=== PATIENT | female | born 1955 | race Caucasian/White ===

== ENCOUNTER → 2018-02-06 16:41 | Outpatient (CLI) | payer OTHER, SELFPAY | PROVIDERS: Family Provider Internal Medicine; PCP Internal Medicine; Referring Provider Nurse Practitioner Women's Health; Visit Provider Nurse Practitioner Women's Health | DX: R30.0 Dysuria (principal) | CPT/HCPCS: 87086; 87088 ==

== ENCOUNTER → 2018-02-14 13:44 | Outpatient (CLI) | payer OTHER, SELFPAY ==
--- NOTE | 2018-02-14 13:46 | US_ITS ---
STUDY: ULTRASOUND TRANSVAGINAL CLINICAL: Female, 62 years old. Pain. TECHNIQUE: Transvaginal COMPARISON: None. FINDINGS: The uterus is anteverted and measures 8.4 x 4.4 x 4.0 cm. No uterine fibroids. Endometrial thickness 2 mm. Endometrium is hyperechoic. Nabothian cyst on the cervix. No IUD Ovaries are not visualized. There is no free fluid in the pelvis. Images of the bladder are unremarkable. US/Pelvic (Non ) IMPRESSION: Ovaries not visualized otherwise no significant abnormalities. Electronically Signed: Kyle Sadler MD at 7:54 EST , Service support ,
--- NOTE | 2018-02-14 13:46 | US_ITS ---
STUDY: ULTRASOUND TRANSVAGINAL CLINICAL: Female, 62 years old. Pain. TECHNIQUE: Transvaginal COMPARISON: None. FINDINGS: The uterus is anteverted and measures 8.4 x 4.4 x 4.0 cm. No uterine fibroids. Endometrial thickness 2 mm. Endometrium is hyperechoic. Nabothian cyst on the cervix. No IUD Ovaries are not visualized. There is no free fluid in the pelvis. Images of the bladder are unremarkable. US/Transvaginal Non- IMPRESSION: Ovaries not visualized otherwise no significant abnormalities. Electronically Signed: Kyle Sadler MD at 7:54 EST , Service support ,
== END ==
PROVIDERS: Family Provider Internal Medicine; PCP Internal Medicine; Referring Provider Nurse Practitioner Women's Health; Visit Provider Nurse Practitioner Women's Health
DX: N81.4 Uterovaginal prolapse, unspecified (principal)
CPT/HCPCS: 76830; 76856

== ENCOUNTER 2019-02-12 13:20 | Emergency (ER) | payer SELFPAY ==
[2019-01-31 11:13] VITALS: BMI 38.7
[2019-02-12 13:20] VITALS: BP 155/98; PULSE 92; RESP 17; TEMP 36.6; O2SAT 98; BMI 40.1
--- NOTE | 2019-02-12 13:57 | CT_ITS ---
STUDY: CT ABDOMEN AND PELVIS WITH CONTRAST REASON FOR EXAM: Female, 63 years old. Right flank pain with radiation. RADIATION DOSAGE (If Supplied By Facility): CTDIvol = ( 15.41 ) mGy, DLP = ( 1205.35 ) mGycm TECHNIQUE: Transaxial images were obtained from the dome of the diaphragm to the symphysis pubis without oral contrast. IV 100mL Isovue-300 100 was administered. Sagittal and coronal images were reconstructed. Individualized dose optimization techniques were used for this CT. COMPARISON: None. FINDINGS: The visualized lung bases are unremarkable. The visualized portions of the heart are within normal limits. Normal liver. The patient is status post cholecystectomy. Normal spleen. Normal pancreas. Normal bilateral adrenal glands. Normal right kidney. Normal left kidney. Normal visualized stomach. Normal small intestine. There are scattered colonic diverticula consistent with diverticulosis. The appendix is visualized and appears normal. There is scattered atherosclerotic calcification of the abdominal aorta, without a demonstrated aneurysm. Normal inferior vena cava. There is borderline retroperitoneal lymphadenopathy with enlarged nodes no greater than 10mm in the short axis diameter. Normal urinary bladder. Evidence of bilateral tubal ligation. Normal abdominal wall. Normal osseous structures. CT/Abdomen/Pelvis W IV Cont ONLY IMPRESSION: No acute abnormality is seen. Electronically Signed: Ede Barragan, at 15:18 EST , Service support ,
[2019-02-12] MEDS: 0.9% Normal Saline 1,000 ML 1000 ML IV (14:11)
[2019-02-12 14:12] LABS: Absolute Lymphocyte Count 1.46 X10^3/uL (0.83-4.51); Absolute Neutrophil Count 4.8 X10^3/uL (2.0-7.7); Basophil# 0.06 X10^3/uL; Basophil% 0.8 % (0-1); Eosinophil# 0.09 X10^3/uL; Eosinophils% 1.3 % (0-5); Hemoglobin 14.6 g/dL (12.0-15.0); Lymphocyte # 1.46 X10^3/ul (4.0); Lymphocyte % 20.5 % (19-41); Mean Corp Hgb Conc 32.4 g/dL (32-36); Mean Corpuscular Hgb 29.1 pg (27.0-32.0); Mean Corpuscular Volume 89.8 fL (81-99); Mean Platelet Vol. 11.2 fl (6.2-12.0); Monocyte# 0.69 X10^3/uL; Monocyte% 9.7 % (0-10); NRBC Flagged by Analyzer 0 % (0-5); Neutrophil % 67.4 % (47-70); Platelet Count 212 K/mm3 (150-450); RBC Distribution Width CV 12.2 % (11.6-14.6); RBC Distribution Width SD 40.2 fl (35.1-43.9); Red Blood Count 5.01 M/mm3 (4.2-5.4); White Blood Count 7.1 K/mm3 (4.4-11.0)
[2019-02-12 14:31] LABS: AST(SGOT) 15 U/L (15-37); Alanine Aminotransfer ALT/SGPT 26 U/L (13-56); Albumin, Serum 4.1 g/dL (3.2-5.0); Alkaline Phosphatase 169 U/L (45-117); Anion Gap 6 (5-15); BUN 12 mg/dL (7-18); BUN/Creat Ratio 14.1 RATIO (10-20); Calcium,Total 9.3 mg/dL (8.5-10.1); Chloride 104 mmol/L (98-107); Creatinine, Serum 0.85 mg/dL (0.55-1.02); EST Glomerular Filtration Rate 72 mL/min (>60); Est Glom Filt Rate - Afr Amer 87 mL/min (>60); Estimated Creatinine Clearance 62.54 ml/min; Globulin 4.1 g/dL (2.2-4.2); Glucose 84 mg/dL (74-106); Lipase 82 U/L (73-393); Potassium 3.5 mmol/L (3.5-5.1); Protein, Total 8.2 g/dL (6.4-8.2); Sodium Level 139 mmol/L (136-145)
[2019-02-12 14:55] LABS: Bacteria 0 SEEN /hpf (None Seen); Mucous, Urine 0 SEEN /hpf (<or=2+); Red Blood Cells-Urine 0 SEEN /hpf (0-5); Squamous Epithelial Cells - UA 0 SEEN /hpf (5-10)
[2019-02-12 15:00] LABS: Color, Urine Yellow (Yellow); Urine Clarity Clear (Clear)
--- NOTE | 2019-02-12 15:04 | ED.VIS.GEN ---
History of Present Illness Chief Complaint: Flank Pain Informant: Patient Onset: Days Context: Gradual Onset Timing: Intermittent Current Severity: Moderate Maximum Severity: Moderate Narrative: The patient presents to the emergency department with right flank pain. She states she has a known lipoma. She actually had it surgically removed. She states she feels like it is returning. Over the past 2 weeks, she is had a lot of pain across her back that radiates into her upper abdomen. She denies any nausea or vomiting. She denies any fevers or chills. Patient states that she did have similar symptoms before. She has no history of kidney stone. She denies any fevers or chills. She is concerned because from family history of pancreatic cancer and states that these were how it presented her family. Prior similar symptoms: No Recent Illness/Hospitalization: No Past Medical History - Allergies and Home Meds Allergies/Adverse Reactions: Allergies acetaminophen [From Darvocet-N 100] Adverse Reaction (Verified 02/12/19 13:23) Nausea amoxicillin [From Augmentin] Adverse Reaction (Verified 02/12/19 13:23) Nausea aspirin [From Percodan] Adverse Reaction (Verified 02/12/19 13:23) Nausea clavulanic acid [From Augmentin] Adverse Reaction (Verified 02/12/19 13:23) Nausea oxycodone [From Percodan] Adverse Reaction (Verified 02/12/19 13:23) Nausea propoxyphene [From Darvocet-N 100] Adverse Reaction (Verified 02/12/19 13:23) Nausea Primary Care Physician: Elver Laws MD [Primary Care Provider] - Prior records reviewed: Yes Surgical History: - Smoking Status: Never smoker Review of Systems ROS: - Lipoma removal General: Denies: Chills, Fever, Sweats Eyes: Denies: Visual changes - bilaterally, Diplopia ENT: Denies: Rhinorrhea, Sore throat Cardiovascular: Denies: Chest pain, Palpitations Respiratory: Denies: Dyspnea, Cough, Dyspnea on exertion Gastrointestinal: Reports: Abdominal pain. Denies: Nausea, Vomiting, Diarrhea, Melena, Hematochezia Genitourinary: Denies: Dysuria, Hematuria, Frequency Musculoskeletal: Reports: Back pain. Denies: Extremity Pain Skin: Denies: Rash, Wounds Neurological: Denies: Headache, Weakness, Numbness Physical Exam Vital Signs/Narrative: Vital Signs Temp Pulse Resp BP Pulse Ox 02/12/19 13:20 97.8 F 92 17 155/98 H 98 Inital Vital Signs reviewed: Yes General: Well nourished, Well developed, No Acute Distress Head: Normocephalic, Atraumatic Eyes: Perrl, EOMI ENT: Moist mucous membranes, No rhinorrhea Neck: Supple, Nontender Cardiovascular: Regular rate, Regular rhythm, No murmurs Respiratory: No distress, CTA bilaterally, Chest nontender Abdomen: Soft, Nontender, Nondistended, Normal bowel sounds Back: Normal Inspection, - - Tenderness and right-sided lipoma. No erythema. No rash. No fluctuance. Extremities: Nontender, No edema Skin: Normal color, No rash Neurological: Alert, Oriented x3, Cranial nerves II-XII grossly intact, Normal Strength, Normal Sensation Psychological: Normal affect, Normal Mood Diagnostic/Tx/Re-eval Clinical Impression(s) from Imaging Studies Abdomen/Pelvis CT 02/12/19 13:57 IMPRESSION: No acute abnormality is seen. Electronically Signed: Ede Barragan, at 15:18 EST , Service support , Abnormal Lab Results 02/12/19 02/12/19 02/12/19 14:05 14:05 14:50 WBC 7.1 RBC 5.01 Hgb 14.6 Hct 45.0 MCV 89.8 MCH 29.1 MCHC 32.4 RDW Std Deviation 40.2 RDW Coeff of Aliza 12.2 Plt Count 212 MPV 11.2 Immature Gran % (Auto) 0.300 Neut % (Auto) 67.4 Lymph % (Auto) 20.5 Mesa % (Auto) 9.7 Eos % (Auto) 1.3 Baso % (Auto) 0.8 Absolute Neuts (auto) 4.8 Absolute Lymphs (auto) 1.46 Nucleated RBC % 0 Sodium 139 Potassium 3.5 Chloride 104 Carbon Dioxide 29.0 Anion Gap 6 BUN 12 Creatinine 0.85 Estim Creat Clear Calc 62.54 Est GFR (MDRD) Af Amer 87 Est GFR (MDRD) Non-Af 72 BUN/Creatinine Ratio 14.1 Glucose 84 Calcium 9.3 Total Bilirubin 0.50 AST 15 ALT 26 Alkaline Phosphatase 169 H Total Protein 8.2 Albumin 4.1 Globulin 4.1 Albumin/Globulin Ratio 1.0 Lipase 82 Urine Color Yellow Urine Clarity Clear Urine pH 7.0 Ur Specific [place] 1.005 Urine Protein NEGATIVE Urine Glucose (UA) Normal Urine Ketones Negative Urine Occult Blood Negative Urine Nitrite NEGATIVE Urine Bilirubin Negative Urine Urobilinogen Normal Ur Leukocyte Esterase NEGATIVE Urine RBC 0 SEEN Urine WBC 0-5 SEEN Ur Squamous Epith Cells 0 SEEN Urine Bacteria 0 SEEN Urine Mucus 0 SEEN - Medical Decision Making The patient presents with right flank pain that radiates around to her upper abdomen. She does have a lipoma that is freely mobile. There was no skin change. Screen labs were obtained and were unremarkable. Urine shows no evidence of infection. CT does not show any acute intra-abdominal abnormality. Her pancreas is normal. On reevaluation, the patient is resting comfortably. My suspicion is more for a muscular process. She does not want analgesics. The patient was reassured. At this point I do feel that she is safe for outpatient therapy. She is comfortable with this plan of care and will be discharged home. Impression 1. Right flank pain ED Disposition - Plan for ED Patient: Instructions: FLANK PAIN, Uncertain Cause Referrals: Elver Laws MD [Primary Care Provider] -
[2019-02-12 15:09] LABS: White Blood Cells 0-5 SEEN /hpf (0-5)
[2019-02-12 15:26] LABS: Glucose, Dipstick Normal (Normal); Ketone-Dipstick Negative (Negative); Specific Gravity, Urine 1.005 (1.002-1.030); Urine Bilirubin Dipstick Negative (Negative)
[2019-02-12 15:27] LABS: Nitrite-Dipstick NEGATIVE (Negative); Protein-Dipstick NEGATIVE (Negative); Urine Urobilinogen Normal (Normal)
[2019-02-12 15:28] LABS: Leukocyte Esterase-Dipstick NEGATIVE /ul (Negative); Occult Blood-Urine Negative /ul (Negative)
[2019-02-12 16:30] VITALS: BP 141/87; PULSE 86; RESP 16; O2SAT 99
== END 2019-02-12 16:31 | disposition home or self-care (01) ==
LOC: ED 13:59
PROVIDERS: Emergency Provider Emergency Medicine; Family Provider Internal Medicine; PCP Internal Medicine
DX: R10.9 Unspecified abdominal pain (principal); Z88.0 Allergy status to penicillin; Z88.5 Allergy status to narcotic agent; Z88.6 Allergy status to analgesic agent
CPT/HCPCS: 74177; 80053; 81001; 83690; 85025; 96360; 99285; J7030; Q9967; A4216

== ENCOUNTER → 2019-08-14 11:17 | Outpatient (CLI) | payer SELFPAY ==
[2019-07-10 10:18] VITALS: BMI 40.1
--- NOTE | 2019-08-14 11:19 | RAD_ITS ---
STUDY: X-RAY - RIGHT HAND REASON FOR EXAM: Female, 63 years old. Painful wrist and into hand since june TECHNIQUE: 3 view(s) of the hand. COMPARISON: None. FINDINGS: Normal radiocarpal articulation. Normal distal radioulnar joint. Normal visualized carpal bones. Normal carpal articulations Normal carpometacarpal articulation of the thumb. Normal second through fifth carpometacarpal joints. Normal metacarpi. Normal metacarpophalangeal joint of the thumb. Normal interphalangeal joint of the thumb. Normal proximal and distal phalanges of the thumb. Normal metacarpophalangeal joints of the second through fifth fingers. Normal proximal and distal interphalangeal joints of the second through fifth fingers. Normal phalanges of the second through fifth fingers. The soft tissue structures are unremarkable. RAD/Hand Min 3 Views IMPRESSION: Normal x-ray examination of the hand. Electronically Signed: Ede Barragan, at 13:52 EDT , Service support ,
[2019-08-14 12:36] LABS: Hemoglobin A1c 6.1 % (4.2-6.3)
[2019-08-14 12:44] LABS: Cholesterol 216 mg/dL (200); High Density Lipoprotein 53 mg/dL; Triglycerides 169 mg/dL; Very Low Density Lipoprotein 34 mg/dL (5-40)
== END ==
PROVIDERS: PCP Internal Medicine; Referring Provider Internal Medicine; Visit Provider Internal Medicine
DX: M65.4 Radial styloid tenosynovitis [de Quervain] (principal); M25.531 Pain in right wrist; I10 Essential (primary) hypertension; R73.03 Prediabetes
CPT/HCPCS: 36415; 73130; 80061; 83036

== ENCOUNTER → 2020-01-09 11:17 | Outpatient (CLI) | payer SELFPAY ==
[2019-12-11 10:55] VITALS: BMI 40.1
[2020-01-09 10:57] VITALS: BMI 40.1
--- NOTE | 2020-01-09 11:21 | BI_ITS ---
MAMMOGRAPHY - BILATERAL SCREENING REASON FOR EXAM: Female, 64 years old. Routine annual screening examination. PERTINENT HISTORY: Non-contributory. TECHNIQUE: Digital bilateral breast giuseppe (3D mammographic acquisition) in the CC and MLO projections. 2-D mediolateral oblique (MLO) and craniocaudad (CC) views of both breasts were obtained. CAD: Full Field Digital Mammography with Computer Added Detection was performed. COMPARISON: Comparison is made with prior study dated 01/04/2017. FINDINGS: Breast Composition: The breasts are almost entirely fatty. There are no dominant masses or suspicious calcifications. Stable small benign appearing bilateral axillary lymph nodes. No other significant abnormalities are identified. There has been no significant change since the prior study. BI/SCREEN MAMM (CAD) W/GIUSEPPE BILAT IMPRESSION: Stable bilateral screening mammogram. Yearly follow-up mammogram recommended. (A) ASSESSMENT CATEGORY: BIRADS Category 2: Benign. A letter regarding these results will be sent to the patient by the facility within 30 days. Approximately 10% of breast cancers are not detected by mammography. A normal mammogram should not delay biopsy of a clinically suspicious abnormality. [id number] Electronically Signed: Ede Barragan, at 12:39 EDT , Service support ,
== END ==
PROVIDERS: PCP Internal Medicine; Referring Provider Nurse Practitioner Women's Health; Visit Provider Nurse Practitioner Women's Health
DX: Z12.31 Encounter for screening mammogram for malignant neoplasm of breast (principal)
CPT/HCPCS: 77063; 77067

== ENCOUNTER → 2020-02-26 17:28 | Outpatient (CLI) | payer MEDICARE, SELFPAY ==
[2020-01-09 10:57] VITALS: BMI 40.1
== END ==
PROVIDERS: PCP Internal Medicine; Referring Provider Internal Medicine; Visit Provider Internal Medicine
DX: Z20.828 Contact with and (suspected) exposure to other viral communicable diseases (principal)
CPT/HCPCS: 87635; C9803; U0003

== ENCOUNTER → 2020-03-14 10:46 | Outpatient (CLI) | payer SELFPAY ==
[2020-03-14 09:51] VITALS: BMI 39.9
--- NOTE | 2020-03-14 11:44 | RAD_ITS ---
STUDY: X-RAY - RIGHT KNEE REASON FOR EXAM: Female, 64 years old. right knee pain, complains of sciatica. TECHNIQUE: 4 view(s) of the knee. COMPARISON: None. FINDINGS: Normal visualized distal femur. Normal visualized proximal tibia and fibula. Normal proximal tibiofibular articulation. Normal medial femorotibial compartment. Normal lateral femorotibial compartment. Normal patellofemoral articulation. The soft tissue structures are unremarkable. RAD/Knee 4 or More Views IMPRESSION: Normal x-ray examination of the knee. Electronically Signed: Augusto Bo MD at 17:12 EST Tel , Service support ,
--- NOTE | 2020-03-14 11:44 | RAD_ITS ---
STUDY: X-RAY - LEFT KNEE REASON FOR EXAM: Female, 64 years old. left knee pain for 3 weeks, complains of sciatica. TECHNIQUE: 4 view(s) of the knee. COMPARISON: None. FINDINGS: Normal visualized distal femur. Normal visualized proximal tibia and fibula. Normal proximal tibiofibular articulation. Normal medial femorotibial compartment. Normal lateral femorotibial compartment. Normal patellofemoral articulation. The soft tissue structures are unremarkable. RAD/Knee 4 or More Views IMPRESSION: Normal x-ray examination of the knee. Electronically Signed: Augusto Bo MD at 17:11 EST Tel , Service support ,
--- NOTE | 2020-03-14 11:50 | RAD_ITS ---
STUDY: X-RAY - LUMBAR SPINE REASON FOR EXAM: Female, 64 years old. lower back pain x 3-4 months. TECHNIQUE: 5 view(s) of the lumbar spine were obtained. COMPARISON: None FINDINGS: Normal lumbar lordosis. There is no substantial scoliosis. There is a normal alignment of the vertebrae. Normal vertebral bodies and endplates. Normal disc space heights. The soft tissue structures are unremarkable. RAD/L/S Spine Min 4 Views IMPRESSION: Normal x-ray examination of the lumbar spine. Electronically Signed: Augusto Bo MD at 17:58 EST Tel , Service support ,
[2020-03-14 13:00] LABS: Absolute Lymphocyte Count 1.26 X10^3/uL (0.83-4.51); Absolute Neutrophil Count 3.5 X10^3/uL (2.0-7.7); Basophil# 0.05 X10^3/uL; Basophil% 0.9 % (0-1); Eosinophil# 0.07 X10^3/uL; Eosinophils% 1.3 % (0-5); Hematocrit 46.3 % (37-47); Hemoglobin 14.7 g/dL (12.0-15.0); Lymphocyte # 1.26 X10^3/ul (4.0); Lymphocyte % 22.9 % (19-41); Mean Corp Hgb Conc 31.7 g/dL (32-36); Mean Corpuscular Hgb 28.9 pg (27.0-32.0); Mean Platelet Vol. 12.2 fl (6.2-12.0); Monocyte# 0.66 X10^3/uL; NRBC Flagged by Analyzer 0 % (0-5); Neutrophil # 3.45 X10^3/uL (2.7-7.7); Neutrophil % 62.5 % (47-70); Platelet Count 217 K/mm3 (150-450); RBC Distribution Width CV 12.4 % (11.6-14.6); RBC Distribution Width SD 41.5 fl (35.1-43.9); Red Blood Count 5.09 M/mm3 (4.2-5.4); White Blood Count 5.5 K/mm3 (4.4-11.0)
[2020-03-14 13:16] LABS: ALB/GLOB Ratio 1.1 RATIO (0.9-2.4); AST(SGOT) 18 U/L (15-37); Alanine Aminotransfer ALT/SGPT 33 U/L (13-56); Alkaline Phosphatase 168 U/L (45-117); Anion Gap 5 (5-15); BUN 20 mg/dL (7-18); BUN/Creat Ratio 21.8 RATIO (10-20); Calcium,Total 9.3 mg/dL (8.5-10.1); Chloride 107 mmol/L (98-107); Creatinine, Serum 0.92 mg/dL (0.55-1.02); EST Glomerular Filtration Rate 66 mL/min (>60); Est Glom Filt Rate - Afr Amer 80 mL/min (>60); Globulin 3.8 g/dL (2.2-4.2); Glucose 101 mg/dL (74-106); Potassium 4.2 mmol/L (3.5-5.1); Protein, Total 7.8 g/dL (6.4-8.2); Sodium Level 140 mmol/L (136-145)
== END ==
LOC: BIMLAB 10:47 → RAD 11:16
PROVIDERS: PCP Internal Medicine; Referring Provider Internal Medicine; Visit Provider Internal Medicine
DX: M25.561 Pain in right knee (principal); M25.562 Pain in left knee; M54.16 Radiculopathy, lumbar region; I10 Essential (primary) hypertension
CPT/HCPCS: 36415; 72110; 73564; 80053; 85025

== ENCOUNTER → 2020-05-20 16:42 | Outpatient (CLI) | payer SELFPAY ==
[2020-04-15 11:12] VITALS: BMI 40.2
--- NOTE | 2020-05-20 16:43 | MRI_ITS ---
STUDY: MRI LEFT KNEE REASON FOR EXAM: Posterior left knee pain for 3.5-4 months. TECHNIQUE: Standardized fat and water weighted pulse sequences were obtained in all 3 orthogonal planes. COMPARISON: Radiographs 03/14/2020. FINDINGS: There is a complex tear of the posterior horn of the medial meniscus (proton-density sagittal images 9-16; T2 coronal images 14, 15). There is mild peripheral subluxation of the medial meniscus. Normal hyaline cartilage of the medial femorotibial compartment. There is slight subchondral bone edema of the medial tibial plateau. Normal medial collateral ligamentous complex (MCL). Normal distal semimembranosus, gracilis and semitendinosus tendons. Normal lateral meniscus. Normal hyaline cartilage of the lateral femorotibial compartment. Normal lateral femoral condyle and tibial plateau. Normal proximal tibiofibular articulation. Normal lateral collateral (fibular) ligament. Normal popliteus tendon. Normal biceps femoris tendon. There is intrasubstance mucoid degeneration of the anterior cruciate ligament (T2 sagittal image 13). Normal posterior cruciate ligament (PCL). Normal congruent patellofemoral articulation. Normal hyaline cartilage of the patellofemoral compartment. Normal medial and lateral patellar retinaculum. Normal visualized quadriceps tendon. Normal patellar tendon. Normal Hoffa''s fat pad. There is a small joint effusion. There is mild edema in the subcutis adipose space. The otherwise visualized osseous structures are unremarkable. MRI/Lower Ext Joint Only (Routine) IMPRESSION: Medial meniscal tear. Small joint effusion. No demonstrated popliteal cyst. Electronically Signed: Nestor Carrera MD at 8:35 EST Tel , Service support ,
== END ==
PROVIDERS: PCP Internal Medicine; Referring Provider Orthopaedic Surgery; Visit Provider Orthopaedic Surgery
DX: M25.562 Pain in left knee (principal); M71.22 Synovial cyst of popliteal space [Baker], left knee; M79.10 Myalgia, unspecified site
CPT/HCPCS: 73721

== ENCOUNTER 2020-06-10 05:37 | Day surgery (SDC) | payer SELFPAY ==
[2020-04-15 11:12] VITALS: BMI 40.2
--- NOTE | 2020-06-09 15:45 | HP.PCM_ITS ---
History and Physical Date of Admission: 06/09/20 Intake Intake Visit Reasons: knee Chief Complaint: left knee Accompanied by: Self Is patient in pain?: Yes Pain scale (1-10): 5 Allergies acetaminophen [From Darvocet-N 100] Adverse Reaction (Verified 05/26/20 10:37) Nausea amoxicillin [From Augmentin] Adverse Reaction (Verified 05/26/20 10:37) Nausea aspirin [From Percodan] Adverse Reaction (Verified 05/26/20 10:37) Nausea clavulanic acid [From Augmentin] Adverse Reaction (Verified 05/26/20 10:37) Nausea oxycodone [From Percodan] Adverse Reaction (Verified 05/26/20 10:37) Nausea propoxyphene [From Darvocet-N 100] Adverse Reaction (Verified 05/26/20 10:37) Nausea Medications calcium carbonat and lactate 200 mg calcium-vitamin D3 250 unit tablet 2 tab PO HS 05/12/17 [History Confirmed 05/26/20] fluticasone furoate 100 mcg-vilanterol 25 mcg/dose inhalation powder 1 inh INHALATION DAILY 90 Days #90 ea 06/20/19 [Rx Confirmed 05/26/20] albuterol sulfate 90 mcg/actuation aerosol inhaler 2 puff INHALATION Q6H PRN #8.5 g 07/09/19 [Rx Confirmed 05/26/20] albuterol sulfate 2.5 mg INHALATION Q6H PRN #90 ml 07/10/19 [Rx Confirmed 05/26/20] estradiol See Rx Instructions VAGINAL .COMPLEX #42.5 g 12/11/19 [Rx Confirmed 05/26/20] triamterene 37.5 mg-hydrochlorothiazide 25 mg tablet 1 tab PO DAILY #90 tab 01/30/20 [Rx Confirmed 05/26/20] clobetasol 0.05 % topical cream 1 applic TOPICAL .COMPLEX PRN g 03/14/20 [History Confirmed 05/26/20] mv-min-vit C-ascorb Sw-Jbg-Mah-herb #124 333 mg-1.7 mg chewable tablet tab PO 03/19/20 [History Confirmed 05/26/20] amlodipine 5 mg tablet 5 mg PO DAILY #90 tab 04/15/20 [Rx Confirmed 05/26/20] meloxicam 15 mg tablet 15 mg PO DAILY 05/14/20 [History Confirmed 05/26/20] [facility] Medical History (Updated 05/26/20 @ 10:53 by Irene Mauro) Chronic knee pain (Chronic) Trigeminal neuralgia (Chronic) Hyperlipemia (Chronic) Borderline hypertension (Chronic) Osteoarthritis (Chronic) Fibromyalgia (Chronic) Asthma (Chronic) Surgical History History of arthroscopy of right knee (Acute) History of cholecystectomy (Acute) History of colonoscopy (Acute) History of tubal ligation (Acute) Family History Mother Cancer, Onset Age: 58 pancreatic Diabetes Father Cancer, Onset Age: 70 pancreatic, passed of it Hypertension Grandfather Heart disease Hypertension Brother Diabetes Hypertension Uncle Colon cancer Social History (Updated 05/26/20 @ 11:[address] Tommy Mendez DO) Smoking Status: Never smoker alcohol intake: never substance use type: does not use caffeine: Yes what type of physical activity do you participate in: walking frequency: 3-4 times per week seatbelt use: always do you feel safe at home: Yes additional social history: [employer]- Retired Patient is retired HPI knee: Details: Parts of this documentation were recorded by a scribe, this documentati on accurately reflects the service provided and the decisions made by me, Dr. Tommy Mendez DO 05/26/20 0749. ROSEANNE JOLLEY is a 64 year old F here today for follow up of MRI. MRI of left knee was done: 05/20/2020. Patient reports the same pain with her left knee. Pain is rated: 5/10 from the pain scale. Patient reports tightness with her hamstrings. Patient states she did not have pain with her left knee until she had PT for her right knee years back. Patient has been taking meloxicam for pain relief. She continues to have mostly posterior lateral pain however she is unsure of the exact location as she does not feel she plays specific enough attention to it although she denies any mechanical symptoms still including any snapping popping or giving way ROS Musc Reports system reviewed and no additional complaints, except as docu, Reports joint pain, Reports stiffness Ortho Exam General General: Yes no acute distress Neurologic: Yes alert Psychologic: Yes reasonable and appropriate Left Knee KNEE: click with medial Aldo Left Knee KNEE: Left Knee Skin/Wound: No ecchymosis, No erythema, No swelling Homans Sign: No Knee ROM: Yes ROM-Extension -20 to 0, Yes ROM-Flexion 0-140 Examination: No med jt line tenderness, No Lat jt line tenderness, No Aldo's Test Stability: NML: Anterior Drawer, NML: Posterior Drawer, NML: Valgus 30, NML: Varus 30 Apprehension with Lateral Translation: No Patella Translation: 1 mild tenderness over lateral gas troch non tender over biceps femoris collaterals normal without pain She does have lower extremity edema bilaterally and stiff this of her gastrocsoleus complex lateral gastrocnemius tenderness Supplemental Info 05/20/2020 MRI Left knee: Complex tear posterior horn medial meniscusSmall joint effusion 03/14/2020 x-ray left knee: mild lateral patellar tracking no acute findings Assessment & Plan Problems 1. Complex tear of medial meniscus of left knee, unspecified whether old or current tear, initial encounter S83.162Q Plan Personally reviewed the patient's medical history, medications, surgeries and recent exams if available. MRI does show a Medial meniscus tear on her left knee. MRI does not show any Guo's cyst or soft tissue tumor We discussed risk benefits and alternatives of surgery as her symptoms are mostly lateral and her meniscus tear is medial the risk of continued pain is a possibility Discussed continued conservative care as an option as well physical therapy and weight loss and continued NSAID use. Patient could begin wearing SWETA Hose/compression stockings for her pitting edema. Explained patient can perform stretches for her Calves to help with her feeling of stiffness. Patient can also work out with a Recumbant bike, leg extension and leg curls. Discussed increased risk of post meniscal tear arthritis Regardless of treatmentPatient is able to take Tylenol, up to 1,000mg four times a day for pain relief. Recovery time is 4-6 weeks or longer, she does have Fibromyalgia. Patient will ambulate with crutches for a few days post-op. Patient would like to proceed with surgery after speaking to her spouse. Plan Detail Follow Up post-op Coding Level of Care Code Off vis,est,level 3 Diagnoses Complex tear of medial meniscus of left knee, unspecified whether old or current tear, initial encounter S83.800C ??Encounter type: initial encounter ??Meniscus of knee: medial ??Meniscus tear of knee type: complex ??Tear current or old: unspecified I have re-examined the patient. There are no clinical changes since date of exam Procedure Criteria Procedure Type: Elective COVID Risk Discussion: The surgeon/proceduralist and patient have discussed in detail the risk of exposure to and/or potential harm posed by the COVID-19 virus with having a surgery/procedure at this time versus the risk of delaying the surgery/procedure. It is not possible to know either the risk of delaying the surgery or procedure or chance of getting an infection with perfect accuracy, but a joint decision was made between the patient and the surgeon/proceduralist to proceed at this time with the scheduled surgery/procedure as indicated on the consent form.
[2020-06-10] VITALS (7 sets, daily range): BP systolic 124–152; BP diastolic 72–89; PULSE 72–96; RESP 16–18; TEMP 36.2–36.7; O2SAT 93–100; BMI 40.7
[2020-06-10] MEDS: Lactated Ringers 1,000 ML 100 ML IV ×2 (06:45→08:32)
[2020-06-10] MEDS: Cefazolin 2 GM in 0.9% Normal Saline 100 ML IV (07:03)
[2020-06-10] MEDS: Bupiv/Epi 0.5% Mpf 30 ML Vial (07:28)
[2020-06-10] MEDS: Epinephrine (1 mg/ml) 1 MG/ML VIAL (07:28)
[2020-06-10] MEDS: MethylPREDNISolone Acetate 40 MG/ML Vial IM (07:48)
[2020-06-10] MEDS: morphine PF (epidural) 5 MG/10 ML Vial (07:48)
[2020-06-10] MEDS: Bupivacaine Mpf 0.5% 30 ML VIAL (07:48)
--- NOTE | 2020-06-10 07:52 | DCINST_ITS ---
Discharge Diet: No Restrictions Weight Bearing Status: Weight bearing as tolerated Call your doctor if you observe: Shortness of breath, Chest pain Additional Instructions: Ice and elevate next 72 hours .keep dressing on clean and dry for 48 hours then may remove begin showering daily but do not submerge in tub or pool. After shower may apply Band-Aids . Encourage knee range of motion weightbearing as tolerated, use crutches until confident in knee then may discontinue. No stren uous activity. When not ambulating keep iced and elevated next 72 hours. Do not mix pain medication with recreational drugs or alcohol only take as prescribed can be addictive and abusive, call with any questions or concerns. Allergies/Adverse Reactions: Allergies amoxicillin [From Augmentin] Adverse Reaction (Verified 05/26/20 10:37) Nausea clavulanic acid [From Augmentin] Adverse Reaction (Verified 05/26/20 10:37) Nausea oxycodone [From Percodan] Adverse Reaction (Verified 05/26/20 10:37) Nausea propoxyphene [From Darvocet-N 100] Adverse Reaction (Verified 05/26/20 10:37) Nausea Medications to take at Discharge calcium carbonat and lactate 200 mg calcium-vitamin D3 250 unit tablet 2 tab PO HS 05/12/17 albuterol sulfate 90 mcg/actuation aerosol inhaler 2 puff INHALATION Q6H PRN #8.5 g 07/09/19 estradiol See Rx Instructions VAGINAL .COMPLEX #42.5 g 12/11/19 mv-min-vit C-ascorb Gy-Gsg-Len-herb #124 333 mg-1.7 mg chewable tablet 1 tab PO DAILY 03/19/20 meloxicam 15 mg tablet 15 mg PO DAILY 05/14/20 triamterene 37.5 mg-hydrochlorothiazide 25 mg tablet 1 tab PO DAILY #90 tab 06/04/20 Amlodipine Besylate [Norvasc] 5 mg PO DINNER 06/10/20 Fluticasone/Vilanterol [Breo Ellipta Inhaler] 1 ea IH DAILY 06/10/20 Hydrocodone Bitart/Apap 5-325 [[place] 5MG-325MG] 1 - 2 tablet PO Q4H PRN PRN 5 Days #30 tablet 06/10/20 Ondansetron HCl [Zofran] 4 mg PO Q6H PRN PRN 5 Days #20 tab 06/10/20 The following prescriptions were given: Hydrocodone Bitart/Apap 5-325 [[place] 5MG-325MG] 1 - 2 tablet PO Q4H PRN PRN 5 Days #30 tablet PRN Reason: Pain Transmission Status: Sent to [facility] Ondansetron HCl [Zofran] 4 mg PO Q6H PRN PRN 5 Days #20 tab PRN Reason: Nausea Transmission Status: Pending to [facility] Primary Care Physician: Elver Laws MD [Primary Care Provider] - Test Results: Test results from this visit will be discussed in further detail at your follow- up appointment, if applicable. Please Follow Up With: Tommy Mendez DO - 2 weeks
[2020-06-10] MEDS: HYDROcodone Bitartrate/Apap 5/325 Tablet PO (09:40)
--- NOTE | 2020-06-10 09:47 | OP.PCM_ITS ---
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 Risk benefits and alternatives of the procedure were reviewed including risk of bleeding infection nerve artery tissue damage need for further surgery continued pain and expected postoperative course. Procedure: The patient was met in the preoperative holding area. The operative extremity was identified by both patient and physician and family and marked. Patient was brought back to the operating room on a wheeled cart and transferred to the operating table in the supine position. Anesthesia was started. A well- padded tourniquet was placed on the operative extremity. A lower extremity leg ferguson was secured to the operative extremity. The contralateral extremity was well-padded and the end of the bed was flexed to 90 degrees. The patient was prepped and draped in the usual sterile fashion. A timeout was called to ensure the proper patient, procedure, and extremity were being contemplated. 0.5% Marcaine with epinephrine was injected into the planned incisional areas under the skin only. An Esmarch was used to exsanguinate the extremity and the tourniquet was inflated. An 11 blade scalpel was used to make a stab incision in the anterior lateral portal. The arthroscope was inserted into the intercondylar notch and inflow and outflow tubes were attached. Arthroscopic visualization began. The medial compartment was entered. An 18-gauge spinal needle was used to establish the placement for anterior medial portal. An 11 blade scalpel was used to make a stab incision. Blunt probe was inserted followed by a meniscal probe. The medial meniscus was found to have complex tearing of the posterior horn and body and with use of arthroscopic biting instruments and a shaver a partial medial meniscectomy was performed there was also loose cartilage fragments of the medial femoral condyle which were debrided with a shaver performing a chondroplasty the ACL was found to be intact. The lateral compartment was entered and it was free of any meniscal or cartilage pathology The arthroscope was switched to the medial portal to complete the procedure. The medial and lateral gutters were inspected and were free of loose bodies. The patellofemoral joint was inspected and had grade 3 cartilage wear of the undersurface of the patella. There was good patellar tracking. The knee was thoroughly irrigated and drained. An intra-articular injection with 5 cc 0.5% Marcaine plain 2.5 mg of morphine and 40 mg of Depo-Medrol was injected intra-articularly. The arthroscope was removed the portals were closed with 3-0 nylon arthroscopic stitches. Followed by Xeroform 4 x 4's ABDs web roll and an Ezequiel wrap. The tourniquet was let down and the drapes were removed. All counts were correct. The patient was brought back to the PACU in stable condition.
== END 2020-06-10 10:38 | disposition home or self-care (01) ==
LOC: SDC 05:38 → AC 05:38
PROVIDERS: PCP Internal Medicine; Referring Provider Orthopaedic Surgery; Visit Provider Orthopaedic Surgery
PROC: (CPT 29870; principal; 2020-06-10 06:55)
DX: S83.232A Complex tear of medial meniscus, current injury, left knee, initial encounter (principal); M22.42 Chondromalacia patellae, left knee; X58.XXXA Exposure to other specified factors, initial encounter; Y93.9 Activity, unspecified; Y92.9 Unspecified place or not applicable; Y99.9 Unspecified external cause status; Z20.822 Contact with and (suspected) exposure to COVID-19; M79.7 Fibromyalgia; R03.0 Elevated blood-pressure reading, without diagnosis of hypertension; J45.909 Unspecified asthma, uncomplicated; Z78.0 Asymptomatic menopausal state; Z79.1 Long term (current) use of non-steroidal anti-inflammatories (NSAID); Z79.899 Other long term (current) drug therapy
CPT/HCPCS: 01400; 29881; 87426; C9803; J7120; J2405

== ENCOUNTER → 2020-07-30 11:10 | Outpatient (CLI) | payer SELFPAY ==
[2020-07-30 10:50] VITALS: BMI 40.4
[2020-07-30 14:34] LABS: Anion Gap 5 (5-15); BUN 19 mg/dL (7-18); BUN/Creat Ratio 20.7 RATIO (10-20); Calcium,Total 9.4 mg/dL (8.5-10.1); Chloride 106 mmol/L (98-107); Creatinine, Serum 0.92 mg/dL (0.55-1.02); EST Glomerular Filtration Rate 66 mL/min (>60); Est Glom Filt Rate - Afr Amer 80 mL/min (>60); Glucose 92 mg/dL (74-106); Potassium 4.1 mmol/L (3.5-5.1); Sodium Level 139 mmol/L (136-145)
== END ==
PROVIDERS: PCP Internal Medicine; Referring Provider Internal Medicine; Visit Provider Internal Medicine
DX: I10 Essential (primary) hypertension (principal)
CPT/HCPCS: 36415; 80048

== ENCOUNTER → 2020-11-12 | Outpatient (CLI) | payer MEDICARE, SELFPAY ==
[2020-11-05 13:05] VITALS: BMI 40.4
[2020-11-12 17:46] LABS: Probe Check PASS
== END | disposition home or self-care (01) ==
LOC: LABSPEC 16:09
PROVIDERS: PCP Internal Medicine; Referring Provider Nurse Practitioner Family; Visit Provider Nurse Practitioner Family
DX: U07.1 COVID-19 (principal)
CPT/HCPCS: 87635; U0005; U0003

== ENCOUNTER → 2020-12-29 16:14 | Outpatient (CLI) | payer SELFPAY ==
[2020-12-29 16:41] LABS: Absolute Lymphocyte Count 1.32 X10^3/uL (0.83-4.51); Absolute Neutrophil Count 4.2 X10^3/uL (2.0-7.7); Basophil# 0.05 X10^3/uL; Basophil% 0.8 % (0-1); Eosinophil# 0.11 X10^3/uL; Eosinophils% 1.7 % (0-5); Hematocrit 44.8 % (37-47); Hemoglobin 14.4 g/dL (12.0-15.0); Lymphocyte # 1.32 X10^3/ul (0.83-4.51); Lymphocyte % 20.1 % (19-41); Mean Corp Hgb Conc 32.1 g/dL (32-36); Mean Corpuscular Volume 90.1 fL (81-99); Mean Platelet Vol. 11.6 fl (6.2-12.0); Monocyte# 0.85 X10^3/uL; Monocyte% 12.9 % (0-10); NRBC Flagged by Analyzer 0 % (0-5); Neutrophil # 4.23 X10^3/uL (2.7-7.7); Neutrophil % 64.2 % (47-70); Platelet Count 237 K/mm3 (150-450); RBC Distribution Width CV 12.8 % (11.6-14.6); Red Blood Count 4.97 M/mm3 (4.2-5.4); White Blood Count 6.6 K/mm3 (4.4-11.0)
[2020-12-29 17:21] LABS: ALB/GLOB Ratio 0.9 RATIO (0.9-2.4); AST(SGOT) 20 U/L (15-37); Alanine Aminotransfer ALT/SGPT 36 U/L (13-56); Albumin, Serum 3.8 g/dL (3.2-5.0); Alkaline Phosphatase 153 U/L (45-117); Anion Gap 7 (5-15); BUN 19 mg/dL (7-18); BUN/Creat Ratio 20.8 RATIO (10-20); Calcium,Total 9.1 mg/dL (8.5-10.1); Chloride 105 mmol/L (98-107); Cholesterol 231 mg/dL (200); Creatinine, Serum 0.92 mg/dL (0.55-1.02); EST Glomerular Filtration Rate 66 mL/min (>60); Est Glom Filt Rate - Afr Amer 80 mL/min (>60); Globulin 4.2 g/dL (2.2-4.2); Glucose 100 mg/dL (74-106); High Density Lipoprotein 62 mg/dL; Potassium 3.6 mmol/L (3.5-5.1); Sodium Level 139 mmol/L (136-145); T4 Free Direct 1.02 ng/dL (0.76-1.46); Thyroid Stim Hormone (TSH) 1.94 uIU/mL (0.358-3.74); Triglycerides 217 mg/dL; Very Low Density Lipoprotein 43 mg/dL (5-40)
== END ==
PROVIDERS: PCP Internal Medicine; Referring Provider Internal Medicine; Visit Provider Internal Medicine
DX: I10 Essential (primary) hypertension (principal); Z13.29 Encounter for screening for other suspected endocrine disorder
CPT/HCPCS: 36415; 80053; 80061; 84439; 84443; 85025

== ENCOUNTER → 2021-01-16 13:54 | Outpatient (CLI) | payer SELFPAY ==
--- NOTE | 2021-01-16 13:55 | VDLE_ITS ---
Reason For Study: Pain RIGHT LEFT GSV is normal. GSV is normal. CFV is compressible, spontaneous, phasic, CFV is compressible, spontaneous, phasic, competent and demonstrates normal competent, and demonstrates normal augmentation. augmentation. FV is compressible, spontaneous, phasic, FV is compressible, spontaneous, phasic, competent and demonstrates normal competent and demonstrates normal augmentation. augmentation. POP V is compressible, spontaneous, phasic, POP V is compressible, spontaneous, phasic, competent and demonstrates normal competent and demonstrates normal augmentation. augmentation. T/P Trunk is compressible. T/P Trunk is compressible. PTV is compressible. PTV is compressible. RT PerV is compressible. LT PerV is compressible. Procedure This is a venous duplex using B-mode, color flow and spectral Doppler. Exam performed in department. A preliminary report was called and/or faxed to [facility]. VL/Venous Duplex US - Carlo Extrem Interpretation Summary No evidence for acute deep venous thrombosis bilateral lower extremities with p atent and compressible bilateral great saphenous veins. Ordering Physician: James Alvarez Referring Physician: Elver Laws Performed By: Soraya Gupta RVT
== END ==
PROVIDERS: PCP Internal Medicine; Referring Provider Nurse Practitioner Family; Visit Provider Nurse Practitioner Family
DX: R60.0 Localized edema (principal)
CPT/HCPCS: 93970

== ENCOUNTER → 2021-04-07 12:47 | Outpatient (CLI) | payer SELFPAY ==
--- NOTE | 2021-04-07 12:51 | RAD_ITS ---
STUDY: X-RAY CHEST REASON FOR EXAM: Female, 65 years old. cough, wheezing TECHNIQUE: PA and lateral views of the chest. COMPARISON: 06/10/1959 FINDINGS: The lungs are clear and expanded. There is no demonstrated pleural abnormality. Normal size heart. Normal mediastinum and dory. Normal visualized pulmonary arteries. Normal visualized aortic arch and descending thoracic aorta. Normal visualized thoracic spine. Normal visualized ribs, clavicles, and shoulders. There is no demonstrated abnormality of the visualized soft tissue structures of the upper abdomen. RAD/Chest PA and Lateral IMPRESSION: Normal x-ray examination of the chest. Electronically Signed: Augusto Bo MD at 14:26 EST Tel , Service support ,
== END ==
PROVIDERS: PCP Internal Medicine; Referring Provider Physician Assistant; Visit Provider Physician Assistant
DX: J45.909 Unspecified asthma, uncomplicated (principal); R05.9 Cough, unspecified
CPT/HCPCS: 71046; 87635; U0005; U0003

== ENCOUNTER 2021-08-24 14:00 | Outpatient (RCR) | payer SELFPAY ==
--- NOTE | 2021-07-31 12:13 | HP.PTEVAL_ITS ---
Patient's Visit Information ROSEANNE JOLLEY is a 65 year old F referred to Physical Therapy by Dr. Tommy Mendez DO with a diagnosis of CERVICAL DDD ,TRAPEZIUS PAIN,CERVICAL SPONDYLOSIS. Date of Evaluation: 07/31/21 Physical Therapist: Shelton oHgan, PT, Cert MDT, OCS - Visit Plan Frequency: 2x /Week Duration: 4 Weeks Plan: PT INTERVETIONS MODALTIES FOR PAIN ,MANUAL THERAPY STM ,CERVICAL ROM,POSTURAL EX'S AND HEP - Subjective This 65 y/o female presents to physical therapy with with cervical pain. Patient has had cervical pain for~ 5 weeks . Patient noticed pain in neck after cleaning and cabinets. Pain located cervical and UT constant pain with ache occasional sharp pain. Seen DR grace x-rays showed DDD cervical. Patient has had injection knee gel injections, Patient also takes pain MEDS 2 x day. Recommended PT. Aggra vating factors moving ,looking down ,lifting anything heavy ,[place] ,sitting, driving. Alleviating pain MES, heat . Patient able to sleep okay at night. Denies paresthesia/tingling. Denies HILL/dizziness/nausea. Patient pain affects QOL and function with ADL'S and housework tasks. SOCIAL: . VOCATION: retired - Pain Bilateral Neck Pain Intensity (Out of 10): 8 Pain Intensity Range: 10 - Objective POSTURE: mild forward posture ,. PALAPTION:UT/levator/paraspinals. NEURO: denies paresthesia/tingling, reflexes C5-6-7 2/3. CERVICAL ROM: flexion min loss, lateral flexion min loss ,rotation min loss, extension min loss ,retraction/protraction min loss. MMT: BUE 4/5 WFL - Special Tests C/S Radiculapathy - Left Upper limb tension test: Negative C/S Radiculapathy - Right Upper limb tension test: Negative C/S Radiculapathy - Left Spurlings: Negative C/S Radiculapathy - Right Spurlings: Negative C/S Radiculapathy - Left Cervical distraction: Negative C/S Radiculapathy - Right Cervical distraction: Negative C/S Radiculapathy - Left Relief test: Negative Sharp George: Negative Vertebral Artery Test: Negative Alar Ligament Test: Negative Cervical Sitting: Protrusion - Mechanical Response: No effect Cervical Sitting: Protrusion - Symptoms During Testing: No effect Cervical Sitting: Protrusion - Symptoms After Testing: No effect Cervical Sitting: Retraction - Mechanical Response: No effect Cervical Sitting: Retraction - Symptoms During Testing: Increases Cervical Sitting: Retraction - Symptoms After Testing: No better Cerv Sitting: Retraction-Extension - Symptoms During Testing: No effect Cerv Sitting: Retraction-Extension - Symptoms After Testing: No worse Cervical Sitting: Sidebend Right - Mechanical Response: No effect Cervical Sitting: Sidebend Right - Symptoms During Testing: Increases Cervical Sitting: Sidebend Right - Symptoms After Testing: No worse Comments:: STRERCHING OPPOSITE Cervical Sitting: Sidebend Left - Mechanical Response: No effect Cervical Sitting: Sidebend Left - Symptoms After Testing: No worse Comments:: STRETCHING OPPOSITE Cervical Sitting: Rotation Right - Mechanical Response: No effect Cervical Sitting: Rotation Right - Symptoms During Testing: No effect Cervical Sitting: Rotation Right - Symptoms After Testing: No effect Cervical Sitting: Rotation Left - Mechanical Response: No effect Cervical Sitting: Rotation Left - Symptoms After Testing: No effect Cervical Sitting: Flexion - Mechanical Response: No effect Cervical Sitting: Flexion - Symptoms During Testing: No effect Cervical Sitting: Flexion - Symptoms After Testing: No effect - Balance/Special Test Scores Oswestry Neck Score: 17 - Goals Goal 1:: I with HEP for cervical Goal Time Frame: 4-6 Weeks Goal 2:: Patient improve posture for ADLS 90% of the time Goal Time Frame: 4-6 Weeks Goal 3:: Patient to demonstrate 50% improvement function with decrease pain Goal Time Frame: 4-6 Weeks Goal 4:: Patient to improve cervical ROM for function of recovery to turn neck Goal Time Frame: 4-6 Weeks Goal 5:: Patient improve neck oswesty score by 5 points to improve function Goal Time Frame: 4-6 Weeks - Rehabilitation Potential Physical Therapy Diagnosis: This patient has cervical pain with pain with positioning, motion testing affects activates activities with UE ,decrease posture thus will benefit from skilled PT Rehabilitation Potential: Good - Anticipated Interventions Patient/Client Instruction: Educate patient on: Condition, Plan of Care For the Purpose of:: To decrease pain, To increase ROM, To improve muscle performance and motor function, To improve ability to perform ADL's, To increase tolerance to activity/condition/position, To improve ability of physical actions for home/community/work/leisure, To improve health of tissue, To decrease soft tissue restriction, To increase flexibility/ROM, To reduce risk of recurrence, To prevent re-injury Therapeutic Exercise to Include: Strength training, Body mechanics, Postural training, Flexibilty training, Active ROM For the Purpose of:: To decrease pain, To increase ROM, To improve muscle performance and motor function, To improve ability to perform ADL's, To increase tolerance to activity/condition/position, To improve ability of physical actions for home/community/work/leisure, To improve health of tissue, To decrease soft tissue restriction, To increase flexibility/ROM, To reduce risk of recurrence, To prevent re-injury Manual Therapy Techniques to Include: Soft tissue mobilization For the Purpose of:: To decrease pain, To decrease swelling/inflammation, To improve nutrient delivery to tissue, To increase oxygenation perfusion, To improve health of tissue, To decrease soft tissue restriction TENS: Yes IF ES: Yes Cryotherapy (ice pack, ice massage): Yes Thermo therapy (hot pack): Yes Ultrasound (thermal/non thermal): Yes For the Purpose of:: To decrease pain, To decrease swelling/inflammation, To improve nutrient delivery to tissue, To increase oxygenation perfusion, To improve health of tissue, To decrease soft tissue restriction Thank you for the opportunity to evaluate your patient. For Medicare and Medicare HMO plans, please review the plan of care and approve it. It will need to be FAXED BACK to us at [phone] for Medicare purposes. For Medicare only, by signing this I certify the plan of care. Please let me know if there are questions or concerns regarding this plan of care. Physician Signature: Date:
--- NOTE | 2022-01-13 09:55 | HP.PTDCSUM ---
It has been my pleasure to treat ROSEANNE JOLLEY referred by Dr. Tommy Mendez DO, with the diagnosis of CERVICAL DDD ,TRAPEZIUS PAIN,CERVICAL SPONDYLOSIS for a total of 5 visit(s). Discharge Date: Please see the following information for a summary of their discharge status. Subjective: Drives from [place] and needs to stop coming as the drive is long. Wants to continue at home w/ex's she was given. Bilateral Neck Pain Intensity (Out of 10): 4 % Improvement: 40 Objective/Function: Pt want to cont via HEP as the drive for her is too long at this time. 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 CONTACTED [facility] PHONE AND ASKE PATIENT WAS DOING SAID SHE WAS FINE NO PROBLEM AND STATED THANKS IN CHECKING ON HER Goal 1:: I with HEP for cervical Goal 2:: Patient improve posture for ADLS 90% of the time Goal 3:: Patient to demonstrate 50% improvement function with decrease pain Goal 4:: Patient to improve cervical ROM for function of recovery to turn neck Goal 5:: Patient improve neck oswesty score by 5 points to improve function Plan: Pt to be D/C'd per pt request at this time. PT INTERVETIONS MODALTIES FOR PAIN ,MANUAL THERAPY STM ,CERVICAL ROM,POSTURAL EX'S AND HEP If there are questions or concerns regarding this patient's physical therapy, please feel free to call me at [phone]. Thank you for the referral of this patient. Sincerely, Shelton Hogan, PT, Cert MDT, OCS Balance/Gait/Functional tests - Balance/Special Test Scores Oswestry Neck Score: 11
== END 2021-08-24 19:00 | disposition home or self-care (01) ==
LOC: PT 14:00
PROVIDERS: PCP Internal Medicine; Referring Provider Orthopaedic Surgery; Visit Provider Orthopaedic Surgery
DX: M50.30 Other cervical disc degeneration, unspecified cervical region (principal); M47.812 Spondylosis without myelopathy or radiculopathy, cervical region
CPT/HCPCS: 97110; 97162

== ENCOUNTER → 2021-08-31 | Outpatient (CLI) | payer SELFPAY | END | disposition home or self-care (01) | PROVIDERS: PCP Internal Medicine; Visit Provider Nurse Practitioner Women's Health | DX: R30.0 Dysuria (principal) | CPT/HCPCS: 87086 ==

== ENCOUNTER → 2021-12-29 | Outpatient (CLI) | payer SELFPAY ==
--- NOTE | 2021-12-29 10:47 | BI_ITS ---
MAMMOGRAPHY - BILATERAL SCREENING 3-D TOMOSYNTHESIS REASON FOR EXAM: Female, 66 years old. screening mammogram PERTINENT HISTORY: No significant family history. TECHNIQUE: 2-D mammograms and 3-D Tomosynthesis of the breast (s) were performed. CAD was performed. COMPARISON: 01/09/2020 FINDINGS: The breast composition is composed of scattered fibroglandular density. Scattered benign calcifications are seen. No dense spiculated masses or suspicious microcalcifications are identified. No architectural distortion is identified. There is no skin thickening or retraction. There has been no significant change since the prior study. BI/SCRN MAMM (CAD)W/GIUSEPPE BILAT IMPRESSION: No mammographic signs of malignancy. Routine yearly mammograms recommended. ASSESSMENT CATEGORY: BIRADS Category 1: Negative. A letter regarding these results will be sent to the patient by the facility within 30 days. FOLLOW UP RECOMMENDATION: Yearly follow up mammogram recommended. (A) Approximately 10% of breast cancers are not detected by mammography. A normal mammogram should not delay biopsy of a clinically suspicious abnormality. Electronically Signed: Augusto Bo MD at 11:31 EDT ,
[2021-12-29 12:55] LABS: T4 Free Direct 1.02 ng/dL (0.76-1.46); Thyroid Stim Hormone (TSH) 1.82 uIU/mL (0.358-3.74)
[2021-12-30 08:16] LABS: Thyroid Peroxidase AB 9 IU/mL (0-34)
[2022-01-05 10:38] LABS: HPV APTIMA, High Risk Negative (Negative)
== END | disposition home or self-care (01) ==
PROVIDERS: PCP Internal Medicine; Visit Provider Nurse Practitioner Women's Health
DX: Z12.31 Encounter for screening mammogram for malignant neoplasm of breast (principal); Z12.4 Encounter for screening for malignant neoplasm of cervix; R53.83 Other fatigue
CPT/HCPCS: 36415; 77063; 77067; 84439; 84443; 86376; 87624; 88175; G0145

== ENCOUNTER → 2022-02-15 | Outpatient (CLI) | payer SELFPAY ==
--- NOTE | 2022-02-15 12:50 | VDLE_ITS ---
Reason For Study: LEG SWELLING RIGHT LEFT CFV is compressible, spontaneous, phasic, GSV is normal. competent and demonstrates normal CFV is compressible, spontaneous, phasic, augmentation. competent, and demonstrates normal Procedure augmentation. This is a venous duplex using B-mode, color FV is compressible, spontaneous, phasic, flow and spectral Doppler. competent and demonstrates normal Exam performed in department. augmentation. The exam was diagnostic. POP V is compressible, spontaneous, phasic, competent and demonstrates normal augmentation. T/P Trunk is compressible. PTV is compressible. LT PerV is compressible. VL/Venous Duplex US, Unilateral Interpretation Summary There is no evidence of left lower extremity deep vein thrombosis. Left great s aphenous vein appears patent and compressible segmentally. Normal flow patterns right common femoral vein Ordering Physician: Tommy Mendez Referring Physician: Elver Laws Performed By: Jeancarlos Bailey RVT
== END | disposition home or self-care (01) ==
LOC: CVS 12:41
PROVIDERS: PCP Internal Medicine; Referring Provider Orthopaedic Surgery; Visit Provider Orthopaedic Surgery
DX: M79.89 Other specified soft tissue disorders (principal)
CPT/HCPCS: 93971

== ENCOUNTER → 2022-03-01 | Outpatient (CLI) | payer SELFPAY ==
[2022-03-01 12:21] LABS: Hematocrit 44.7 % (37-47); Hemoglobin 14.2 g/dL (12.0-15.0); Mean Corp Hgb Conc 31.8 g/dL (32-36); Mean Corpuscular Hgb 28.9 pg (27.0-32.0); Mean Corpuscular Volume 90.9 fL (81-99); Mean Platelet Vol. 11.6 fl (6.2-12.0); Platelet Count 276 K/mm3 (150-450); RBC Distribution Width CV 12.5 % (11.6-14.6); RBC Distribution Width SD 41.7 fl (35.1-43.9); Red Blood Count 4.92 M/mm3 (4.2-5.4); White Blood Count 6.1 K/mm3 (4.4-11.0)
[2022-03-01 13:20] LABS: ALB/GLOB Ratio 0.9 RATIO (0.9-2.4); AST(SGOT) 20 U/L (15-37); Alanine Aminotransfer ALT/SGPT 27 U/L (13-56); Albumin, Serum 3.6 g/dL (3.2-5.0); Alkaline Phosphatase 154 U/L (45-117); Anion Gap 6 (5-15); BUN 16 mg/dL (7-18); BUN/Creat Ratio 18.6 RATIO (10-20); Calcium,Total 9.2 mg/dL (8.5-10.1); Chloride 106 mmol/L (98-107); Cholesterol 222 mg/dL (200); Creatinine, Serum 0.86 mg/dL (0.55-1.02); EST Glomerular Filtration Rate 70 mL/min (>60); Est Glom Filt Rate - Afr Amer 85 mL/min (>60); Globulin 3.9 g/dL (2.2-4.2); Glucose 93 mg/dL (74-106); High Density Lipoprotein 56 mg/dL; Potassium 3.8 mmol/L (3.5-5.1); Protein, Total 7.5 g/dL (6.4-8.2); Sodium Level 139 mmol/L (136-145); Thyroid Stim Hormone (TSH) 2.11 uIU/mL (0.358-3.74); Triglycerides 152 mg/dL; Very Low Density Lipoprotein 30 mg/dL (5-40)
== END | disposition home or self-care (01) ==
LOC: BIMLAB 10:36
PROVIDERS: PCP Internal Medicine; Visit Provider Nurse Practitioner Family
DX: I10 Essential (primary) hypertension (principal); R60.0 Localized edema
CPT/HCPCS: 36415; 80053; 80061; 84443; 85027

== ENCOUNTER → 2022-03-12 | Outpatient (CLI) | payer SELFPAY ==
--- NOTE | 2022-03-12 17:20 | MRI_ITS ---
EXAM: MR LEFT LOWER EXTREMITY WITHOUT AND WITH INTRAVENOUS CONTRAST, KNEE CLINICAL INDICATION: pain TECHNIQUE: Multiplanar and multisequence MR images of the left knee without and with intravenous contrast. This report was created using [employer] report Artaic technology. CONTRAST: IV 22mL CLARISCAN COMPARISON: 05/20/20 MRI FINDINGS: BONES/JOINTS: Abnormal signal involving the anterior cruciate ligament raising concern for either moderate partial thickness tear versus ligamentous degeneration. Area of bone marrow edema involving the lateral tibial plateau extending towards the outer spine. No fracture identified. No synovial hypertrophy. No intra-articular body. EXTENSOR MECHANISM: Unremarkable. MEDIAL MENISCUS: Redemonstration of longitudinal horizontal oblique tear of the posterior horn of medial meniscus. LATERAL MENISCUS: Unremarkable. MEDIAL CAPSULE/SUPPORTING STRUCTURES: Unremarkable. Intact. LATERAL CAPSULE/SUPPORTING STRUCTURES: Unremarkable. Lateral collateral ligamentous complex, inclusive of the popliteal tendon, are intact. ANTERIOR CRUCIATE LIGAMENT: Unremarkable. Intact. POSTERIOR CRUCIATE LIGAMENT: Unremarkable. Intact. MUSCLES: Unremarkable. CARTILAGE: Unremarkable. Intact. FLUID: Moderate to large joint effusion with mild synovitis. No intra-articular ossific bodies. No Guo''s cyst. OTHER SOFT TISSUES: Diffuse subcutaneous edema. MRI/Lower Ext Joint Only W/WO Cont IMPRESSION: 1. Redemonstration of longitudinal horizontal oblique tear of the posterior horn of medial meniscus. 2. Abnormal signal involving the anterior cruciate ligament raising concern for either moderate partial thickness tear versus ligamentous degeneration. 3. Moderate to large joint effusion with mild synovitis. No intra-articular ossific bodies. No Guo''s cyst. Electronically Signed: Trey De La Rosa MD at 1:38 EST ,
== END | disposition home or self-care (01) ==
LOC: MRI 16:56
PROVIDERS: PCP Internal Medicine; Visit Provider Orthopaedic Surgery
DX: M17.12 Unilateral primary osteoarthritis, left knee (principal); M71.20 Synovial cyst of popliteal space [Baker], unspecified knee; R22.42 Localized swelling, mass and lump, left lower limb
CPT/HCPCS: 73723; A9575

== ENCOUNTER 2022-11-17 15:33 | Outpatient (CLI) | payer MEDICARE, OTHER, SELFPAY ==
[2022-11-17 18:04] LABS: Absolute Lymphocyte Count 1.37 X10^3/uL (0.83-4.51); Absolute Neutrophil Count 4.6 X10^3/uL (2.0-7.7); Basophil# 0.05 X10^3/uL; Basophil% 0.7 % (0-1); Eosinophil# 0.09 X10^3/uL; Eosinophils% 1.3 % (0-5); Hematocrit 44.5 % (37-47); Hemoglobin 14.2 g/dL (12.0-15.0); Lymphocyte # 1.37 X10^3/ul (0.83-4.51); Lymphocyte % 20.3 % (19-41); Mean Corp Hgb Conc 31.9 g/dL (32-36); Mean Corpuscular Hgb 28.7 pg (27.0-32.0); Mean Corpuscular Volume 90.1 fL (81-99); Mean Platelet Vol. 11.8 fl (6.2-12.0); Monocyte# 0.68 X10^3/uL; Monocyte% 10.1 % (0-10); NRBC Flagged by Analyzer 0 % (0-5); Neutrophil # 4.55 X10^3/uL (2.7-7.7); Neutrophil % 67.3 % (47-70); Platelet Count 273 K/mm3 (150-450); RBC Distribution Width CV 12.8 % (11.6-14.6); RBC Distribution Width SD 42.1 fl (35.1-43.9); Red Blood Count 4.94 M/mm3 (4.2-5.4); White Blood Count 6.8 K/mm3 (4.4-11.0)
[2022-11-17 18:19] LABS: ALB/GLOB Ratio 0.9 RATIO (0.9-2.4); AST(SGOT) 16 U/L (15-37); Alanine Aminotransfer ALT/SGPT 22 U/L (13-56); Albumin, Serum 3.7 g/dL (3.2-5.0); Alkaline Phosphatase 147 U/L (45-117); Anion Gap 6 (5-15); BUN 22 mg/dL (7-18); Calcium,Total 9.3 mg/dL (8.5-10.1); Chloride 104 mmol/L (98-107); Creatinine, Serum 1.05 mg/dL (0.55-1.02); EST Glomerular Filtration Rate 56 mL/min (>60); Est Glom Filt Rate - Afr Amer 68 mL/min (>60); Globulin 3.9 g/dL (2.2-4.2); Glucose 83 mg/dL (74-106); Potassium 3.7 mmol/L (3.5-5.1); Protein, Total 7.6 g/dL (6.4-8.2); Rheumatoid Factor < 10.0 IU/mL (<15); Sodium Level 139 mmol/L (136-145)
[2022-11-17 18:24] LABS: Hemoglobin A1c 5.9 % (3.8-5.6)
[2022-11-17 18:37] LABS: Erythrocyte Sedimentation Rate 22 mm/hr (0-30)
[2022-11-19 15:08] LABS: PROEL- A/G Ratio 1.3 (0.7-1.7); PROEL- Albumin 3.8 g/dL (2.9-4.4); PROEL- Alpha-1 Globulin 0.2 g/dL (0.0-0.4); PROEL- Alpha-2 Globulin 0.7 g/dL (0.4-1.0); PROEL- Beta Globulin 0.9 g/dL (0.7-1.3); PROEL- Gamma Globulin 1.1 g/dL (0.4-1.8); PROEL- TOTAL PROTEIN 6.8 g/dL (6.0-8.5)
[2022-11-22 10:08] LABS: Anti-Nuclear Antibody Test Negative (.)
== END 2022-11-17 23:59 | disposition home or self-care (01) ==
PROVIDERS: PCP Internal Medicine; Referring Provider Dermatology; Visit Provider Dermatology
DX: L30.9 Dermatitis, unspecified (principal)
CPT/HCPCS: 36415; 80053; 83036; 84165; 85025; 85652; 86038; 86431

== ENCOUNTER → 2023-03-07 | Outpatient (CLI) | payer MEDICARE, OTHER, SELFPAY ==
[2023-03-07 15:30] LABS: ALB/GLOB Ratio 0.9 RATIO (0.9-2.4); AST(SGOT) 15 U/L (15-37); Alanine Aminotransfer ALT/SGPT 24 U/L (13-56); Albumin, Serum 3.6 g/dL (3.2-5.0); Alkaline Phosphatase 154 U/L (45-117); Anion Gap 7 (5-15); BUN 20 mg/dL (7-18); BUN/Creat Ratio 20.9 RATIO (10-20); Chloride 105 mmol/L (98-107); Cholesterol 218 mg/dL (200); Creatinine, Serum 0.96 mg/dL (0.55-1.02); EST Glomerular Filtration Rate 62 mL/min (>60); Est Glom Filt Rate - Afr Amer 75 mL/min (>60); Globulin 3.8 g/dL (2.2-4.2); Glucose 93 mg/dL (74-106); High Density Lipoprotein 67 mg/dL; Potassium 3.8 mmol/L (3.5-5.1); Protein, Total 7.4 g/dL (6.4-8.2); Sodium Level 139 mmol/L (136-145); Triglycerides 91 mg/dL; Very Low Density Lipoprotein 18 mg/dL (5-40)
[2023-03-07 15:34] LABS: Hemoglobin A1c 5.7 % (3.8-5.6)
== END | disposition home or self-care (01) ==
LOC: BIMLAB 11:41
PROVIDERS: PCP Internal Medicine; Referring Provider Internal Medicine; Visit Provider Internal Medicine
DX: I10 Essential (primary) hypertension (principal); R73.03 Prediabetes; E78.5 Hyperlipidemia, unspecified
CPT/HCPCS: 36415; 80053; 80061; 83036

== ENCOUNTER → 2023-04-20 | Outpatient (CLI) | payer MEDICARE, OTHER, SELFPAY ==
--- NOTE | 2023-04-20 09:33 | BD_ITS ---
STUDY: DUAL ENERGY X-RAY ABSORPTIOMETRY / DXA REASON FOR EXAM: Female, 67 years old. Post menopausal TECHNIQUE: Bone Mineral Density (BMD) measurements of lumbar spine and bilateral hips were obtained. COMPARISON: None. FINDINGS: Lumbar Spine (L1-L4): g/cm2 (0.889) / T-score (-1.4) / Z-score (0.4) Findings are suggestive of osteopenia with a low fracture risk. Left Femur Total: g/cm2 (1.049) / T-score (0.9) / Z-score (2.1) Left Femoral Neck: g/cm2 (0.703) / T-score (-1.3) / Z-score (0.2) Right Femur Total: g/cm2 (1.087) / T-score (1.2) / Z-score (2.4) Right Femoral Neck: g/cm2 (0.797) / T-score (-0.5) / Z-score (1.1) BD/Dexa Bone Density Study IMPRESSION: The patient is considered osteopenic as outlined below according to World Cristian Organization (WHO) criteria with a low fracture risk. Reference Information: The T-score is the number of standard deviations above or below the standard which is normal for young adults at their peak bone mineral density. The World Health Organization (WHO) interprets the T-scores as follows: Above -1 Normal bone density Between -1 and -2.5 Osteopenia Equal to / or below -2.5 Osteoporosis As a practical clinical guideline, osteopenia may be graded as follows: Mild -1 through -1.5 Moderate -1.6 through -2.0 Severe -2.1 through -2.4 The Z-score is the number of standard deviations above or below age-matched controls. A Z-score of less than -1.5 would be considered abnormal. References: 1. NIH Osteoporosis and Related Bone Diseases www osteo.org 2. International Society for Clinical Densitometry www iscd.org 3. National Osteoporosis Foundation www nof.org Electronically Signed: Ede Barragan MD at 14:01 EST ,
--- NOTE | 2023-04-20 09:49 | BI_ITS ---
MAMMOGRAPHY - BILATERAL SCREENING REASON FOR EXAM: Female, 67 years old. Routine annual screening examination. PERTINENT HISTORY: Non-contributory. TECHNIQUE: Digital bilateral breast giuseppe (3D mammographic acquisition) in the CC and MLO projections. 2-D mediolateral oblique (MLO) and craniocaudad (CC) views of both breasts were obtained. CAD: Full Field Digital Mammography with Computer Added Detection was performed. COMPARISON: Comparison is made with prior study of December 29, 2021 and January 09, 2020. FINDINGS: Breast Composition: There are scattered areas of fibroglandular density. There are no dominant masses or suspicious calcifications. Stable 9.7 mm fat-containing lymph node in the upper lateral aspect of the right breast. No other significant abnormalities are identified. There has been no significant change since the prior study. BI/SCRN MAMM (CAD)W/GIUSEPPE BILAT IMPRESSION: Stable bilateral screening mammogram. Yearly follow-up mammogram recommended. (A) ASSESSMENT CATEGORY: BIRADS Category 2: Benign. A letter regarding these results will be sent to the patient by the facility within 30 days. Approximately 10% of breast cancers are not detected by mammography. A normal mammogram should not delay biopsy of a clinically suspicious abnormality. [id number] Electronically Signed: Ede Barragan MD at 10:56 EST ,
== END | disposition home or self-care (01) ==
LOC: OPBD 09:49
PROVIDERS: PCP Internal Medicine; Referring Provider Internal Medicine; Visit Provider Internal Medicine
DX: Z12.31 Encounter for screening mammogram for malignant neoplasm of breast (principal); Z78.0 Asymptomatic menopausal state
CPT/HCPCS: 77063; 77067; 77080

== ENCOUNTER → 2023-05-11 | Outpatient (CLI) | payer MEDICARE, OTHER, SELFPAY ==
--- NOTE | 2023-05-11 08:37 | US_ITS ---
STUDY: SUPERFICIAL ULTRASOUND - LEFT CERVICAL REGION. REASON FOR EXAM: Female, 67 years old. Left neck lymphadenopathy/ swelling -- please obtain left periauricular and supraclavicular TECHNIQUE: A superficial ultrasound was performed with real-time and static rivera-scale imaging. COMPARISON: None. FINDINGS: The left cervical region was examined with ultrasound. Incidental note is made of a 9 mm x 9 mm x 4 mm benign appearing lymph node. US/Head/Neck Soft Tissue IMPRESSION: 9 mm x 9 mm x 4 mm benign-appearing lymph node is seen in the left side of the neck. Electronically Signed: Ede Barragan MD at 11:24 EST ,
== END | disposition home or self-care (01) ==
LOC: US 08:29
PROVIDERS: PCP Internal Medicine; Referring Provider Nurse Practitioner; Visit Provider Nurse Practitioner
DX: R22.1 Localized swelling, mass and lump, neck (principal)
CPT/HCPCS: 76536

== ENCOUNTER → 2023-05-26 | Outpatient (CLI) | payer MEDICARE, OTHER, SELFPAY | END | disposition home or self-care (01) | LOC: LABSPEC 16:20 | PROVIDERS: PCP Internal Medicine; Referring Provider Nurse Practitioner; Visit Provider Nurse Practitioner | DX: R06.02 Shortness of breath (principal) | CPT/HCPCS: 87631 ==

== ENCOUNTER → 2023-06-17 | Outpatient (CLI) | payer MEDICARE, OTHER, SELFPAY ==
--- OUTSIDE RECORDS SUMMARY | 2023-06-17 12:25 | XMS RPT_ITS | CCD ---
Author Name Unknown Address [address] [place] [address] Organization [facility] Care Team Providers Care Mechatronics Engineer Name Role Phone MAKSIM OTTO Unavailable Unavailable MAKSIM OTTO Unavailable Unavailable MAKSIM OTTO Unavailable Unavailable HENRY YAN Unavailable Unavailable CARLTON RAMSEY Unavailable Unavailable Allergies Allergy Classification Reported Allergen(s) Allergy Type Date of Onset Reaction(s) Facility (1 source) acetaminophen / HYDROcodone; Translations: [HYDROCODONE-ACET AMINOPHEN] Drug Allergy 6 [facility] Repository (1 source) Dust; Translations: [DUST] Propensity to adverse reactions (disorder) 6 [facility] Repository (1 source) AMOXICILLIN-POT CLAVULANATE; Translations: [AMOXICILLIN-POT CLAVULANATE] Propensity to adverse reactions to drug (disorder) 5 [facility] Repository (1 source) PROPOXYPHENE N-ACETAMINOPHEN; Translations: [PROPOXYPHENE N-ACETAMINOPHEN] Propensity to adverse reactions to drug (disorder) 6 [facility] Repository (1 source) OXYCODONE-ASPIRIN ; Translations: [OXYCODONE-ASPIRI N] Propensity to adverse reactions to drug (disorder) 6 [facility] Repository (1 source) RAGWEED; Translations: [RAGWEED] Propensity to adverse reactions (disorder) 6 [facility] Repository Problems Problem Classification Problem Date Documented Date Episodic/Chronic Osteoarthritis (3 sources) Bilateral primary osteoarthritis of knee; Translations: [Bilateral primary osteoarthritis of knee] Onset: 02-17-2017 Chronic Encounters Encounter Date Encounter Type Care Provider Facility Start: 02-17-2017 End: 03-08-2017 Ambulatory MAKSIM [facility] Start: 10-04-2016 End: 10-05-2016 Ambulatory HENRY YAN [facility] Payers Date Payer Category Payer Policy ID Unknown [id number] Summary Purpose Family History No Family History Records FoundNo Family History Records Found Advance Directives No Advanced Directives Records FoundNo Advanced Directives Records Found Additional Source Comments INFORMATION SOURCE (unrecogn ized section and content) DATE CREATED AUTHOR AUTHOR'S CARLEY DANIELS 10/05/2017 [facility] FOR RECORDS PERTAINING TO PATIENTS WHO ARE OR HAVE BEEN ENROLLED IN A CHEMICAL DEPENDENCY/SUBSTANCEABUSE PROGRAM, SOME INFORMATION MAY BE OMITTED. This clinical summary was aggregated from multiple sources. Caution should be exercised in using it in the provision of clinical care. This summary normalizes information from multiple sources, and as a consequence, information in this document may materially change the coding, format and clinical context of patient data. In addition, data may be omitted in some cases. CLINICAL DECISIONS SHOULD BE BASED ON THE PRIMARY CLINICAL RECORDS. [facility]. provides no warranty or guarantee of the accuracy or completeness of information in this document.
--- NOTE | 2023-06-17 12:47 | RAD_ITS ---
HISTORY: Bilateral Hip Pain. TECHNIQUE: XR Hips Bilateral with Pelvis when performed; 2 Views. COMPARISON: CT 02/12/2019. FINDINGS: OSSEOUS STRUCTURES: No acute displaced fracture identified. Note that overlapping bowel shadows may obscure osseous detail. Mineralization unremarkable. JOINT SPACES: No dislocation. Mild degenerative changes of the hips. SOFT TISSUES: Tubal ligation clips again noted. RAD/Hips B/L min 2 views w/ Pelvis IMPRESSION: No acute displaced fracture or dislocation identified. Electronically Signed: Leticia Bourne MD at 11:54 EST ,
[2023-06-17 15:49] LABS: Anion Gap 6 (5-15); BUN 19 mg/dL (7-18); BUN/Creat Ratio 18.3 RATIO (10-20); Calcium,Total 9.8 mg/dL (8.5-10.1); Chloride 106 mmol/L (98-107); Creatinine, Serum 1.04 mg/dL (0.55-1.02); EST Glomerular Filtration Rate 56 mL/min (>60); Est Glom Filt Rate - Afr Amer 68 mL/min (>60); Glucose 97 mg/dL (74-106); Potassium 4.3 mmol/L (3.5-5.1); Sodium Level 141 mmol/L (136-145)
[2023-06-23 18:08] LABS: ALDOSTERONE/RENIN RATIO 4.4 (0.0-30.0); Aldosterone, Serum 4.2 ng/dL (0.0-30.0); Renin, Plasma 0.962 ng/mL/hr (0.167-5.380)
== END | disposition home or self-care (01) ==
PROVIDERS: PCP Internal Medicine; Referring Provider Internal Medicine; Visit Provider Internal Medicine
DX: I10 Essential (primary) hypertension (principal); M25.551 Pain in right hip; M25.552 Pain in left hip
CPT/HCPCS: 36415; 73521; 80048; 82088; 84244

== ENCOUNTER → 2023-07-01 | Outpatient (CLI) | payer MEDICARE, OTHER, SELFPAY ==
--- NOTE | 2023-07-01 11:29 | US_ITS ---
STUDY: SUPERFICIAL ULTRASOUND - SOFT TISSUE BACK REASON FOR EXAM: Female, 67 years old. Localized back swelling TECHNIQUE: A superficial ultrasound was performed with real-time and static rivera-scale imaging. COMPARISON: None. FINDINGS: Multiple longitudinal and transverse ultrasound images of the soft tissues of the back confirm a 5.2 cm oval isoechoic mass in the subcutaneous fat and a 2.7 cm oval isoechoic mass in the subcutaneous fat which may represent lipomas. Another 4.5 cm isoechoic mass is seen to the left of the midline as well as another 3.8 cm mass. US/Ext Non Vasc Limited/Soft Tiss IMPRESSION: Ultrasound confirms multiple suspected lipomas of the subcutaneous fat of the back on both sides of the midline. Electronically Signed: Augusto Bo MD at 19:44 EDT ,
== END | disposition home or self-care (01) ==
LOC: US 11:28
PROVIDERS: PCP Internal Medicine; Referring Provider Internal Medicine; Visit Provider Internal Medicine
DX: R22.2 Localized swelling, mass and lump, trunk (principal)
CPT/HCPCS: 76882

== ENCOUNTER 2023-07-12 10:30 | Outpatient (RCR) | payer MEDICARE, OTHER, SELFPAY ==
--- NOTE | 2023-05-18 10:30 | HP.PTEVAL_ITS ---
Patient's Visit Information Visit Information Visit Information: ROSEANNE JOLLEY is a 67 year old F referred to Physical Therapy by ALENA Davis with a diagnosis of L TMJ and cervicalgia. Date of Evaluation: 05/18/23 Physical Therapist: Shawn Galan, DPT, OCS, CSCS Visit Plan Frequency: 2-3x /Week Duration: 4-6 Weeks Plan: 2-3x/week for 4 weeks for 1. US L masseter and STM to same, US to L scalenes UT and STM to same. Relaxation to masseter, TENS if helpfu although she has this at home so education on this is hebert. jaw opening ex and neck ROM/manual prom extension and stretching L pericervical MM Eventual strength to neck and jaw siometircally Subjective Subjective: Dr. Rivero office sent over for L joint locking. Previously did not last long but this time has been a few weeks or so. Doctor sent to dentist and had 3 laser treatments which did not helo. Ordered mouthgaurd but does not have it yet. has some neck pain. Can open mouth enought to talk and eat but not all the way. pain is constant in L TMJ and up to 7/10. TENS was bought but it did not help jaw. Mar 25 she fell and L UT area has hurt since. Fell because stepped onto broken stool. Sleeping is uncomfortable in neck> TMJ. Clenches at night at times. Dentist thinks this is a muscular issue. Has been doing self massage and warm compress, does not help. Staying away from hard food. \ No arm symptoms but has FM Pain L TMJ: Pain Intensity (Out of 10): 1 Pain Intensity Range: 7 Comment: neck to 6/10 Objective Objective: Posture: FW head and elevated protracted scapula. Full AROM UE shoulder elbow and wrist without pain. Cervical aROM rotation L 42 and R 55, pain L. SB full but painful to R on L, extension 55 with deviation R. Pain at end range. TMJ: r dev 7 mm, L 14 mm, open 30 mm reflexes jaw, bi and tri 2/3. Sensation WNL to gross light touch UE. Strength UE 4-/5 without myotomal problems. Tender over L scalenes and into UT and lev scap max. Tender masseter L mod, pterygoids not overly tender either side. no popping or clicking in jaw with opening or closing. Goals Goal 1:: 40 mm jaw opening, symmetrical jaw deviation and neck symmetry in motion without pain Goal Time Frame: 2-4 Weeks Goal 2:: Pain in jaw feel 75% better 1/10 at worst Goal Time Frame: 4-6 Weeks Goal 3:: I appropriate HEP to limit future problems Goal Time Frame: 4-6 Weeks Rehabilitation Potential Physical Therapy Diagnosis: limited ROM and inflammation limiting comfortable function. Rehabilitation Potential: Good Anticipated Interventions Patient/Client Instruction: Educate patient on: Condition and Plan of Care For the Purpose of:: To decrease pain, To increase ROM, To improve nutrient delivery to tissue, To increase oxygenation perfusion, To increase tolerance to activity/condition/position and To improve ability of physical actions for home/community/work/leisure Therapeutic Exercise to Include: Strength training, Flexibilty training, Passive ROM and Active ROM For the Purpose of:: To decrease pain, To decrease swelling/inflammation, To increase ROM, To improve nutrient delivery to tissue, To improve muscle performance and motor function, To increase tolerance to activity/condition/position and To improve ability of physical actions for home/community/work/leisure Manual Therapy Techniques to Include: Mobilization, Passive ROM and Soft tissue mobilization For the Purpose of:: To decrease pain, To decrease swelling/inflammation, To increase ROM, To improve nutrient delivery to tissue and To improve muscle performance and motor function Thermo therapy (hot pack): Yes Ultrasound (thermal/non thermal): Yes (nonthermal) For the Purpose of:: To decrease pain, To decrease swelling/inflammation, To increase ROM and To improve nutrient delivery to tissue Text: Thank you for the opportunity to evaluate your patient. For Medicare and Medicare HMO plans, please review the plan of care and approve it. It will need to be FAXED BACK to us at [phone] for Medicare purposes. For Medicare only, by signing this I certify the plan of care. Please let me know if there are questions or concerns regarding this plan of care. Physician Signature: Date:
--- NOTE | 2023-06-15 13:51 | HP.PTREVAL ---
Re-Evaluation Intro: Melisa Farmer, BUILDINGS AND GROUNDS SUPERINTENDENT-C, It has been my pleasure to treat ROSEANNE JOLLEY over the last 8 visits for cervicalgia. Please see the progress note below for an update on the physical therapy plan of care! Subjective Subjective: Overall jaw is much better. Still has a little tenderness but ROM much better. Has mouthguard for at night. L shoulder is better movement but still sore and painful at times. 0-1 at rest and gets pulling with movements especially L rotation. Sleeping at night has to be careful with pillow. 80% better jaw and neck is 65%. Dentist got her mouthguard. Objective Objective/Function: 44 mm jaw opening, just tight. \ 50 L rotation c/s and 62 R rotation, some L pain. Extension 60, flexion tight on L Improving motion but still painful in neck. happy with jaw but wants more improvement in the neck. New goals for neck set and fair prognosis Plan Plan Plan: 2x/week fro 3-4 weeks for neck treatment of... 1. MH and STM to neck L side. 2. PROM and rotation mobs, lower cervical extension mobs to neck 3. Pulling postural strength to HEP PT will continue jaw ex at home and neck isometrics and stretches via HEP Goals Goals Goal 1:: 40 mm jaw opening, symmetrical jaw deviation and neck symmetry in motion without pain Goal Time Frame: 2-4 Weeks Goal Progress: Goal Met jaw, not neck. Goal 2:: Pain in jaw feel 75% better 1/10 at worst Goal Time Frame: 4-6 Weeks Goal Progress: Goal Met Goal 3:: I appropriate HEP to limit future problems Goal Time Frame: 4-6 Weeks Goal Progress: Goal Met Goal 4:: Neck AROM L rotation 60+ and 1/10 pain Goal Time Frame: 2-4 Weeks Goal Progress: NEW GOAL Goal 5:: Neck pain 1/10 at worst and manageable at 90% better overall Goal Time Frame: 2-4 WeeksNEW GOAL Goal 6:: Turn head in car without pain Goal Time Frame: 2-4 Weeks Goal Progress: NEW GOAL Anticipated Interventions Anticipated Interventions Patient/Client Instruction: Educate patient on: Condition and Plan of Care For the Purpose of:: To decrease pain, To increase ROM, To improve nutrient delivery to tissue, To increase oxygenation perfusion, To increase tolerance to activity/condition/position and To improve ability of physical actions for home/community/work/leisure Therapeutic Exercise to Include: Strength training, Flexibilty training, Passive ROM and Active ROM For the Purpose of:: To decrease pain, To decrease swelling/inflammation, To increase ROM, To improve nutrient delivery to tissue, To improve muscle performance and motor function, To increase tolerance to activity/condition/position and To improve ability of physical actions for home/community/work/leisure Manual Therapy Techniques to Include: Mobilization, Passive ROM and Soft tissue mobilization For the Purpose of:: To decrease pain, To decrease swelling/inflammation, To increase ROM, To improve nutrient delivery to tissue and To improve muscle performance and motor function Thermo therapy (hot pack): Yes Ultrasound (thermal/non thermal): Yes (nonthermal) For the Purpose of:: To decrease pain, To decrease swelling/inflammation, To increase ROM and To improve nutrient delivery to tissue Re-Evaluation Ending Re-evaluation ending: Please do not hesitate to contact me at [phone] by phone or if you have questions or concerns regarding this new plan of care! Sincerely, Shawn Galan, DPT, OCS, CSCS
--- NOTE | 2023-07-12 11:21 | HP.PTDCSUM ---
Discharge Summary D/C summary: It has been my pleasure to treat ROSEANNE JOLLEY referred by Melisa Farmer NP-C, with the diagnosis of cervicalgia for a total of 14 visit(s). Discharge Date: 07/12/23 Please see the following information for a summary of their discharge status. Subjective Subjective: TMJ is real good. No pain and no limitations. Does watch what she eats. Neck continues to be painful turning to left. Mobility is better but still hurts to turn. Activities with neck are just careful. Pain in L neck in the last week is with movement up to sharp pain and transient, mostly L rotation Jaw is 100% better, neck is improved and mobile but still painful Pain L TMJ: Pain Intensity (Out of 10): 0 L UT: Pain Intensity (Out of 10): 4 Overall Improvement % Improvement: 85 Objective Objective/Function: 44 mm opening, 15 L deviationa nd 14 R deviation 65 R rotation and 56 L rotation, some discomfort L UT with L rotation, 75 extension Goals Goal 1:: 40 mm jaw opening, symmetrical jaw deviation and neck symmetry in motion without pain Goal Progress: Goal Met jaw, not neck. Goal 2:: Pain in jaw feel 75% better 1/10 at worst Goal Progress: Goal Met Goal 3:: I appropriate HEP to limit future problems Goal Progress: Goal Met Goal 4:: Neck AROM L rotation 60+ and 1/10 pain Goal Progress: Progressing Goal 5:: Neck pain 1/10 at worst and manageable at 90% better overall Goal Progress: Progressing Goal 6:: Turn head in car without pain Goal Progress: Progressing Plan Plan: d/c to HEP, Pt wishes to try at home with exercises and will let doctor know if improvement does not continue. D/C Information Discharge Comments: Will continue via HEP and contact doctor if not improving, Overall jaw is near 100% better and neck 70% improved. still pain with L rotation and mild limitations. d/c sentence: If there are questions or concerns regarding this patient's physical therapy, please feel free to call me at [phone]. Thank you for the referral of this patient. Sincerely, Shawn Galan, DPT, OCS, CSCS Balance/Gait/Functional tests Improvement % Improvement: 85
== END 2023-07-12 12:26 | disposition home or self-care (01) ==
LOC: PT 10:30
PROVIDERS: PCP Internal Medicine; Referring Provider Nurse Practitioner; Visit Provider Nurse Practitioner
DX: M26.609 Unspecified temporomandibular joint disorder, unspecified side (principal); M54.2 Cervicalgia
CPT/HCPCS: 97035; 97110; 97140; 97161; 97530

== ENCOUNTER 2023-12-14 14:26 | Emergency (ER) | payer MEDICARE, OTHER, SELFPAY ==
[2023-12-14] VITALS (7 sets, daily range): BP systolic 124–155; BP diastolic 79–96; PULSE 73–100; RESP 15–20; TEMP 36.2–36.6; O2SAT 93–99; BMI 38.9
--- NOTE | 2023-12-14 14:46 | EKG12_ITS ---
Test Reason : Blood Pressure : / mmHG Vent. Rate : 095 BPM Atrial Rate : 095 BPM P-R Int : 146 ms QRS Dur : 082 ms QT Int : 358 ms P-R-T Axes : 057 002 017 degrees QTc Int : 449 ms Normal sinus rhythm with sinus arrhythmia Nonspecific ST and T wave abnormality Abnormal ECG Confirmed by BIPIN GARRETT, PAT ([id number]), pictures editor ALEN REYNA ([id number]) on 12/15/2023 1:50:13 PM Referred By: Confirmed By:PAT VOSS MD
--- NOTE | 2023-12-14 14:47 | ED.VIS.CHEST ---
HPI History of Present Illness Chief Complaint: Chest Pain Informant: patient Onset/Context/Timing Onset: Today Activity at onset: sudden and sleep Timing: Continuous Quality: Positive for Dull Location: Left Chest Worsened By: Nothing Relieved By: Nothing Associated Symptoms: Negative for Nausea, Vomiting, Diaphoresis, Dyspnea, Cough, Fever, Lightheadedness, Acid Reflux or Palpitations Narrative Narrative: Patient presents with chest pain that began earlier this morning. Patient states it woke her up out of her sleep. Patient states it is over the left upper chest. Patient describes it as dull. Patient states nothing makes it better and nothing makes it worse. Patient denies any nausea or vomiting. Patient denies any diaphoresis. Patient denies any shortness of breath or cough. Patient denies any palpitations. Patient does have a history of hypertension but denies any other cardiac or PE risk factors. CVD Risk Factors: Positive for Hypertension; Negative for Diabetes, Hypercholesterolemia, Family History 1' </=55 or Smoking PE Risk Factors: Negative for Recent Travel/Surgery, Recent Immobilization, Prior DVT or PE or Cancer [facility] Medical History Cellulitis of forehead Insect bite Abrasion, right lesser toe(s), initial encounter Abrasion, right great toe, initial encounter Laceration of right knee Localized swelling of back Bilateral hip pain Health care maintenance Colon cancer screening Knee pain Chest pain Fatigue SOB (shortness of breath) Arthritis Lower extremity edema Hx of colonic polyp Dermatitis Bilateral lower extremity edema Trigeminal neuralgia Hyperlipemia Borderline hypertension Osteoarthritis Fibromyalgia Asthma Home Medications ?Medication ?Instructions ?Recorded ?Last Taken ?Type cetirizine 10 mg tablet (Zyrtec) 10 mg PO DAILY PRN 03/07/23 Unknown History clobetasol 0.05 % topical cream topical 03/07/23 Unknown History triamterene 37.5 1 tab PO DAILY #90 tabs 03/07/23 Unknown Rx mg-hydrochlorothiazide 25 mg tablet vitamin B complex (B 1 tab PO DAILY 03/07/23 Unknown History Complex-Vitamin B12 tablet) albuterol sulfate 2.5 mg/3 mL 2.5 mg (3 mL) inhalation Q4H PRN 05/27/23 Unknown Rx (0.083 %) solution for nebulization shortness of breath or wheezing #90 mL fluticasone furoate 50 inhalation DAILY 08/08/23 Unknown History mcg-vilanterol 25 mcg/dose inhalation powder (Breo Ellipta) nystatin 100,000 unit/gram topical 1 applic topical BID #45 ea 08/08/23 Unknown Rx powder (Nystop) ospemifene 60 mg tablet (Osphena) 60 mg PO QDAY #30 tabs 08/08/23 Unknown Rx turmeric root extract 500 mg 750 mg PO DAILY 08/08/23 Unknown History capsule losartan 25 mg tablet 25 mg PO DAILY #90 tabs 08/09/23 Unknown Rx nortriptyline 10 mg capsule 10 mg PO QHS #30 caps 08/30/23 Unknown Rx doxycycline monohydrate 100 mg 100 mg PO BID #20 caps 10/11/23 Unknown Rx capsule Allergy/AdvReac Type Severity Reaction Status Date / Time acetaminophen (From [place]) AdvReac Mild Nausea Verified 12/14/23 14:29 hydrocodone (From [place]) AdvReac Mild Nausea Verified 12/14/23 14:29 amoxicillin (From Augmentin) AdvReac Nausea Verified 12/14/23 14:29 clavulanic acid (From AdvReac Nausea Verified 12/14/23 14:29 Augmentin) oxycodone (From Percodan) AdvReac Nausea Verified 12/14/23 14:29 propoxyphene (From AdvReac Nausea Verified 12/14/23 14:29 Darvocet-N 100) Family History Mother Cancer, Onset Age: 58 pancreatic Diabetes Father Cancer, Onset Age: 70 pancreatic, passed of it Hypertension Grandfather Heart disease Hypertension Brother Diabetes Hypertension Uncle Colon cancer Surgical History History of arthroscopy of right knee History of tubal ligation History of cholecystectomy History of colonoscopy Social History Smoking Status: Never smoker alcohol intake: never substance use type: does not use caffeine: Yes what type of physical activity do you participate in: walking frequency: 3-4 times per week seatbelt use: always do you feel safe at home: Yes additional social history: [employer]- Retired Patient is retired ROS ROS ED Constitutional Constitutional ED: Denies chills or fever(s) Eyes Eyes: Denies blurry vision or change in vision ENT ENT ED: Denies rhinorrhea or sore throat Cardiovascular Cardiovascular: Reports chest pain; Denies palpitations Respiratory/Chest Respiratory/Chest: Denies cough or dyspnea Gastrointestinal Gastrointestinal: Denies nausea or vomiting Genitourinary Genitourinary ED: Denies dysuria or hematuria Musculoskeletal Musculoskeletal: Reports neck pain; Denies back pain Integumentary Denies abscess or rash Neurologic Neurologic: Denies headache(s) or weakness Allergic/Immunologic Allergic/Immunologic ED: Denies mouth swelling or urticaria EXAM Physical Exam Const Vital Signs: 12/14/23 14:27 12/14/23 14:46 12/14/23 14:47 Temperature 97.2 F L Temperature Source Temporal Pulse Rate 100 Respiratory Rate 16 Respiratory Effort Normal Blood Pressure 155/96 H Blood Pressure Mean 115 Pulse Ox 97 99 Oxygen Delivery Method Room Air Room Air 12/14/23 15:13 12/14/23 15:15 12/14/23 15:30 Temperature Temperature Source Pulse Rate 84 80 73 Respiratory Rate 18 20 H 15 Respiratory Effort Blood Pressure 137/92 H 124/84 H Blood Pressure Mean 106 98 Pulse Ox 93 96 96 Oxygen Delivery Method Room Air Room Air 12/14/23 15:45 Temperature Temperature Source Pulse Rate 79 Respiratory Rate 18 Respiratory Effort Blood Pressure Blood Pressure Mean Pulse Ox 95 Oxygen Delivery Method Positive well nourished and well developed General Appearance ED: well developed and NAD HEENT Reports moist mucous membranes Neck supple and no JVD Chest Wall Chest Narrative: There is mild tenderness over the left upper chest. There is no edema or ecchymosis. There is no bony crepitus or step-off noted. Resp normal respiratory effort and clear to auscultation bilaterally Cardio regular rate and regular rhythm GI soft to palpation, non-tender and non-distended Extremity normal to inspection General Extremety ED: Negative for edema General Extremity: Negative for edema Neuro oriented x3, CN's II-XII intact bilaterally and no sensory deficits noted Sensorium / Orientation: awake and alert Psych mental status grossly normal Heart Score History: Slightly/Non-Suspicious ECG: Nonspecific Repolarization Age: >/= 65 years Risk Factors: 1 or 2 Risk Factors Score: 4 MDM MDM MDM Narrative Medical decision making narrative: Differential diagnosis includes cardiac dysrhythmia, cardiac ischemia, pneumonia, pneumothorax, electrolyte abnormality, musculoskeletal pain, and anxiety. EKG will be obtained to assess for cardiac dysrhythmia and cardiac ischemia. Chest x-ray will be obtained to assess for pneumonia and pneumothorax. CBC will be obtained to assess for leukocytosis and anemia. Basic metabolic profile will be obtained to assess for electrolyte abnormality and renal function. High-sensitivity troponin will be obtained to assess for cardiac ischemia. Lab Data Attestation: I reviewed the patient's lab results. Lab results narrative: CBC was reviewed and was within normal limits. Basic metabolic profile was reviewed and was essentially within normal limits. High-sensitivity troponin was reviewed and was normal at 5. Labs: Laboratory Results - last 24 hr 12/14/23 15:04 WBC 6.0 RBC 4.87 Hgb 14.9 Hct 44.5 MCV 91.4 MCH 30.6 MCHC 33.5 RDW Std Deviation 47.7 H RDW Coeff of Aliza 14.2 Plt Count 229 MPV 11.5 Immature Gran % (Auto) 0.200 Neut % (Auto) 62.4 Lymph % (Auto) 22.7 [place] % (Auto) 12.6 H Eos % (Auto) 1.3 Baso % (Auto) 0.8 Absolute Neuts (auto) 3.7 Absolute Lymphs (auto) 1.35 Nucleated RBC % 0 Sodium 139 Potassium 4.2 Chloride 106 Carbon Dioxide 28.0 Anion Gap 5 BUN 14 Creatinine 1.03 H Estim Creat Clear Calc 65.02 Est GFR (MDRD) Af Amer 69 Est GFR (MDRD) Non-Af 57 L BUN/Creatinine Ratio 13.6 Glucose 93 Calcium 9.7 Troponin I High Sens 5 Radiography Chest X-Ray - ED: 1 View, Read by ED Physician, Read by Radiologist and No Acute Disease Diagnostic Testing: Clinical Impression(s) from Imaging Studies Chest X-Ray 12/14/23 14:49 IMPRESSION: No acute abnormality is seen. Electronically Signed: Ede Barragan MD at 15:13 EDT , Portable 1 view chest x-ray was obtained. On my independent interpretation, lung barboza are clear. There is normal cardiac silhouette. Bony thorax is normal. There is no acute process noted. Radiologist also interpreted the x-ray and agrees. EKG Initial EKG: Attestation: I personally reviewed and interpreted this EKG as follows: Interpretation: Sinus Rhythm (95) and Non-Specific ST Changes Comments: EKG was obtained. On my independent interpretation, it showed a normal sinus rhythm with a rate of 95. HI interval, QRS interval, and QTc intervals were all normal. Hernandez was normal. There are nonspecific ST-T wave changes. Prior EKG tracings: not available for review Prior: Unchanged (EKG report from 08/18/[address]-T wave changes as well. The EKG itself was unable to be reviewed.) Treatment and Re-Evaluation :: Patient was given aspirin here. Patient was feeling better on reevaluation. Patient was advised of her findings. Patient does have a HEART score of 4. Patient was instructed to follow-up with her primary care physician in 5 to 7 days for further evaluation. Patient understood and was agreeable with the plan. All questions were answered. Discharge Plan Triage Chief Complaint: Chest Pain ED Provider: Shawn Bennett Dx/Rx/DC Orders Clinical Impression: Chest pain, Hypertension Instructions: ED Chest Pain, Uncertain Cause Prescriptions: No Action clobetasol 0.05 % cream topical Patient Comments: A THREE TIMES A DAY TO AFFECTED AREAS ON ARMS FOR 2 WEEKS. HOLD FOR 1 WEEK BEFORE RESUMING FOR FLARES. cetirizine [Zyrtec] 10 mg tablet 10 mg PO DAILY PRN vitamin B complex [B Complex-Vitamin B12] Tablet 1 tab PO DAILY Breo Ellipta 50-25 mcg/dose blister with device inhalation DAILY turmeric root extract 500 mg capsule 750 mg PO DAILY Osphena 60 mg tablet 60 mg PO QDAY Qty: 30 12RF Rx Instructions: give with food (meal/snack) nystatin [Nystop] 100,000 unit/gram powder 1 applic topical BID Qty: 45 7RF doxycycline monohydrate 100 mg capsule 100 mg PO BID Qty: 20 0RF triamterene-hydrochlorothiazid 37.5-25 mg tablet 1 tab PO DAILY Qty: 90 3RF albuterol sulfate 2.5 mg /3 mL (0.083 %) solution for nebulization 2.5 mg inhalation Q4H PRN (Reason: shortness of breath or wheezing) Qty: 90 0RF losartan 25 mg tablet 25 mg PO DAILY Qty: 90 1RF nortriptyline 10 mg capsule 10 mg PO QHS Qty: 30 2RF Primary Care Provider: Elver Laws Referrals: Elver Laws MD [Primary Care Provider] - 5-7 Days Print Language: Singaporean Disposition Disposition: Home, Self Care
--- NOTE | 2023-12-14 14:49 | RAD_ITS ---
STUDY: X-RAY CHEST REASON FOR EXAM: Female, 68 years old. Chest pain TECHNIQUE: Single AP portable view of the chest. COMPARISON: Comparison is made with prior study March 30, 2021. FINDINGS: EKG electrodes are seen. The lungs are clear and expanded. There is no demonstrated pleural abnormality. Normal size heart. Normal mediastinum and dory. Normal visualized pulmonary arteries. There is atherosclerotic calcification of the aortic arch with tortuosity. There are diffuse degenerative changes of the visualized thoracic spine. Normal visualized ribs, clavicles, and shoulders. There is no demonstrated abnormality of the visualized soft tissue structures of the upper abdomen. RAD/Chest 1 View (Portable) IMPRESSION: No acute abnormality is seen. Electronically Signed: Ede Barragan MD at 15:13 EDT ,
[2023-12-14] MEDS: Aspirin 81 MG TAB.CHEW 324 MG PO (15:13)
[2023-12-14 15:18] LABS: Absolute Lymphocyte Count 1.35 X10^3/uL (0.83-4.51); Absolute Neutrophil Count 3.7 X10^3/uL (2.0-7.7); Basophil# 0.05 X10^3/uL; Basophil% 0.8 % (0-1); Eosinophil# 0.08 X10^3/uL; Eosinophils% 1.3 % (0-5); Hematocrit 44.5 % (37-47); Hemoglobin 14.9 g/dL (12.0-15.0); Lymphocyte # 1.35 X10^3/ul (0.83-4.51); Lymphocyte % 22.7 % (19-41); Mean Corp Hgb Conc 33.5 g/dL (32-36); Mean Corpuscular Hgb 30.6 pg (27.0-32.0); Mean Corpuscular Volume 91.4 fL (81-99); Mean Platelet Vol. 11.5 fl (6.2-12.0); Monocyte# 0.75 X10^3/uL; Monocyte% 12.6 % (0-10); NRBC Flagged by Analyzer 0 % (0-5); Neutrophil # 3.71 X10^3/uL (2.7-7.7); Neutrophil % 62.4 % (47-70); Platelet Count 229 K/mm3 (150-450); RBC Distribution Width CV 14.2 % (11.6-14.6); RBC Distribution Width SD 47.7 fl (35.1-43.9); Red Blood Count 4.87 M/mm3 (4.2-5.4)
[2023-12-14 15:42] LABS: Anion Gap 5 (5-15); BUN 14 mg/dL (7-18); BUN/Creat Ratio 13.6 RATIO (10-20); Calcium,Total 9.7 mg/dL (8.5-10.1); Chloride 106 mmol/L (98-107); Creatinine, Serum 1.03 mg/dL (0.55-1.02); EST Glomerular Filtration Rate 57 mL/min (>60); Est Glom Filt Rate - Afr Amer 69 mL/min (>60); Estimated Creatinine Clearance 65.02 ml/min; Glucose 93 mg/dL (74-106); Potassium 4.2 mmol/L (3.5-5.1); Sodium Level 139 mmol/L (136-145); Troponin-I HS 5 pg/mL (3.0-54.0)
== END 2023-12-14 16:05 | disposition home or self-care (01) ==
PROVIDERS: Emergency Provider Emergency Medicine; PCP Internal Medicine; Visit Provider Emergency Medicine
DX: R07.9 Chest pain, unspecified (principal); I10 Essential (primary) hypertension; E78.5 Hyperlipidemia, unspecified; M54.2 Cervicalgia
CPT/HCPCS: 71045; 80048; 84484; 85025; 93005; 99284; A4216

== ENCOUNTER → 2024-01-02 | Outpatient (CLI) | payer MEDICARE, OTHER, SELFPAY ==
--- NOTE | 2024-01-02 15:36 | RAD_ITS ---
STUDY: X-RAY - CERVICAL SPINE REASON FOR EXAM: Female, 68 years old. Pain, decreased range of motion TECHNIQUE: 6 view(s) of the cervical spine were obtained. COMPARISON: None FINDINGS: Normal anterior atlantoaxial articulation. Normal odontoid process. There is straightening of the normal cervical lordosis, likely positional or due to pain. Normal vertebral bodies and endplates. The disc spaces are preserved from C2-3 to C4-5. There is intervertebral disc space narrowing from C4-5 through C7-T1. There is multi-level osseous foraminal stenosis. The soft tissue structures are unremarkable. RAD/Cerv Spine 4 or 5 Views IMPRESSION: Multilevel degenerative changes, no demonstrated fracture or suspicious osseous lesion. Electronically Signed: Stef Miller MD at 8:56 EDT ,
== END | disposition home or self-care (01) ==
PROVIDERS: PCP Internal Medicine; Referring Provider Physician Assistant; Visit Provider Physician Assistant
DX: M54.2 Cervicalgia (principal)
CPT/HCPCS: 72050

== ENCOUNTER → 2024-01-09 | Outpatient (CLI) | payer MEDICARE, OTHER, SELFPAY ==
--- NOTE | 2024-01-09 12:59 | MRI_ITS ---
STUDY: MRI CERVICAL SPINE WITHOUT CONTRAST REASON FOR EXAM: Female, 68 years old. Neck pain and left shoulder pain x2 years. TECHNIQUE: Standardized fat and water weighted pulse sequences were obtained in the sagittal and axial planes. COMPARISON: Cervical spine radiographs 07/22/2021. FINDINGS: Normal foramen magnum and brainstem-cervical cord junction. Normal craniovertebral junction. Normal anterior atlantoaxial articulation. Normal odontoid process. Mild straightening of the C-spine curvature. C4 benign vertebral body hemangioma. No focal signal abnormalities of the osseous elements of the cervical spine. No recent or remote fractures of the cervical spine.. C2-3: Normal endplates. Normal disc height, signal and morphology. Normal central canal and intervertebral neural foramina. C3-4: Normal endplates. Normal disc height, signal and morphology. Normal central canal and intervertebral neural foramina. C4-5: Normal endplates. Normal disc height, signal and morphology. Normal central canal and intervertebral neural foramina. C5-6: Normal endplates. Moderate disc space height narrowing. Mild ventral extradural defect due to posterior bulging annulus. Normal central canal. No obvious significant stenosis of the intervertebral neuroforamina. C6-7: [Normal endplates. Mild disc space height narrowing. Mild ventral extradural defect due to small posterior bulging annulus. Normal central canal and intervertebral neuroforamina. C7-T1: Normal endplates. Normal disc height, signal and morphology. Normal central canal and intervertebral neural foramina. T1-T2: (Sagittal only). Normal endplates. Normal disc height and morphology. Normal central canal and intervertebral neuroforamina. T2-T3: (Sagittal only). Normal endplates. Normal disc height, signal and morphology. Minimal degenerative anterolisthesis of T2 on T3. Normal central canal and intervertebral neuroforamina. T3-T4: (Sagittal only). Normal endplates. Normal disc height, signal and morphology. Normal central canal and intervertebral neuroforamina. Normal cervical cord. Normal visualized soft tissue structures. MRI/Spine Cervical (Routine) IMPRESSION: 1. No MRI evidence of any suspicious cervical extruded disc fragment, cervical disc protrusion or any obvious cervical nerve root displacement. 2. Mild posterior bulging annulus at C5-C6 and C6-C7 disc space levels. 3. Normal cervical spinal cord. Electronically Signed: Gerry Colorado MD at 15:04 EDT ,
== END | disposition home or self-care (01) ==
LOC: MRI 12:40
PROVIDERS: PCP Internal Medicine; Referring Provider Physician Assistant; Visit Provider Physician Assistant
DX: M50.30 Other cervical disc degeneration, unspecified cervical region (principal)
CPT/HCPCS: 72141

== ENCOUNTER 2024-03-01 11:00 | Outpatient (RCR) | payer MEDICARE, OTHER, SELFPAY ==
--- NOTE | 2024-01-30 16:45 | HP.PTEVAL_ITS ---
Patient's Visit Information Visit Information Visit Information: ROSEANNE JOLLEY is a 68 year old F referred to Physical Therapy by DIMAS Sorenson with a diagnosis of NECK PAIN AND DDD. Date of Evaluation: 01/30/24 Physical Therapist: Tasha Henderson, PT, Cert MDT Visit Plan Frequency: 2x /Week Duration: 4-6 Weeks Plan: Scapular Strengthening and B Pec/UT/Levator/Scalene Stretching to help reduce stress on Cervical Spine with Daily Activities. US at 1.3 W/CM2 100% to R Neck Musculature in Sitting. STM and Moist Heat to Neck as needed. Instruction in Proper Posture Control, Ergonomics with ADL's and Appropriate Activity Modifications. Postural Strengthening. HEP Instructions. Subjective Subjective: Work/Leisure: RETIRED Present symptoms: L NECK PAIN. INTERMITTENT SHA HAND NUMBNESS AND TINGLING. L UE NUMBNESS AND TINGLING. Present since: 2021 Pain Scale: Worst - 9/10 Least - 1/10 Currently: 3/10 Commenced as a result of: ARTHRITS Symptoms at onset: NECK PAIN Worse: DRIVING, TURNING HEAD L>R, SLEEPING ON STOMACH AND HAND UP UNDER PILLOW, JUST MVMT Better: NOTHING Disturbed sleep: YES Previous history/Previous treatment: PT 2021 OR 2022 - HELPED - ESPECIALLY THE HEAT AND MASSAGE. NO NECK INJECTIONS OR SX. NO CHIROPRACTIC. This episode: CONSULT PENDING WITH DR. NÚÑEZ PENDING FEB 10 2024. Dizziness: NO Tinnitus: NO Nausea: NO Shortness of Breath: NO BUT DOES HAVE ASTHMA Difficulty Swollowing: NO Gait: NORMAL. DID HAVE A FALL BUT WAS HAVING NECK PAIN PRIOR TO THE FALL. SAT ON A STOOL AND IT BROKE OCTOBER 06 2022 Accidents: NO Unexplained weight loss: NO Imagin01/09/24 CERVICAL MRI [facility]: IMPRESSION: 1. No MRI evidence of any suspicious cervical extruded disc fragment, cervical disc protrusion or any obvious cervical nerve root displacement. 2. Mild posterior bulging annulus at C5-C6 and C6-C7 disc space levels. 3. Normal cervical spinal cord. Electronically Signed: Gerry Colorado MD at 15:04 EDT PMH/Recent major surgery: PATIENT REQUESTING WE REFER TO CURRENT [facility] PMH ON CHART. Objective Objective: Sitting Posture/Standing Posture: FORWARD HEAD AND ROUNDED SHOULDERS. NO TORTICOLLIS Active Correction of posture: WORSE - PROVOKES PULLING L NECK. Other Observations: INDEP GAIT AND TRANSFERS. 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 Reflexes: UNABLE TO ELICIT SHA UE DTR'S. Cervical Mvmt Loss: Flex: NIL Pro: NIL Ext: MOD Ret: MOD RSB: MIN LSB: MIN R Rot: MIN L Rot: MOD PATIENT C/O INCREASED SHA NECK PAIN L > R WITH CERVICAL ROM TESTING ALL PLANES BUT ESPECIALLY WITH L ROT AND L SB TESTING. PATIENT TENDS TO MOVE IMPULSIVELY AND WAS TESTING AND RE-TESTING MVMTS TO THE POINT OF A LOT OF INCREASED SORENESS UNTIL THIS PT WAS ABLE TO STOP HER. Postural strength: POOR. Balance/Special Test Scores Oswestry Neck Score: 17 Goals Goal 1:: DECREASE C/O NECK AND LUE PAIN BY AT LEAST 50% TO EASE ADL'S Goal Time Frame: 4-6 Weeks Goal 2:: IMPROVE PAINFREE NECK ROM TO EASE ADL'S. Goal Time Frame: 4-6 Weeks Goal 3:: PATIENT WILL BE ABLE TO MAINTAIN PROPER POSTURE CONTROL THROUGH OUT THERAPY SESSION WITHOUT CUEING TO DEMONSTRATE IMPROVED POSTURE AWARENESS STRENGTH AND FLEXIBILITY. Goal Time Frame: 4-6 Weeks Goal 4:: PATIENT WILL HAVE IMPROVED NECK OSWESTRY SCORE OF AT LEAST 5 POINTS. Goal Time Frame: 4-6 Weeks Goal 5:: INDEP HEP Rehabilitation Potential Physical Therapy Diagnosis: NECK STIFFNESS AND WEAKNESS. POSTURAL STIFFNESS AND WEAKNESS. L UE WEAKNESS. Rehabilitation Potential: Good Anticipated Interventions Patient/Client Instruction: Educate patient on: Condition, Plan of Care and Risk Factors For the Purpose of:: To improve self management Therapeutic Exercise to Include: Strength training, Postural training, Flexibilty training, Neuromotor development and Scapular Strength/Stabilization For the Purpose of:: To decrease pain, To increase ROM, To improve muscle performance and motor function, To increase tolerance to activity/condition/position, To improve ability of physical actions for silvia e/community/work/leisure, To decrease soft tissue restriction, To increase flexibility/ROM and To improve self management Manual Therapy Techniques to Include: Trigger point massage and Soft tissue mobilization For the Purpose of:: To decrease pain and To improve nutrient delivery to tissue Thermo therapy (hot pack): Yes Ultrasound (thermal/non thermal): Yes For the Purpose of:: To decrease pain and To improve nutrient delivery to tissue Text: Thank you for the opportunity to evaluate your patient. For Medicare and Medicare HMO plans, please review the plan of care and approve it. It will need to be FAXED BACK to us at [phone] for Medicare purposes. For Medicare only, by signing this I certify the plan of care. Please let me know if there are questions or concerns regarding this plan of care. Physician Signature: Date:
--- NOTE | 2024-03-01 11:32 | HP.PTDCSUM ---
Discharge Summary D/C summary: It has been my pleasure to treat ROSEANNE JOLLEY referred by DIMAS Sorenson, with the diagnosis of NECK PAIN AND DDD for a total of 9 visit(s). Discharge Date: 03/01/24 Please see the following information for a summary of their discharge status. Subjective Subjective: PATIENT REPORTS SHE STILL GETS PAIN TURNING TO THE LEFT. STATES THERAPY FEELS GOOD WHILE SHE IS HAVING TREATMENT BUT THE PAIN COMES BACK. PATIENT REPORTS DR. NÚÑEZ RECOMMENDED PAIN MGMT. SHE STATES SHE TOLD HIM SHE WANTED HIM TO FINISH PT FIRST AND SHE STATES SHE IS TO CONTACT HIM WHEN SHE FINISHES PT AND SHE IS READY TO DO THAT AT THIS POINT. Pain Left neck/shoulder: Pain Intensity (Out of 10): 7 Overall Improvement % Improvement: 15 Objective Objective/Function: PATIENT WAS SEEN TODAY FOR RE-ASSESSMENT OF PROGRESS TOWARD THE SET PT GOALS AND THE NEED FOR FURTHER PHYSICAL THERAPY VS READINESS FOR DISCHARGE. THERE ARE NO SIGNIFICANT CHANGES OVER ALL WITH EXAM TODAY AND THEREFORE PATIENT IS APPROPRIATE FOR AND AGREEABLE TO DISCHARGE. UPON EXAM TODAY: Cervical Mvmt Loss: Flex: NIL Pro: NIL Ext: MOD Ret: MOD RSB: MIN LSB: MIN R Rot: MIN L Rot: MOD PATIENT C/O INCREASED SHA NECK PAIN L > R WITH CERVICAL ROM TESTING ALL PLANES BUT ESPECIALLY WITH L ROT AND L SB TESTING. Goals Goal 1:: DECREASE C/O NECK AND LUE PAIN BY AT LEAST 50% TO EASE ADL'S Goal Progress: Not Met Goal 2:: IMPROVE PAINFREE NECK ROM TO EASE ADL'S. Goal Progress: Not Met Goal 3:: PATIENT WILL BE ABLE TO MAINTAIN PROPER POSTURE CONTROL THROUGH OUT THERAPY SESSION WITHOUT CUEING TO DEMONSTRATE IMPROVED POSTURE AWARENESS STRENGTH AND FLEXIBILITY. Goal Progress: Not Met Goal 4:: PATIENT WILL HAVE IMPROVED NECK OSWESTRY SCORE OF AT LEAST 5 POINTS. Goal Progress: Not Met Goal 5:: INDEP HEP Goal Progress: Not Met Plan Plan: D/C DUE TO LACK OF PROGRESS. PATIENT IS AGREEABLE AND PLANS TO PURSUE PAIN MGMT RECOMMENDED BY DR. NÚÑEZ. D/C Information d/c sentence: If there are questions or concerns regarding this patient's physical therapy, please feel free to call me at [phone]. Thank you for the referral of this patient. Sincerely, Tasha Hendesron, PT, Cert MDT Balance/Gait/Functional tests Balance/Special Test Scores Oswestry Neck Score: 16 Improvement % Improvement: 15
== END 2024-03-01 19:00 | disposition home or self-care (01) ==
LOC: PT 11:00
PROVIDERS: PCP Internal Medicine; Referring Provider Physician Assistant; Visit Provider Physician Assistant
DX: M54.30 Sciatica, unspecified side (principal); M54.2 Cervicalgia
CPT/HCPCS: 97035; 97110; 97140; 97162; 97530

== ENCOUNTER → 2024-03-16 | Outpatient (CLI) | payer MEDICARE, OTHER, SELFPAY ==
--- NOTE | 2024-03-16 14:13 | RAD_ITS ---
STUDY: X-RAY CHEST REASON FOR EXAM: Female, 68 years old. Persistent cough TECHNIQUE: PA and lateral views of the chest. COMPARISON: Comparison is made with prior study dated December 14, 2023. FINDINGS: The lungs are clear and expanded. There is no demonstrated pleural abnormality. There is mild cardiac enlargement. Normal mediastinum and dory. Normal visualized pulmonary arteries. There is atherosclerotic calcification of the aortic arch with tortuosity. There are diffuse degenerative changes of the visualized thoracic spine. Normal visualized ribs, clavicles, and shoulders. There is no demonstrated abnormality of the visualized soft tissue structures of the upper abdomen. RAD/Chest PA and Lateral IMPRESSION: No acute abnormality is seen. Electronically Signed: Ede Barragan MD at 14:36 EST ,
== END | disposition home or self-care (01) ==
LOC: MTRAD 14:11
PROVIDERS: PCP Internal Medicine; Referring Provider Physician Assistant Surgical; Visit Provider Physician Assistant Surgical
DX: J45.901 Unspecified asthma with (acute) exacerbation (principal)
CPT/HCPCS: 71046

== ENCOUNTER → 2024-04-24 | Outpatient (CLI) | payer MEDICARE, OTHER, SELFPAY ==
--- NOTE | 2024-04-24 13:47 | BI_ITS ---
MAMMOGRAPHY - BILATERAL SCREENING REASON FOR EXAM: Female, 68 years old. Routine annual screening examination. PERTINENT HISTORY: Non-contributory. TECHNIQUE: Digital bilateral breast giuseppe (3D mammographic acquisition) in the CC and MLO projections. 2-D mediolateral oblique (MLO) and craniocaudad (CC) views of both breasts were obtained. CAD: Full Field Digital Mammography with Computer Added Detection was performed. COMPARISON: Comparison is made with prior study dated April 20, 2023 and December 29, 2021. FINDINGS: Breast Composition: The breasts are almost entirely fatty. There are no dominant masses or suspicious calcifications. Stable 9.7 mm fat-containing lymph node in the upper lateral aspect of the right breast. Stable bilateral fat-containing axillary lymph nodes. No other significant abnormalities are identified. There has been no significant change since the prior study. BI/SCRN MAMM (CAD)W/GIUSEPPE BILAT IMPRESSION: Stable bilateral screening mammogram. Yearly follow-up mammogram recommended. (A) ASSESSMENT CATEGORY: BIRADS Category 2: Benign. A letter regarding these results will be sent to the patient by the facility within 30 days. Approximately 10% of breast cancers are not detected by mammography. A normal mammogram should not delay biopsy of a clinically suspicious abnormality. [id number] Electronically Signed: Ede Barragan MD at 14:28 EST ,
== END | disposition home or self-care (01) ==
LOC: OPBI 13:46
PROVIDERS: PCP Internal Medicine; Referring Provider Internal Medicine; Visit Provider Internal Medicine
DX: Z12.31 Encounter for screening mammogram for malignant neoplasm of breast (principal)
CPT/HCPCS: 77063; 77067

== ENCOUNTER → 2024-06-22 | Outpatient (CLI) | payer MEDICARE, OTHER, SELFPAY ==
[2024-06-22 15:02] LABS: Absolute Lymphocyte Count 0.91 X10^3/uL (0.83-4.51); Absolute Neutrophil Count 3.5 X10^3/uL (2.0-7.7); Basophil# 0.04 X10^3/uL; Basophil% 0.8 % (0-1); Eosinophil# 0.11 X10^3/uL; Eosinophils% 2.1 % (0-5); Hematocrit 43.4 % (37-47); Hemoglobin 14.2 g/dL (12.0-15.0); Lymphocyte # 0.91 X10^3/ul (0.83-4.51); Lymphocyte % 17.7 % (19-41); Mean Corp Hgb Conc 32.7 g/dL (32-36); Mean Corpuscular Hgb 29.3 pg (27.0-32.0); Mean Corpuscular Volume 89.5 fL (81-99); Mean Platelet Vol. 11.9 fl (6.2-12.0); Monocyte# 0.61 X10^3/uL; Monocyte% 11.9 % (0-10); NRBC Flagged by Analyzer 0 % (0-5); Neutrophil # 3.45 X10^3/uL (2.7-7.7); Neutrophil % 67.1 % (47-70); Platelet Count 226 K/mm3 (150-450); RBC Distribution Width CV 12.3 % (11.6-14.6); RBC Distribution Width SD 40.2 fl (35.1-43.9); Red Blood Count 4.85 M/mm3 (4.2-5.4); White Blood Count 5.1 K/mm3 (4.4-11.0)
[2024-06-22 16:13] LABS: ALB/GLOB Ratio 1.3 RATIO (0.9-2.4); AST(SGOT) 20 U/L (<=31); Alanine Aminotransfer ALT/SGPT 22 U/L (<=34); Albumin, Serum 4.1 g/dL (3.4-4.8); Alkaline Phosphatase 161 U/L (35-104); Anion Gap 11 (5-15); BUN 15 mg/dL (4-19); BUN/Creat Ratio 15.9 RATIO (10-20); Calcium,Total 9.8 mg/dL (7.6-11.0); Carbon Dioxide 26.2 mmol/L (21.0-32.0); Chloride 102 mmol/L (98-108); Creatinine, Serum 0.96 mg/dL (0.70-1.20); EST Glomerular Filtration Rate 66 (>60); Globulin 3.1 g/dL (2.2-4.2); Glucose 99 mg/dL (70-99); Magnesium 2.2 mg/dL (1.5-2.2); Protein, Total 7.2 g/dL (5.9-8.4); Sodium Level 139 mmol/L (133-145); Total Bilirubin 0.46 mg/dL (0.00-1.30)
== END | disposition home or self-care (01) ==
LOC: BIMLAB 11:40
PROVIDERS: PCP Internal Medicine; Referring Provider Internal Medicine; Visit Provider Internal Medicine
DX: I10 Essential (primary) hypertension (principal)
CPT/HCPCS: 36415; 80053; 83735; 84439; 84443; 85025

== ENCOUNTER → 2024-12-24 | Outpatient (CLI) | payer MEDICARE, OTHER, SELFPAY | END | disposition home or self-care (01) | LOC: BIMLAB 13:02 | PROVIDERS: PCP Internal Medicine; Referring Provider Internal Medicine; Visit Provider Internal Medicine | DX: R06.02 Shortness of breath (principal) | CPT/HCPCS: 87631 ==

== ENCOUNTER → 2025-01-04 | Outpatient (CLI) | payer MEDICARE, OTHER, SELFPAY ==
--- NOTE | 2025-01-04 14:10 | RAD_ITS ---
PROCEDURE: CHEST PA AND LATERAL 01/04/2025 REASON FOR EXAM: SHORTNESS OF BREATH TECHNIQUE: Procedure Code: RADCXR Modality: DX Procedure: CHEST PA AND LATERAL COMPARISON: Chest x-ray dated 03/16/2024 FINDINGS: Hardware: None Heart: Heart size is mildly enlarged. Mediastinum: There are atherosclerotic calcifications of the thoracic aorta. Mediastinal contours within normal limits. Pulmonary vasculature is unremarkable. Lungs: The lungs are clear. Bones: Degenerative changes of the thoracic spine are noted. There are no displaced fractures. The remaining visualized bony thorax appears unremarkable. RAD/Chest PA and Lateral IMPRESSION: No acute cardiopulmonary process is identified radiographically. Reading Location: [id number]
--- OUTSIDE RECORDS SUMMARY | 2025-01-04 14:33 | XMS RPT_ITS | CCD ---
Author Organization [facility] Care Team Providers Care Water Pollution Specialist Name Role Phone MAKSIM OTTO PAC Unavailable Unavailable MAKSIM OTTO PAC Unavailable Unavailable MAKSIM OTTO PAC Unavailable Unavailable HENRY YAN P Unavailable Unavailable BRAULIO CARLTON PEGGY Unavailable Unavailable Dr. Elver Laws Primary Care Provider [phone]) Dr. Elver Laws Referring Provider [phone] Dr. Tommy Mendez Attending Provider 1(330) Dr. Erik Sanford Attending Provider [phone] Edwina BUSINESS SPECIALIST, BUSINESS SPECIALIST-C Jimena Attending Provider [phone] ) Dr. Elver Laws Primary Care Provider 1(33 0) Dr. Elver Lwas Referring Provider [phone] Edwina BUSINESS SPECIALIST, BUSINESS SPECIALIST-C Jimena Attending Provider [phone] ) Dr. Elver Laws Primary Care Provider [phone] 0) Dr. Elver Laws Referring Provider [phone])2 [place]wina BUSINESS SPECIALIST, BUSINESS SPECIALIST-C Jimena Attending Provider 1(330 ) Dr. Tommy Mendez Attending Provider 1(330) Dr. Shadi Whipple Attending Provider Antonio BUSINESS SPECIALIST, BUSINESS SPECIALIST-C James Attending Provider 1(330) Dr. Tommy Mendez Referring Provider 1(330) Dr. Elver Laws Attending Provider [phone])2 Dr. Elver Laws Primary Care Provider 1(33 0) Dr. Elver Laws Referring Provider [phone])2 Dr. Tommy Mendez Attending Provider [phone] Dr. Erik Sanford Attending Provider Dr. Elver Laws Attending Provider [phone])2 Veto, Dr. Raya Primary Care Provider 1(33 0) Veto, Dr. Raya Referring Provider [phone])2 Dr. Tommy Mendez Attending Provider 1(330) Veto, Dr. Raya Primary Care Provider 1(33 0) Veto, Dr. Raya Referring Provider [phone])2 Dr. Tommy Mendez Attending Provider 1(330) ALENA Farmer Attending Provider 1(330) Veto, Dr. Raya Primary Care Provider 1(33 0) Veto, Dr. Raya Referring Provider [phone])2 Veto, Dr. Raya Primary Care Provider 1(33 0) Veto, Dr. Raya Attending Provider [phone])2 Dr. Elver Laws Referring Provider [phone])2 ALENA Farmer Attending Provider 1(330) Dr. Elver Laws Primary Care Provider 1(33 0) Dr. Elver Laws Referring Provider [phone])2 Dr. Elver Laws Attending Provider [phone])2 Dr. Sergey Castorena Attending Provider Veto GARRETT, Dr. Raya Primary Care Provider Veto GARRETT, Dr. Raya Referring Provider 1(33 0) Enrrique Evans Attending Provider Enrrique Evans Referring Provider Veto GARRETT, Dr. Raya Attending Provider 1(33 0) Mauro Nielsen Attending Provider Veto GARRETT, Dr. Raya Primary Care Provider Veto GARRETT, Dr. Raya Referring Provider [phone] Veto GARRETT, Dr. Raya Attending Provider [phone] Juvenal GARRETT, Dr. Valencia Attending Provider [phone] Dr. Tommy Mendez DO Attending Provider Veto GARRETT, Dr. Raya Primary Care Provider Veto GARRETT, Dr. Raya Referring Provider 1(33 0) Kell GARRETT, Dr. Rincon Attending Provider Veto GARRETT, Dr. Raya Attending Provider [phone] 0) Oleghe, Efewongbe Referring Unavailable Sergey Castorena Attending Unavailable Oleghe, Efewongbe Primary Care Unavailable Oleghe, Efewongbe Attending Unavailable Oleghe, Efewongbe Primary Care Unavailable Oleghe, Efewongbe Referring Unavailable Oleghe, Efewongbe Primary Care Unavailable Oleghe, Efewongbe Referring Unavailable Oleghe, Efewongbe Attending Unavailable Oleghe, Efewongbe Primary Care Unavailable Ryan Flores Referring Unavailable Ryan Flores Attending Unavailable Oleghe, Efewongbe Attending Unavailable Oleghe, Efewongbe Primary Care Unavailable Oleghe, Efewongbe Referring Unavailable Oleghe, Efewongbe Referring Unavailable Oleghe, Efewongbe Primary Care Unavailable Oleghe, Efewongbe Attending Unavailable Sergey Castorena Attending Unavailable Oleghe, Efewongbe Primary Care Unavailable Oleghe, Efewongbe Primary Care Unavailable Oleghe, Efewongbe Referring Unavailable Oleghe, Efewongbe Attending Unavailable Oleghe, Efewongbe Primary Care Unavailable Ryan Flores Attending Unavailable Ryan Flores Referring Unavailable Erik Sanford Attending Unavailable Oleghe, Efewongbe Primary Care Unavailable Oleghe, Efewongbe Referring Unavailable Oleghe, Efewongbe Primary Care Unavailable Tommy Mendez Attending Unavailable Oleghe, Efewongbe Primary Care Unavailable Oleghe, Efewongbe Referring Unavailable Tommy Mendez Attending Unavailable Oleghe, Efewongbe Attending Unavailable Oleghe, Efewongbe Primary Care Unavailable Oleghe, Efewongbe Referring Unavailable Oleghe, Efewongbe Primary Care Unavailable Oleghe, Efewongbe Referring Unavailable Mauro Burden Attending Unavailable Oleghe, Efewongbe Referring Unavailable Enrrique Evans Attending Unavailable Oleghe, Efewongbe Primary Care Unavailable Oleghe, Efewongbe Primary Care Unavailable Oleghe, Efewongbe Referring Unavailable Erik Sanford Attending Unavailable Oleghe, Efewongbe Referring Unavailable Contreras Garcia Attending Unavailable Oleghe, Efewongbe Primary Care Unavailable Oleghe, Efewongbe Primary Care Unavailable Oleghe, Efewongbe Referring Unavailable Tommy Mendez Attending Unavailable Oleghe, Efewongbe Primary Care Unavailable Oleghe, Efewongbe Referring Unavailable Mauro Burden Attending Unavailable Oleghe, Efewongbe Referring Unavailable Oleghe, Efewongbe Primary Care Unavailable Ryan Flores Attending Unavailable Oleghe, Efewongbe Primary Care Unavailable Enrrique Evans Referring Unavailable Enrrique Evans Attending Unavailable Oleghe, Efewongbe Primary Care Unavailable Ryan Flores Referring Unavailable Ryan Flores Attending Unavailable Oleghe, Efewongbe Referring Unavailable Oleghe, Efewongbe Primary Care Unavailable Oleghe, Efewongbe Attending Unavailable Allergies Allergy Classification Reported Allergen(s) Allergy Type Date of Onset Reaction(s) Facility (1 source) acetaminophen / HYDROcodone; Translations: [HYDROCODONE-ACET AMINOPHEN] Drug Allergy 6 [facility] (1 source) Dust; Translations: [DUST] Propensity to adverse reactions (disorder) 6 [facility] (1 source) AMOXICILLIN-POT CLAVULANATE; Translations: [AMOXICILLIN-POT CLAVULANATE] Propensity to adverse reactions to drug (disorder) 5 [facility] (1 source) PROPOXYPHENE N-ACETAMINOPHEN; Translations: [PROPOXYPHENE N-ACETAMINOPHEN] Propensity to adverse reactions to drug (disorder) 6 [facility] (1 source) OXYCODONE-ASPIRIN ; Translations: [OXYCODONE-ASPIRI N] Propensity to adverse reactions to drug (disorder) 6 [facility] (1 source) RAGWEED; Translations: [RAGWEED] Propensity to adverse reactions (disorder) 6 [facility] (20 sources) Acetaminophen Drug Allergy 2 Nausea [facility] (20 sources) Amoxicillin Drug Allergy 2 Nausea [facility] (20 sources) Clavulanate Drug Allergy 2 Nausea [facility] (20 sources) HYDROcodone Drug Allergy 2 Nausea [facility] (20 sources) oxyCODONE Drug Allergy 2 Nausea [facility] (20 sources) Propoxyphene Drug Allergy 2 [facility] (1 source) Acetaminophen Drug Allergy 5 [facility] (1 source) Amoxicillin Drug Allergy 5 [facility] (1 source) Clavulanate Drug Allergy 5 [facility] (1 source) HYDROcodone Drug Allergy 5 [facility] (1 source) oxyCODONE Drug Allergy 5 [facility] (1 source) Propoxyphene Drug Allergy 5 [facility] Repository Medications Current Medications Medication Drug Class(es) Dates Sig (Normalized) Sig (Original) [id number] 200 actuat albuterol 0.09 mg/actuat metered dose inhaler (20 sources) beta2-Adrenergic Agonist Start: 12-12-2024 Albuterol Sulfate (Ventolin Hfa) 90 mcg/actuation HFA aerosol inhaler Active 2 NMA INHALATION Q4H as needed for shortness of breath or wheezing 8.5 0 December 12, 2024 12:00am Start: 05-26-2023 End: 05-27-2023 take 2.5 mg by inhalation every four hours as needed for wheezing Albuterol Sulfate 2.5 mg /3 mL (0.083 %) solution for nebulization Active 2.5 mg INHALATION Q4H as needed for shortness of breath or wheezing 90 0 May 27, 2023 10:27am Start: 06-04-2022 End: 05-26-2023 take 2.5 mg by inhalation every four hours Albuterol Sulfate Discontinued 2.5 MG INHALATION Q4H 90 June 04, 2022 1:00am May 26, 2023 4:26pm Start: 06-04-2022 End: 05-26-2023 take 2.5 mg by inhalation every four hours Albuterol Sulfate Discontinued 2.5 MG INHALATION Q4H June 04, 2022 12:00am May 26, 2023 3:26pm Start: 06-04-2022 take 2.5 mg by inhal ation every four hours Albuterol Sulfate Active 2.5 MG INHALATION Q4H June 04, 2022 12:00am Start: 06-04-2022 take 2.5 mg by inhal ation every four hours Albuterol Sulfate Active 2.5 MG INHALATION Q4H June 04, 2022 1:00am Start: 04-07-2021 take 1 puff(s) by in halation every six hours Albuterol Sulfate Active 2 PUFF INHALATION EVERY 6 HOURS 8.5 April 07, 2021 9:42am Start: 07-09-2019 End: 06-04-2022 Albuterol Sulfate 90 mcg/act uation HFA aerosol inhaler Discontinued 2 NMA INHALATION EVERY 6 HOURS as needed for shortness of breath or wheezing 8.5 2 April 07, 2021 9:42am June 04, 2022 1:40pm Start: 07-09-2019 End: 06-04-2022 take 1 puff(s) by inhalation every six hours Albuterol Sulfate Discontinued 2 PUFF INHALATION EVERY 6 HOURS 8.5 April 07, 2021 9:42am June 04, 2022 1:40pm Start: 01-31-2019 End: 06-20-2019 Albuterol Sulfate 90 mcg/act uation HFA aerosol inhaler Discontinued 1 - 2 NMA INHALATION EVERY 6 HOURS NEEDED as needed for Asthma 8.5 0 January 31, 2019 2:06pm June 20, 2019 1:10pm Start: 01-31-2019 End: 06-20-2019 take 1 puff(s) by inhalation every six hours as needed Albuterol Sulfate Discontinued 1 - 2 PUFF INHALATION EVERY 6 HOURS NEEDED 8.5 January 31, 2019 2:06pm June 20, 2019 1:10pm Start: 10-20-2016 End: 01-31-2019 Albuterol Sulfate 1 INHALER inhaler Discontinued 1 - 2 NMA INHALATION EVERY 6 HOURS NEEDED as needed for Asthma October 20, 2016 12:00am January 31, 2019 2:07pm Start: 10-20-2016 End: 01-31-2019 take 1 puff(s) by inhalation every six hours as needed Albuterol Sulfate Discontinued 1 - 2 PUFF INHALATION EVERY 6 HOURS NEEDED October 20, 2016 12:00am January 31, 2019 2:07pm azithromycin 250 mg oral tablet (20 sources) Macrolide Antimicrobial Start: 06-04-2024 End: 12-24-2024 Azithromycin 250 mg tablet Active 0 PO .COMPLEX 6 0 December 24, 2024 12:00am For 250 mg dose pack: take 500 mg today (day 1), then 250 mg for 4 days (days 2-5) PO Start: 03-16-2024 End: 04-12-2024 take 2-5 tablets by mouth once daily Azithromycin 250 mg tablet Discontinued 0 PO .COMPLEX 6 0 March 16, 2024 1:00am April 12, 2024 6:17pm take 500 mg today (day 1), then 250 mg for 4 days (days 2-5) PO Start: 07-19-2023 End: 08-08-2023 Azithromycin 250 mg tablet Discontinued 0 PO .COMPLEX 6 0 July 19, 2023 12:00am August 08, 2023 11:00am For 250 mg dose pack: take 500 mg today (day 1), then 250 mg for 4 days (days 2-5) PO Start: 05-26-2023 End: 06-17-2023 Azithromycin 250 mg tablet Discontinued 0 PO .COMPLEX 6 0 May 26, 2023 1:00am June 17, 2023 12:22pm Acute upper respiratory infection Acute upper respiratory infection, unspecified For 250 mg dose pack: take 500 mg today (day 1), then 250 mg for 4 days (days 2-5) PO Start: 05-26-2023 End: 06-17-2023 Azithromycin Discontinued 0 PO .COMPLEX 6 May 26, 2023 1:00am June 17, 2023 12:22pm For 250 mg dose pack: take 500 mg today (day 1), then 250 mg for 4 days (days 2-5) PO Start: 06-04-2022 End: 12-20-2022 take 2-5 tablets by mouth once daily Azithromycin 250 mg tablet Discontinued 0 PO .COMPLEX 6 0 June 04, 2022 1:00am December 20, 2022 11:03am take 500 mg today (day 1), then 250 mg for 4 days (days 2-5) PO Start: 04-07-2021 End: 06-24-2021 take 2-5 tablets by mouth once daily Azithromycin (Zithromax Z-Parminder) 250 mg tablet Discontinued 0 PO .COMPLEX 6 0 April 07, 2021 1:00am June 24, 2021 3:18pm take 500 mg today (day 1), then 250 mg for 4 days (days 2-5) PO Start: 11-12-2020 End: 12-29-2020 Azithromycin 250 mg tablet Discontinued 0 PO .COMPLEX 6 0 November 12, 2020 12:00am December 29, 2020 3:36pm Take two tablets by mouth on day one then one tablet by mouth on days 2-5 Start: 11-12-2020 End: 12-29-2020 Azithromycin Discontinued 0 PO .COMPLEX 6 November 12, 2020 12:00am December 29, 2020 3:36pm Take two tablets by mouth on day one then one tablet by mouth on days 2-5 Start: 02-26-2020 End: 03-14-2020 take 2-5 tablets by mouth once daily Azithromycin 250 mg tablet Discontinued 0 PO .COMPLEX 6 0 February 26, 2020 1:00am March 14, 2020 10:59am take 500 mg today (day 1), then 250 mg for 4 days (days 2-5) PO Start: 07-10-2019 End: 11-13-2019 take 2-5 tablets by mouth once daily Azithromycin 250 mg tablet Discontinued 0 PO .COMPLEX 6 0 July 10, 2019 12:00am November 13, 2019 10:53am take 500 mg today (day 1), then 250 mg for 4 days (days 2-5) PO Biotin (6 sources) Start: 04-12-2024 Biotin (Hair, Skin And Nails (Biotin)) 10,000 mcg tablet,chewable Active ug PO April 12, 2024 1:00am calcium carbonat and lactate 200 mg calcium-vitamin D3 250 unit tablet (14 sources) Start: 05-12-2017 take 2 tablets by mouth at bedtime calcium carbonat and lactate 200 mg calcium-vitamin D3 250 unit tablet Active 2 TABLET PO BEDTIME May 12, 2017 11:55am Start: 05-12-2017 End: 06-04-2022 take 2 tablets by mouth at bedtime calcium carbonat and lactate 200 mg calcium-vitamin D3 250 unit tablet Discontinued 2 TABLET PO BEDTIME May 12, 2017 12:00am June 04, 2022 12:40pm Start: 05-12-2017 End: 06-04-2022 take 2 tablets by mouth at bedtime calcium carbonat and lactate 200 mg calcium-vitamin D3 250 unit tablet Discontinued 2 TABLET PO BEDTIME May 12, 2017 1:00am June 04, 2022 1:40pm Start: 05-12-2017 take 2 tablets by mo ut at bedtime calcium carbonat and lactate 200 mg calcium-vitamin D3 250 unit tablet Active 2 TABLET PO BEDTIME May 12, 2017 12:00am Start: 05-12-2017 take 2 tablets by mo uth at bedtime calcium carbonat and lactate 200 mg calcium-vitamin D3 250 unit tablet Active 2 TABLET PO BEDTIME May 12, 2017 1:00am calcium carbonate 1250 mg / cholecalciferol 200 unt oral tablet (6 sources) Vitamin D Start: 04-12-2024 Calcium Carbonate-Vitamin D3 500 mg-5 mcg (200 unit) tablet Active 1 {tbl} PO daily April 12, 2024 1:00am cetirizine hydrochloride 10 mg oral tablet (13 sources) Histamine-1 Receptor Antagonist Start: 03-07-2023 take 1 tablet by mouth once daily as needed Cetirizine (Zyrtec) 10 mg tablet Active 10 mg PO DAILY as needed March 07, 2023 1:00am clobetasol propionate 0.5 mg/ml topical cream (20 sources) Corticosteroid Start: 04-12-2024 Clobetasol 0.05 % cream Active TOPICAL as needed April 12, 2024 6:18pm Start: 03-07-2023 End: 04-12-2024 Clobetasol 0.05 % cream Disc ontinued TOPICAL March 07, 2023 1:00am April 12, 2024 6:19pm Start: 03-07-2023 Clobetasol Act quang TOPICAL March 07, 2023 1:00am Start: 12-29-2021 End: 06-04-2022 Clobetasol 0.05 % ointment D iscontinued 1 NMA TOPICAL .COMPLEX 15 2 December 29, 2021 12:00am June 04, 2022 1:40pm 1 applic topical apply bid X 2 weeks, daily X 2 weeks then prn. Small amount and massge in; Start: 11-13-2019 End: 03-14-2020 Clobetasol 0.05 % cream Disc ontinued 1 NMA TOPICAL .COMPLEX 15 November 13, 2019 12:00am March 14, 2020 11:01am 1 applic TOPICAL apply thin layer as directed bid X 2 weeks then daily X 2 weeks; apply thin layer; massage in to cover area ELDERBERRY FRUIT (7 sources) Start: 12-24-2024 take 1 mg by mouth once daily Elderberry Fruit 350 mg capsule Active mg PO daily December 24, 2024 11:51am Start: 04-12-2024 End: 12-24-2024 Elderberry Fruit 350 mg caps ule Discontinued mg PO April 12, 2024 1:00am December 24, 2024 11:52am Start: 04-12-2024 Elderberry Fru it 350 mg capsule Active mg PO April 12, 2024 1:00am 30 actuat fluticasone furoate 0.1 mg/actuat / vilanterol 0.025 mg/actuat dry powder inhaler (20 sources) Corticosteroid, beta2-Adrenergic Agonist Start: 04-24-2024 End: 11-29-2024 Fluticasone Furoate-Vilanterol (Breo Ellipta) 100-25 mcg/dose blister with device Active 1 NMA INHALATION Q24H 60 90 3 November 29, 2024 4:14pm Start: 02-17-2022 End: 08-08-2023 Fluticasone Furoate-Vilanter ol 100-25 mcg/dose blister with device Discontinued 1 NMA INHALATION DAILY 90 90 3 April 06, 2023 2:35pm August 08, 2023 11:02am Start: 06-10-2020 End: 04-06-2023 take 1 dose by inhalation once daily Fluticasone Furoate-Vilanterol 1 EACH blister with device Discontinued 1 NMA IH DAILY June 10, 2020 1:00am February 17, 2022 11:50am Start: 01-02-2019 End: 06-20-2019 Fluticasone Furoate-Vilanter ol (Breo Ellipta) 100-25 mcg/dose blister with device Discontinued 1 NMA INHALATION DAILY 90 90 January 02, 2019 12:00am June 20, 2019 1:42pm Start: 01-02-2019 End: 06-20-2019 Fluticasone Furoate-Vilanter ol (Breo Ellipta) 100-25 mcg/dose blister with device Discontinued 1 INH INHALATION DAILY 90 January 02, 2019 12:00am June 20, 2019 1:42pm Start: 12-27-2018 End: 01-31-2019 Fluticasone Furoate-Vilanter ol (Breo Ellipta) 200-25 mcg/dose blister with device Discontinued 1 INH INHALATION DAILY 90 December 27, 2018 3:58pm January 31, 2019 11:10am Start: 12-27-2018 End: 01-31-2019 Fluticasone Furoate-Vilanter ol (Breo Ellipta) 200-25 mcg/dose blister with device Discontinued 1 NMA INHALATION DAILY 90 90 2 December 27, 2018 12:00am January 31, 2019 11:10am Start: 12-27-2018 End: 01-31-2019 Fluticasone Furoate-Vilanter ol (Breo Ellipta) 200-25 mcg/dose blister with device Discontinued 1 NMA INHALATION DAILY 90 December 27, 2018 12:00am January 31, 2019 11:10am Start: 12-27-2018 End: 01-31-2019 Fluticasone Furoate-Vilanter ol (Breo Ellipta) 200-25 mcg/dose blister with device Discontinued 1 INH INHALATION DAILY 90 90 December 26, 2018 11:00pm January 31, 2019 10:10am Start: 12-27-2018 End: 01-31-2019 Fluticasone Furoate-Vilanter ol (Breo Ellipta) 200-25 mcg/dose blister with device Discontinued 1 INH INHALATION DAILY 90 90 December 27, 2018 12:00am January 31, 2019 11:10am Start: 11-22-2017 End: 10-20-2018 Fluticasone Furoate-Vilanter ol (Breo Ellipta) 100-25 mcg/dose blister with device Discontinued 1 NMA INHALATION DAILY 60 5 May 05, 2018 2:20pm October 20, 2018 10:47am Start: 10-20-2016 End: 10-20-2018 take 1 dose by inhalation once daily Fluticasone Furoate-Vilanterol 1 EACH blister with device Discontinued 1 NMA IH DAILY October 20, 2016 12:00am November 22, 2017 8:42am hydroCHLOROthiazide 25 mg / triamterene 37.5 mg oral tablet (20 sources) Potassium-sparing Diuretic, Thiazide Diuretic Start: 07-16-2019 End: 12-24-2024 Triamterene-Hydrochlorothiaz id 37.5-25 mg tablet Active 1 {tbl} PO DAILY 90 December 24, 2024 12:46pm Start: 07-16-2019 End: 03-07-2023 take 1 tablet by mouth once daily Triamterene-Hydrochlorothiazid Discontin ued 1 TABLET PO DAILY 90 January 14, 2022 9:44am March 07, 2023 5:57pm Start: 06-20-2019 End: 07-16-2019 Triamterene-Hydrochlorothiaz id 37.5-25 mg tablet Discontinued {tbl} PO June 20, 2019 12:00am July 16, 2019 1:23pm Start: 06-20-2019 End: 07-16-2019 Triamterene-Hydrochlorothiaz id Discontinued TABLET PO June 20, 2019 12:00am July 16, 2019 1:23pm Start: 05-12-2017 End: 09-07-2018 Triamterene-Hydrochlorothiaz id (Maxzide-25mg) 37.5-25 mg tablet Discontinued 1 {tbl} PO EVERY MORNING as needed May 12, 2017 1:00am September 07, 2018 11:18am Start: 10-20-2016 End: 07-26-2017 Triamterene-Hydrochlorothiaz id 1 CAP capsule Discontinued 1 NMA PO DAILY October 20, 2016 12:00am July 26, 2017 11:14am Start: 10-20-2016 End: 07-26-2017 take 1 capsule by mouth once daily Triamterene-Hydrochlorothiazid Discontin ued 1 CAP PO DAILY October 20, 2016 12:00am July 26, 2017 11:14am Multivitamin tablet (6 sources) Start: 04-12-2024 Multivitamin t ablet Active 1 {tbl} PO EVERY MORNING April 12, 2024 1:00am Multivitamin With Minerals (Hair,Skin And Nails) tablet (20 sources) Start: 07-08-2021 take 1 tablet by mouth once daily Multivitamin With Minerals (Hair,Skin And Nails) tablet Active 1 TABLET PO DAILY July 08, 2021 9:13am Start: 07-08-2021 End: 06-04-2022 Multivitamin With Minerals (Hair,Skin And Nails) tablet Discontinued 1 {tbl} PO DAILY July 08, 2021 12:00am June 04, 2022 1:41pm Start: 07-08-2021 End: 06-04-2022 take 1 tablet by mouth once daily Multivitamin With Minerals (Hair,Skin And Nails) tablet Discontinued 1 TABLET PO DAILY July 07, 2021 11:00pm June 04, 2022 12:41pm Start: 07-08-2021 End: 06-04-2022 take 1 tablet by mouth once daily Multivitamin With Minerals (Hair,Skin And Nails) tablet Discontinued 1 TABLET PO DAILY July 08, 2021 12:00am June 04, 2022 1:41pm Start: 07-08-2021 take 1 tablet by destin th once daily Multivitamin With Minerals (Hair,Skin And Nails) tablet Active 1 TABLET PO DAILY July 07, 2021 11:00pm Start: 07-08-2021 take 1 tablet by destin th once daily Multivitamin With Minerals (Hair,Skin And Nails) tablet Active 1 TABLET PO DAILY July 08, 2021 12:00am Gm-Yd-Nzvo-Lglnp-Oar-Ibh-Hc1 24 (Airborne (Ascorbate Sodium)) 333-1.7 mg tablet,chewable (20 sources) Start: 03-19-2020 take 1 tablet by mouth once daily Ir-Sl-Lpwt-Xhebj-Ovq-Pfr-Hc124 (Airborne (Ascorbate Sodium)) 333-1.7 mg tablet,chewable Active 1 TABLET PO DAILY March 19, 2020 12:02pm Start: 03-19-2020 End: 06-04-2022 Lx-Lv-Xydu-Djinn-Fki-Mha-Hc1 24 (Airborne (Ascorbate Sodium)) 333-1.7 mg tablet,chewable Discontinued 1 {tbl} PO DAILY March 19, 2020 1:00am June 04, 2022 1:41pm Start: 03-19-2020 End: 06-04-2022 take 1 tablet by mouth once daily Fk-Cs-Wyqr-Kpgns-Vcy-Vsw-Hc124 (Airborne (Ascorbate Sodium)) 333-1.7 mg tablet,chewable Discontinued 1 TABLET PO DAILY March 19, 2020 12:00am June 04, 2022 12:41pm Start: 03-19-2020 End: 06-04-2022 take 1 tablet by mouth once daily Al-Ve-Wtdj-Pfefp-Kgr-Nmi-Hc124 (Airborne (Ascorbate Sodium)) 333-1.7 mg tablet,chewable Discontinued 1 TABLET PO DAILY March 19, 2020 1:00am June 04, 2022 1:41pm Start: 03-19-2020 take 1 tablet by destin th once daily Em-Wh-Wlci-Jwcvh-Zgk-Tei-Hc124 (Airborne (Ascorbate Sodium)) 333-1.7 mg tablet,chewable Active 1 TABLET PO DAILY March 19, 2020 12:00am Start: 03-19-2020 take 1 tablet by destin th once daily Ba-He-Xzxd-Xmako-Edn-Ygh-Hc124 (Airborne (Ascorbate Sodium)) 333-1.7 mg tablet,chewable Active 1 TABLET PO DAILY March 19, 2020 1:00am Nirmatrelvir-Ritonavir (Paxlovid) 150-100 mg tablets,dose pack (1 source) Start: 06-06-2024 Nirmatrelvir-Ritonavir (Paxlovid) 150-100 mg tablets,dose pack Active 0 PO per package directions June 06, 2024 1:00am PO PER PKG DIR omeprazole 40 mg delayed release oral capsule (20 sources) Proton Pump Inhibitor Start: 04-12-2024 take 1 capsule by mouth once daily 30 minutes before breakfast Omeprazole 40 mg capsule,delayed release(DR/EC) Active 40 mg PO daily April 12, 2024 1:00am Take 30 minutes before breakfast Start: 10-20-2016 End: 01-31-2019 take 1 capsule by mouth once daily Omeprazole 40 MG capsule Discontinued 40 mg PO DAILY October 20, 2016 12:00am January 31, 2019 11:11am predniSONE 20 mg oral tablet (20 sources) Start: 12-24-2024 take 2 tablets by mouth once daily Prednisone 20 mg tablet Active 40 mg PO daily 10 December 24, 2024 12:00am Start: 03-16-2024 End: 03-20-2024 take 2 tablets by mouth once daily Prednisone 10 mg tablet Discontinued 20 mg PO daily 8 4 March 16, 2024 1:00am March 19, 2024 1:00am March 20, 2024 1:09am Unspecified contact dermatitis, unspecified cause Start: 05-03-2023 End: 06-17-2023 Prednisone 10 mg tablets,dos e pack Discontinued 0 PO per package directions May 03, 2023 1:00am June 17, 2023 12:22pm PO PER PKG DIR Start: 05-03-2023 End: 06-17-2023 Prednisone Discontinued 0 PO per package directions May 03, 2023 1:00am June 17, 2023 12:22pm PO PER PKG DIR Start: 05-03-2023 Prednisone Act quang 0 PO per package directions May 03, 2023 12:00am PO PER PKG DIR Start: 11-12-2020 End: 12-29-2020 Prednisone 10 mg tablet Disc ontinued 0 PO daily November 12, 2020 12:00am December 29, 2020 3:36pm 4 tabs for 3 days, then 3 tabs for 3 days, then 2 tabs for 3 days, then 1 tab for 3 days PO QDAY; administer with food or milk Start: 11-12-2020 End: 12-29-2020 Prednisone Discontinued 0 PO daily November 12, 2020 12:00am December 29, 2020 3:36pm 4 tabs for 3 days, then 3 tabs for 3 days, then 2 tabs for 3 days, then 1 tab for 3 days PO QDAY; administer with food or milk Start: 06-20-2019 End: 11-13-2019 take 2 tablets by mouth once daily Prednisone 20 mg tablet Discontinued 40 mg PO DAILY 10 June 20, 2019 12:00am November 13, 2019 10:53am Start: 06-20-2019 End: 11-13-2019 take 40 mg by mouth once daily Prednisone Discontinued 40 MG PO DAILY June 20, 2019 12:00am November 13, 2019 10:53am topiramate 25 mg oral tablet (1 source) Start: 12-24-2024 Topiramate 25 mg tablet Active 25 mg PO TWICE A DAY 60 December 24, 2024 12:00am Take 25 mg nightly x 2 weeks then increase to twice daily. Vitamin B Complex (14 sources) Start: 07-22-2021 take 1 capsule by mouth once daily Vitamin B Complex Active 1 CAP PO DAILY July 22, 2021 10:55am Start: 07-22-2021 End: 12-29-2021 take 1 capsule by mouth once daily Vitamin B Complex Discontinued 1 CAP PO DAILY July 21, 2021 11:00pm December 29, 2021 10:16am Start: 07-22-2021 End: 12-29-2021 take 1 capsule by mouth once daily Vitamin B Complex Discontinued 1 CAP PO DAILY July 22, 2021 12:00am December 29, 2021 11:16am Completed/Discontinued Medications Medication Drug Class(es) Dates Sig (Normalized) Sig (Original) acetaminophen 325 mg oral tablet (20 sources) Start: 06-25-2020 End: 06-04-2022 take 1 tablet by mouth once as needed Acetaminophen (Tylenol) 325 mg tablet Discontinued 325 mg PO ONCE as needed June 25, 2020 12:00am June 04, 2022 1:40pm acetaminophen 325 mg / HYDROcodone bitartrate 5 mg oral tablet (20 sources) Opioid Agonist Start: 06-10-2020 End: 06-15-2020 Hydrocodone-Acetamin ophen 1 TABLET tablet Discontinued 1 - 2 {tbl} PO EVERY 4 HOURS NEEDED as needed for Pain 30 5 June 10, 2020 June 14, 2020 1:00am June 15, 2020 1:03am Other acute postprocedural pain Start: 06-10-2020 End: 06-15-2020 take 1 tablet by mouth every four hours as needed Hydrocodone-Acetaminophen Discontinued 1 - 2 TABLET PO EVERY 4 HOURS NEEDED 30 5 June 10, 2020 June 15, 2020 1:03am Albuterol Sulfate 2.5 mg /3 mL (0.083 %) solution for nebulization (6 sources) Start: 06-04-2022 End: 05-26-2023 take 2.5 mg by inhalation every four hours as needed for wheezing Albuterol Sulfate 2.5 mg /3 mL (0.083 %) solution for nebulization Discontinued 2.5 mg INHALATION Q4H as needed for shortness of breath or wheezing 90 0 June 04, 2022 1:00am May 26, 2023 4:26pm Start: 06-04-2022 End: 05-26-2023 take 2.5 mg by inhalation every four hours as needed for wheezing Albuterol Sulfate 2.5 mg /3 mL (0.083 %) solution for nebulization Discontinued 2.5 mg INHALATION Q4H as needed for shortness of breath or wheezing 90 June 04, 2022 1:00am May 26, 2023 4:26pm amLODIPine 5 mg oral tablet (20 sources) Dihydropyridine Calcium Channel Ebony Start: 03-16-2020 End: 01-16-2021 take 1 tablet by mouth at dinner Amlodipine 5 mg tablet Discontinued 5 mg PO WITH DINNER 90 3 January 13, 2021 10:29am January 16, 2021 10:58am baclofen 10 mg oral tablet (20 sources) gamma-Aminobutyric Acid-ergic Agonist Start: 07-13-2023 End: 08-08-2023 take 1 tablet by mouth twice daily as needed for muscle spasms Baclofen 10 mg tablet Discontinued 10 mg PO TWICE A DAY as needed for muscle spasm 60 1 July 13, 2023 12:00am August 08, 2023 11:00am Start: 03-18-2020 End: 03-19-2020 take 1 tablet by mouth twice daily as needed for muscle spasms Baclofen 10 mg tablet Discontinued 10 mg PO TWICE A DAY as needed for muscle spasm 60 2 March 18, 2020 1:00am March 19, 2020 12:00pm 12 hr buPROPion hydrochloride 90 mg / naltrexone hydrochloride 8 mg extended release oral tablet (6 sources) Opioid Antagonist, Aminoketone Start: 04-12-2024 End: 12-24-2024 Naltrexone-Bupropion (Contrave) 8-90 mg tablet extended release Discontinued 2 {tbl} PO TWICE A DAY 360 90 1 April 12, 2024 1:00am December 24, 2024 11:52am Calcium Carb,Lactat-Vitami n D3 200 mg calcium -250 unit tablet (6 sources) Start: 05-12-2017 End: 06-04-2022 Calcium Carb,Lactat-Vitamin D3 200 mg calcium -250 unit tablet Discontinued 2 {tbl} PO BEDTIME May 12, 2017 1:00am June 04, 2022 1:40pm cephalexin 500 mg oral capsule (20 sources) Cephalosporin Antibacterial Start: 08-29-2021 End: 09-05-2021 take 1 capsule by mouth every twelve hours Cephalexin 500 mg capsule Discontinued 500 mg PO Q12H 14 7 0 August 29, 2021 12:00am September 04, 2021 12:00am September 05, 2021 12:05am codeine phosphate 2 mg/ml / guaiFENesin 20 mg/ml oral solution (20 sources) Opioid Agonist Start: 05-27-2023 End: 06-03-2023 take 1 mL by mouth every four to six hours as needed for cough Codeine-Guaifenesin 10-100 mg/5 mL liquid Discontinued 5 mL PO EVERY 4-6 HOURS as needed for cough 118 7 0 May 27, 2023 1:00am June 02, 2023 1:00am June 03, 2023 1:05am Acute upper respiratory infection Acute upper respiratory infection, unspecified may cause drowsiness Start: 05-27-2023 End: 06-03-2023 take 1 mL by mouth every four to six hours Codeine-Guaifenesin Discontinued 5 ML PO EVERY 4-6 HOURS 118 7 May 27, 2023 1:00am June 03, 2023 1:05am may cause drowsiness Start: 05-26-2023 End: 05-27-2023 take 1 mL by mouth every four to six hours as needed for cough Codeine-Guaifenesin 8-200 mg/5 mL liquid Discontinued 10 mL PO EVERY 4-6 HOURS as needed for cough 473 10 0 May 26, 2023 1:00am June 04, 2023 1:00am May 27, 2023 10:30am Acute upper respiratory infection Acute upper respiratory infection, unspecified Start: 05-26-2023 End: 05-27-2023 take 1 mL by mouth every four to six hours Codeine-Guaifenesin Discontinued 10 ML PO EVERY 4-6 HOURS 473 10 May 26, 2023 1:00am May 27, 2023 10:30am Start: 04-07-2021 End: 06-24-2021 take 1 mL by mouth every six hours as needed for cough Codeine-Guaifenesin 10-100 mg/5 mL liquid Discontinued 5 mL PO EVERY 6 HOURS as needed for cough 120 0 April 07, 2021 9:47am June 24, 2021 3:18pm Start: 04-07-2021 End: 06-24-2021 take 1 mL by mouth every six hours Codeine-Guaifenesin Discontinued 5 ML PO EVERY 6 HOURS 120 April 07, 2021 9:47am June 24, 2021 3:18pm Start: 11-12-2020 End: 02-10-2021 take 1 mL by mouth every six hours as needed for cough Codeine-Guaifenesin 10-100 mg/5 mL liquid Discontinued 5 mL PO EVERY 6 HOURS as needed for cough 120 0 November 12, 2020 4:10pm February 10, 2021 10:05am Start: 11-12-2020 End: 02-10-2021 take 1 mL by mouth every six hours Codeine-Guaifenesin Discontinued 5 ML PO EVERY 6 HOURS 120 November 12, 2020 4:10pm February 10, 2021 10:05am Compress.Stocking,Knee,Reg,L rg (20 sources) Start: 01-01-2021 End: 12-29-2021 Compress.Stocking,Knee,Reg,L rg Discontinued 0 .MEDSUPPLY 2 January 01, 2021 3:01pm December 29, 2021 10:14am wear daily for venous insufficiency 20-30 mmHg Start: 01-01-2021 End: 12-29-2021 Compress.Stocking,Knee,Reg,L rg Discontinued 0 .MEDSUPPLY 2 January 01, 2021 4:01pm December 29, 2021 11:14am wear daily for venous insufficiency 20-30 mmHg Start: 01-01-2021 Compress.Stock ing,Knee,Reg,Lrg Active 0 .MEDSUPPLY 2 January 01, 2021 4:01pm wear daily for venous insufficiency 20-30 mmHg Start: 12-30-2020 End: 01-01-2021 Compress.Stocking,Knee,Reg,L rg Discontinued 0 .MEDSUPPLY 2 December 30, 2020 8:49am January 01, 2021 4:02pm wear daily for venous insufficiency 20-30 mmHg Start: 12-30-2020 End: 01-01-2021 Compress.Stocking,Knee,Reg,L rg Discontinued 0 .MEDSUPPLY 2 December 29, 2020 11:00pm January 01, 2021 3:02pm wear daily for venous insufficiency 20-30 mmHg Start: 12-30-2020 End: 01-01-2021 Compress.Stocking,Knee,Reg,L rg Discontinued 0 .MEDSUPPLY 2 December 30, 2020 12:00am January 01, 2021 4:02pm wear daily for venous insufficiency 20-30 mmHg Compress.Stocking,Knee,Reg,L rg misc (12 sources) Start: 01-01-2021 End: 12-29-2021 Compress.Stocking,Knee,Reg,L rg misc Discontinued 0 .MEDSUPPLY 2 1 January 01, 2021 4:01pm December 29, 2021 11:14am Venous insufficiency (chronic) (peripheral) wear daily for venous insufficiency 20-30 mmHg Start: 01-01-2021 End: 12-29-2021 Compress.Stocking,Knee,Reg,L rg misc Discontinued 0 .MEDSUPPLY 2 January 01, 2021 4:01pm December 29, 2021 11:14am wear daily for venous insufficiency 20-30 mmHg Start: 12-30-2020 End: 01-01-2021 Compress.Stocking,Knee,Reg,L rg misc Discontinued 0 .MEDSUPPLY 2 1 December 30, 2020 12:00am January 01, 2021 4:02pm Venous insufficiency (chronic) (peripheral) wear daily for venous insufficiency 20-30 mmHg Start: 12-30-2020 End: 01-01-2021 Compress.Stocking,Knee,Reg,L rg misc Discontinued 0 .MEDSUPPLY 2 December 30, 2020 12:00am January 01, 2021 4:02pm wear daily for venous insufficiency 20-30 mmHg Cream Base No.175 (Bulk) (Versatile Rich) cream (13 sources) Start: 01-03-2023 End: 08-08-2023 Cream Base No.175 (Bulk) (Versatile Rich) cream Discontinued NMA TOPICAL January 03, 2023 12:00am August 08, 2023 11:01am Start: 01-03-2023 Cream Base No. 175 (Bulk) (Versatile Rich) cream Active APPLIC TOPICAL January 03, 2023 12:00am Start: 01-03-2023 Cream Base No. 175 (Bulk) (Versatile Rich) cream Active APPLIC TOPICAL January 02, 2023 11:00pm cyclobenzaprine hydrochloride 10 mg oral tablet (10 sources) Muscle Relaxant Start: 05-16-2023 End: 06-17-2023 take 1 tablet by mouth at bedtime as needed for muscle spasms Cyclobenzaprine 10 mg tablet Discontinued 10 mg PO BEDTIME as needed for muscle spasm 20 May 16, 2023 1:00am June 17, 2023 12:23pm Temporomandibular joint disorder Unspecified temporomandibular joint disorder, unspecified side dextromethorphan hydrobromide 2 mg/ml / guaiFENesin 20 mg/ml oral solution (14 sources) Uncompetitive Y-mqmhnn-[place] te Receptor Antagonist, Sigma-1 Agonist Start: 06-04-2022 End: 12-20-2022 take 1 mL by mouth every four hours as needed for cough Dextromethorphan-Guai fenesin 10-100 mg/5 mL liquid Discontinued 5 mL PO Q4H as needed for cough 118 0 June 04, 2022 1:00am December 20, 2022 11:03am Start: 06-04-2022 End: 12-20-2022 take 1 mL by mouth every four hours Dextromethorphan-Guaifenesin Discontinue d 5 ML PO Q4H 118 June 04, 2022 1:00am December 20, 2022 11:03am doxycycline monohydrate 100 mg oral capsule (6 sources) Tetracycline-class Drug Start: 10-11-2023 End: 12-30-2023 take 1 capsule by mouth twice daily Doxycycline Monohydrate 100 mg capsule Discontinued 100 mg PO TWICE A DAY 20 October 11, 2023 12:00am December 30, 2023 11:25am estradiol 0.1 mg/ml vaginal cream (20 sources) Estrogen Start: 12-11-2019 End: 06-04-2022 Estradiol (Estrace) 0.01 % (0.1 mg/gram) cream Discontinued 0 VAGINAL .COMPLEX 42.5 2 December 11, 2019 12:00am June 04, 2022 1:41pm pea sized amount VAGINAL every other day X 4 weeks then twice a week; Start: 12-11-2019 End: 06-04-2022 Estradiol (Estrace) 0.01 % ( 0.1 mg/gram) cream Discontinued 0 VAGINAL .COMPLEX 42.5 December 11, 2019 12:00am June 04, 2022 1:41pm pea sized amount VAGINAL every other day X 4 weeks then twice a week; etodolac 500 mg oral tablet (20 sources) Nonsteroidal Anti-inflammatory Drug Start: 02-15-2022 End: 07-13-2023 take 1 tablet by mouth twice daily as needed for pain Etodolac 500 mg tablet Discontinued 500 mg PO TWICE A DAY as needed for pain 60 0 August 04, 2022 12:00am January 03, 2023 11:40am Further prescriptions refills to be managed by PCP. Start: 06-24-2021 End: 12-29-2021 take 1 tablet by mouth twice daily Etodolac 500 mg tablet Discontinued 500 mg PO TWICE A DAY 60 0 June 24, 2021 12:00am December 29, 2021 11:15am Take in conjunction with other NSAIDs including Mobic. May take with Tylenol. fluconazole 150 mg oral tablet (19 sources) Azole Antifungal Start: 12-29-2021 End: 02-17-2022 Fluconazole 150 mg tablet Discontinued 150 mg PO .COMPLEX 2 0 December 29, 2021 12:00am February 17, 2022 11:38am 150 mg PO take one po now and repeat in 3 days Fluticasone Propion-Salmeterol (20 sources) Corticosteroid, beta2-Adrenergic Agonist Start: 10-20-2018 End: 12-27-2018 Fluticasone Propion-Salmeterol Discontinued 1 INH INHALATION Q12H 60 October 20, 2018 11:55am December 27, 2018 4:01pm Start: 10-20-2018 End: 10-20-2018 take 1 puff(s) by inhalation every twelve hours Fluticasone Propion-Salmeterol Discontinued 1 PUFF INHALATION Q12H 60 October 20, 2018 11:47am October 20, 2018 11:55am Start: 10-20-2018 End: 10-20-2018 Fluticasone Propion-Salmeter ol 230-21 mcg/actuation HFA aerosol inhaler Discontinued 2 NMA INHALATION Q12H 12 3 October 20, 2018 10:50am October 20, 2018 11:47am Start: 10-20-2018 End: 10-20-2018 Fluticasone Propion-Salmeter ol 230-21 mcg/actuation HFA aerosol inhaler Discontinued 2 NMA INHALATION Q12H 12 October 20, 2018 10:50am October 20, 2018 11:47am Start: 10-20-2018 End: 10-20-2018 take 1 puff(s) by inhalation every twelve hours Fluticasone Propion-Salmeterol Discontinued 2 PUFF INHALATION Q12H 12 October 20, 2018 9:50am October 20, 2018 10:47am Start: 10-20-2018 End: 10-20-2018 take 1 puff(s) by inhalation every twelve hours Fluticasone Propion-Salmeterol Discontinued 2 PUFF INHALATION Q12H 12 October 20, 2018 10:50am October 20, 2018 11:47am Start: 10-20-2018 End: 10-20-2018 take 1 puff(s) by inhalation every twelve hours Fluticasone Propion-Salmeterol Discontinued 2 PUFF INHALATION Q12H 12 October 20, 2018 10:47am October 20, 2018 10:50am Start: 10-20-2018 End: 10-20-2018 Fluticasone Propion-Salmeter ol 230-21 mcg/actuation HFA aerosol inhaler Discontinued 2 NMA INHALATION Q12H 12 3 October 20, 2018 12:00am October 20, 2018 10:50am Start: 10-20-2018 End: 10-20-2018 Fluticasone Propion-Salmeter ol 100-50 mcg/dose blister with device Discontinued 1 NMA INHALATION Q12H 60 October 20, 2018 12:00am October 20, 2018 11:55am Start: 10-20-2018 End: 12-27-2018 Fluticasone Propion-Salmeter ol 250-50 mcg/dose blister with device Discontinued 1 NMA INHALATION Q12H 60 3 October 20, 2018 12:00am December 27, 2018 4:01pm Start: 10-20-2018 End: 10-20-2018 Fluticasone Propion-Salmeter ol 230-21 mcg/actuation HFA aerosol inhaler Discontinued 2 NMA INHALATION Q12H 12 October 20, 2018 12:00am October 20, 2018 10:50am Start: 10-20-2018 End: 10-20-2018 Fluticasone Propion-Salmeter ol 100-50 mcg/dose blister with device Discontinued 1 NMA INHALATION Q12H 60 October 20, 2018 12:00am October 20, 2018 11:55am Start: 10-20-2018 End: 12-27-2018 Fluticasone Propion-Salmeter ol 250-50 mcg/dose blister with device Discontinued 1 NMA INHALATION Q12H 60 October 20, 2018 12:00am December 27, 2018 4:01pm Start: 10-20-2018 End: 10-20-2018 take 1 puff(s) by inhalation every twelve hours Fluticasone Propion-Salmeterol Discontinued 2 PUFF INHALATION Q12H 12 October 19, 2018 11:00pm October 20, 2018 9:50am Start: 10-20-2018 End: 10-20-2018 take 1 puff(s) by inhalation every twelve hours Fluticasone Propion-Salmeterol Discontinued 1 PUFF INHALATION Q12H 60 October 19, 2018 11:00pm October 20, 2018 10:55am Start: 10-20-2018 End: 12-27-2018 Fluticasone Propion-Salmeter ol Discontinued 1 INH INHALATION Q12H 60 October 19, 2018 11:00pm December 27, 2018 3:01pm Start: 10-20-2018 End: 10-20-2018 take 1 puff(s) by inhalation every twelve hours Fluticasone Propion-Salmeterol Discontinued 2 PUFF INHALATION Q12H 12 October 20, 2018 12:00am October 20, 2018 10:50am Start: 10-20-2018 End: 10-20-2018 take 1 puff(s) by inhalation every twelve hours Fluticasone Propion-Salmeterol Discontinued 1 PUFF INHALATION Q12H 60 October 20, 2018 12:00am October 20, 2018 11:55am Start: 10-20-2018 End: 12-27-2018 Fluticasone Propion-Salmeter ol Discontinued 1 INH INHALATION Q12H 60 October 20, 2018 12:00am December 27, 2018 4:01pm Fluticasone Furoate-Vilanter ol (12 sources) Start: 04-23-2024 End: 04-24-2024 Fluticasone Furoate-Vilanter ol (Breo Ellipta) 50-25 mcg/dose blister with device Discontinued 1 NMA INHALATION DAILY 60 90 3 April 23, 2024 3:17pm April 24, 2024 3:22pm Start: 04-23-2024 End: 04-24-2024 Fluticasone Furoate-Vilanter ol (Breo Ellipta) 50-25 mcg/dose blister with device Discontinued 1 NMA INHALATION DAILY 60 90 April 23, 2024 3:17pm April 24, 2024 3:22pm Start: 08-08-2023 End: 04-23-2024 Fluticasone Furoate-Vilanter ol (Breo Ellipta) 50-25 mcg/dose blister with device Discontinued INHALATION DAILY August 08, 2023 12:00am April 23, 2024 3:17pm 2 ml sodium hyaluronate 10 mg/ml prefilled syringe (7 sources) Start: 07-08-2021 End: 07-08-2021 Euflexxa (sodium hyaluronate (viscosup)) Discontinued 10 MG INTRAARTIC ONCE July 08, 2021 8:53am July 08, 2021 9:13am Start: 07-01-2021 End: 07-01-2021 Euflexxa (sodium hyaluronate (viscosup)) Discontinued 20 MG INTRAARTIC ONCE 2 July 01, 2021 10:56am July 01, 2021 11:07am Start: 06-24-2021 End: 06-24-2021 Euflexxa (sodium hyaluronate (viscosup)) Discontinued 40 MG INTRAARTIC ONCE June 24, 2021 2:59pm June 24, 2021 4:16pm Start: 08-22-2020 End: 08-22-2020 Euflexxa (sodium hyaluronate (viscosup)) Discontinued 10 MG INTRAARTIC ONCE August 22, 2020 11:02am August 22, 2020 11:26am Start: 08-13-2020 End: 08-13-2020 Euflexxa (sodium hyaluronate (viscosup)) Discontinued 10 MG INTRAARTIC ONCE August 13, 2020 12:58pm August 13, 2020 1:17pm Start: 08-06-2020 End: 08-06-2020 Euflexxa (sodium hyaluronate (viscosup)) Discontinued 20 MG INTRAARTIC ONCE August 06, 2020 1:13pm August 06, 2020 2:17pm hydrocortisone 25 mg/ml topical cream (20 sources) Corticosteroid Start: 12-29-2020 End: 12-29-2021 Hydrocortisone 2.5 % cream Discontinued 1 NMA TOPICAL TWICE A DAY as needed for rash 30 December 29, 2020 12:00am December 29, 2021 11:50am lisinopril 10 mg oral tablet (20 sources) Angiotensin Converting Enzyme Inhibitor Start: 01-16-2021 End: 02-10-2021 take 1 tablet by mouth once daily Lisinopril 10 mg tablet Discontinued 10 mg PO DAILY 90 January 16, 2021 12:00am February 10, 2021 10:36am LORazepam 1 mg oral tablet (6 sources) Benzodiazepine Start: 01-06-2024 End: 02-10-2024 Lorazepam 1 mg tablet Discontinued 1 mg PO daily as needed for claustrophobia 2 January 06, 2024 12:00am February 10, 2024 10:04am Patient can take one tablet 1-2 hours prior to MRI. bring the second tab to MRI and if still having anxiety immediately prior can take the 2nd table losartan potassium 25 mg oral tablet (20 sources) Angiotensin 2 Receptor Ebony Start: 02-17-2022 End: 11-05-2024 take 1 tablet by mouth once daily Losartan 25 mg tablet Discontinued 25 mg PO DAILY 90 May 23, 2024 1:55pm November 05, 2024 9:15am meloxicam 15 mg oral tablet (20 sources) Nonsteroidal Anti-inflammatory Drug Start: 07-13-2023 End: 08-08-2023 take 1 tablet by mouth once daily as needed for pain Meloxicam 15 mg tablet Discontinued 15 mg PO DAILY as needed for pain 30 July 13, 2023 12:00am August 08, 2023 11:02am Start: 01-14-2022 End: 06-04-2022 take 1 tablet by mouth once daily as needed for pain Meloxicam 15 mg tablet Discontinued 15 mg PO DAILY as needed for pain 30 0 January 14, 2022 9:45am June 04, 2022 1:41pm Start: 08-11-2020 End: 07-22-2021 take 1 tablet by mouth once daily as needed for pain Meloxicam 15 mg tablet Discontinued 15 mg PO DAILY as needed for pain 90 0 January 01, 2021 3:36pm July 22, 2021 10:54am Start: 05-14-2020 End: 06-25-2020 take 1 tablet by mouth once daily Meloxicam 15 mg tablet Discontinued 15 mg PO DAILY May 14, 2020 1:00am June 25, 2020 11:25am Start: 01-09-2020 End: 03-19-2020 take 1 tablet by mouth once daily Meloxicam 15 mg tablet Discontinued 15 mg PO DAILY January 09, 2020 12:00am March 19, 2020 12:01pm Start: 06-20-2019 End: 11-13-2019 take 1 tablet by mouth once daily Meloxicam 15 mg tablet Discontinued 15 mg PO DAILY 90 3 June 20, 2019 12:00am November 13, 2019 10:54am methylPREDNISolone 4 mg oral tablet (20 sources) Corticosteroid Start: 06-04-2024 End: 08-29-2024 take 1 tablet by mouth once Methylprednisolone (Medrol (Parminder)) 4 mg tablets,dose pack Discontinued 0 PO per package directions June 04, 2024 1:00am August 29, 2024 10:08am PO PER PKG DIR Start: 10-13-2023 End: 10-19-2023 take 1 tablet by mouth once Methylprednisolone (Medrol (Parminder)) 4 mg tablets,dose pack Discontinued 4 mg PO per package directions 6 October 13, 2023 12:00am October 18, 2023 12:00am October 19, 2023 12:05am Start: 04-07-2021 End: 06-24-2021 take 1 tablet by mouth once Methylprednisolone (Medrol (Parminder)) 4 mg tablets,dose pack Discontinued 0 PO per package directions April 07, 2021 1:00am June 24, 2021 3:19pm PO PER PKG DIR Start: 08-22-2020 End: 08-22-2020 Depo-Medrol (methylprednisol one acetate) 40 mg/mL suspension for injection Discontinued 40 MG INTRAARTIC ONCE August 22, 2020 11:02am August 22, 2020 11:26am Start: 03-19-2020 End: 03-19-2020 Depo-Medrol (methylprednisol one acetate) 40 mg/mL suspension for injection Discontinued 40 MG INTRAARTIC ONCE March 19, 2020 11:45am March 19, 2020 12:16pm Start: 08-20-2019 End: 08-20-2019 Depo-Medrol (methylprednisol one acetate) 40 mg/mL suspension for injection Discontinued 10 MG INTRAARTIC ONCE 0.25 August 20, 2019 10:58am August 20, 2019 11:39am montelukast 10 mg oral tablet (20 sources) Leukotriene Receptor Antagonist Start: 02-17-2022 End: 12-20-2022 take 1 tablet by mouth at bedtime Montelukast 10 mg tablet Discontinued 10 mg PO AT BEDTIME 90 August 11, 2022 2:54pm December 20, 2022 11:04am multivitamin capsule (14 sources) Start: 05-12-2017 End: 03-19-2020 take 1 capsule by mouth once daily in the morning multivitamin capsule Discontinued 1 CAP PO EVERY MORNING May 12, 2017 11:56am March 19, 2020 12:02pm Start: 05-12-2017 End: 03-19-2020 take 1 capsule by mouth once daily in the morning multivitamin capsule Discontinued 1 CAP PO EVERY MORNING May 12, 2017 12:00am March 19, 2020 11:02am Start: 05-12-2017 End: 03-19-2020 take 1 capsule by mouth once daily in the morning multivitamin capsule Discontinued 1 CAP PO EVERY MORNING May 12, 2017 1:00am March 19, 2020 12:02pm Multivitamin capsule (6 sources) Start: 05-12-2017 End: 03-19-2020 Multivitamin capsule Discont inued 1 NMA PO EVERY MORNING May 12, 2017 1:00am March 19, 2020 12:02pm Nirmatrelvir-Ritonavir (5 sources) Start: 06-06-2024 End: 12-24-2024 Nirmatrelvir-Ritonavir (Paxl ovid) 150-100 mg tablets,dose pack Discontinued 0 PO per package directions June 06, 2024 1:00am December 24, 2024 10:05am PO PER PKG DIR Start: 06-06-2024 Nirmatrelvir-R itonavir (Paxlovid) 150-100 mg tablets,dose pack Active 0 PO per package directions June 06, 2024 1:00am PO PER PKG DIR nortriptyline 10 mg oral capsule (15 sources) Tricyclic Antidepressant Start: 08-30-2023 End: 12-30-2023 take 1 capsule by mouth at bedtime Nortriptyline 10 mg capsule Discontinued 10 mg PO AT BEDTIME 30 August 30, 2023 2:37pm December 30, 2023 11:31am Start: 06-19-2023 End: 08-30-2023 take 1 capsule by mouth at bedtime Nortriptyline 25 mg capsule Discontinued 25 mg PO AT BEDTIME 30 2 June 19, 2023 1:00am August 30, 2023 2:37pm nystatin 100 unt/mg topical powder (20 sources) Polyene Antifungal Start: 08-08-2023 End: 02-10-2024 Nystatin (Nystop) 100,000 unit/gram powder Discontinued 1 NMA TOPICAL TWICE A DAY 45 August 08, 2023 12:00am February 10, 2024 10:05am Start: 01-31-2019 End: 02-11-2019 take 1 mL by mouth every six hours Nystatin 100,000 unit/mL suspension Discontinued 5 mL PO EVERY 6 HOURS 200 10 0 January 31, 2019 12:00am February 09, 2019 12:00am February 11, 2019 12:10am swish and swallow Start: 01-31-2019 End: 02-11-2019 take 1 mL by mouth every six hours Nystatin Discontinued 5 ML PO EVERY 6 HOURS 200 10 January 31, 2019 12:00am February 11, 2019 12:10am swish and swallow ondansetron 4 mg oral tablet (20 sources) Serotonin-3 Receptor Antagonist Start: 06-10-2020 End: 06-15-2020 take 1 tablet by mouth every six hours as needed for nausea Ondansetron Hcl 4 MG tablet Discontinued 4 mg PO EVERY 6 HOURS NEEDED as needed for Nausea 20 5 0 June 10, 2020 1:00am June 14, 2020 1:00am June 15, 2020 1:03am oseltamivir 75 mg oral capsule (10 sources) Neuraminidase Inhibitor Start: 05-27-2023 End: 06-01-2023 take 1 capsule by mouth every twelve hours Oseltamivir 75 mg capsule Discontinued 75 mg PO Q12H 10 5 0 May 27, 2023 1:00am May 31, 2023 1:00am June 01, 2023 1:04am ospemifene 60 mg oral tablet (6 sources) Start: 08-08-2023 End: 12-30-2023 take 1 tablet by mouth once daily at mealtime Ospemifene (Osphena) 60 mg tablet Discontinued 60 mg PO daily 30 August 08, 2023 12:00am December 30, 2023 11:32am give with food (meal/snack) tiZANidine 4 mg oral tablet (20 sources) Central alpha-2 Adrenergic Agonist Start: 03-14-2020 End: 03-18-2020 take 1 tablet by mouth twice daily as needed Tizanidine 4 mg tablet Discontinued 4 mg PO TWICE A DAY as needed for muscle spasticity 60 1 March 14, 2020 1:00am March 18, 2020 1:18pm triamcinolone acetonide 40 mg/ml injectable suspension (1 source) Corticosteroid Start: 06-24-2021 End: 06-24-2021 Kenalog (triamcinolone acetonide) 40 mg/mL suspension for injection Discontinued 80 MG INTRAARTIC ONCE 2 June 24, 2021 2:59pm June 24, 2021 4:17pm Turmeric extract (6 sources) Start: 08-03-2023 End: 08-08-2023 Turmeric 400 mg capsule Discontinued mg PO August 03, 2023 12:00am August 08, 2023 11:03am Turmeric Root Extract 500 mg capsule (6 sources) Start: 08-08-2023 End: 12-30-2023 take 1 capsule by mouth once daily Turmeric Root Extract 500 mg capsule Discontinued 750 mg PO DAILY August 08, 2023 12:00am December 30, 2023 11:31am valACYclovir 1000 mg oral tablet (6 sources) Herpesvirus Nucleoside Analog DNA Polymerase Inhibitor, Herpes Simplex Virus Nucleoside Analog DNA Polymerase Inhibitor, Herpes Zoster Virus Nucleoside Analog DNA Polymerase Inhibitor Start: 10-13-2023 End: 10-23-2023 Valacyclovir 1 gram tablet Discontinued 1000 mg PO Q8H 30 10 0 October 13, 2023 12:00am October 22, 2023 12:00am October 23, 2023 12:05am Vitamin B Complex (B Complex-Vitamin B12) tablet (13 sources) Start: 03-07-2023 End: 12-30-2023 Vitamin B Complex (B Complex-Vitamin B12) tablet Discontinued 1 {tbl} PO DAILY March 07, 2023 1:00am December 30, 2023 11:31am Start: 03-07-2023 take 1 tablet by destin th once daily Vitamin B Complex (B Complex-Vitamin B12) tablet Active 1 TABLET PO DAILY March 07, 2023 1:00am Start: 03-07-2023 take 1 tablet by destin th once daily Vitamin B Complex (B Complex-Vitamin B12) tablet Active 1 TABLET PO DAILY March 07, 2023 12:00am Vitamin B Complex capsule (6 sources) Start: 07-22-2021 End: 12-29-2021 Vitamin B Complex capsule Discontinued 1 NMA PO DAILY July 22, 2021 12:00am December 29, 2021 11:16am Problems Active Problems Problem Classification Problem Date Documented Date Episodic/Chronic Abdominal pain (1 source) Right upper quadrant pain; Translations: [Right upper quadrant pain] Episodic Allergic reactions (20 sources) Inflammatory dermatosis; Translations: [Dermatitis, unspecified] 12-30-2020 Episodic Asthma (20 sources) Asthma; Translations: [Unspecified asthma, uncomplicated] Onset: 06-04-2024 Chronic Cardiac dysrhythmias (12 sources) Cardiac arrhythmia; Translations: [Cardiac arrhythmia, unspecified] Onset: 12-25-2024 06-22-2024 Chronic Diabetes mellitus without complication (20 sources) Prediabetes; Translations: [Prediabetes] Onset: 12-25-2024 07-26-2017 Episodic Disorders of lipid metabolism (20 sources) Hyperlipidemia; Translations: [Hyperlipidemia, unspecified] 05-12-2017 Chronic Disorders of teeth and jaw (16 sources) Temporomandibular joint disorder; Translations: [Unspecified temporomandibular joint disorder, unspecified side] 05-03-2023 Episodic E Codes: Natural/environment (6 sources) Bitten or stung by nonvenomous insect and other nonvenomous arthropods, initial encounter; Translations: [Insect bite] 10-11-2023 Episodic Esophageal disorders (7 sources) Gastroesophageal reflux disease; Translations: [Gastro-esophageal reflux disease without esophagitis] 04-12-2024 Chronic Essential hypertension (20 sources) Hypertensive disorder; Translations: [Essential (primary) hypertension] Onset: 12-25-2024 Chronic Joint disorders and dislocations; trauma-related (20 sources) Tear of meniscus of knee; Translations: [Unspecified tear of unspecified meniscus, current injury, left knee, initial encounter] 05-26-2020 Episodic Malaise and fatigue (19 sources) Other fatigue; Translations: [Other malaise and fatigue] Episodic Menopausal disorders (20 sources) Atrophic vaginitis; Translations: [Postmenopausal atrophic vaginitis] Chronic Comment on above: estradiol cream Mycoses (11 sources) Candidiasis of vulva and vagina; Translations: [Candidiasis of vulva and vagina] Episodic Comment on above: nystop ordered Nonspecific chest pain (14 sources) Chest pain; Translations: [Chest pain, unspecified] 06-04-2022 Episodic Open wounds of extremities (6 sources) Laceration of right knee; Translations: [Laceration without foreign body, right knee, initial encounter] 07-19-2023 Episodic Osteoarthritis (20 sources) Bilateral primary osteoarthritis of knee; Translations: [Osteoarthritis of left knee joint] Onset: 02-17-2017 Chronic Other acquired deformities (6 sources) Spondylolisthesis; Translations: [Spondylolisthesis, cervical region] 02-10-2024 Episodic Other and unspecified benign neoplasm (19 sources) History of polyp of colon; Translations: [Personal history of colonic polyps] 12-29-2021 Episodic Comment on above: 2017. Ref gen surg Other and unspecified benign neoplasm (5 sources) Personal history of colonic polyps; Translations: [Personal history of colonic polyps] Episodic Other and unspecified benign neoplasm (3 sources) Lipoma (clinical); Translations: [Benign lipomatous neoplasm, unspecified] 07-07-2023 Episodic Comment on above: Patient is 67-year-o ld female with numerous lipomas particularly of her back including 1 that appears recurrent after excision over a decade ago. These lesions have both grown in size and began to cause her discomfort. Thus, she is interested in having them removed. A ultrasound was performed of these lesions and confirms their likely identity as lipomas. In my independent review of this imaging it does not appear that these lipomas extend down to the muscular fascia, but given their number and size I do believe patient would benefit from excision under sedation by anesthesia. Upon hearing this recommendation, Mrs. Weinberg agrees. I have gone on to further describe the risk for postoperative seroma particularly in her largest lipoma and shared that we would simply have to manage this expectantly. I also recommended planning for limited activity for the first couple weeks after surgery to try to account for postoperative discomfort as well as minimize her risk for seroma development.Update 11/03/2023: Patient is now 68 and reports ongoing discomfort as well as possible growth from her multiple back lipomas. She is scheduled originally for surgery on 11/23/2023, however, I have cautioned her against proceeding with this date given and ongoing treatment for left periorbital shingles. It is my concern that surgery may be deleterious to her recovery and these are certainly chronic/nonemergent lesions. She readily agrees with this assessment and we will plan to delay her surgery another 2 weeks. Other and unspecified benign neoplasm (2 sources) Benign lipomatous neoplasm, unspecified; Translations: [Lipoma, unspecified site] 07-07-2023 Episodic Other and unspecified benign neoplasm (6 sources) Multiple lipomata; Translations: [Benign lipomatous neoplasm, unspecified] 11-03-2023 Episodic Comment on above: Patient is 67-year-o ld female with numerous lipomas particularly of her back including 1 that appears recurrent after excision over a decade ago. These lesions have both grown in size and began to cause her discomfort. Thus, she is interested in having them removed. A ultrasound was performed of these lesions and confirms their likely identity as lipomas. In my independent review of this imaging it does not appear that these lipomas extend down to the muscular fascia, but given their number and size I do believe patient would benefit from excision under sedation by anesthesia. Upon hearing this recommendation, Mrs. Weinberg agrees. I have gone on to further describe the risk for postoperative seroma particularly in her largest lipoma and shared that we would simply have to manage this expectantly. I also recommended planning for limited activity for the first couple weeks after surgery to try to account for postoperative discomfort as well as minimize her risk for seroma development.Update 11/03/2023: Patient is now 68 and reports ongoing discomfort as well as possible growth from her multiple back lipomas. She is scheduled originally for surgery on 11/23/2023, however, I have cautioned her against proceeding with this date given and ongoing treatment for left periorbital shingles. It is my concern that surgery may be deleterious to her recovery and these are certainly chronic/nonemergent lesions. She readily agrees with this assessment and we will plan to delay her surgery another 2 weeks. Patient is 67-year-o ld female with numerous lipomas particularly of her back including 1 that appears recurrent after excision over a decade ago. These lesions have both grown in size and began to cause her discomfort. Thus, she is interested in having them removed. A ultrasound was performed of these lesions and confirms their likely identity as lipomas. In my independent review of this imaging it does not appear that these lipomas extend down to the muscular fascia, but given their number and size I do believe patient would benefit from excision under sedation by anesthesia. Upon hearing this recommendation, Mrs. Weinberg agrees. I have gone on to further describe the risk for postoperative seroma particularly in her largest lipoma and shared that we would simply have to manage this expectantly. I also recommended planning for limited activity for the first couple weeks after surgery to try to account for postoperative discomfort as well as minimize her risk for seroma development.Update 11/03/2023: Patient is now 68 and reports ongoing discomfort as well as possible growth from her multiple back lipomas. She is scheduled originally for surgery on 11/23/2023, however, I have cautioned her against proceeding with this date given and ongoing treatment for left periorbital shingles. It is my concern that surgery may be deleterious to her recovery and these are certainly chronic/nonemergent lesions. She readily agrees with this assessment and we will plan to delay her surgery another 2 weeks.Update 12/24/2024: Patient is now a 69-year-old female who presents for possible excision of multiple back lipomas. As described under HPI extenuating circumstances kept her from undergoing excision last year. She appears to be at a better place both with her own health as well as that of her and is ready to schedule. Through careful exam today I did identify several areas that were previously undescribed whether these represent truly new areas or simply were detected previously. Either way, patient has approximately 15 lipomas across her back. I informed her that I could plan for excision of 11 areas as these would all be accessible from the same left lateral decubitus position. (A picture was taken at today's visit to document her location and provide a guide for the day of surgery). Patient is grateful for this consideration. We will plan to delay surgery until after she returns from her vacation so she can give appropriate priority to healing. Other circulatory disease (20 sources) Prehypertension; Translations: [Elevated blood-pressure reading, without diagnosis of hypertension] 05-12-2017 Episodic Other connective tissue disease (14 sources) Synovial cyst of left popliteal space; Translations: [Synovial cyst of popliteal space [Guo], left knee] 05-14-2020 Episodic Other connective tissue disease (20 sources) Fibromyalgia; Translations: [Fibromyalgia] 05-12-2017 Episodic Other connective tissue disease (3 sources) Other specified soft tissue disorders; Translations: [Swelling of limb] Episodic Other connective tissue disease (3 sources) Synovial cyst of popliteal space [Guo], unspecified knee; Translations: [Synovial cyst of popliteal space] Episodic Other connective tissue disease (12 sources) Fibromyalgia; Translations: [Myalgia and myositis, unspecified] 03-07-2023 Episodic Other connective tissue disease (6 sources) Synovial cyst of popliteal space [Guo], left knee; Translations: [Synovial cyst of left popliteal space] 05-14-2020 Episodic Other female genital disorders (6 sources) Dyspareunia; Translations: [Dyspareunia] 08-08-2023 Chronic Comment on above: failed vaginal estro gen recommend osphena. Other infections; including parasitic (10 sources) Personal history of other infectious and parasitic diseases; Translations: [History of COVID-19] 06-22-2024 Episodic Other lower respiratory disease (14 sources) Dyspnea; Translations: [Shortness of breath] 06-04-2022 Episodic Other lower respiratory disease (2 sources) Shortness of breath; Translations: [Shortness of breath] Onset: 12-24-2024 Episodic Other nervous system disorders (20 sources) Trigeminal neuralgia; Translations: [Trigeminal neuralgia] 05-12-2017 Episodic Other non-traumatic joint disorders (16 sources) Pain in unspecified knee; Translations: [Chronic knee pain] 06-04-2022 Episodic Other non-traumatic joint disorders (20 sources) Shoulder pain; Translations: [Pain in right shoulder] 07-22-2021 Episodic Other non-traumatic joint disorders (1 source) Pain in right shoulder; Translations: [Pain in joint, shoulder region] Episodic Other non-traumatic joint disorders (9 sources) Hip pain; Translations: [Pain in right hip] 06-17-2023 Episodic Other non-traumatic joint disorders (3 sources) Pain in right hip; Translations: [Pain in joint, pelvic region and thigh] 06-17-2023 Episodic Other nutritional; endocrine; and metabolic disorders (20 sources) Body mass index 30+ - obesity; Translations: [Obesity, unspecified] 07-26-2017 Chronic Other nutritional; endocrine; and metabolic disorders (8 sources) Obesity; Translations: [Obesity, unspecified] 04-12-2024 Chronic Other nutritional; endocrine; and metabolic disorders (1 source) Obesity, unspecified; Translations: [Obesity, unspecified] Onset: 12-25-2024 Chronic Other skin disorders (20 sources) Lichen sclerosus et atrophicus; Translations: [Lichen sclerosus et atrophicus] Chronic Comment on above: clobetesol Other skin disorders (17 sources) Mass of knee; Translations: [Localized swelling, mass and lump, left lower limb] 02-15-2022 Episodic Other skin disorders (3 sources) Localized swelling, mass and lump, left lower limb; Translations: [Other symptoms referable to joint, lower leg] Episodic Other skin disorders (11 sources) Neck swelling; Translations: [Localized swelling, mass and lump, neck] 05-03-2023 Episodic Other skin disorders (5 sources) Localized swelling, mass and lump, neck; Translations: [Swelling, mass, or lump in head and neck] 05-03-2023 Episodic Other skin disorders (9 sources) Localized swelling of back; Translations: [Localized swelling, mass and lump, trunk] 06-17-2023 Episodic Other skin disorders (3 sources) Localized swelling, mass and lump, trunk; Translations: [Localized superficial swelling, mass, or lump] 06-17-2023 Episodic Other upper respiratory disease (10 sources) Pain in throat; Translations: [Pain in throat] 05-26-2023 Episodic Other upper respiratory infections (17 sources) Acute upper respiratory infection; Translations: [Acute upper respiratory infection, unspecified] Onset: 12-25-2024 05-26-2023 Episodic Residual codes; unclassified (20 sources) Bilateral lower limb edema; Translations: [Localized edema] 02-10-2021 Episodic Residual codes; unclassified (19 sources) Flushing; Translations: [Flushing] 12-29-2021 Episodic Comment on above: thyroid labs Residual codes; unclassified (5 sources) Flushing; Translations: [Flushing] Episodic Residual codes; unclassified (17 sources) Edema of lower extremity; Translations: [Localized edema] 02-17-2022 Episodic Residual codes; unclassified (3 sources) Localized edema; Translations: [Edema] Episodic Skin and subcutaneous tissue infections (6 sources) Cellulitis of forehead; Translations: [Cellulitis of face] 10-11-2023 Episodic Spondylosis; intervertebral disc disorders; other back problems (20 sources) Degeneration of cervical intervertebral disc; Translations: [Other cervical disc degeneration, unspecified cervical region] Onset: 03-02-2024 Chronic Superficial injury; contusion (6 sources) Abrasion, right lesser toe(s), initial encounter; Translations: [Abrasion of lesser toe of right foot, initial encounter] 07-19-2023 Episodic Unclassified (6 sources) Abrasion, right great toe, initial encounter 07-19-2023 Unclassified (6 sources) Abrasion, right knee, initial encounter 07-27-2023 Unclassified (1 source) Personal history of COVID-19; Translations: [Personal history of COVID-19] Onset: 08-13-2024 Unclassified (1 source) Cough, unspecified; Translations: [Cough, unspecified] Onset: 06-06-2024 Viral infection (6 sources) Herpes zoster; Translations: [Zoster without complications] 10-13-2023 Episodic Past or Other Problems Problem Classification Problem Date Documented Da te Episodic/Chronic Other screening for suspected conditions (not mental disorders or infectious disease) (15 sources) Patient encounter status; Translations: [Encounter for screening for other suspected endocrine disorder] Onset: 05-15-2024 03-07-2023 Episodic Spondylosis; intervertebral disc disorders; other back problems (20 sources) Lumbar radiculopathy; Translations: [Radiculopathy, lumbar region] Onset: 03-02-2024 Episodic Results Test Name Value Interpretation Reference Range Facility Influenza virus A and B and SARS-CoV-2 (COVID-19) and Respiratory syncytial virus RNAOrdered By: Elver Laws on 12-24-2024 SARS-CoV-2 (COVID-19) RNA FRANCOIS+probe Ql (Unsp spec) [facility] Internal Medicine Office Vis iton 12-24-2024 Internal Medicine Office Visit [facility] [address] [place] [address] [place] [address] OFFICE VISIT Date of Service: 12/24/24 MR#: [id number] Acct: [id number] Name: ROSEANNE WEINBERG Rep #: [id number] : 1955 Provider: Dr. Elver encinas MD Age/Sex: 69/F Location: [facility] [place] [facility] [place] Status: Signed Intake Vital Signs 09/12/24 10:47 12/24/24 10:03 12/24/24 11:53 Height 5 ft 5 in 5 ft 5 in 5 ft 5 in Weight: 240 lb BMI 39.9 BP 118/78 Blood Pressure Location Lt brachial Position Sitting Respiration 20 H Pulse 88 Pulse Source Monitor Temp 97.1 F L Temp Source Temporal Pulse Oximetry (%) 96 Oxygen Delivery Method room air Intake Visit Reasons: 6 M FU Chief Complaint: Follow-up chronic conditions. Nasal and chest congestion Title Examiner Required: No Is patient in pain?: No Allergies acetaminophen (From Westhoff) Adverse Reaction (Mild, Verified 12/24/24 11:38) Nausea hydrocodone (From Westhoff) Adverse Reaction (Mild, Verified 12/24/24 11:38) Nausea amoxicillin (From Augmentin) Adverse Reaction (Verified 12/24/24 11:38) Nausea clavulanic acid (From Augmentin) Adverse Reaction (Verified 12/24/24 11:38) Nausea oxycodone (From Percodan) Adverse Reaction (Verified 12/24/24 11:38) Nausea propoxyphene (From Darvocet-N 100) Adverse Reaction (Verified 12/24/24 11:38) Nausea Medications ???Medication ???Instructions ???Recorded ???Confirmed ???Type cetirizine 10 mg tablet (Zyrtec) 10 mg PO DAILY PRN 03/07/23 History albuterol sulfate 2.5 mg/3 mL 2.5 mg (3 mL) inhalation Q4H PRN 0 05/27/23 12/24/24 Rx (0.083 %) solution for nebulization shortness of breath or wheezing #90 mL biotin 10,000 mcg chewable tablet mcg PO 04/12/24 12/24/24 History (Hair, Skin and Nails (biotin)) calcium 500 mg (as 1 tab PO QDAY 04/12/24 12/24/24 Hi story carbonate)-vitamin D3 5 mcg (200 unit) tablet clobetasol 0.05 % topical cream topical PRN 04/12/24 12/24/24 Hist ory multivitamin 1 tab PO QAM 04/12/24 12/24/24 His tory omeprazole 40 mg capsule,delayed 40 mg PO QDAY #90 caps 04/12/24 Rx release losartan 25 mg tablet 25 mg PO DAILY #90 tabs 11/05/24 0 12/24/24 Rx fluticasone furoate 100 1 inh inhalation Q24H 3 months #60 11/29/24 12/24/24 Rx mcg-vilanterol 25 mcg/dose ea inhalation powder (Breo Ellipta) albuterol sulfate 90 mcg/actuation 2 puff inhalation Q4H PRN 12/24/24 Rx aerosol inhaler (Ventolin HFA) shortness of breath or wheezing #8.5 grams azithromycin 250 mg tablet See Rx Instructions PO .COMPLEX #6 12/24/24 12/24/24 Rx tabs elderberry fruit 350 mg capsule mg PO QDAY 12/24/24 12/24/24 Histo ry prednisone 20 mg tablet 40 mg (2 x 20 mg) PO QDAY #10 tabs 12/24/24 12/24/24 Rx topiramate 25 mg tablet 25 mg PO BID #60 tabs 12/24/24 Rx triamterene 37.5 1 tab PO DAILY #90 tabs 12/24/24 0 12/24/24 Rx mg-hydrochlorothiaz martin 25 mg tablet Have you fallen in the past year?: No PFSH Medical History (Updated 12/24/24 @ 12:[address] Elver Laws MD) URI (upper respiratory infection) Abnormal heart rhythm History of COVID-19 GERD (gastroesophageal reflux disease) Cellulitis of forehead Insect bite Abrasion, right lesser toe(s), initial encounter Abrasion, right great toe, initial encounter Laceration of right knee Localized swelling of back Bilateral hip pain Health care maintenance Colon cancer screening Knee pain Chest pain Fatigue SOB (shortness of breath) Arthritis Lower extremity edema Hx of colonic polyp Dermatitis Bilateral lower extremity edema Trigeminal neuralgia Hyperlipemia Borderline hypertension Osteoarthritis Fibromyalgia Asthma Surgical History History of arthroscopy of right knee History of tubal ligation History of cholecystectomy History of colonoscopy Family History Mother Cancer, Onset Age: 58 pancreatic Diabetes Father Cancer, Onset Age: 70 pancreatic, passed of it Hypertension Grandfather Heart disease Hypertension Brother Diabetes Hypertension Uncle Colon cancer Social History Smoking Status: Never smoker alcohol intake: never substance use type: does not use caffeine: Yes what type of physical activity do you participate in: walking frequency: 3-4 times per week seatbelt use: always do you feel safe at home: Yes additional social history: [employer]- Retired Patient is retired HPI HPI Chief Complaint: Follow-up chronic conditions. Nasal and chest congestion Details: ROSEANNE WEINBERG, is a 69-year-old female presenting for follow-up of her chronic conditions. Also has (more content not included)... Normal [facility] M100.678on 12-24-2024 M100.678 Pending SARS-CoV-2 (COVID 19) Negative INFLUENZA A Negative INFLUENZA B Negative RSV PCR Negative Normal [facility] Comment on above: Performed By: #### M 100.005 ####[facility] [id number] [place], [address] Surgery Visit Reporton 12-24 Surgery Visit Report [facility] [address] [place] [address] OFFICE VISIT Date of Service: 12/24/24 MR#: [id number] Acct: [id number] Name: ROSEANNE WEINBERG Rep #: [id number] : 1955 Provider: Dr. Sergey blanchard MD Age/Sex: 69/F Location: [facility] Status: Signed Intake Vital Signs 09/12/24 10:47 12/24/24 10:03 Height 5 ft 5 in 5 ft 5 in Weight: 230 lb 240 lb BMI 38.2 39.9 BP 120/82 H Blood Pressure Location Rt brachial Position Sitting Respiration 18 Pulse 63 Pulse Source Monitor Temp 97.4 F L Temp Source Temporal Pulse Oximetry (%) 99 Oxygen Delivery Method room air Intake Visit Reasons: DISCUSS LIPOMA REMOVAL Chief Complaint: discuss lipoma revomal Is patient in pain?: No Allergies acetaminophen (From Westhoff) Adverse Reaction (Mild, Verified 12/24/24 11:38) Nausea hydrocodone (From Westhoff) Adverse Reaction (Mild, Verified 12/24/24 11:38) Nausea amoxicillin (From Augmentin) Adverse Reaction (Verified 12/24/24 11:38) Nausea clavulanic acid (From Augmentin) Adverse Reaction (Verified 12/24/24 11:38) Nausea oxycodone (From Percodan) Adverse Reaction (Verified 12/24/24 11:38) Nausea propoxyphene (From Darvocet-N 100) Adverse Reaction (Verified 12/24/24 11:38) Nausea Medications ???Medication ???Instructions ???Recorded ???Confirmed ???Type cetirizine 10 mg tablet (Zyrtec) 10 mg PO DAILY PRN 03/07/23 History albuterol sulfate 2.5 mg/3 mL 2.5 mg (3 mL) inhalation Q4H PRN 0 05/27/23 12/24/24 Rx (0.083 %) solution for nebulization shortness of breath or wheezing #90 mL biotin 10,000 mcg chewable tablet mcg PO 04/12/24 12/24/24 History (Hair, Skin and Nails (biotin)) calcium 500 mg (as 1 tab PO QDAY 04/12/24 12/24/24 Hi story carbonate)-vitamin D3 5 mcg (200 unit) tablet clobetasol 0.05 % topical cream topical PRN 04/12/24 12/24/24 Hist ory multivitamin 1 tab PO QAM 04/12/24 12/24/24 His tory omeprazole 40 mg capsule,delayed 40 mg PO QDAY #90 caps 04/12/24 Rx release losartan 25 mg tablet 25 mg PO DAILY #90 tabs 11/05/24 0 12/24/24 Rx fluticasone furoate 100 1 inh inhalation Q24H 3 months #60 11/29/24 12/24/24 Rx mcg-vilanterol 25 mcg/dose ea inhalation powder (Breo Ellipta) albuterol sulfate 90 mcg/actuation 2 puff inhalation Q4H PRN 12/24/24 Rx aerosol inhaler (Ventolin HFA) shortness of breath or wheezing #8.5 grams azithromycin 250 mg tablet See Rx Instructions PO .COMPLEX #6 12/24/24 12/24/24 Rx tabs elderberry fruit 350 mg capsule mg PO QDAY 12/24/24 12/24/24 Histo ry prednisone 20 mg tablet 40 mg (2 x 20 mg) PO QDAY #10 tabs 12/24/24 12/24/24 Rx topiramate 25 mg tablet 25 mg PO BID #60 tabs 12/24/24 Rx triamterene 37.5 1 tab PO DAILY #90 tabs 12/24/24 0 12/24/24 Rx mg-hydrochlorothiaz martin 25 mg tablet Have you fallen in the past year?: No PFSH Medical History (Updated 12/24/24 @ 12:[address] Sergey Castorena MD) URI (upper respiratory infection) Abnormal heart rhythm History of COVID-19 GERD (gastroesophageal reflux disease) Cellulitis of forehead Insect bite Abrasion, right lesser toe(s), initial encounter Abrasion, right great toe, initial encounter Laceration of right knee Localized swelling of back Bilateral hip pain Health care maintenance Colon cancer screening Knee pain Chest pain Fatigue SOB (shortness of breath) Arthritis Lower extremity edema Hx of colonic polyp Dermatitis Bilateral lower extremity edema Trigeminal neuralgia Hyperlipemia Borderline hypertension Osteoarthritis Fibromyalgia Asthma Surgical History History of arthroscopy of right knee History of tubal ligation History of cholecystectomy History of colonoscopy Family History Mother Cancer, Onset Age: 58 pancreatic Diabetes Father Cancer, Onset Age: 70 pancreatic, passed of it Hypertension Grandfather Heart disease Hypertension Brother Diabetes Hypertension Uncle Colon cancer Social History Smoking Status: Never smoker alcohol intake: never substance use type: does not use caffeine: Yes what type of physical activity do you participate in: walking frequency: 3-4 times per week seatbelt use: always do you feel safe at home: Yes additional social history: Santos- Retired Patient is retired HPI HPI HPI: Patient has is now a 69-year-old female who initially establish consultation with me related to a request for removal of a number of subcutaneous lipomas. Initial surgery delayed on account of oleg rodriguez (more content not included)... Normal [facility] Orthopedic Visit Reporton Orthopedic Visit Report [facility] [address] [place] [address] OFFICE VISIT Date of Service: 09/12/24 MR#: [id number] Acct: [id number] Name: ROSEANNE WEINBERG Rep #: [id number] : 1955 Provider: Dr. Tommy mayberry DO Age/Sex: 68/F Location: [facility] [place] [facility] [place] Status: Signed Intake Vital Signs 06/22/24 10:56 09/05/24 10:57 09/12/24 10:47 Height 5 ft 5 in 5 ft 5 in 5 ft 5 in Weight: 230 lb 230 lb BMI 38.2 38.2 Intake Visit Reasons: BL KNEES Chief Complaint: 3rd Euflexxa Bilateral knee Accompanied by: Self Is patient in pain?: Yes Pain scale (1-10): 2 Allergies acetaminophen (From Westhoff) Adverse Reaction (Mild, Verified 09/12/24 10:52) Nausea hydrocodone (From Westhoff) Adverse Reaction (Mild, Verified 09/12/24 10:52) Nausea amoxicillin (From Augmentin) Adverse Reaction (Verified 09/12/24 10:52) Nausea clavulanic acid (From Augmentin) Adverse Reaction (Verified 09/12/24 10:52) Nausea oxycodone (From Percodan) Adverse Reaction (Verified 09/12/24 10:52) Nausea propoxyphene (From Darvocet-N 100) Adverse Reaction (Verified 09/12/24 10:52) Nausea Medications ???Medication ???Instructions ???Recorded ???Confirmed ???Type cetirizine 10 mg tablet (Zyrtec) 10 mg PO DAILY PRN 03/07/23 History albuterol sulfate 2.5 mg/3 mL 2.5 mg (3 mL) inhalation Q4H PRN 0 05/27/23 09/12/24 Rx (0.083 %) solution for nebulization shortness of breath or wheezing #90 mL biotin 10,000 mcg chewable tablet mcg PO 04/12/24 09/12/24 History (Hair, Skin and Nails (biotin)) calcium 500 mg (as 1 tab PO QDAY 04/12/24 09/12/24 Hi story carbonate)-vitamin D3 5 mcg (200 unit) tablet clobetasol 0.05 % topical cream topical PRN 04/12/24 09/12/24 Hist ory elderberry fruit 350 mg capsule mg PO 04/12/24 09/12/24 History multivitamin 1 tab PO QAM 04/12/24 09/12/24 His tory naltrexone 8 mg-bupropion 90 mg 2 tab PO BID 3 months #360 tabs 09/12/24 Rx tablet,extended release (Contrave) omeprazole 40 mg capsule,delayed 40 mg PO QDAY #90 caps 04/12/24 Rx release fluticasone furoate 100 1 inh inhalation Q24H 3 months #60 04/24/24 09/12/24 Rx mcg-vilanterol 25 mcg/dose ea inhalation powder (Breo Ellipta) losartan 25 mg tablet 25 mg PO DAILY #90 tabs 05/23/24 0 09/12/24 Rx azithromycin 250 mg tablet See Rx Instructions PO .COMPLEX #6 02/24/25 06/04/25 Rx tabs nirmatrelvir 150 mg (10)-ritonavir See Rx Instructions PO PER PKG D IR 06/06/24 09/12/24 Rx 100 mg (10) tablets in a dose pack #20 tabs (Paxlovid) triamterene 37.5 1 tab PO DAILY #90 tabs 07/24/24 0 09/12/24 Rx mg-hydrochlorothiaz martin 25 mg tablet Have you fallen in the past year?: No PFSH Medical History Abnormal heart rhythm History of COVID-19 GERD (gastroesophageal reflux disease) Cellulitis of forehead Insect bite Abrasion, right lesser toe(s), initial encounter Abrasion, right great toe, initial encounter Laceration of right knee Localized swelling of back Bilateral hip pain Health care maintenance Colon cancer screening Knee pain Chest pain Fatigue SOB (shortness of breath) Arthritis Lower extremity edema Hx of colonic polyp Dermatitis Bilateral lower extremity edema Trigeminal neuralgia Hyperlipemia Borderline hypertension Osteoarthritis Fibromyalgia Asthma Surgical History History of arthroscopy of right knee History of tubal ligation History of cholecystectomy History of colonoscopy Family History Mother Cancer, Onset Age: 58 pancreatic Diabetes Father Cancer, Onset Age: 70 pancreatic, passed of it Hypertension Grandfather Heart disease Hypertension Brother Diabetes Hypertension Uncle Colon cancer Social History Smoking Status: Never smoker alcohol intake: never substance use type: does not use caffeine: Yes what type of physical activity do you participate in: walking frequency: 3-4 times per week seatbelt use: always do you feel safe at home: Yes additional social history: Santos- Retired Patient is retired HPI BL KNEES Details: This documentation accurately reflects the service provided and the decisions made by me, Dr. Tommy Mendez, DO 09/12/24 0755. Part of today???s visit was documented by Yoko Cook MA, acting as scribe. ROSEANNE WEINBERG is a 68 year old F here today for 3rd Euflexxa injection bilateral knee. Ortho Exam General General: Yes no acute distress Neurologic: Yes alert and Yes oriented x3 Psychologic: Yes reasonable and appropr (more content not included)... Normal [facility] Orthopedic Visit Reporton Orthopedic Visit Report [facility] [address] [address] OFFICE VISIT Date of Service: 09/05/24 MR#: [id number] Acct: [id number] Name: ROSEANNE WEINBERG Rep #: [id number] : 1955 Provider: Dr. Tommy mayberry, DO Age/Sex: 68/F Location: [facility] [place] [facility] [place] Status: Signed Intake Vital Signs 06/22/24 10:56 09/05/24 10:57 Height 5 ft 5 in 5 ft 5 in Weight: 230 lb BMI 38.2 Intake Visit Reasons: BL KNEES Chief Complaint: 2nd Euflexxa Bilateral knee Accompanied by: Self Is patient in pain?: Yes Pain scale (1-10): 2 Allergies acetaminophen (From Westhoff) Adverse Reaction (Mild, Verified 09/05/24 11:02) Nausea hydrocodone (From Westhoff) Adverse Reaction (Mild, Verified 09/05/24 11:02) Nausea amoxicillin (From Augmentin) Adverse Reaction (Verified 09/05/24 11:02) Nausea clavulanic acid (From Augmentin) Adverse Reaction (Verified 09/05/24 11:02) Nausea oxycodone (From Percodan) Adverse Reaction (Verified 09/05/24 11:02) Nausea propoxyphene (From Darvocet-N 100) Adverse Reaction (Verified 09/05/24 11:02) Nausea Medications ???Medication ???Instructions ???Recorded ???Confirmed ???Type cetirizine 10 mg tablet (Zyrtec) 10 mg PO DAILY PRN 03/07/23 History albuterol sulfate 2.5 mg/3 mL 2.5 mg (3 mL) inhalation Q4H PRN 0 05/27/23 09/05/24 Rx (0.083 %) solution for nebulization shortness of breath or wheezing #90 mL biotin 10,000 mcg chewable tablet mcg PO 04/12/24 09/05/24 History (Hair, Skin and Nails (biotin)) calcium 500 mg (as 1 tab PO QDAY 04/12/24 09/05/24 Hi story carbonate)-vitamin D3 5 mcg (200 unit) tablet clobetasol 0.05 % topical cream topical PRN 04/12/24 09/05/24 Hist ory elderberry fruit 350 mg capsule mg PO 04/12/24 09/05/24 History multivitamin 1 tab PO QAM 04/12/24 09/05/24 His tory naltrexone 8 mg-bupropion 90 mg 2 tab PO BID 3 months #360 tabs 09/05/24 Rx tablet,extended release (Contrave) omeprazole 40 mg capsule,delayed 40 mg PO QDAY #90 caps 04/12/24 Rx release fluticasone furoate 100 1 inh inhalation Q24H 3 months #60 04/24/24 09/05/24 Rx mcg-vilanterol 25 mcg/dose ea inhalation powder (Breo Ellipta) losartan 25 mg tablet 25 mg PO DAILY #90 tabs 05/23/24 0 09/05/24 Rx azithromycin 250 mg tablet See Rx Instructions PO .COMPLEX #6 06/04/24 09/05/24 Rx tabs nirmatrelvir 150 mg (10)-ritonavir See Rx Instructions PO PER PKG D IR 06/06/24 09/05/24 Rx 100 mg (10) tablets in a dose pack #20 tabs (Paxlovid) triamterene 37.5 1 tab PO DAILY #90 tabs 07/24/24 0 09/05/24 Rx mg-hydrochlorothiaz martin 25 mg tablet Have you fallen in the past year?: No PFSH Medical History Abnormal heart rhythm History of COVID-19 GERD (gastroesophageal reflux disease) Cellulitis of forehead Insect bite Abrasion, right lesser toe(s), initial encounter Abrasion, right great toe, initial encounter Laceration of right knee Localized swelling of back Bilateral hip pain Health care maintenance Colon cancer screening Knee pain Chest pain Fatigue SOB (shortness of breath) Arthritis Lower extremity edema Hx of colonic polyp Dermatitis Bilateral lower extremity edema Trigeminal neuralgia Hyperlipemia Borderline hypertension Osteoarthritis Fibromyalgia Asthma Surgical History History of arthroscopy of right knee History of tubal ligation History of cholecystectomy History of colonoscopy Family History Mother Cancer, Onset Age: 58 pancreatic Diabetes Father Cancer, Onset Age: 70 pancreatic, passed of it Hypertension Grandfather Heart disease Hypertension Brother Diabetes Hypertension Uncle Colon cancer Social History Smoking Status: Never smoker alcohol intake: never substance use type: does not use caffeine: Yes what type of physical activity do you participate in: walking frequency: 3-4 times per week seatbelt use: always do you feel safe at home: Yes additional social history: Santos- Retired Patient is retired HPI BL KNEES Details: This documentation accurately reflects the service provided and the decisions made by me, Dr. Tommy Mendez DO 09/05/24 0752. Part of today???s visit was documented by Yoko Cook MA, acting as scribe. ROSEANNE WEINBERG is a 68 year old F here today for 2nd bilateral Euflexxa injections. Ortho Exam General General: Yes no acute distress Neurologic: Yes alert and Yes oriented x3 Psychologic: Yes reasonable and appropriate Right Knee Skin/Wound: No erythema (more content not included)... Normal [facility] Orthopedic Visit Reporton Orthopedic Visit Report [facility] [address] [place] [address] OFFICE VISIT Date of Service: 08/29/24 MR#: [id number] Acct: [id number] Name: ROSEANNE WEINBERG Rep #: [id number] : 1955 Provider: Dr. Tommy mayberry DO Age/Sex: 68/F Location: [facility] [place] [facility] [place] Status: Signed Intake Vital Signs 06/22/24 10:56 Height 5 ft 5 in Weight: 237 lb 6 oz BMI 39.4 BP 118/64 Blood Pressure Location Rt brachial Position Sitting Respiration 16 Pulse 95 Pulse Source Monitor Temp 96.7 F L Temp Source Temporal Pulse Oximetry (%) 97 Oxygen Delivery Method room air Intake Visit Reasons: BL KNEES Allergies acetaminophen (From Westhoff) Adverse Reaction (Mild, Verified 08/29/24 09:59) Nausea hydrocodone (From Westhoff) Adverse Reaction (Mild, Verified 08/29/24 09:59) Nausea amoxicillin (From Augmentin) Adverse Reaction (Verified 08/29/24 09:59) Nausea clavulanic acid (From Augmentin) Adverse Reaction (Verified 08/29/24 09:59) Nausea oxycodone (From Percodan) Adverse Reaction (Verified 08/29/24 09:59) Nausea propoxyphene (From Darvocet-N 100) Adverse Reaction (Verified 08/29/24 09:59) Nausea Medications ???Medication ???Instructions ???Recorded ???Confirmed ???Type cetirizine 10 mg tablet (Zyrtec) 10 mg PO DAILY PRN 03/07/23 History albuterol sulfate 2.5 mg/3 mL 2.5 mg (3 mL) inhalation Q4H PRN 0 05/27/23 08/29/24 Rx (0.083 %) solution for nebulization shortness of breath or wheezing #90 mL biotin 10,000 mcg chewable tablet mcg PO 04/12/24 08/29/24 History (Hair, Skin and Nails (biotin)) calcium 500 mg (as 1 tab PO QDAY 04/12/24 08/29/24 Hi story carbonate)-vitamin D3 5 mcg (200 unit) tablet clobetasol 0.05 % topical cream topical PRN 04/12/24 08/29/24 Hist ory elderberry fruit 350 mg capsule mg PO 04/12/24 08/29/24 History multivitamin 1 tab PO QAM 04/12/24 08/29/24 His tory naltrexone 8 mg-bupropion 90 mg 2 tab PO BID 3 months #360 tabs 08/29/24 Rx tablet,extended release (Contrave) omeprazole 40 mg capsule,delayed 40 mg PO QDAY #90 caps 04/12/24 Rx release fluticasone furoate 100 1 inh inhalation Q24H 3 months #60 04/24/24 08/29/24 Rx mcg-vilanterol 25 mcg/dose ea inhalation powder (Breo Ellipta) losartan 25 mg tablet 25 mg PO DAILY #90 tabs 05/23/24 0 08/29/24 Rx azithromycin 250 mg tablet See Rx Instructions PO .COMPLEX #6 06/04/24 08/29/24 Rx tabs nirmatrelvir 150 mg (10)-ritonavir See Rx Instructions PO PER PKG D IR 06/06/24 08/29/24 Rx 100 mg (10) tablets in a dose pack #20 tabs (Paxlovid) triamterene 37.5 1 tab PO DAILY #90 tabs 07/24/24 0 08/29/24 Rx mg-hydrochlorothiaz martin 25 mg tablet Have you fallen in the past year?: No PFSH Medical History Abnormal heart rhythm History of COVID-19 GERD (gastroesophageal reflux disease) Cellulitis of forehead Insect bite Abrasion, right lesser toe(s), initial encounter Abrasion, right great toe, initial encounter Laceration of right knee Localized swelling of back Bilateral hip pain Health care maintenance Colon cancer screening Knee pain Chest pain Fatigue SOB (shortness of breath) Arthritis Lower extremity edema Hx of colonic polyp Dermatitis Bilateral lower extremity edema Trigeminal neuralgia Hyperlipemia Borderline hypertension Osteoarthritis Fibromyalgia Asthma Surgical History History of arthroscopy of right knee History of tubal ligation History of cholecystectomy History of colonoscopy Family History Mother Cancer, Onset Age: 58 pancreatic Diabetes Father Cancer, Onset Age: 70 pancreatic, passed of it Hypertension Grandfather Heart disease Hypertension Brother Diabetes Hypertension Uncle Colon cancer Social History Smoking Status: Never smoker alcohol intake: never substance use type: does not use caffeine: Yes what type of physical activity do you participate in: walking frequency: 3-4 times per week seatbelt use: always do you feel safe at home: Yes additional social history: Santos- Retired Patient is retired HPI BL KNEES Details: This documentation accurately reflects the service provided and the decisions made by me, Dr. Tommy Mendez, DO 05/21/25 0745. Part of today???s visit was documented by Mallika CALLOWAY, acting as scribe. ROSEANNE WEINBERG is a 68 year old F here today for bilateral knee Euflexxa injections. Ortho Exam General General: Yes no acute distress Neurologic: Yes alert and Yes oriented x3 Psychologic: Yes reasonable and appropri (more content not included)... Normal [facility] Absolute lymphocyte countOrd ered By: Elver Laws on 06-22-2024 Lymphocytes Auto (Unsp spec) [#/Vol] 0.91 10*3/uL 0.83-4.51 [facility] Absolute neutrophil countOrd ered By: alessandrochicagochelsea Laws on 06-22-2024 Neutrophils (Bld) [#/Vol] 3.5 10*3/uL 2.0-7.7 [facility] Anion gap in Serum or Plasma Ordered By: alessandrochicagochelsea Laws on 06-22-2024 Anion gap [Moles/Vol] 11 mmol/L 5-15 [facility] Automated lymphocyte count a s percentage of total leukocytesOrdered By: Elver Laws on 06-22-2024 Lymphocytes/100 WBC Auto (Unsp spec) 17.7 % Low 19-41 [facility] BUN/creatinine ratioOrdered By: Elver Laws on 06-22-2024 Urea nitrogen/Creatinine [Mass ratio] 15.9 mg/mg 10-20 [facility] Basophil percentageOrdered B y: Elver Laws on 06-22-2024 Basophils/100 WBC (Bld) 0.8 % 0-[address] [facility] Bilirubin, totalOrdered By: Elver Laws on 06-22-2024 Bilirubin [Mass/Vol] 0.46 mg/dL 0.00-1.30 [facility] CBC W/Diff, Automatedon 06-09 Absolute Lymph 0.91 X10 3/uL Normal 0.83-4.51 [facility] Comment on above: Performed By: #### L 501.5200, L100.0100, L501.9520, L500.4050, L506.0400 ####[facility] [address] [place], [address] Absolute Neut 3.5 X10 3/uL Normal 2.0-7.7 [facility] Comment on above: Performed By: #### L 501.5200, L100.0100, L501.9520, L500.4050, L506.0400 ####[facility] [address] [place], [address] Basophils/100 WBC (Bld) 0.8 % Normal 0-[address] [facility] Comment on above: Performed By: #### L 501.5200, L100.0100, L501.9520, L500.4050, L506.0400 ####[facility] [address] [place], [address] Eosinophils/100 WBC (Bld) 2.1 % Normal 0-5 [facility] Comment on above: Performed By: #### L 501.5200, L100.0100, L501.9520, L500.4050, L506.0400 ####[facility] [address] [place], [address] Erythrocyte distribution width (RBC) [Ratio] 12.3 % Normal 11.6-14.6 [facility] Comment on above: Performed By: #### L 501.5200, L100.0100, L501.9520, L500.4050, L506.0400 ####[facility] [address] [place], [address] Hematocrit (Bld) [Volume fraction] 43.4 % Normal 37-47 [facility] Comment on above: Performed By: #### L 501.5200, L100.0100, L501.9520, L500.4050, L506.0400 ####[facility] [address] [place], [address] Hemoglobin (Bld) [Mass/Vol] 14.2 g/dL Normal 12.0-15. 0 [facility] Comment on above: Performed By: #### L 501.5200, L100.0100, L501.9520, L500.4050, L506.0400 ####[facility] [address] [place], [address] IG% 0.400 Normal 0.0-0.9 [facility] Comment on above: Result Comment: IG% - Immature Granulocytes (promyelocytes, myelocytes and metamyelocytes) > 1% indicates that a LEFT SHIFT is Present. Performed By: #### L 501.5200, L100.0100, L501.9520, L500.4050, L506.0400 ####[facility] [address] [place], [address] Lymphocytes/100 WBC (Bld) 17.7 % Low 19-41 [facility] Comment on above: Performed By: #### L 501.5200, L100.0100, L501.9520, L500.4050, L506.0400 ####[facility] [address] [place], [address] MCH (RBC) [Entitic mass] 29.3 pg Normal 27.0-32.0 [facility] Comment on above: Performed By: #### L 501.5200, L100.0100, L501.9520, L500.4050, L506.0400 ####[facility] [address] [place], [address] MCHC (RBC) [Mass/Vol] 32.7 g/dL Normal 32-36 [facility] Comment on above: Performed By: #### L 501.5200, L100.0100, L501.9520, L500.4050, L506.0400 ####[facility] [address] [place], [address] MCV (RBC) [Entitic vol] 89.5 fL Normal 81-[address] [facility] Comment on above: Performed By: #### L 501.5200, L100.0100, L501.9520, L500.4050, L506.0400 ####[facility] [address] [place], [address] Monocytes/100 WBC (Bld) 11.9 % High 0-10 [facility] Comment on above: Performed By: #### L 501.5200, L100.0100, L501.9520, L500.4050, L506.0400 ####[facility] [address] [place], [address] Neutrophils/100 WBC (Bld) 67.1 % Normal 47-70 [facility] Comment on above: Performed By: #### L 501.5200, L100.0100, L501.9520, L500.4050, L506.0400 ####[facility] [address] [place], [address] Nucleated RBC (Bld) [#/Vol] 0 10*3/uL Normal 0-5 [facility] Comment on above: Performed By: #### L 501.5200, L100.0100, L501.9520, L500.4050, L506.0400 ####[facility] [address] [place], [address] Platelet mean volume (Bld) [Entitic vol] 11.9 fL Normal 6.2-12.0 [facility] Comment on above: Performed By: #### L 501.5200, L100.0100, L501.9520, L500.4050, L506.0400 ####[facility] [address] [place], [address] Platelets (Bld) [#/Vol] 226 10*3/uL Normal 150-450 [facility] Comment on above: Performed By: #### L 501.5200, L100.0100, L501.9520, L500.4050, L506.0400 ####[facility] [address] [place], [address] RBC (Bld) [#/Vol] 4.85 10*6/uL Normal 4.2-5.4 [facility] Comment on above: Performed By: #### L 501.5200, L100.0100, L501.9520, L500.4050, L506.0400 ####[facility] [address] [place], [address] RDW SD 40.2 fl Normal 35.1-43.9 [facility] Comment on above: Performed By: #### L 501.5200, L100.0100, L501.9520, L500.4050, L506.0400 ####[facility] [address] [place], [address] WBC (Bld) [#/Vol] 5.1 10*3/uL Normal 4.4-11.0 [facility] Comment on above: Performed By: #### L 501.5200, L100.0100, L501.9520, L500.4050, L506.0400 ####[facility] [address] [place], [address] Carbon dioxide, total [Moles /volume] in Central venous bloodOrdered By: Elver Laws on 06-22-2024 CO2 [Moles/Vol] 26.2 mmol/L 21.0-32.0 [facility] Chloride assayOrdered By: Walter Laws on 06-22-2024 Chloride [Moles/Vol] 102 mmol/L 98-108 [facility] Comprehensive Metabolic Prof ilon 06-22-2024 Albumin [Mass/Vol] 4.1 g/dL Normal 3.4-4.8 [facility] Comment on above: Performed By: #### L 501.5200, L100.0100, L501.9520, L500.4050, L506.0400 ####[facility] [address] [place], [address] Albumin/Globulin [Mass ratio] 1.3 {ratio} Normal 0.9-2.4 [facility] Comment on above: Performed By: #### L 501.5200, L100.0100, L501.9520, L500.4050, L506.0400 ####[facility] [address] [place], [address] ALK PHOS 161 U/L High 35-104 [facility] Comment on above: Performed By: #### L 501.5200, L100.0100, L501.9520, L500.4050, L506.0400 ####[facility] [address] [place], [address] ALT [Catalytic activity/Vol] 22 U/L Normal <=34 [facility] Comment on above: Performed By: #### L 501.5200, L100.0100, L501.9520, L500.4050, L506.0400 ####[facility] [address] [place], [address] AST [Catalytic activity/Vol] 20 U/L Normal <=31 [facility] Comment on above: Performed By: #### L 501.5200, L100.0100, L501.9520, L500.4050, L506.0400 ####[facility] [address] [place], [address] Bilirubin [Mass/Vol] 0.46 mg/dL Normal 0.00-1.30 [facility] Comment on above: Performed By: #### L 501.5200, L100.0100, L501.9520, L500.4050, L506.0400 ####[facility] [address] [place], [address] BUN/CRE 15.9 RATIO Normal 10-20 [facility] Comment on above: Performed By: #### L 501.5200, L100.0100, L501.9520, L500.4050, L506.0400 ####[facility] [address] [place], [address] Calcium [Mass/Vol] 9.8 mg/dL Normal 7.6-11.0 [facility] Comment on above: Performed By: #### L 501.5200, L100.0100, L501.9520, L500.4050, L506.0400 ####[facility] [address] [place], [address] Chloride [Moles/Vol] 102 mmol/L Normal 98-108 [facility] Comment on above: Performed By: #### L 501.5200, L100.0100, L501.9520, L500.4050, L506.0400 ####[facility] [address] [place], [address] CO2 [Moles/Vol] 26.2 mmol/L Normal 21.0-32.0 [facility] Comment on above: Performed By: #### L 501.5200, L100.0100, L501.9520, L500.4050, L506.0400 ####[facility] [address] [place], [address] Creatinine [Mass/Vol] 0.96 mg/dL Normal 0.70-1.20 [facility] Comment on above: Performed By: #### L 501.5200, L100.0100, L501.9520, L500.4050, L506.0400 ####[facility] [address] [place], [address] GAP 11 Normal 5-15 [facility] Comment on above: Performed By: #### L 501.5200, L100.0100, L501.9520, L500.4050, L506.0400 ####[facility] [address] [place], [address] GFR/1.73 sq M.predicted among non-blacks MDRD (S/P/Bld) [Vol rate/Area] 66 mL/min/{1.73_m2} Normal >60 [facility] Comment on above: Result Comment: mL/m in/1.73m2 CKD-EPI Creatinine Equation (2020) Performed By: #### L 501.5200, L100.0100, L501.9520, L500.4050, L506.0400 ####[facility] [address] [place], [address] Globulin (S) [Mass/Vol] 3.1 g/dL Normal 2.2-4.2 [facility] Comment on above: Performed By: #### L 501.5200, L100.0100, L501.9520, L500.4050, L506.0400 ####[facility] [address] [place], [address] Glucose [Mass/Vol] 99 mg/dL Normal 70-99 [facility] Comment on above: Performed By: #### L 501.5200, L100.0100, L501.9520, L500.4050, L506.0400 ####[facility] [address] [place], [address] Potassium [Moles/Vol] 4.0 mmol/L Normal 3.3-5.1 [facility] Comment on above: Performed By: #### L 501.5200, L100.0100, L501.9520, L500.4050, L506.0400 ####[facility] [address] [place], [address] Sodium [Moles/Vol] 139 mmol/L Normal 133-145 [facility] Comment on above: Performed By: #### L 501.5200, L100.0100, L501.9520, L500.4050, L506.0400 ####[facility] [address] [place], [address] T PROT 7.2 g/dL Normal 5.9-8.4 [facility] Comment on above: Performed By: #### L 501.5200, L100.0100, L501.9520, L500.4050, L506.0400 ####[facility] [address] [place], [address] Urea nitrogen [Mass/Vol] 15 mg/dL Normal 4-19 [facility] Comment on above: Performed By: #### L 501.5200, L100.0100, L501.9520, L500.4050, L506.0400 ####[facility] [address] [place], [address] Eosinophil percentageOrdered By: Nguyễnchicagochelsea Laws on 06-22-2024 Eosinophils/100 WBC (Bld) 2.1 % 0-5 [facility] Erythrocyte distribution wid th ratioOrdered By: Nguyễnchicagochelsea Laws on 06-22-2024 Erythrocyte distribution width (RBC) [Ratio] 12.3 % 11.6-14.6 [facility] Erythrocyte distribution wid th standard deviationOrdered By: Elver Laws on 06-22-2024 Erythrocyte distribution width (RBC) [Entitic vol] 40.2 fL 35.1-43.9 [facility] Erythrocyte distribution width (RBC) [Ratio] 40.2 fl 35.1-43.9 [facility] GFR/1.73 sq M.predicted goyo g non-blacks MDRD (S/P/Bld) [Vol rate/Area]Ordered By: Elver Laws on 06-22-2024 Estimated GFR (MDRD) Non-Af Amer 66 >60 [facility] Comment on above: mL/min/1.73m2 CKD-EP I Creatinine Equation (2020) Glomerular filtration rate ( GFR) estimation/1.73 sq m using serum, plasma, or whole bOrdered By: Elver Laws on 06-22-2024 GFR/1.73 sq M.predicted among non-blacks MDRD (S/P/Bld) [Vol rate/Area] 66 mL/min/{1.73_m2} >60 [facility] Comment on above: mL/min/1.73m2 CKD-EP I Creatinine Equation (2020) Hematocrit Auto (Bld) [Volum e fraction]Ordered By: Elver Laws on 06-22-2024 Hematocrit (Bld) [Volume fraction] 43.4 % 37-47 [facility] Hemoglobin measurementOrdere d By: Elver Laws on 06-22-2024 Hemoglobin (Bld) [Mass/Vol] 14.2 g/dL 12.0-15. 0 [facility] Immature granulocytes/100 WB C Auto (Bld)Ordered By: Elver Laws on 06-22-2024 Immature granulocytes/100 WBC (Bld) 0.400 % 0.0-0.9 [facility] Comment on above: IG% - Immature Granu locytes (promyelocytes, myelocytes and metamyelocytes) > 1% indicates that a LEFT SHIFT is Present. Internal Medicine Office Vis jose 06-22-2024 Internal Medicine Office Visit [facility] [address] [place] [address] [place] [address] OFFICE VISIT Date of Service: 06/22/24 MR#: [id number] Acct: [id number] Name: ROSEANNE WEINBERG Rep #: [id number] : 1955 Provider: Dr. Elver encinas MD Age/Sex: 68/F Location: [facility] [place] [facility] [place] Status: Signed Intake Vital Signs 04/12/24 17:19 06/22/24 10:56 Height 5 ft 5 in 5 ft 5 in Weight: 237 lb 6 oz BMI 39.4 BP 118/64 Blood Pressure Location Rt brachial Position Sitting Respiration 16 Pulse 95 Pulse Source Monitor Temp 96.7 F L Temp Source Temporal Pulse Oximetry (%) 97 Oxygen Delivery Method room air Intake Visit Reasons: higher heart rate after covid Chief Complaint: high heart rate Title Examiner Required: No Accompanied by: Self Is patient in pain?: No Allergies acetaminophen (From Westhoff) Adverse Reaction (Mild, Verified 06/22/24 10:51) Nausea hydrocodone (From Westhoff) Adverse Reaction (Mild, Verified 06/22/24 10:51) Nausea amoxicillin (From Augmentin) Adverse Reaction (Verified 06/22/24 10:51) Nausea clavulanic acid (From Augmentin) Adverse Reaction (Verified 06/22/24 10:51) Nausea oxycodone (From Percodan) Adverse Reaction (Verified 06/22/24 10:51) Nausea propoxyphene (From Darvocet-N 100) Adverse Reaction (Verified 06/22/24 10:51) Nausea Have you fallen in the past year?: No Nurse's Note: IRREGULAR HEART RATE/BEAT SINCE COVID IS WORSE EXERTION [facility] Medical History (Updated 06/22/24 @ 13:[address] Elver Laws MD) Abnormal heart rhythm History of COVID-19 GERD (gastroesophageal reflux disease) Cellulitis of forehead Insect bite Abrasion, right lesser toe(s), initial encounter Abrasion, right great toe, initial encounter Laceration of right knee Localized swelling of back Bilateral hip pain Health care maintenance Colon cancer screening Knee pain Chest pain Fatigue SOB (shortness of breath) Arthritis Lower extremity edema Hx of colonic polyp Dermatitis Bilateral lower extremity edema Trigeminal neuralgia Hyperlipemia Borderline hypertension Osteoarthritis Fibromyalgia Asthma Surgical History History of arthroscopy of right knee History of tubal ligation History of cholecystectomy History of colonoscopy Family History Mother Cancer, Onset Age: 58 pancreatic Diabetes Father Cancer, Onset Age: 70 pancreatic, passed of it Hypertension Grandfather Heart disease Hypertension Brother Diabetes Hypertension Uncle Colon cancer Social History Smoking Status: Never smoker alcohol intake: never substance use type: does not use caffeine: Yes what type of physical activity do you participate in: walking frequency: 3-4 times per week seatbelt use: always do you feel safe at home: Yes additional social history: Santos- Retired Patient is retired HPI HPI Chief Complaint: high heart rate Details: ROSEANNE WEINBERG, is a 68 F who presents to the office today for an acute visit. Status post COVID a few weeks ago. She states that she has had a sensation of irregularity in her heart rhythm. Does not necessarily beat hard or fast just feels uncomfortable and irregular. Has tried to monitor her rhythm at home. No syncopal or near syncopal events. No lightheadedness, chest pain or shortness of breath. Tries to stay well-hydrated. Limits her caffeinated drinks but still takes green tea ROS Const Constitutional: No body ache, excessive sweating, fatigue, fever(s), frequent falls, headache(s), snoring, weakness, weight change, sleep problems or change in appetite Eyes Eyes: No blurry vision, change in vision, floaters, visual disturbances, eye pain or Light sensitivity ENT ENT: No abnormal hearing, ear or mastoid pain, tinnitus, balance problems, nosebleed/epistaxis , nasal congestion, headache(s), neck pain or sore throat Resp Respiratory: No cough, excessive phlegm production, pain on inspiration, shortness of breath, snoring or wheezing Cardio Cardiology: No chest pain at rest, chest pain with exertion, excessive sweating, shortness of breath, dyspnea on exertion, lightheadedness, orthopnea or palpitations Gastro GI: No abdominal pain, change in bowel habits, constipation, cramping, diarrhea, nausea/dyspepsia or vomiting Genitourinary-Femal e: No burning urination, painful urination, urinary incontinence, urinary frequency, blood in urine, suprapubic fullness, side pain, abnormal periods or pelvic pain Musc Musculoskeletal: No abnormal gait, joint pain, back pain, limited range of motion, muscle cramps, neck pain, numbness, stiffness, tingling or Arthritis Skin Skin: No dry skin, redness, excessive hair growth, yel (more content not included)... Normal [facility] Laboratory - Chemistry and C hemistry - challengeOrdered By: Elver Laws on 06-22-2024 AST [Catalytic activity/Vol] 20 U/L <32 [facility] Lymphocytes Auto (Unsp spec) [#/Vol]Ordered By: Elver Laws on 06-22-2024 Lymphocytes (Bld) [#/Vol] 0.91 10*3/uL 0.83-4.5 1 [facility] Lymphocytes/100 WBC Auto (Un sp spec)Ordered By: Elver Laws on 06-22-2024 Lymphocytes/100 WBC (Bld) 17.7 % Low 19-41 [facility] MCV (mean corpuscular volume ) determinationOrdered By: Elver Lewisghe on 06-22-2024 MCV (RBC) [Entitic vol] 89.5 fL 81-[address] [facility] Magnesiumon 06-22-2024 Magnesium [Mass/Vol] 2.2 mg/dL Normal 1.5-2.2 [facility] Comment on above: Performed By: #### L 501.5200, L100.0100, L501.9520, L500.4050, L506.0400 ####[facility] [address] [place], [address] Magnesium (Unsp spec) [Mass/ Vol]Ordered By: Elver Laws on 06-22-2024 Magnesium [Mass/Vol] 2.2 mg/dL 1.5-2.2 [facility] Magnesium measurement (mass/ volume)Ordered By: Elver Laws on 06-22-2024 Magnesium (Unsp spec) [Mass/Vol] 2.2 mg/dL 1.5-2.2 [facility] Mean corpuscular hemoglobin (MCH) determinationOrdered By: Elver Laws on 06-22-2024 MCH (RBC) [Entitic mass] 29.3 pg 27.0-32.0 [facility] Mean corpuscular hemoglobin concentration (MCHC) determinationOrdered By: watson Higginbothame on 06-22-2024 MCHC (RBC) [Mass/Vol] 32.7 g/dL 32-36 [facility] Mean platelet volume determi nationOrdered By: Elver Lewisghe on 06-22-2024 Platelet mean volume (Bld) [Entitic vol] 11.9 fL 6.2-12.0 [facility] Monocyte percentageOrdered B y: Elver Higginbothame on 06-22-2024 Monocytes/100 WBC (Bld) 11.9 % High 0-[address] [facility] Neutrophil percentageOrdered By: Elver Laws on 06-22-2024 Neutrophils/100 WBC (Bld) 67.1 % 47-70 [facility] Nucleated red blood cell per centageOrdered By: Elver Laws on 06-22-2024 Nucleated RBC/100 WBC (Bld) [Ratio] 0 % 0-5 [facility] Platelet countOrdered By: Walter Laws on 06-22-2024 Platelets (Bld) [#/Vol] 226 10*3/uL 150-450 [facility] Potassium (Unsp spec) [Mass/ Vol]Ordered By: Elver Laws on 06-22-2024 Potassium [Moles/Vol] 4.0 mmol/L 3.3-5.1 [facility] Potassium measurement (mass/ volume)Ordered By: Elver Laws on 06-22-2024 Potassium (Unsp spec) [Mass/Vol] 4.0 mmol/L 3.3-5.1 [facility] RBC Auto (Bld) [#/Vol]Ordere d By: Elver Laws on 06-22-2024 RBC (Bld) [#/Vol] 4.85 10*6/uL 4.2-5.4 [facility] Serum creatinine measurement (mass/volume)Ordered By: Elver Laws on 06-22-2024 Creatinine [Mass/Vol] 0.96 mg/dL 0.70-1.20 [facility] Serum globulin measurementOr dered By: Elver Laws on 06-22-2024 Globulin (S) [Mass/Vol] 3.1 g/dL 2.2-4.[address] [facility] Serum glucose measurement (m ass/volume)Ordered By: Elver Laws on 06-22-2024 Glucose [Mass/Vol] 99 mg/dL 70-99 [facility] Serum or plasma alanine lamar otransferase (ALT) measurementOrdered By: Elver Laws on 06-22-2024 ALT [Catalytic activity/Vol] 22 U/L <35 [facility] Serum or plasma albumin christiano urement (mass/volume)Ordered By: Elver Laws on 06-22-2024 Albumin [Mass/Vol] 4.1 g/dL 3.4-4.8 [facility] Serum or plasma albumin/glob ulin mass ratioOrdered By: Elver Lewisysbaelpeter on 06-22-2024 Albumin/Globulin [Mass ratio] 1.3 {ratio} 0.9-2.4 [facility] Serum or plasma alkaline smita sphatase measurementOrdered By: Elver Laws on 06-22-2024 ALP [Catalytic activity/Vol] 161 U/L High 35-104 [facility] Serum or plasma calcium christiano urement (mass/volume)Ordered By: Elver Laws on 06-22-2024 Calcium [Mass/Vol] 9.8 mg/dL 7.6-11.0 [facility] Serum or plasma urea nitroge n measurement (mass/volume)Ordered By: Elver Laws on 06-22-2024 Urea nitrogen [Mass/Vol] 15 mg/dL 4-19 [facility] Sodium levelOrdered By: Nguyễn stokesabdoulaye Veto on 06-22-2024 Sodium [Moles/Vol] 139 mmol/L 133-145 [facility] T4 Free Directon 06-22-2024 T4 FREE DIRECT 1.10 ng/dL Normal 0.76-1.46 [facility] Comment on above: Performed By: #### L 501.5200, L100.0100, L501.9520, L500.4050, L506.0400 ####[facility] [address] [place], [address] T4 freeOrdered By: Elver Laws on 06-22-2024 Free T4 [Mass/Vol] 1.10 ng/dL 0.76-1.46 [facility] TSH DL <= 0.005 mIU/L QnOrde red By: Elver Laws on 06-22-2024 Thyroid Stimulating Hormone (TSH) 1.730 uIU/mL 0.300-4.200 [facility] TSH Qn 1.730 uIU/mL 0.300-4.200 [facility] Thyroid Stim Hormone (TSH)on 06-22-2024 TSH 1.730 uIU/mL Normal 0.300-4.200 [facility] Comment on above: Performed By: #### L 501.5200, L100.0100, L501.9520, L500.4050, L506.0400 ####[facility] [address] [place], [place], [address] Total proteinOrdered By: Guillermo Laws on 06-22-2024 Protein [Mass/Vol] 7.2 g/dL 5.9-8.4 [facility] White blood cell (WBC) count Ordered By: Elver Laws on 06-22-2024 WBC (Bld) [#/Vol] 5.1 10*3/uL 4.4-11.0 [facility] No Panel InformationOrdered By: Mauro Burden on 06-06-2024 Influenza Types A,B Rapid (Clinic) Negative [facility] POC SARS CoV-2 Antigen Positive [facility] Urgent Care Visit Reporton 0 06-06-2024 Urgent Care Visit Report [facility] [address], [address] [place], [place] [address] OFFICE VISIT Date of Service: 06/06/24 MR#: [id number] Acct: [id number] Name: ROSEANNE WEINBERG Rep #: [id number] : 1955 Provider: DIMAS Araya Age/Sex: 68/F Location: [facility] [place] [facility] [place] Status: Signed Intake Vital Signs 04/12/24 17:19 06/06/24 15:31 Height 5 ft 5 in Weight: 244 lb BMI 40.6 BP 122/82 H 138/78 H Blood Pressure Location Lt brachial Lt brachial Position Sitting Sitting Respiration 18 17 Pulse 103 H 79 Pulse Source Monitor NIBP Temp 97.2 F L 98.1 F Temp Source Temporal Oral Pulse Oximetry (%) 95 96 Oxygen Delivery Method room air room air Intake Visit Reasons: COVID EXPOSURE/WANTS TEST Chief Complaint: congestion, SOB, cough Title Examiner Required: No Is patient in pain?: No Allergies acetaminophen (From Westhoff) Adverse Reaction (Mild, Verified 06/06/24 15:32) Nausea hydrocodone (From Westhoff) Adverse Reaction (Mild, Verified 06/06/24 15:32) Nausea amoxicillin (From Augmentin) Adverse Reaction (Verified 06/06/24 15:32) Nausea clavulanic acid (From Augmentin) Adverse Reaction (Verified 06/06/24 15:32) Nausea oxycodone (From Percodan) Adverse Reaction (Verified 06/06/24 15:32) Nausea propoxyphene (From Darvocet-N 100) Adverse Reaction (Verified 06/06/24 15:32) Nausea Is last menstrual period known: No Post menopausal: Yes Patient : No Have you fallen in the past year?: No Nurse's Note: congestion, cough, SOB x 4-5 days. hx asthma. dxd with covid, PCP concern for same. pt seen here Tuesday for same, notes indicate pt declined viral testing at that time. given Zpak and Prednisone. PCP would like pt to be tested, pt agreeable [facility] Medical History (Updated 04/12/24 @ 18:[address] Elver Laws MD) GERD (gastroesophageal reflux disease) Cellulitis of forehead Insect bite Abrasion, right lesser toe(s), initial encounter Abrasion, right great toe, initial encounter Laceration of right knee Localized swelling of back Bilateral hip pain Health care maintenance Colon cancer screening Knee pain Chest pain Fatigue SOB (shortness of breath) Arthritis Lower extremity edema Hx of colonic polyp Dermatitis Bilateral lower extremity edema Trigeminal neuralgia Hyperlipemia Borderline hypertension Osteoarthritis Fibromyalgia Asthma Surgical History History of arthroscopy of right knee History of tubal ligation History of cholecystectomy History of colonoscopy Family History Mother Cancer, Onset Age: 58 pancreatic Diabetes Father Cancer, Onset Age: 70 pancreatic, passed of it Hypertension Grandfather Heart disease Hypertension Brother Diabetes Hypertension Uncle Colon cancer Social History Smoking Status: Never smoker alcohol intake: never substance use type: does not use caffeine: Yes what type of physical activity do you participate in: walking frequency: 3-4 times per week seatbelt use: always do you feel safe at home: Yes additional social history: Santos- Retired Patient is retired HPI HPI Chief Complaint: congestion, SOB, cough Details: ROSEANNE WEINBERG, is a 68 F who presents to the office today for 4-5 day history of persistent congestion, cough, SOB - stating she discussed her symptoms with his PCP and now is agreeable today to be screened for COVID-19 and influenza. No complaints of fever, chills, sweats, lightheadedness/diz ziness, nausea/vomiting, or chest pressure w/ dyspnea on exertion. No lwkb-dce-nldxfvc products taken to assist. Nonsmoker. Several close contacts with similar URI complaints, including who was recently diagnosed with COVID-19. No other associated symptoms and no alleviating/aggrava ting factors. ROS Const Constitutional: No other (as above) Exam Const General: cooperative, healthy appearing and no acute distress Nutritional Appearance: average body habitus Orientation: alert, awake and oriented x3 HENMT Head: normal to inspection Ears: hearing grossly normal bilaterally, external ears normal, TM's normal bilaterally and EAC's normal Nose: external nose normal, nares normal, septum normal and nasal discharge clear Face and sinus: normal facial exam, sinuses nontender and face symmetric Mouth: oral mucosae normal, lip normal, tongue normal and oropharynx normal Throat: posterior oropharynx normal, tonsils normal, uvula midline and no postnasal drainage Eyes General: appearance normal, both eyes and all related structures Neck Neck: normal visual inspection, full ROM, no lymphadenopathy, no meningeal signs a (more content not included)... Normal [facility] Urgent Care Visit Reporton 0 06-04-2024 Urgent Care Visit Report [facility] [address], [address] [place] [address] OFFICE VISIT Date of Service: 06/04/24 MR#: [id number] Acct: [id number] Name: ROSEANNE WEINBERG Rep #: [id number] : 1955 Provider: DIMAS Araya Age/Sex: 68/F Location: [facility] [place] [facility] [place] Status: Signed Intake Vital Signs 04/12/24 17:19 06/04/24 13:11 Height 5 ft 5 in Weight: 244 lb BMI 40.6 BP 122/82 H 118/72 Blood Pressure Location Lt brachial Lt brachial Position Sitting Sitting Respiration 18 12 Pulse 103 H 83 Pulse Source Monitor NIBP Temp 97.2 F L 98.3 F Temp Source Temporal Oral Pulse Oximetry (%) 95 98 Oxygen Delivery Method room air room air Intake Visit Reasons: CONCERN FOR Upper respiratory infection Allergies acetaminophen (From Westhoff) Adverse Reaction (Mild, Verified 06/04/24 13:12) Nausea hydrocodone (From Westhoff) Adverse Reaction (Mild, Verified 06/04/24 13:12) Nausea amoxicillin (From Augmentin) Adverse Reaction (Verified 06/04/24 13:12) Nausea clavulanic acid (From Augmentin) Adverse Reaction (Verified 06/04/24 13:12) Nausea oxycodone (From Percodan) Adverse Reaction (Verified 06/04/24 13:12) Nausea propoxyphene (From Darvocet-N 100) Adverse Reaction (Verified 06/04/24 13:12) Nausea Medications ???Medication ???Instructions ???Recorded ???Confirmed ???Type cetirizine 10 mg tablet (Zyrtec) 10 mg PO DAILY PRN 03/07/23 History albuterol sulfate 2.5 mg/3 mL 2.5 mg (3 mL) inhalation Q4H PRN 0 05/27/23 06/04/24 Rx (0.083 %) solution for nebulization shortness of breath or wheezing #90 mL triamterene 37.5 1 tab PO DAILY #90 tabs 03/28/24 0 06/04/24 Rx mg-hydrochlorothiaz martin 25 mg tablet biotin 10,000 mcg chewable tablet mcg PO 04/12/24 06/04/24 History (Hair, Skin and Nails (biotin)) calcium 500 mg (as 1 tab PO QDAY 04/12/24 06/04/24 Hi story carbonate)-vitamin D3 5 mcg (200 unit) tablet clobetasol 0.05 % topical cream topical PRN 04/12/24 06/04/24 Hist ory elderberry fruit 350 mg capsule mg PO 04/12/24 06/04/24 History multivitamin 1 tab PO QAM 04/12/24 06/04/24 His tory naltrexone 8 mg-bupropion 90 mg 2 tab PO BID 3 months #360 tabs 06/04/24 Rx tablet,extended release (Contrave) omeprazole 40 mg capsule,delayed 40 mg PO QDAY #90 caps 04/12/24 Rx release fluticasone furoate 100 1 inh inhalation Q24H 3 months #60 04/24/24 06/04/24 Rx mcg-vilanterol 25 mcg/dose ea inhalation powder (Breo Ellipta) losartan 25 mg tablet 25 mg PO DAILY #90 tabs 05/23/24 0 06/04/24 Rx azithromycin 250 mg tablet See Rx Instructions PO .COMPLEX #6 06/04/24 06/04/24 Rx tabs methylprednisolone 4 mg tablets in See Rx Instructions PO PER PKG D IR 06/04/24 06/04/24 Rx a dose pack (Medrol (Parminder)) #21 tabs Have you fallen in the past year?: No Nurse's Note: Patient here for cough, congestion x3 days. [facility] Medical History (Updated 04/12/24 @ 18:[address] Elver Laws MD) GERD (gastroesophageal reflux disease) Cellulitis of forehead Insect bite Abrasion, right lesser toe(s), initial encounter Abrasion, right great toe, initial encounter Laceration of right knee Localized swelling of back Bilateral hip pain Health care maintenance Colon cancer screening Knee pain Chest pain Fatigue SOB (shortness of breath) Arthritis Lower extremity edema Hx of colonic polyp Dermatitis Bilateral lower extremity edema Trigeminal neuralgia Hyperlipemia Borderline hypertension Osteoarthritis Fibromyalgia Asthma Surgical History History of arthroscopy of right knee History of tubal ligation History of cholecystectomy History of colonoscopy Family History Mother Cancer, Onset Age: 58 pancreatic Diabetes Father Cancer, Onset Age: 70 pancreatic, passed of it Hypertension Grandfather Heart disease Hypertension Brother Diabetes Hypertension Uncle Colon cancer Social History Smoking Status: Never smoker alcohol intake: never substance use type: does not use caffeine: Yes what type of physical activity do you participate in: walking frequency: 3-4 times per week seatbelt use: always do you feel safe at home: Yes additional social history: Santos- Retired Patient is retired HPI HPI Details: ROSEANNE WEINBERG, is a 68 F who presents to the office today for initial evaluation at the [facility] for approximately 3-day history of persistent moist nonproductive cough with chest congestion and occasional wheezing. Patient notes due to her longstanding history of asthmatic bronchitis, she went to be sanya (more content not included)... Normal [facility] SCRN MAMM (CAD)W/GIUSEPPE BILATo n 04-24-2024 SCRN MAMM (CAD)W/GIUSEPPE BILAT [facility] Imaging Services [address] [place], [place] [id number] SCRN MAMM (CAD)W/GIUSEPPE BILAT MR#: [id number] Acct: [id number] Name: ROSEANNE WEINBERG Rep #: [id number] : 1955 F 68 From: Ede solis MD PCP: Dr. Elver Laws MD Status: [facility] Study: SCRN MAMM (CAD)W/GIUSEPPE BILAT Date of Exam: 04/11 08/03 Exam# [id number] Ordering Dr: Elver Laws MD -[id number] MAMMOGRAPHY - BILATERAL SCREENING REASON FOR EXAM: Female, 68 years old. Routine annual screening examination. PERTINENT HISTORY: Non-contributory. TECHNIQUE: Digital bilateral breast giuseppe (3D mammographic acquisition) in the CC and MLO projections. 2-D mediolateral oblique (MLO) and craniocaudad (CC) views of both breasts were obtained. CAD: Full Field Digital Mammography with Computer Added Detection was performed. COMPARISON: Comparison is made with prior study dated April 20, 2023 and December 29, 2021. FINDINGS: Breast Composition: The breasts are almost entirely fatty. There are no dominant masses or suspicious calcifications. Stable 9.7 mm fat-containing lymph node in the upper lateral aspect of the right breast. Stable bilateral fat-containing axillary lymph nodes. No other significant abnormalities are identified. There has been no significant change since the prior study. BI/SCRN MAMM (CAD)W/GIUSEPPE BILAT IMPRESSION: Stable bilateral screening mammogram. Yearly follow-up mammogram recommended. (A) ASSESSMENT CATEGORY: BIRADS Category 2: Benign. A letter regarding these results will be sent to the patient by the facility within 30 days. Approximately 10% of breast cancers are not detected by mammography. A normal mammogram should not delay biopsy of a clinically suspicious abnormality. [id number] Electronically Signed: Ede Barragan MD at 14:28 EST Reading Location ID and State: [facility] / [place] , Service support , CC: Dr. 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 Elver encinas MD Age/Sex: 68/F Location: [facility] [place] Status: Signed Intake Vital Signs 12/30/23 11:30 03/16/24 14:04 04/12/24 17:19 Height 5 ft 5 in 5 ft 5 in 5 ft 5 in Weight: 244 lb BMI 40.6 BP 122/82 H Blood Pressure Location Lt brachial Position Sitting Respiration 18 Pulse 103 H Pulse Source Monitor Temp 97.2 F L Temp Source Temporal Pulse Oximetry (%) 95 Oxygen Delivery Method room air Intake Visit Reasons: 3 M FU Chief Complaint: Follow-up chronic conditions. Weight. Title Examiner Required: No Is patient in pain?: No Allergies acetaminophen (From Westhoff) Adverse Reaction (Mild, Verified 04/12/24 17:12) Nausea hydrocodone (From Westhoff) Adverse Reaction (Mild, Verified 04/12/24 17:12) Nausea amoxicillin (From Augmentin) Adverse Reaction (Verified 04/12/24 17:12) Nausea clavulanic acid (From Augmentin) Adverse Reaction (Verified 04/12/24 17:12) Nausea oxycodone (From Percodan) Adverse Reaction (Verified 04/12/24 17:12) Nausea propoxyphene (From Darvocet-N 100) Adverse Reaction (Verified 04/12/24 17:12) Nausea Medications ???Medication ???Instructions ???Recorded ???Confirmed ???Type cetirizine 10 mg tablet (Zyrtec) 10 mg PO DAILY PRN 03/07/23 04/12/24 History albuterol sulfate 2.5 mg/3 mL 2.5 mg (3 mL) inhalation Q4H PRN 05/27/23 04/12/24 Rx (0.083 %) solution for nebulization shortness of breath or wheezing #90 mL fluticasone furoate 50 inhalation DAILY 08/08/23 04/12/24 History mcg-vilanterol 25 mcg/dose inhalation powder (Breo Ellipta) losartan 25 mg tablet 25 mg PO DAILY #90 tabs 02/16/24 04/12/24 Rx triamterene 37.5 1 tab PO DAILY #90 tabs 03/28/24 04/12/24 Rx mg-hydrochlorothiaz martin 25 mg tablet biotin 10,000 mcg chewable tablet mcg PO 04/12/24 04/12/24 History (Hair, Skin and Nails (biotin)) calcium 500 mg (as 1 tab PO QDAY 04/12/24 04/12/24 History carbonate)-vitamin D3 5 mcg (200 unit) tablet clobetasol 0.05 % topical cream topical PRN 04/12/24 04/12/24 History elderberry fruit 350 mg capsule mg PO 04/12/24 04/12/24 History multivitamin 1 tab PO QAM 04/12/24 04/12/24 History naltrexone 8 mg-bupropion 90 mg 2 tab PO BID 3 months #360 tabs 04/12/24 04/12/24 Rx tablet,extended release (Contrave) omeprazole 40 mg capsule,delayed 40 mg PO QDAY #90 caps 04/12/24 04/12/24 Rx release Have you fallen in the past year?: No PFSH Medical History (Updated 04/12/24 @ 18:[address] Elver Laws MD) GERD (gastroesophageal reflux disease) Cellulitis of forehead Insect bite Abrasion, right lesser toe(s), initial encounter Abrasion, right great toe, initial encounter Laceration of right knee Localized swelling of back Bilateral hip pain Health care maintenance Colon cancer screening Knee pain Chest pain Fatigue SOB (shortness of breath) Arthritis Lower extremity edema Hx of colonic polyp Dermatitis Bilateral lower extremity edema Trigeminal neuralgia Hyperlipemia Borderline hypertension Osteoarthritis Fibromyalgia Asthma Surgical History History of arthroscopy of right knee History of tubal ligation History of cholecystectomy History of colonoscopy Family History Mother Cancer, Onset Age: 58 pancreatic Diabetes Father Cancer, Onset Age: 70 pancreatic, passed of it Hypertension Grandfather Heart disease Hypertension Brother Diabetes Hypertension Uncle Colon cancer Social History Smoking Status: Never smoker alcohol intake: never substance use type: does not use caffeine: Yes what type of physical activity do you participate in: walking frequency: 3-4 times per week seatbelt use: always do you feel safe at home: Yes additional social history: Santos- Retired Patient is retired HPI HPI Chief Complaint: Follow-up chronic conditions. Weight. Details: ROSEANNE WEINBERG, is a 68 F who presents to the office today for follow-up of her chronic conditions. Also has some concerns. Chronic history of hoarseness and cough. Had been on a PPI, initially was taking just 20 mg but was advised to increase to 40. Did this for some weeks and then discontinued due to concern for side effect. She believes that it helped somewhat. Currently at BMI 40.6. She would like something to help for weight loss. Has been exercising at [employer]. Also tries to pay close attention to her diet but admits that she needs help w (more content not included)... Normal [facility] Chest PA and Lateralon 03-16 Chest PA and Lateral [facility] Imaging Services [address] [place] [address] Chest PA and Lateral MR#: [id number] Acct: [id number] Name: ROSEANNE WEINBERG Rep #: [id number] : 1955 F 68 From: Ede solis MD PCP: Dr. Elver Laws MD Status: [facility] Study: Chest PA and Lateral Date of Exam: 03/16/24 Exam# [id number] Ordering Dr: Enrrique Suarez PA PA [id number] STUDY: X-RAY CHEST REASON FOR EXAM: Female, 68 years old. Persistent cough TECHNIQUE: PA and lateral views of the chest. COMPARISON: Comparison is made with prior study dated December 14, 2023. FINDINGS: The lungs are clear and expanded. There is no demonstrated pleural abnormality. There is mild cardiac enlargement. Normal mediastinum and dory. Normal visualized pulmonary arteries. There is atherosclerotic calcification of the aortic arch with tortuosity. There are diffuse degenerative changes of the visualized thoracic spine. Normal visualized ribs, clavicles, and shoulders. There is no demonstrated abnormality of the visualized soft tissue structures of the upper abdomen. RAD/Chest PA and Lateral IMPRESSION: No acute abnormality is seen. Electronically Signed: Ede Barragan MD at 14:36 EST , CC: DIMAS Copeland; Dr. Elver Laws MD Deck And Hull Assembler: Signed Normal [facility] Urgent Care Visit Reporton 1 05-17-2023 Urgent Care Visit Report [facility] [address], [address] [place] [id number] OFFICE VISIT Date of Service: 03/16/24 MR#: [id number] Acct: [id number] Name: ROSEANNE WEINBERG Rep #: [id number] : 1955 Provider: DIMAS Copeland Age/Sex: 68/F Location: [facility] [place] Status: Signed Intake Vital Signs 12/30/23 11:30 03/16/24 14:04 Height 5 ft 5 in 5 ft 5 in Weight: 240 lb BMI 39.9 BP 122/62 H Pulse 102 H Temp 97.8 F Temp Source Oral Pulse Oximetry (%) 96 Oxygen Delivery Method room air Intake Visit Reasons: FATIGUE, COUGH Allergies acetaminophen (From Westhoff) Adverse Reaction (Mild, Verified 03/16/24 14:10) Nausea hydrocodone (From Westhoff) Adverse Reaction (Mild, Verified 03/16/24 14:10) Nausea amoxicillin (From Augmentin) Adverse Reaction (Verified 03/16/24 14:10) Nausea clavulanic acid (From Augmentin) Adverse Reaction (Verified 03/16/24 14:10) Nausea oxycodone (From Percodan) Adverse Reaction (Verified 03/16/24 14:10) Nausea propoxyphene (From Darvocet-N 100) Adverse Reaction (Verified 03/16/24 14:10) Nausea Medications ???Medication ???Instructions ???Recorded ???Confirmed ???Type cetirizine 10 mg tablet (Zyrtec) 10 mg PO DAILY PRN 03/07/23 03/16/24 History clobetasol 0.05 % topical cream topical 03/07/23 03/16/24 History triamterene 37.5 1 tab PO DAILY #90 tabs 03/07/23 03/16/24 Rx mg-hydrochlorothiaz martin 25 mg tablet albuterol sulfate 2.5 mg/3 mL 2.5 mg (3 mL) inhalation Q4H PRN 05/27/23 03/16/24 Rx (0.083 %) solution for nebulization shortness of breath or wheezing #90 mL fluticasone furoate 50 inhalation DAILY 08/08/23 03/16/24 History mcg-vilanterol 25 mcg/dose inhalation powder (Breo Ellipta) losartan 25 mg tablet 25 mg PO DAILY #90 tabs 02/16/24 03/16/24 Rx azithromycin 250 mg tablet See Rx Instructions PO .COMPLEX #6 03/16/24 03/16/24 Rx tabs prednisone 10 mg tablet 20 mg (2 x 10 mg) PO QDAY 4 days 03/16/24 03/16/24 Rx #8 tabs Have you fallen in the past year?: No Nurse's Note: patient has a cough that has been going on for about 2 weeks. patient is very tired. and her voice is hoarse and she has some SOB. [facility] Medical History Cellulitis of forehead Insect bite Abrasion, right lesser toe(s), initial encounter Abrasion, right great toe, initial encounter Laceration of right knee Localized swelling of back Bilateral hip pain Health care maintenance Colon cancer screening Knee pain Chest pain Fatigue SOB (shortness of breath) Arthritis Lower extremity edema Hx of colonic polyp Dermatitis Bilateral lower extremity edema Trigeminal neuralgia Hyperlipemia Borderline hypertension Osteoarthritis Fibromyalgia Asthma Surgical History History of arthroscopy of right knee History of tubal ligation History of cholecystectomy History of colonoscopy Family History Mother Cancer, Onset Age: 58 pancreatic Diabetes Father Cancer, Onset Age: 70 pancreatic, passed of it Hypertension Grandfather Heart disease Hypertension Brother Diabetes Hypertension Uncle Colon cancer Social History Smoking Status: Never smoker alcohol intake: never substance use type: does not use caffeine: Yes what type of physical activity do you participate in: walking frequency: 3-4 times per week seatbelt use: always do you feel safe at home: Yes additional social history: Santos- Retired Patient is retired HPI HPI Details: ROSEANNE WEINBERG, is a 68 F who presents to the office today for complaint of cough and congestion for the past 2 weeks. Patient states she has had increased fatigue as well. She denies hemoptysis or difficulty breathing however has had some tightness that typically goes along with something like this with her asthma. She denies fever, chills, sweats. No nausea, vomiting or diarrhea. No loss of taste or smell. No other associated symptoms or alleviating/aggrava ting factors. ROS Const Constitutional: No other (As above) Exam Const General: cooperative and well developed HENMT Head: normal to inspection and atraumatic Ears: hearing grossly normal bilaterally Nose: nasal discharge clear Face and sinus: normal facial exam Mouth: oral mucosae normal Throat: abnormal tonsil bilaterally hypertrophy 1+ Resp Effort Inspection: normal respiratory effort and no audible wheezes Auscultation: Bilateral: Clear to Auscultation Cardio Rate: regular rate Rhythm: regular rhythm Neuro General: patient alert Psych Appearance: grossly normal Mental Status: mental status grossly normal Coding Level of Care Code Off vi (more content not included)... Normal [facility] PT D/C Summary (1)on 024 PT D/C Summary (1) [facility] Physical Therapy [facility] [address] [place] [address] [address] [place] [address] / REHABILITATION SERVICES DISCHARGE SUMMARY MR#: [id number] Acct: [id number] Name: ROSEANNE WEINBERG Rep #: [id number] : 1955 68 From: Tasha Henderson PT, Cert. MDT Referring DrVicky: DIMAS Sorenson Status: REG RCR Insurance: MEDICARE PART A B [facility] Discharge Summary D/C summary: It has been my pleasure to treat ROSEANNE WEINBERG referred by DIMAS Sorenson, with the diagnosis of NECK PAIN AND DDD for a total of 9 visit(s). Discharge Date: 03/01/24 Please see the following information for a summary of their discharge status. Subjective Subjective: PATIENT REPORTS SHE STILL GETS PAIN TURNING TO THE LEFT. STATES THERAPY FEELS GOOD WHILE SHE IS HAVING TREATMENT BUT THE PAIN COMES BACK. PATIENT REPORTS DR. GARCIA RECOMMENDED PAIN MGMT. SHE STATES SHE TOLD HIM SHE WANTED HIM TO FINISH PT FIRST AND SHE STATES SHE IS TO CONTACT HIM WHEN SHE FINISHES PT AND SHE IS READY TO DO THAT AT THIS POINT. Pain Left neck/shoulder: Pain Intensity (Out of 10): 7 Overall Improvement % Improvement: 15 Objective Objective/Function: PATIENT WAS SEEN TODAY FOR RE-ASSESSMENT OF PROGRESS TOWARD THE SET PT GOALS AND THE NEED FOR FURTHER PHYSICAL THERAPY VS READINESS FOR DISCHARGE. THERE ARE NO SIGNIFICANT CHANGES OVER ALL WITH EXAM TODAY AND THEREFORE PATIENT IS APPROPRIATE FOR AND AGREEABLE TO DISCHARGE. UPON EXAM TODAY: Cervical Mvmt Loss: Flex: NIL Pro: NIL Ext: MOD Ret: MOD RSB: MIN LSB: MIN R Rot: MIN L Rot: MOD PATIENT C/O INCREASED SHA NECK PAIN L > R WITH CERVICAL ROM TESTING ALL PLANES BUT ESPECIALLY WITH L ROT AND L SB TESTING. Goals Goal 1:: DECREASE C/O NECK AND LUE PAIN BY AT LEAST 50% TO EASE ADL'S Goal Progress: Not Met Goal 2:: IMPROVE PAINFREE NECK ROM TO EASE ADL'S. Goal Progress: Not Met Goal 3:: PATIENT WILL BE ABLE TO MAINTAIN PROPER POSTURE CONTROL THROUGH OUT THERAPY SESSION WITHOUT CUEING TO DEMONSTRATE IMPROVED POSTURE AWARENESS STRENGTH AND FLEXIBILITY. Goal Progress: Not Met Goal 4:: PATIENT WILL HAVE IMPROVED NECK OSWESTRY SCORE OF AT LEAST 5 POINTS. Goal Progress: Not Met Goal 5:: INDEP HEP Goal Progress: Not Met Plan Plan: D/C DUE TO LACK OF PROGRESS. PATIENT IS AGREEABLE AND PLANS TO PURSUE PAIN MGMT RECOMMENDED BY DR. GARCIA. D/C Information d/c sentence: If there are questions or concerns regarding this patient's physical therapy, please feel free to call me at [phone]. Thank you for the referral of this patient. Sincerely, Tasha Henderson, PT, Cert MDT Balance/Gait/Functi onal tests Balance/Special Test Scores Oswestry Neck Score: 16 Improvement % Improvement: 15 03/01/24 1132 CC: Dr. Elver Laws MD; DIMAS Sorenson ANSON Signed Normal [facility] Cerv Spine 2 or 3 Viewson Cerv Spine 2 or 3 Views [facility] Radiology [address] [place] [address] Cerv Spine 2 or 3 Views MR#: [id number] Acct: [id number] Name: ROSEANNE WEINBERG Rep #: [id number] : 1955 F 68 From: Judy Hernandez PCP: Dr. Elver Laws MD Status: DEP AMB Study: Cerv Spine 2 or 3 Views Date of Exam: 02/10/24 Exam# [id number] Ordering Dr: Chandni Summers -[id number] INDICATION: neck pain -- flex/ext EXAMINATION/TECHNIQ UE: X-RAY - XR Spine Cervical 4 or 5 Views COMPARISON: Prior study dated: 01/02/2024 FINDINGS: Flexion and extension views only. No significant subluxation with either flexion or extension. Prevertebral soft tissues appear unremarkable. RAD/Cerv Spine 2 or 3 Views IMPRESSION: No significant subluxation with flexion or extension. Electronically Signed: Judy Collazo MD at 1:08 EDT Reading Location ID and State: [facility] / [place] Tel , Service support , CC: DIMAS Parker; Dr. Elver Laws MD Deck And Hull Assembler: Signed Normal [facility] Orthopedic Visit Reporton Orthopedic Visit Report [facility] [facility] [address] [place] [address] OFFICE VISIT Date of Service: 02/10/24 MR#: [id number] Acct: [id number] Name: ROSEANNE WEINBERG Rep #: [id number] : 1955 Provider: Dr. Contreras Garcia MD Age/Sex: 68/F Location: [facility] [place] Status: Signed Intake Vital Signs 12/30/23 11:30 Height 5 ft 5 in Intake Visit Reasons: CERVICAL SPINE Allergies acetaminophen (From Westhoff) Adverse Reaction (Mild, Verified 02/10/24 10:04) Nausea hydrocodone (From Westhoff) Adverse Reaction (Mild, Verified 02/10/24 10:04) Nausea amoxicillin (From Augmentin) Adverse Reaction (Verified 02/10/24 10:04) Nausea clavulanic acid (From Augmentin) Adverse Reaction (Verified 02/10/24 10:04) Nausea oxycodone (From Percodan) Adverse Reaction (Verified 02/10/24 10:04) Nausea propoxyphene (From Darvocet-N 100) Adverse Reaction (Verified 02/10/24 10:04) Nausea Medications ???Medication ???Instructions ???Recorded ???Confirmed ???Type cetirizine 10 mg tablet (Zyrtec) 10 mg PO DAILY PRN 03/07/23 02/10/24 History clobetasol 0.05 % topical cream topical 03/07/23 02/10/24 History triamterene 37.5 1 tab PO DAILY #90 tabs 03/07/23 02/10/24 Rx mg-hydrochlorothiaz martin 25 mg tablet albuterol sulfate 2.5 mg/3 mL 2.5 mg (3 mL) inhalation Q4H PRN 05/27/23 02/10/24 Rx (0.083 %) solution for nebulization shortness of breath or wheezing #90 mL fluticasone furoate 50 inhalation DAILY 08/08/23 02/10/24 History mcg-vilanterol 25 mcg/dose inhalation powder (Breo Ellipta) losartan 25 mg tablet 25 mg PO DAILY #90 tabs 08/09/23 02/10/24 Rx Have you fallen in the past year?: No PFSH Medical History Cellulitis of forehead Insect bite Abrasion, right lesser toe(s), initial encounter Abrasion, right great toe, initial encounter Laceration of right knee Localized swelling of back Bilateral hip pain Health care maintenance Colon cancer screening Knee pain Chest pain Fatigue SOB (shortness of breath) Arthritis Lower extremity edema Hx of colonic polyp Dermatitis Bilateral lower extremity edema Trigeminal neuralgia Hyperlipemia Borderline hypertension Osteoarthritis Fibromyalgia Asthma Surgical History History of arthroscopy of right knee History of tubal ligation History of cholecystectomy History of colonoscopy Family History Mother Cancer, Onset Age: 58 pancreatic Diabetes Father Cancer, Onset Age: 70 pancreatic, passed of it Hypertension Grandfather Heart disease Hypertension Brother Diabetes Hypertension Uncle Colon cancer Social History Smoking Status: Never smoker alcohol intake: never substance use type: does not use caffeine: Yes what type of physical activity do you participate in: walking frequency: 3-4 times per week seatbelt use: always do you feel safe at home: Yes additional social history: Santos- Retired Patient is retired HPI CERVICAL SPINE Details: This documentation accurately reflects the service provided and the decisions made by me, Dr. Contreras Garcia MD 02/10/24 1002. Part of today???s visit was documented by Mallika CALLOWAY, acting as scribe. ROSEANNE WEINBERG is a 68 year old F here today for neck and left shoulder pain. She did recently have an MRI of her neck on 01/09/24. She has been having the pain for a little over a year now. She states that lat year on her birthday she sat on a wooden stool that she didn't realize was broken and fell which increased her pain. Her pain is on the left side of her neck and radiates into her left shoulder. She did do PT last year after the fall which did help and she has recently started doing PT again. She denies headaches. She does have a lot of posterior shoulder pain over the shoulder blade. She denies numbness and tingling. She denies injection for the neck. She denies taking anything for the pain. Ortho Exam General General: Yes no acute distress Neurologic: Yes alert and Yes oriented x3 Spine SPINE TESTING CERVICAL THORACIC LUMBAR Musculoskeletal Strength 0=absent - 5=normal Details: Neurological exam of the upper extremities shows 5x5 power. Normal sensations across all dermatomes. No hyperreflexia. No midline or paraspinal tenderness. Coding Level of Care Code Off vis,est,level 4 Diagnoses Cervical radiculopathy M54.12 Spondylolisthesis, cervical region M43.12 Time Spent (min) 35 Assessment and Plan Assessment and Plan (1) Cervical radiculopathy: Status: Acute (2) Spondylolisthesis, cervical region: Status: Acute Orders: Orders Cerv Spine 2 or 3 Vi (more content not included)... Normal [facility] Inital Evaluation (1) - PTon 01-30-2024 Inital Evaluation (1) - PT [facility] Physical Therapy [facility] [address] [place] [address] / REHABILITATION SERVICES INITIAL EVALUATION MR#: [id number] Acct: [id number] Name: ROSEANNE WEINBERG Rep #: [id number] : 1955 68 From: Tasha Henderson PT, Cert. MDT Referring Dr.: DIMAS Sorenson Status: REG RCR Insurance: MEDICARE PART A B [facility] Patient's Visit Information Visit Information Visit Information: ROSEANNE WEINBERG is a 68 year old F referred to Physical Therapy by DIMAS Sorenson with a diagnosis of NECK PAIN AND DDD. Date of Evaluation: 01/30/24 Physical Therapist: Tasha Henderson PT, Cert MDT Visit Plan Frequency: 2x /Week Duration: 4-6 Weeks Plan: Scapular Strengthening and B Pec/UT/Levator/Scal destiney Stretching to help reduce stress on Cervical Spine with Daily Activities. US at 1.3 W/CM2 100% to R Neck Musculature in Sitting. STM and Moist Heat to Neck as needed. Instruction in Proper Posture Control, Ergonomics with ADL's and Appropriate Activity Modifications. Postural Strengthening. HEP Instructions. Subjective Subjective: Work/Leisure: RETIRED Present symptoms: L NECK PAIN. INTERMITTENT SHA HAND NUMBNESS AND TINGLING. L UE NUMBNESS AND TINGLING. Present since: 2021 Pain Scale: Worst - 9/10 Least - 1/10 Currently: 3/10 Commenced as a result of: ARTHRITS Symptoms at onset: NECK PAIN Worse: DRIVING, TURNING HEAD L>R, SLEEPING ON STOMACH AND HAND UP UNDER PILLOW, JUST MVMT Better: NOTHING Disturbed sleep: YES Previous history/Previous treatment: PT 2021 OR 2022 - HELPED - ESPECIALLY THE HEAT AND MASSAGE. NO NECK INJECTIONS OR SX. NO CHIROPRACTIC. This episode: CONSULT PENDING WITH DR. GARCIA PENDING FEB 10 2024. Dizziness: NO Tinnitus: NO Nausea: NO Shortness of Breath: NO BUT DOES HAVE ASTHMA Difficulty Swollowing: NO Gait: NORMAL. DID HAVE A FALL BUT WAS HAVING NECK PAIN PRIOR TO THE FALL. SAT ON A STOOL AND IT BROKE 2022 Accidents: NO Unexplained weight loss: NO Imagin01/09/24 CERVICAL MRI [facility]: IMPRESSION: 1. No MRI evidence of any suspicious cervical extruded disc fragment, cervical disc protrusion or any obvious cervical nerve root displacement. 2. Mild posterior bulging annulus at C5-C6 and C6-C7 disc space levels. 3. Normal cervical spinal cord. Electronically Signed: Gerry Colorado MD at 15:04 EDT PMH/Recent major surgery: PATIENT REQUESTING WE REFER TO CURRENT [facility] PMH ON CHART. Objective Objective: Sitting Posture/Standing Posture: FORWARD HEAD AND ROUNDED SHOULDERS. NO TORTICOLLIS Active Correction of posture: WORSE - PROVOKES PULLING L NECK. Other Observations: INDEP GAIT AND TRANSFERS. Sensory deficit: SHA UE LIGHT TOUCH SENSATION GROSSLY INTACT AND SYMMETRICAL ROM deficit: SHA UE ROM WFL'S Motor deficit: R SHLD 5/5, ELBOW 5/5, TECHNICAL OPERATIONS VICE PRESIDENT 68 LBS, L SHLD 4-/5, ELBOW 5/5, TECHNICAL OPERATIONS VICE PRESIDENT 62 LBS. Reflexes: UNABLE TO ELICIT SHA UE DTR'S. Cervical Mvmt Loss: Flex: NIL Pro: NIL Ext: MOD Ret: MOD RSB: MIN LSB: MIN R Rot: MIN L Rot: MOD PATIENT C/O INCREASED SHA NECK PAIN L > R WITH CERVICAL ROM TESTING ALL PLANES BUT ESPECIALLY WITH L ROT AND L SB TESTING. PATIENT TENDS TO MOVE IMPULSIVELY AND WAS TESTING AND RE-TESTING MVMTS TO THE POINT OF A LOT OF INCREASED SORENESS UNTIL THIS PT WAS ABLE TO STOP HER. Postural strength: POOR. Balance/Special Test Scores Oswestry Neck Score: 17 Goals Goal 1:: DECREASE C/O NECK AND LUE PAIN BY AT LEAST 50% TO EASE ADL'S Goal Time Frame: 4-6 Weeks Goal 2:: IMPROVE PAINFREE NECK ROM TO EASE ADL'S. Goal Time Frame: 4-6 Weeks Goal 3:: PATIENT WILL BE ABLE TO MAINTAIN PROPER POSTURE CONTROL THROUGH OUT THERAPY SESSION WITHOUT CUEING TO DEMONSTRATE IMPROVED POSTURE AWARENESS STRENGTH AND FLEXIBILITY. Goal Time Frame: 4-6 Weeks Goal 4:: PATIENT WILL HAVE IMPROVED NECK OSWESTRY SCORE OF AT LEAST 5 POINTS. Goal Time Frame: 4-6 Weeks Goal 5:: INDEP HEP Rehabilitation Potential Physical Therapy Diagnosis: NECK STIFFNESS AND WEAKNESS. POSTURAL STIFFNESS AND WEAKNESS. L UE WEAKNESS. Rehabilitation Potential: Good Anticipated Interventions Patient/Client Instruction: Educate patient on: Condition, Plan of Care and Risk Factors For the Purpose of:: To improve self management Therapeutic Exercise to Include: Strength training, Postural training, Flexibilty training, Neuromotor development and Scapular Strength/Stabilizat ion For the Purpose of:: To decrease pain, To increase ROM, To improve muscle performance and motor function, To increase tolerance to activity/condition/ position, To improve ability of physical actions for home/community/work /leisure, To decrease soft tissue restriction, To increase flexibility/ROM and To improve self management Manual Therapy Techniques to Include: Trigger point massage and Soft tissue mobilization For the Purpose of:: (more content not included)... Normal [facility] Spine Cervical (Routine)on 0 01-09-2024 Spine Cervical (Routine) [facility] Imaging Services [address] [place], [place] [address] Spine Cervical (Routine) MR#: [id number] Acct: [id number] Name: ROSEANNE WEINBERG Rep #: [id number] : 1955 F 68 From: Gerry Colorado MD PCP: Dr. Elver Laws MD Status: REG CLI Study: Spine Cervical (Routine) Date of Exam: Exam# [id number] Ordering Dr: Ryan Almeida -[id number] STUDY: MRI CERVICAL SPINE WITHOUT CONTRAST REASON FOR EXAM: Female, 68 years old. Neck pain and left shoulder pain x2 years. TECHNIQUE: Standardized fat and water weighted pulse sequences were obtained in the sagittal and axial planes. COMPARISON: Cervical spine radiographs 07/22/2021. FINDINGS: Normal foramen magnum and brainstem-cervical cord junction. Normal craniovertebral junction. Normal anterior atlantoaxial articulation. Normal odontoid process. Mild straightening of the C-spine curvature. C4 benign vertebral body hemangioma. No focal signal abnormalities of the osseous elements of the cervical spine. No recent or remote fractures of the cervical spine.. C2-3: Normal endplates. Normal disc height, signal and morphology. Normal central canal and intervertebral neural foramina. C3-4: Normal endplates. Normal disc height, signal and morphology. Normal central canal and intervertebral neural foramina. C4-5: Normal endplates. Normal disc height, signal and morphology. Normal central canal and intervertebral neural foramina. C5-6: Normal endplates. Moderate disc space height narrowing. Mild ventral extradural defect due to posterior bulging annulus. Normal central canal. No obvious significant stenosis of the intervertebral neuroforamina. C6-7: [Normal endplates. Mild disc space height narrowing. Mild ventral extradural defect due to small posterior bulging annulus. Normal central canal and intervertebral neuroforamina. C7-T1: Normal endplates. Normal disc height, signal and morphology. Normal central canal and intervertebral neural foramina. T1-T2: (Sagittal only). Normal endplates. Normal disc height and morphology. Normal central canal and intervertebral neuroforamina. T2-T3: (Sagittal only). Normal endplates. Normal disc height, signal and morphology. Minimal degenerative anterolisthesis of T2 on T3. Normal central canal and intervertebral neuroforamina. T3-T4: (Sagittal only). Normal endplates. Normal disc height, signal and morphology. Normal central canal and intervertebral neuroforamina. Normal cervical cord. Normal visualized soft tissue structures. MRI/Spine Cervical (Routine) IMPRESSION: 1. No MRI evidence of any suspicious cervical extruded disc fragment, cervical disc protrusion or any obvious cervical nerve root displacement. 2. Mild posterior bulging annulus at C5-C6 and C6-C7 disc space levels. 3. Normal cervical spinal cord. Electronically Signed: Gerry Colorado MD at 15:04 EDT , CC: Dr. 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 Normal [facility] Cerv Spine 4 or 5 Viewson Cerv Spine 4 or 5 Views [facility] Imaging Services [address] [place], [place] [id number] Cerv Spine 4 or 5 Views MR#: [id number] Acct: [id number] Name: ROSEANNE WEINBERG Rep #: [id number] : 1955 F 68 From: Vik Miller MD PCP: Dr. Elver Laws MD Status: REG CLI Study: Cerv Spine 4 or 5 Views Date of Exam: 01/02/24 Exam# [id number] Ordering Dr: Ryan Almeida -[id number] STUDY: X-RAY - CERVICAL SPINE REASON FOR EXAM: Female, 68 years old. Pain, decreased range of motion TECHNIQUE: 6 view(s) of the cervical spine were obtained. COMPARISON: None FINDINGS: Normal anterior atlantoaxial articulation. Normal odontoid process. There is straightening of the normal cervical lordosis, likely positional or due to pain. Normal vertebral bodies and endplates. The disc spaces are preserved from C2-3 to C4-5. There is intervertebral disc space narrowing from C4-5 through C7-T1. There is multi-level osseous foraminal stenosis. The soft tissue structures are unremarkable. RAD/Cerv Spine 4 or 5 Views IMPRESSION: Multilevel degenerative changes, no demonstrated fracture or suspicious osseous lesion. Electronically Signed: Stef Miller MD at 8:56 EDT , CC: Dr. 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 Normal [facility] Internal Medicine Office Vis iton 12-30-2023 Internal Medicine Office Visit [facility] [address] [place] [address] [place] [address] OFFICE VISIT Date of Service: 12/30/23 MR#: [id number] Acct: [id number] Name: ROSEANNE WEINBERG Rep #: [id number] : 1955 Provider: DIMAS Sorenson Age/Sex: 68/F Location: [facility] [place] [facility] [place] Status: Signed Intake Vital Signs 12/14/23 14:27 12/30/23 11:30 Height 5 ft 5 in 5 ft 5 in Weight: 237 lb 8 oz BMI 39.5 BP 128/82 H Blood Pressure Location Lt brachial Position Sitting Respiration 16 Pulse 101 H Pulse Source Monitor Temp 97.4 F L Temp Source Temporal Pulse Oximetry (%) 97 Oxygen Delivery Method room air Intake Visit Reasons: ACUTE NOW CLINIC FU Title Examiner Required: No Accompanied by: Self Is patient in pain?: No Allergies acetaminophen (From [place]) Adverse Reaction (Mild, Verified 12/30/23 11:25) Nausea hydrocodone (From [place]) Adverse Reaction (Mild, Verified 12/30/23 11:25) Nausea amoxicillin (From Augmentin) Adverse Reaction (Verified 12/30/23 11:25) Nausea clavulanic acid (From Augmentin) Adverse Reaction (Verified 12/30/23 11:25) Nausea oxycodone (From Percodan) Adverse Reaction (Verified 12/30/23 11:25) Nausea propoxyphene (From Darvocet-N 100) Adverse Reaction (Verified 12/30/23 11:25) Nausea Medications ???Medication ???Instructions ???Recorded ???Confirmed ???Type cetirizine 10 mg tablet (Zyrtec) 10 mg PO DAILY PRN 03/07/23 12/30/23 History clobetasol 0.05 % topical cream topical 03/07/23 12/30/23 History triamterene 37.5 1 tab PO DAILY #90 tabs 03/07/23 12/30/23 Rx mg-hydrochlorothiaz martin 25 mg tablet albuterol sulfate 2.5 mg/3 mL 2.5 mg (3 mL) inhalation Q4H PRN 05/27/23 12/30/23 Rx (0.083 %) solution for nebulization shortness of breath or wheezing #90 mL fluticasone furoate 50 inhalation DAILY 08/08/23 12/30/23 History mcg-vilanterol 25 mcg/dose inhalation powder (Breo Ellipta) nystatin 100,000 unit/gram topical 1 applic topical BID #45 ea 08/08/23 12/30/23 Rx powder (Nystop) losartan 25 mg tablet 25 mg PO DAILY #90 tabs 08/09/23 12/30/23 Rx Have you fallen in the past year?: No PFSH Medical History Cellulitis of forehead Insect bite Abrasion, right lesser toe(s), initial encounter Abrasion, right great toe, initial encounter Laceration of right knee Localized swelling of back Bilateral hip pain Health care maintenance Colon cancer screening Knee pain Chest pain Fatigue SOB (shortness of breath) Arthritis Lower extremity edema Hx of colonic polyp Dermatitis Bilateral lower extremity edema Trigeminal neuralgia Hyperlipemia Borderline hypertension Osteoarthritis Fibromyalgia Asthma Surgical History History of arthroscopy of right knee History of tubal ligation History of cholecystectomy History of colonoscopy Family History Mother Cancer, Onset Age: 58 pancreatic Diabetes Father Cancer, Onset Age: 70 pancreatic, passed of it Hypertension Grandfather Heart disease Hypertension Brother Diabetes Hypertension Uncle Colon cancer Social History Smoking Status: Never smoker alcohol intake: never substance use type: does not use caffeine: Yes what type of physical activity do you participate in: walking frequency: 3-4 times per week seatbelt use: always do you feel safe at home: Yes additional social history: [employer]- Retired Patient is retired HPI HPI Details: ROSEANNE WEINBERG, is a 68 F who presents to the office today for chronic neck and shoulder pains which have been occurring for over a year now. She states that she injured this last September when she fell after a stool broke and she landed on the ground. She states that at that time she did go to physical therapy which did help the pains (didn't resolve them). She states that the pains never resolved but were manageable at the same time the pains come and go. Pains occur more on the left side of the neck with some minor radiation into the shoulder and upper arm. Pains are worse the certain movements. She states that she does have some numbness and tingling in the left hand / arm at night only on occasion. She states that she is not currently taking any medication for this. Patient was previously on meloxicam which was stopped due to what she says is because she was also started on the losartan Patient also does have a history of a lot of stress / anxiety. She states that she has a lot of family issues that are causing stress. ROS Const Constitutional: No body ache, chills, excessive sweating, fatigue, fever(s), frequent falls, headache(s), snoring, weakness or change in appetite (more content not included)... Normal [facility] Aldosterone/renin activity r atioOrdered By: Elver Laws on 06-17-2023 Aldosterone/Renin (P) [Ratio] 4.4 0.0-30.0 [facility] Comment on above: Units: ng/dL per ng/ mL/hrPerformed at: [facility] - [facility] [address] [id number] Director: Juan Antonio Bowie MD, Phone: [phone] Basophil percentageOrdered B y: Elver Laws on 06-17-2023 Chloride [Moles/Vol] 106 mmol/L 98-107 [facility] Glucose [Mass/Vol] 97 mg/dL 74-106 [facility] Potassium [Moles/Vol] 4.3 mmol/L 3.5-5.1 [facility] Sodium [Moles/Vol] 141 mmol/L 136-145 [facility] Laboratory - Chemistry and C hemistry - challengeOrdered By: Elver Laws on 06-17-2023 CO2 [Moles/Vol] 29.0 mmol/L 21.0-32.0 [facility] Urea nitrogen/Creatinine [Mass ratio] 18.3 mg/mg 10-20 [facility] No Panel InformationOrdered By: Elver Laws on 06-17-2023 Estimated GFR (MDRD) Amer 68 mL/min >60 [facility] Comment on above: GFR Calc Estimated GFR (MDRD) Non-Af Amer 56 mL/min >60 [facility] Comment on above: Non- GFR Calc Plasma renin measurement (en zymatic activity/volume)Ordered By: Elver Laws on 06-17-2023 Renin (P) [Catalytic activity/Vol] 0.962 ng/mL/hr 0.167-5.380 [facility] Serum or plasma calcium christiano urement (mass/volume)Ordered By: Elver Laws on 06-17-2023 Calcium [Mass/Vol] 9.8 mg/dL 8.5-10.1 [facility] Serum or plasma creatinine m easurement (mass/volume)Ordered By: Elver Laws on 06-17-2023 Creatinine [Mass/Vol] 1.04 mg/dL 0.55-1.02 [facility] Comment on above: The validity of the calculated GFR & GFRAA in patients over 70 years has not been determined. Clinical correlation is essential. Serum or plasma urea nitroge n measurement (mass/volume)Ordered By: Elver Laws on 06-17-2023 Urea nitrogen [Mass/Vol] 19 mg/dL 7-18 [facility] Thin prep Papanicolaou smear with manual screeningOrdered By: Elver Laws on 06-17-2023 Thin prep Papanicolaou smear with manual screening 6 5-15 [facility] Thin prep Papanicolaou smear with manual screening 4.2 ng/dL 0.0-30.0 [facility] Laboratory - Microbiology an d Antimicrobial susceptibilityOrdered By: Melisa Farmer on 05-26-2023 SARS-CoV-2 (COVID-19) RNA FRANCOIS+probe Ql (Unsp spec) Influenzae A [facility] Laboratory - Microbiology an d Antimicrobial susceptibilityon 05-26-2023 S. pyogenes Ag IA Ql (Unsp spec) Negative [facility] No Panel Informationon 05-26 Influenza Types A,B Rapid (Clinic) Negative [facility] Basophil percentageOrdered B y: Elver Laws on 03-07-2023 Bilirubin [Mass/Vol] 0.40 mg/dL 0.20-1.00 [facility] Comment on above: For patients on eltr ombopag therapy, use of Dimension [place] TBIL is not recommended. Chloride [Moles/Vol] 105 mmol/L 98-107 [facility] Cholesterol [Mass/Vol] 218 mg/dL <200 [facility] Comment on above: <200 mg/dL Desirable 200-240 mg/dL Borderline >240 mg/dL High Risk Glucose [Mass/Vol] 93 mg/dL 74-106 [facility] Potassium [Moles/Vol] 3.8 mmol/L 3.5-5.1 [facility] Protein [Mass/Vol] 7.4 g/dL 6.4-8.2 [facility] Sodium [Moles/Vol] 139 mmol/L 136-145 [facility] Triglyceride [Mass/Vol] 91 mg/dL <[address] [facility] Comment on above: The drugs N-Acetylcy steine and Metamizole may falsely depress this assay.Serum Triglycerides Reference Interval Normal <150 mg/dL Borderline high 150 - 199 mg/dL High 200 - 499 mg/dL Very High > or = 500 mg/dL Laboratory - Chemistry and C hemistry - challengeOrdered By: Elver Laws on 03-07-2023 ALP [Catalytic activity/Vol] 154 U/L 45-117 [facility] ALT [Catalytic activity/Vol] 24 U/L 13-56 [facility] CO2 [Moles/Vol] 27.0 mmol/L 21.0-32.0 [facility] Globulin (S) [Mass/Vol] 3.8 g/dL 2.2-4.[address] [facility] Urea nitrogen/Creatinine [Mass ratio] 20.9 mg/mg 10-20 [facility] No Panel InformationOrdered By: Elver Laws on 03-07-2023 Estimated GFR (MDRD) Amer 75 mL/min >60 [facility] Comment on above: GFR Calc Estimated GFR (MDRD) Non-Af Amer 62 mL/min >60 [facility] Comment on above: Non- GFR Calc Serum or plasma albumin christiano urement (mass/volume)Ordered By: Elver Laws on 03-07-2023 Albumin [Mass/Vol] 3.6 g/dL 3.2-5.0 [facility] Serum or plasma albumin/glob ulin mass ratioOrdered By: Elver Laws on 03-07-2023 Albumin/Globulin [Mass ratio] 0.9 {ratio} 0.9-2.4 [facility] Serum or plasma calcium christiano urement (mass/volume)Ordered By: Elver Laws on 03-07-2023 Calcium [Mass/Vol] 9.0 mg/dL 8.5-10.1 [facility] Serum or plasma cholesterol in HDL measurement (mass/volume)Ordered By: Elver Laws on 03-07-2023 Cholesterol in HDL [Mass/Vol] 67 mg/dL >40 [facility] Comment on above: The drugs N-Acetylcy steine and Metamizole may falsely depress this assay. Reference Range HDL <40 mg/dL Low HDL Cholesterol HDL >or= 60 mg/dL High HDL Cholesterol Serum or plasma cholesterol in VLDL measurement (mass/volume)Ordered By: Elver Laws on 03-07-2023 Cholesterol in VLDL [Mass/Vol] 18 mg/dL 5-40 [facility] Serum or plasma creatinine m easurement (mass/volume)Ordered By: Elver Laws on 03-07-2023 Creatinine [Mass/Vol] 0.96 mg/dL 0.55-1.02 [facility] Comment on above: The validity of the calculated GFR & GFRAA in patients over 70 years has not been determined. Clinical correlation is essential. Serum or plasma low density lipoprotein (LDL) cholesterol measurement (mass/volume)Ordered By: Elver Laws on 03-07-2023 Cholesterol in LDL [Mass/Vol] 133 mg/dL 0-130 [facility] Serum or plasma urea nitroge n measurement (mass/volume)Ordered By: Elver Laws on 03-07-2023 Urea nitrogen [Mass/Vol] 20 mg/dL 7-18 [facility] Thin prep Papanicolaou smear with manual screeningOrdered By: Elver Laws on 03-07-2023 Thin prep Papanicolaou smear with manual screening 15 U/L 15-37 [facility] Thin prep Papanicolaou smear with manual screening 7 5-15 [facility] Whole blood hemoglobin A1c/t otal hemoglobin ratio (mass fraction)Ordered By: Elver Laws on 03-07-2023 HbA1c (Bld) [Mass fraction] 5.7 % 3.8-5.6 [facility] Comment on above: Normal < 5.7 % Predi abetic 5.7 - 6.4 % Diabetic >or= 6.5 % Please note range changes. Absolute lymphocyte countOrd ered By: Ryan Sheth on 11-17-2022 Lymphocytes Auto (Unsp spec) [#/Vol] 1.37 10*3/uL 0.83-4.51 [facility] Basophil percentageOrdered B y: Ryna Sheth on 11-17-2022 Basophils/100 WBC (Bld) 0.7 % 0-[address] [facility] Bilirubin [Mass/Vol] 0.30 mg/dL 0.20-1.00 [facility] Comment on above: For patients on eltr ombopag therapy, use of Dimension [place] TBIL is not recommended. Chloride [Moles/Vol] 104 mmol/L 98-107 [facility] Eosinophils/100 WBC (Bld) 1.3 % 0-5 [facility] Glucose [Mass/Vol] 83 mg/dL 74-106 [facility] Neutrophils (Bld) [#/Vol] 4.6 10*3/uL 2.0-7.7 [facility] Neutrophils/100 WBC (Bld) 67.3 % 47-70 [facility] Potassium [Moles/Vol] 3.7 mmol/L 3.5-5.1 [facility] Protein [Mass/Vol] 7.6 g/dL 6.4-8.2 [facility] Sodium [Moles/Vol] 139 mmol/L 136-145 [facility] WBC (Bld) [#/Vol] 6.8 10*3/uL 4.4-11.0 [facility] Blood erythrocytes count (nu mber/volume)Ordered By: Ryan Sheth on 11-17-2022 RBC (Bld) [#/Vol] 4.94 10*6/uL 4.2-5.4 [facility] Blood hemoglobin measurement (mass/volume)Ordered By: Ryan Sheth on 11-17-2022 Hemoglobin (Bld) [Mass/Vol] 14.2 g/dL 12.0-15. 0 [facility] Blood lymphocytes/100 leukoc ytesOrdered By: Ryan Sheth on 11-17-2022 Lymphocytes/100 WBC (Bld) 20.3 % 19-41 [facility] Blood monocytes/100 leukocyt esOrdered By: Ryan Sheth on 11-17-2022 Monocytes/100 WBC (Bld) 10.1 % 0-[address] [facility] Blood platelet mean volumeOr dered By: Ryan Sheth on 11-17-2022 Platelet mean volume (Bld) [Entitic vol] 11.8 fL 6.2-12.0 [facility] Determination of erythrocyte mean corpuscular volume (MCV)Ordered By: Ryan Sheth on 11-17-2022 MCV (RBC) [Entitic vol] 90.1 fL 81-[address] [facility] Erythrocyte sedimentation ra teOrdered By: Ryan Sheth on 11-17-2022 ESR (Bld) [Velocity] 22 mm/h 0-30 [facility] Hematocrit Auto (Bld) [Volum e fraction]Ordered By: Ryan Sheth on 11-17-2022 Hematocrit (Bld) [Volume fraction] 44.5 % 37-47 [facility] Laboratory - Chemistry and C hemistry - challengeOrdered By: Ryan Sheth on 11-17-2022 Albumin [Mass/Vol] 3.8 g/dL 2.9-4.4 [facility] ALP [Catalytic activity/Vol] 147 U/L 45-117 [facility] ALT [Catalytic activity/Vol] 22 U/L 13-56 [facility] CO2 [Moles/Vol] 29.0 mmol/L 21.0-32.0 [facility] Globulin (S) [Mass/Vol] 3.9 g/dL 2.2-4.[address] [facility] Urea nitrogen/Creatinine [Mass ratio] 21.0 mg/mg 10-20 [facility] Laboratory - Hematology and Cell countsOrdered By: Ryan Sheth on 11-17-2022 Erythrocyte distribution width (RBC) [Entitic vol] 42.1 fL 35.1-43.9 [facility] Erythrocyte distribution width (RBC) [Ratio] 12.8 % 11.6-14.6 [facility] Immature granulocytes/100 WBC (Bld) 0.300 % 0.0-0.9 [facility] Comment on above: IG% - Immature Granu locytes (promyelocytes, myelocytes and metamyelocytes) > 1% indicates that a LEFT SHIFT is Present. MCH (RBC) [Entitic mass] 28.7 pg 27.0-32.0 [facility] Nucleated RBC/100 WBC (Bld) [Ratio] 0 % 0-5 [facility] MCHC Auto (RBC) [Mass/Vol]Or dered By: Ryan Sheth on 11-17-2022 MCHC (RBC) [Mass/Vol] 31.9 g/dL 32-36 [facility] No Panel InformationOrdered By: Ryan Sheth on 11-17-2022 Addendum Document Comment . [facility] Comment on above: The SPE pattern appe ars unremarkable. Evidence ofmonoclonal protein is not apparent.Performed at: [employer] [id number] Director: Kofi Vincent PhD, Phone: [phone] Lrbms-8-Exlhnuesc 0.2 g/dL 0.0-0.4 [facility] Hiosl-7-Wiwdvzpja 0.7 g/dL 0.4-1.0 [facility] Estimated GFR (MDRD) Amer 68 mL/min >60 [facility] Comment on above: GFR Calc Estimated GFR (MDRD) Non-Af Amer 56 mL/min >60 [facility] Comment on above: Non- GFR Calc Gamma Globulins 1.1 g/dL 0.4-1.8 [facility] Platelets bldOrdered By: Ulices Sheth on 11-17-2022 Platelets (Bld) [#/Vol] 273 10*3/uL 150-450 [facility] Protein Fractions Elph [Inte rp]Ordered By: Ryan Sheth on 11-17-2022 Protein Fractions [Interp] Comment . [facility] Comment on above: Protein electrophore sis scan will follow via computer,mail, or manufacturing tech delivery. Serum albumin to globulin ra deysi by protein electrophoresisOrdered By: Ryan Sheth on 11-17-2022 Albumin/Globulin Elph [Mass ratio] 1.3 0.7-1.7 [facility] Serum globulin measurement ( mass/volume)Ordered By: Ryan Sheth on 11-17-2022 Globulin (S) [Mass/Vol] 3.0 g/dL 2.2-3.[address] [facility] Serum nuclear antibody titer by immunofluorescenceOrdered By: Ryan Sheth on 11-17-2022 Nuclear Ab IF (S) [Titer] Negative . [facility] Comment on above: Negative <1:80 Borde rline 1:80 Positive >1:80ICAP nomenclature: [id number] more information about Hep-2 cell patterns useANApatterns.org, the official website for theInternational Consensus on Antinuclear Antibody (JENNIFER)Patterns (ICAP).Performed at: [place] [id number] Director: Kofi Vincent PhD, Phone: [phone] Serum or plasma albumin christiano urement (mass/volume)Ordered By: Ryan Sheth on 11-17-2022 Albumin [Mass/Vol] 3.7 g/dL 3.2-5.0 [facility] Serum or plasma albumin/glob ulin mass ratioOrdered By: Ryan Sheth on 11-17-2022 Albumin/Globulin [Mass ratio] 0.9 {ratio} 0.9-2.4 [facility] Serum or plasma beta globuli n measurement by electrophoresis (mass/volume)Ordered By: Ryan Sheth on 11-17-2022 Beta globulin Elph [Mass/Vol] 0.9 g/dL 0.7-1.3 [facility] Serum or plasma calcium christiano urement (mass/volume)Ordered By: Ryan Sheth on 11-17-2022 Calcium [Mass/Vol] 9.3 mg/dL 8.5-10.1 [facility] Serum or plasma creatinine m easurement (mass/volume)Ordered By: Ryan Sheth on 11-17-2022 Creatinine [Mass/Vol] 1.05 mg/dL 0.55-1.02 [facility] Comment on above: The validity of the calculated GFR & GFRAA in patients over 70 years has not been determined. Clinical correlation is essential. Serum or plasma urea nitroge n measurement (mass/volume)Ordered By: Ryan Sheth on 11-17-2022 Urea nitrogen [Mass/Vol] 22 mg/dL 7-18 [facility] Serum rheumatoid factor dete ctionOrdered By: Ryan Sheth on 11-17-2022 Rheumatoid factor Ql (S) < 10.0 IU/mL <15 [facility] Thin prep Papanicolaou smear with manual screeningOrdered By: Ryan Sheth on 11-17-2022 Thin prep Papanicolaou smear with manual screening 16 U/L 15-37 [facility] Thin prep Papanicolaou smear with manual screening 6 5-15 [facility] Thin prep Papanicolaou smear with manual screening See comment [facility] Comment on above: Result: Not Observed Total protein bloodOrdered B y: Ryan Sheth on 11-17-2022 Protein [Mass/Vol] 6.8 g/dL 6.0-8.5 [facility] Whole blood hemoglobin A1c/t otal hemoglobin ratio (mass fraction)Ordered By: Ryan Sheth on 11-17-2022 HbA1c (Bld) [Mass fraction] 5.9 % 3.8-5.6 [facility] Comment on above: Normal < 5.7 % Predi abetic 5.7 - 6.4 % Diabetic >or= 6.5 % Please note range changes. Basophil percentageon 2021 Bilirubin [Mass/Vol] 0.50 mg/dL 0.20-1.00 [facility] Work Phone: Comment on above: For patients on eltr ombopag therapy, use of Dimension [place] TBIL is not recommended. Chloride [Moles/Vol] 106 mmol/L 98-107 [facility] Work Phone: Cholesterol [Mass/Vol] 222 mg/dL <200 [facility] Work Phone: Comment on above: <200 mg/dL Desirable 200-240 mg/dL Borderline >240 mg/dL High Risk Glucose [Mass/Vol] 93 mg/dL 74-106 [facility] Work Phone: Potassium [Moles/Vol] 3.8 mmol/L 3.5-5.1 [facility] Work Phone: Protein [Mass/Vol] 7.5 g/dL 6.4-8.2 [facility] Work Phone: Sodium [Moles/Vol] 139 mmol/L 136-145 [facility] Work Phone: Triglyceride [Mass/Vol] 152 mg/dL <[address] [facility] Work Phone: Comment on above: The drugs N-Acetylcy steine and Metamizole may falsely depress this assay.Serum Triglycerides Reference Interval Normal <150 mg/dL Borderline high 150 - 199 mg/dL High 200 - 499 mg/dL Very High > or = 500 mg/dL WBC (Bld) [#/Vol] 6.1 10*3/uL 4.4-11.0 [facility] Work Phone: Blood erythrocytes count (nu mber/volume)on 03-01-2022 RBC (Bld) [#/Vol] 4.92 10*6/uL 4.2-5.4 [facility] Work Phone: Blood hemoglobin measurement (mass/volume)on 03-01-2022 Hemoglobin (Bld) [Mass/Vol] 14.2 g/dL 12.0-15. 0 [facility] Work Phone: Blood platelet mean volumeon 03-01-2022 Platelet mean volume (Bld) [Entitic vol] 11.6 fL 6.2-12.0 [facility] Work Phone: Determination of erythrocyte mean corpuscular volume (MCV)on 03-01-2022 MCV (RBC) [Entitic vol] 90.9 fL 81-[address] [facility] Work Phone: Hematocrit Auto (Bld) [Volum e fraction]on 03-01-2022 Hematocrit (Bld) [Volume fraction] 44.7 % 37-47 [facility] Work Phone: Laboratory - Chemistry and C hemistry - challengeon 03-01-2022 ALP [Catalytic activity/Vol] 154 U/L 45-117 [facility] Work Phone: ALT [Catalytic activity/Vol] 27 U/L 13-56 [facility] Work Phone: CO2 [Moles/Vol] 27.0 mmol/L 21.0-32.0 [facility] Work Phone: Globulin (S) [Mass/Vol] 3.9 g/dL 2.2-4.[address] [facility] Work Phone: Urea nitrogen/Creatinine [Mass ratio] 18.6 mg/mg 10-20 [facility] Work Phone: Laboratory - Hematology and Cell countson 03-01-2022 Erythrocyte distribution width (RBC) [Entitic vol] 41.7 fL 35.1-43.9 [facility] Work Phone: Erythrocyte distribution width (RBC) [Ratio] 12.5 % 11.6-14.6 [facility] Work Phone: MCH (RBC) [Entitic mass] 28.9 pg 27.0-32.0 [facility] Work Phone: MCHC Auto (RBC) [Mass/Vol]on 03-01-2022 MCHC (RBC) [Mass/Vol] 31.8 g/dL 32-[facility]: No Panel Informationon 03-01 Estimated GFR (MDRD) Amer 85 mL/min >60 [facility] Work Phone: Comment on above: GFR Calc Estimated GFR (MDRD) Non-Af Amer 70 mL/min >60 [facility] Work Phone: Comment on above: Non- GFR Calc Thyroid Stimulating Hormone (TSH) 2.11 uIU/mL 0.358-3.74 [facility] Work Phone: Platelets bldon 03-01-2022 Platelets (Bld) [#/Vol] 276 10*3/uL 150-450 [facility] Work Phone: Serum or plasma albumin christiano urement (mass/volume)on 03-01-2022 Albumin [Mass/Vol] 3.6 g/dL 3.2-5.0 [facility] Work Phone: Serum or plasma albumin/glob ulin mass ratioon 03-01-2022 Albumin/Globulin [Mass ratio] 0.9 {ratio} 0.9-2.4 [facility] Work Phone: Serum or plasma calcium christiano urement (mass/volume)on 03-01-2022 Calcium [Mass/Vol] 9.2 mg/dL 8.5-10.1 [facility] Work Phone: Serum or plasma cholesterol in HDL measurement (mass/volume)on 03-01-2022 Cholesterol in HDL [Mass/Vol] 56 mg/dL >40 [facility] Work Phone: Comment on above: The drugs N-Acetylcy steine and Metamizole may falsely depress this assay. Reference Range HDL <40 mg/dL Low HDL Cholesterol HDL >or= 60 mg/dL High HDL Cholesterol Serum or plasma cholesterol in VLDL measurement (mass/volume)on 03-01-2022 Cholesterol in VLDL [Mass/Vol] 30 mg/dL 5-40 [facility] Work Phone: Serum or plasma creatinine m easurement (mass/volume)on 03-01-2022 Creatinine [Mass/Vol] 0.86 mg/dL 0.55-1.02 [facility] Work Phone: Comment on above: The validity of the calculated GFR & GFRAA in patients over 70 years has not been determined. Clinical correlation is essential. Serum or plasma low density lipoprotein (LDL) cholesterol measurement (mass/volume)on 03-01-2022 Cholesterol in LDL [Mass/Vol] 136 mg/dL 0-130 [facility] Work Phone: Serum or plasma urea nitroge n measurement (mass/volume)on 03-01-2022 Urea nitrogen [Mass/Vol] 16 mg/dL 7-18 [facility] Work Phone: Thin prep Papanicolaou smear with manual screeningon 03-01-2022 Thin prep Papanicolaou smear with manual screening 20 U/L 15-37 [facility] Work Phone: Thin prep Papanicolaou smear with manual screening 6 5-15 [facility] Work Phone: Cervical or vagninal specime n microscopic examination by cytology stain (reported ason 12-29-2021 Cytology report Cyto stain Doc (Cvx/Vag) Comment . [facility] Work Phone: Comment on above: The Pap smear is a s creening test designed to aid in thedetection of premalignant and malignant conditions of theuterine cervix. It is not a diagnostic procedure andshould not be used as the sole means of detecting cervicalcancer. Both false-positive and false-negative reports dooccur. Detection in cervical specim en of any of human papilloma virus (HPV) 16, 18, 31, 33,on 12-29-2021 HPV 16+18+31+33+35+39+45+51+52+5 6+58+59+66+68 DNA Probe+sig amp Ql (Cvx) Negative Negative [facility] Work Phone: Comment on above: This nucleic acid am plification test detects fourteen high-risk HPV types (16,18,31,33,35,39,45,51,52,56,58,59,66,68)without differentiation.Performed at: [address] [id number] Director: Trixie Atwood MD, Phone: [phone] at: =[address] [id number] Director: Trixie Atwood MD, Phone: [phone] Laboratory - Chemistry and C hemistry - challengeon 12-29-2021 Free T4 [Mass/Vol] 1.02 ng/dL 0.76-1.46 [facility] Work Phone: Laboratory - Cytologyon 12-11 [employer] Cyto stain Nom (Cvx/Vag) [ID] Comment . [facility] Work Phone: Comment on above: Gilles Pérez hnologist (ASCP) Laboratory - Miscellaneous t estson 12-29-2021 Service comment (Unsp spec) [Interp] Comment . [facility] Work Phone: Comment on above: This liquid based Th inPrep(R) pap test was screened withthe use of an image guided system. Service comment (Unsp spec) [Interp] . . [facility] Work Phone: No Panel Informationon 12-29 Pathology report final diagnosis Narrative Comment . [facility] Work Phone: Comment on above: NEGATIVE FOR INTRAEP ITHELIAL LESION OR MALIGNANCY. Thyroid Stimulating Hormone (TSH) 1.82 uIU/mL 0.358-3.74 [facility] Work Phone: Serum or plasma thyroperoxid ase antibody assay (units/volume)on 12-29-2021 TPO Ab Qn 9 [IU]/mL 0-34 [facility] Work Phone: Comment on above: Performed at: [address] [id number] Director: Kofi Vincent PhD, Phone: [phone] Culture, urineon 08-31-2021 Bacteria identified Cx Nom (U) Culture exhibits no growth. [facility] Work Phone: Laboratory - Chemistry and C hemistry - challengeon 08-31-2021 Bilirubin Ql (U) Negative [facility] Work Phone: Glucose Ql (U) Negative [facility] Work Phone: Ketones Ql (U) Negative [facility] Work Phone: pH (U) 5.0 [pH] [facility] Work Phone: Specific gravity (U) [Rel density] 1.025 [facility] Work Phone: Urobilinogen (U) [Mass/Vol] 0.3950829 mg/dL [facility] Work Phone: Laboratory - Hematology and Cell countson 08-31-2021 Hemoglobin Ql (U) Small [facility] Work Phone: Laboratory - Specimen inform ationon 08-31-2021 Clarity (U) Clear [facility] Work Phone: Color (U) Yellow [facility] Work Phone: Laboratory - Urinalysison Nitrite Ql (U) Negative [facility] Work Phone: Protein Ql (U) Negative [facility] Work Phone: No Panel Informationon 08-31 Urine Leukocytes Negatve [facility] Work Phone: Vital Signs Date Time Vital Sign Value Performing Clinician Faci lity 12-24-2024 11:53-0400 Body height 165.[address] Elver Laws MD Work Phone: [facility] 12-24-2024 11:53-0400 Body mass index (BMI) [Ratio] 39.9 kg/m2 Dr. Elver Laws MD Work Phone: [facility] 12-24-2024 11:53-0400 Body temperature 97.1 [degF] Dr. Elver Laws MD Work Phone: [facility] 12-24-2024 11:53-0400 Body weight 108.[address] Elver Laws MD Work Phone: [facility] 12-24-2024 11:53-0400 Diastolic blood pressure 78 mm[Hg] Dr. Elver Laws MD Work Phone: [facility] 12-24-2024 11:53-0400 Heart rate 88 /min Dr. Elver Laws MD Work Phone: [facility] 12-24-2024 11:53-0400 Respiratory rate 20 /min Dr. Elver Laws MD Work Phone: [facility] 12-24-2024 11:53-0400 SaO2% (BldA) [Mass fraction] 96 % Dr. Elver Laws MD Work Phone: [facility] 12-24-2024 11:53-0400 Systolic blood pressure 118 mm[Hg] Dr. Elver Laws MD Work Phone: [facility] 12-24-2024 10:03-0400 Body height 165.[address] Elver Laws MD Work Phone: [facility] 12-24-2024 10:03-0400 Body mass index (BMI) [Ratio] 39.9 kg/m2 Dr. Elver Laws MD Work Phone: [facility] 12-24-2024 10:03-0400 Body temperature 97.4 [degF] Dr. Elver Laws MD Work Phone: [facility] 12-24-2024 10:03-0400 Body weight 108.[address] Elver Laws MD Work Phone: [facility] 12-24-2024 10:03-0400 Diastolic blood pressure 82 mm[Hg] Dr. Elver Laws MD Work Phone: [facility] 12-24-2024 10:03-0400 Heart rate 63 /min Dr. Elver Laws MD Work Phone: [facility] 12-24-2024 10:03-0400 Respiratory rate 18 /min Dr. Elver Laws MD Work Phone: [facility] 12-24-2024 10:03-0400 SaO2% (BldA) [Mass fraction] 99 % Dr. Elver Laws MD Work Phone: [facility] 12-24-2024 10:03-0400 Systolic blood pressure 120 mm[Hg] Dr. Elver Laws MD Work Phone: [facility] 09-12-2024 10:47-0400 Body height 165.[address] Elver Laws MD Work Phone: [facility] 09-12-2024 10:47-0400 Body mass index (BMI) [Ratio] 38.2 kg/m2 Dr. Elver Laws MD Work Phone: [facility] 09-12-2024 10:47-0400 Body weight 104.[address] Elver Laws MD Work Phone: [facility] 09-05-2024 10:57-0400 Body height 165.[address] Elver Laws MD Work Phone: [facility] 09-05-2024 10:57-0400 Body mass index (BMI) [Ratio] 38.2 kg/m2 Dr. Elver Laws MD Work Phone: [facility] 09-05-2024 10:57-0400 Body weight 104.[address] Elver Laws MD Work Phone: [facility] 06-22-2024 10:56-0400 Body height 165.[address] Elver Laws MD Work Phone: [facility] 06-22-2024 10:56-0400 Body mass index (BMI) [Ratio] 39.4 kg/m2 Dr. Elver Laws MD Work Phone: [facility] 06-22-2024 10:56-0400 Body temperature 96.7 [degF] Dr. Elver Laws MD Work Phone: [facility] 06-22-2024 10:56-0400 Body weight 107.[address] Elver Laws MD Work Phone: [facility] 06-22-2024 10:56-0400 Diastolic blood pressure 64 mm[Hg] Dr. Elver Laws MD Work Phone: [facility] 06-22-2024 10:56-0400 Heart rate 95 /min Dr. Elver Laws MD Work Phone: [facility] 06-22-2024 10:56-0400 Respiratory rate 16 /min Dr. Elver Laws MD Work Phone: [facility] 06-22-2024 10:56-0400 SaO2% (BldA) [Mass fraction] 97 % Dr. Elver Laws MD Work Phone: [facility] 06-22-2024 10:56-0400 Systolic blood pressure 118 mm[Hg] Dr. Elver Laws MD Work Phone: [facility] 06-06-2024 15:31-0500 Body temperature 98.1 [degF] Dr. Elver Laws MD Work Phone: [facility] 06-06-2024 15:31-0500 Diastolic blood pressure 78 mm[Hg] Dr. Elver Laws MD Work Phone: [facility] 06-06-2024 15:31-0500 Heart rate 79 /min Dr. Elver Laws MD Work Phone: [facility] 06-06-2024 15:31-0500 Respiratory rate 17 /min Dr. Elver Laws MD Work Phone: [facility] 06-06-2024 15:31-0500 SaO2% (BldA) [Mass fraction] 96 % Dr. Elver Laws MD Work Phone: [facility] 06-06-2024 15:31-0500 Systolic blood pressure 138 mm[Hg] Dr. Elver Laws MD Work Phone: [facility] 06-04-2024 13:11-0500 Body temperature 98.3 [degF] Dr. Elver Laws MD Work Phone: [facility] 06-04-2024 13:11-0500 Diastolic blood pressure 72 mm[Hg] Dr. Elver Laws MD Work Phone: [facility] 06-04-2024 13:11-0500 Heart rate 83 /min Dr. Elver Laws MD Work Phone: [facility] 06-04-2024 13:11-0500 Respiratory rate 12 /min Dr. Elver Laws MD Work Phone: [facility] 06-04-2024 13:11-0500 SaO2% (BldA) [Mass fraction] 98 % Dr. Elver Laws MD Work Phone: [facility] 06-04-2024 13:11-0500 Systolic blood pressure 118 mm[Hg] Dr. Elver Laws MD Work Phone: [facility] 04-12-2024 17:19-0500 Body mass index (BMI) [Ratio] 40.6 kg/m2 Dr. Elver Laws MD Work Phone: [facility] 04-12-2024 17:19-0500 Body temperature 97.2 [degF] Dr. Elver Laws MD Work Phone: [facility] 04-12-2024 17:19-0500 Body weight 110.[address] Elver Laws MD Work Phone: [facility] 04-12-2024 17:19-0500 Diastolic blood pressure 82 mm[Hg] Dr. Elver Laws MD Work Phone: [facility] 04-12-2024 17:19-0500 Heart rate 103 /min Dr. Elver Laws MD Work Phone: [facility] 04-12-2024 17:19-0500 Respiratory rate 18 /min Dr. Elver Laws MD Work Phone: [facility] 04-12-2024 17:19-0500 SaO2% (BldA) [Mass fraction] 95 % Dr. Elver Laws MD Work Phone: [phone] [place] [address] 04-12-2024 17:19-0500 Systolic blood pressure 122 mm[Hg] Dr. Elver Laws MD Work Phone: [facility] 03-16-2024 14:04-0500 Body mass index (BMI) [Ratio] 39.9 kg/m2 Dr. Elver Laws MD Work Phone: [facility] 03-16-2024 14:04-0500 Body temperature 97.8 [degF] Dr. Elver Laws MD Work Phone: [facility] 03-16-2024 14:04-0500 Body weight 108.[address] Elver Laws MD Work Phone: [facility] 03-16-2024 14:04-0500 Diastolic blood pressure 62 mm[Hg] Dr. Elver Laws MD Work Phone: [facility] 03-16-2024 14:04-0500 Heart rate 102 /min Dr. Elver Laws MD Work Phone: [facility] 03-16-2024 14:04-0500 SaO2% (BldA) [Mass fraction] 96 % Dr. Elver Laws MD Work Phone: [facility] 03-16-2024 14:04-0500 Systolic blood pressure 122 mm[Hg] Dr. Elver Laws MD Work Phone: [facility] 07-07-2023 13:11-0400 Body height 167.[address] Elver Laws Work Phone: [facility] 07-07-2023 13:11-0400 Body mass index (BMI) [Ratio] 38.1 kg/m2 Dr. Elver Laws Work Phone: [facility] 07-07-2023 13:11-0400 Body temperature 97.3 [degF] Dr. Elver Laws Work Phone: [facility] 07-07-2023 13:11-0400 Body weight 107.[address] Elver Laws Work Phone: [facility] 07-07-2023 13:11-0400 Diastolic blood pressure 86 mm[Hg] Dr. Elver Laws Work Phone: [facility] 07-07-2023 13:11-0400 Heart rate 98 /min Dr. Elver Laws Work Phone: [facility] 07-07-2023 13:11-0400 Respiratory rate 18 /min Dr. Elver Laws Work Phone: [facility] 07-07-2023 13:11-0400 SaO2% (BldA) [Mass fraction] 97 % Dr. Elver Laws Work Phone: [facility] 07-07-2023 13:11-0400 Systolic blood pressure 134 mm[Hg] Dr. Elver Laws Work Phone: [facility] 06-17-2023 11:20-0500 Body height 167.[address] Elver Laws Work Phone: [facility] 06-17-2023 11:20-0500 Body mass index (BMI) [Ratio] 38.2 kg/m2 Dr. Elver Laws Work Phone: [facility] 06-17-2023 11:20-0500 Body temperature 97.6 [degF] Dr. Elver Laws Work Phone: [facility] 06-17-2023 11:20-0500 Body weight 107.[address] Elver Laws Work Phone: [facility] 06-17-2023 11:20-0500 Diastolic blood pressure 80 mm[Hg] Dr. Elver Laws Work Phone: [facility] 06-17-2023 11:20-0500 Heart rate 112 /min Dr. Elver Laws Work Phone: [facility] 06-17-2023 11:20-0500 Respiratory rate 16 /min Dr. Elver Laws Work Phone: [facility] 06-17-2023 11:20-0500 SaO2% (BldA) [Mass fraction] 96 % Dr. Elver Laws Work Phone: [facility] 06-17-2023 11:20-0500 Systolic blood pressure 132 mm[Hg] Dr. Elvre Laws Work Phone: [facility] 05-26-2023 15:03-0500 Body height 167.[address] Elver Laws Work Phone: [facility] 05-26-2023 15:03-0500 Body mass index (BMI) [Ratio] 37.8 kg/m2 Dr. Elver Laws Work Phone: [facility] 05-26-2023 15:03-0500 Body temperature 98.9 [degF] Dr. Elver Laws Work Phone: [facility] 05-26-2023 15:03-0500 Body weight 106.[address] Elver Laws Work Phone: [facility] 05-26-2023 15:03-0500 Diastolic blood pressure 80 mm[Hg] Dr. Elver Laws Work Phone: [facility] 05-26-2023 15:03-0500 Heart rate 105 /min Dr. Elver Laws Work Phone: [facility] 05-26-2023 15:03-0500 Respiratory rate 18 /min Dr. Elver Laws Work Phone: [facility] 05-26-2023 15:03-0500 SaO2% (BldA) [Mass fraction] 95 % Dr. Elver Laws Work Phone: [facility] 05-26-2023 15:03-0500 Systolic blood pressure 110 mm[Hg] Dr. Elver Laws Work Phone: [facility] 05-03-2023 14:59-0500 Body height 167.[address] Elver Laws Work Phone: [facility] 05-03-2023 14:59-0500 Body mass index (BMI) [Ratio] 38 kg/m2 Dr. Elver Laws Work Phone: [facility] 05-03-2023 14:59-0500 Body temperature 97.4 [degF] Dr. Elver Laws Work Phone: [facility] 05-03-2023 14:59-0500 Body weight 107.[address] Elver Laws Work Phone: [facility] 05-03-2023 14:59-0500 Diastolic blood pressure 80 mm[Hg] Dr. Elver Laws Work Phone: [facility] 05-03-2023 14:59-0500 Heart rate 94 /min Dr. Elver Laws Work Phone: [facility] 05-03-2023 14:59-0500 Respiratory rate 16 /min Dr. Elver Laws Work Phone: [facility] 05-03-2023 14:59-0500 SaO2% (BldA) [Mass fraction] 99 % Dr. Elver Laws Work Phone: [facility] 05-03-2023 14:59-0500 Systolic blood pressure 136 mm[Hg] Dr. Elver Laws Work Phone: [facility] 03-07-2023 10:46-0500 Body height 167.[address] Elver Laws Work Phone: [facility] 03-07-2023 10:46-0500 Body mass index (BMI) [Ratio] 37.9 kg/m2 Dr. Elver Laws Work Phone: [facility] 03-07-2023 10:46-0500 Body temperature 97.8 [degF] Dr. Elver Laws Work Phone: [facility] 03-07-2023 10:46-0500 Body weight 106.[address] Elver Laws Work Phone: [facility] 03-07-2023 10:46-0500 Diastolic blood pressure 72 mm[Hg] Dr. Elver Laws Work Phone: [facility] 03-07-2023 10:46-0500 Heart rate 95 /min Dr. Elver Laws Work Phone: [facility] 03-07-2023 10:46-0500 Respiratory rate 16 /min Dr. Elver Laws Work Phone: [facility] 03-07-2023 10:46-0500 SaO2% (BldA) [Mass fraction] 98 % Dr. Elver Laws Work Phone: [facility] 03-07-2023 10:46-0500 Systolic blood pressure 126 mm[Hg] Dr. Elver Laws Work Phone: [facility] 03-01-2022 10:40-0500 Body height 165.[address] Elver Laws Work Phone: [facility] Work Phone: 03-01-2022 10:40-0500 Body mass index (BMI) [Ratio] 41.8 kg/m2 Dr. Elver Laws Work Phone: [facility] Work Phone: 03-01-2022 10:40-0500 Body temperature 97.8 [degF] Dr. Elver Laws Work Phone: [facility] Work Phone: 03-01-2022 10:40-0500 Body weight 113.[address] Elver Laws Work Phone: [facility] Work Phone: 03-01-2022 10:40-0500 Diastolic blood pressure 94 mm[Hg] Dr. Elver Laws Work Phone: [facility] Work Phone: 03-01-2022 10:40-0500 Heart rate 88 /min Dr. Elver Laws Work Phone: [facility] Work Phone: 03-01-2022 10:40-0500 Respiratory rate 16 /min Dr. Elver Laws Work Phone: [facility] Work Phone: 03-01-2022 10:40-0500 SaO2% (BldA) [Mass fraction] 99 % Dr. Elver Laws Work Phone: [facility] Work Phone: 03-01-2022 10:40-0500 Systolic blood pressure 146 mm[Hg] Dr. Elver Laws Work Phone: [facility] Work Phone: 02-17-2022 10:16-0500 Body temperature 97.3 [degF] Dr. Elver Laws Work Phone: [facility] Work Phone: 02-17-2022 10:16-0500 Body weight 113.[address] Elver Laws Work Phone: [facility] Work Phone: 02-17-2022 10:16-0500 Diastolic blood pressure 94 mm[Hg] Dr. Elver aLws Work Phone: [facility] Work Phone: 02-17-2022 10:16-0500 Heart rate 97 /min Dr. Elver Laws Work Phone: [facility] Work Phone: 02-17-2022 10:16-0500 Respiratory rate 18 /min Dr. Elver Laws Work Phone: [facility] Work Phone: 02-17-2022 10:16-0500 SaO2% (BldA) [Mass fraction] 98 % Dr. Elver Laws Work Phone: [facility] Work Phone: 02-17-2022 10:16-0500 Systolic blood pressure 164 mm[Hg] Dr. Elver Laws Work Phone: [facility] Work Phone: 12-29-2021 11:20-0400 Body height 165.[address] Elver Laws Work Phone: [facility] Work Phone: 12-29-2021 11:18-0400 Body mass index (BMI) [Ratio] 40.9 kg/m2 Dr. Elver Laws Work Phone: [facility] Work Phone: 12-29-2021 11:18-0400 Body weight 111.[address] Elver Laws Work Phone: [facility] Work Phone: 12-29-2021 11:18-0400 Diastolic blood pressure 88 mm[Hg] Dr. Elver Laws Work Phone: [facility] Work Phone: 12-29-2021 11:18-0400 Systolic blood pressure 132 mm[Hg] Dr. Elver Laws Work Phone: [facility] Work Phone: 08-31-2021 10:52-0400 Body height 165.[address] Elver Laws Work Phone: [facility] Work Phone: 08-31-2021 10:52-0400 Body mass index (BMI) [Ratio] 40 kg/m2 Dr. Elver Laws Work Phone: [facility] Work Phone: 08-31-2021 10:52-0400 Body weight 109.[address] Elver Laws Work Phone: [facility] Work Phone: 07-01-2021 11:02-0400 Body weight 107.[address] Elver Laws Work Phone: [facility] Work Phone: 06-24-2021 15:09-0400 Body mass index (BMI) [Ratio] 40.6 kg/m2 Dr. Elver Laws Work Phone: [facility] Work Phone: 06-24-2021 15:09-0400 Body weight 110.[address] Elver Laws Work Phone: [facility] Work Phone: Encounters Encounter Date Encounter Type Care Provider Facility Start: 02-12-2025 [facility] Facility: [facility] Start: 12-24-[address] Elver Laws MD -Laboratory [facility] Start: 12-24-2024 ambulatory Elver Wright ty:[facility] Start: 12-24-2024 End: 12-24-[address] Elver Laws MD -[facility] Work Phone: Start: 12-24-2024 End: 12-24-[address] Elver Laws MD Work Phone: -[facility] Start: 12-24-2024 End: 12-24-[address] Sergey Castorena MD -[facility] Work Phone: Start: 12-24-2024 End: 12-24-[address] Elver Laws MD Work Phone: -[facility] Start: 09-12-2024 End: 09-12-[address] Tommy Mendez DO -[facility] Work Phone: Start: 09-12-2024 End: 09-12-[address] Elver Laws MD Work Phone: [facility] Work Phone: Start: 09-05-2024 End: 09-05-[address] Tommy Mendez DO -[facility] Work Phone: Start: 09-05-2024 End: 09-05-[address] Elver Laws MD Work Phone: [facility] [place] Work Phone: Start: 08-29-2024 End: 08-29-[address] Tommy Mendez DO -[facility] Work Phone: Start: 08-29-2024 End: 08-29-[address] Elver Laws MD Work Phone: [facility] Work Phone: Start: 07-09-[address] Waylon Laws MD -Cardiovascular Services Work Phone: Start: 07-09-2024 ambulatory Effrancisbe Anahye Facili ty:[facility] Start: 07-09-2024 Non-patient / Non-visit Dr. Thierno GARRETT -[facility] Work Phone: Start: 06-22-2024 End: 06-22-[address] Elver Laws MD -[facility] Work Phone: Start: 06-22-2024 End: 06-22-[address] Elver Laws MD Work Phone: [facility] Work Phone: Start: 06-22-2024 End: 06-22-2024 ambulatory Efalessandrovidya eLwis[facility]abele Facility:[facility] Start: 06-06-2024 End: 06-06-2024 Patient encounter procedure Mauro Burden [facility] -[facility] Work Phone: Start: 06-06-2024 End: 06-06-2024 ambulatory Efalessandrokrystynabe Joshuaysabele Facility:[facility] Start: 06-04-2024 End: 06-04-2024 Patient encounter procedure Mauro Burden [facility] -[facility] Work Phone: Start: 06-04-2024 End: 06-04-2024 ambulatory Efalessandrokrystynabe Anahye Facility:[facility] Start: 04-24-2024 End: 04-24-[address] Elver Laws MD -[facility] Work Phone: Start: 04-24-2024 End: 04-24-2024 [facility] Facility:[facility] Start: 04-12-2024 End: 04-12-2024 ambulatory Efwatson Laws Facility:[facility] Start: 04-12-2024 End: 04-12-[address] Elver Laws MD -[facility] Work Phone: Start: 04-12-2024 End: 04-12-[address] Elver Laws MD [facility] Start: 03-16-2024 End: 03-16-2024 Patient encounter procedure Enrrique Suarez [place] -[facility] Work Phone: Start: 03-16-2024 End: 03-16-2024 ambulatory Efewchicagobe Oleghe Facility:[facility] Start: 03-16-2024 End: 03-16-2024 [facility] Start: 03-01-2024 End: 03-01-2024 [facility] Start: 02-10-2024 End: 02-10-2024 [facility] Start: 01-09-2024 End: 01-09-2024 [facility]ulatory [facility] Facility:[facility] Start: 01-02-2024 End: 01-02-2024 [facility] Facility:[facility] Start: 12-30-2023 End: 12-30-2023 [facility] Start: 07-12-2023 End: 07-12-[address] Elver Laws Work Phone: [facility] Work Phone: Start: 07-12-2023 End: 07-12-[address] Elver Laws Work Phone: [facility]-Physical Therapy Work Phone: Start: 07-07-2023 End: 07-07-[address] Elver Laws Work Phone: [facility] [place] Work Phone: Start: 07-07-[address] John Laws Work Phone: [facility]-Physical Therapy Work Phone: Start: 07-01-2023 End: 07-01-[address] Elver Laws Work Phone: [facility] Work Phone: Start: 07-01-2023 End: 07-01-[address] Elver Laws Work Phone: [facility]-Ultrasound, [facility] Work Phone: Start: 06-23-[address] John Laws Work Phone: [facility]-Physical Therapy Work Phone: Start: 06-17-2023 End: 06-17-[address] Elver Laws Work Phone: [facility] Work Phone: Start: 06-17-2023 End: 06-17-[address] Elver Laws Work Phone: [facility] Work Phone: Start: 05-26-2023 End: 05-26-[address] Elver Laws Work Phone: [facility] Work Phone: Start: 05-26-2023 End: 05-26-[address] Elver Laws Work Phone: [facility]-Laboratory, Specimen Work Phone: Start: 05-26-2023 End: 05-26-[address] Elver Laws Work Phone: [facility] Work Phone: Start: 05-23-[address] John Laws Work Phone: [facility]-Physical Therapy Work Phone: Start: 05-11-2023 End: 05-11-[address] Elver Laws Work Phone: [facility] Work Phone: Start: 05-11-2023 End: 05-11-[address] Elver Laws Work Phone: [facility]-Ultrasound, [facility] Work Phone: Start: 05-03-2023 End: 05-03-[address] Elver Laws Work Phone: [facility] Work Phone: Start: 04-20-2023 End: 04-20-[address] Elver Laws Work Phone: [facility] Work Phone: Start: 04-20-2023 End: 04-20-[address] Elver Laws Work Phone: [facility]-Outpatient Bone Densitometry Work Phone: Start: 03-07-[address] Elver Laws Work Phone: [facility] Start: 03-07-2023 End: 03-07-[address] Elver Laws Work Phone: [facility] Work Phone: Start: 03-07-2023 End: 03-07-2023 Encounter for general adult medical examination without abnormal findings Dr. Elver Laws Work Phone: [facility] Start: 03-07-2023 End: 03-07-[address] Elver Laws Work Phone: [facility] Work Phone: Start: 01-17-2023 End: 01-17-[address] Elver Laws Work Phone: [facility] Work Phone: Start: 01-10-2023 End: 01-10-[address] Elver Laws Work Phone: [facility] Work Phone: Start: 01-03-2023 End: 01-03-[address] Elver Laws Work Phone: [facility] Work Phone: Start: 12-20-2022 End: 12-20-[address] Elver Laws Work Phone: [facility] Work Phone: Start: 11-17-2022 End: 11-17-2022 ambulatory [facility] Work Phone: Start: 11-17-2022 End: 11-17-2022 Patient encounter procedure [facility] Work Phone: Start: 03-12-2022 End: 03-12-[address] Elver Laws Work Phone: [facility] Work Phone: Start: 03-12-2022 End: 03-12-[address] Elver Laws Work Phone: [facility] Start: 03-01-2022 End: 03-01-[address] Elver Laws Work Phone: [facility] Start: 03-01-2022 End: 03-01-[address] Elver Laws Work Phone: [facility] Work Phone: Start: 03-01-2022 End: 03-01-[address] Elver Laws Work Phone: [facility] Start: 02-22-2022 End: 02-22-[address] Elver Laws Work Phone: [facility] Start: 02-17-2022 End: 02-17-[address] Elver Laws Work Phone: [facility] Start: 02-15-2022 Non-patient / Non-visit Dr. Walter Laws Work Phone: [facility] Start: 02-15-2022 End: 02-15-[address] Elver Laws Work Phone: [facility] Work Phone: Start: 02-15-2022 End: 02-15-[address] Elver Laws Work Phone: [facility]-Cardiovascular Services Start: 02-15-2022 End: 02-15-[address] Elver Laws Work Phone: [facility] Start: 12-29-2021 End: 12-29-[address] Elver Laws Work Phone: [facility] Work Phone: Start: 12-29-2021 End: 12-29-[address] Elver Laws Work Phone: [facility] Start: 08-31-2021 End: 08-31-[address] Elver Laws Work Phone: [facility]-Laboratory, Specimen Start: 08-31-2021 End: 08-31-[address] Elver Laws Work Phone: [facility] Start: 08-24-[address] John Laws Work Phone: [facility]-Physical Therapy Start: 07-22-2021 End: 07-22-[address] Elver Laws Work Phone: [facility] Start: 07-08-2021 End: 07-08-[address] Elver Laws Work Phone: [facility] Start: 07-01-2021 End: 07-01-[address] Elver Laws Work Phone: [facility] Start: 06-24-2021 End: 06-24-[address] Elver Laws Work Phone: [facility] Start: 02-17-2017 End: 03-08-2017 Ambulatory [facility] Start: 10-04-2016 End: 10-05-[address] [facility] Procedures Date Procedure Procedure Detail Performing Clinician Start: 12-24-2024 SARS-CoV-2, Influenz a & RSV (PCR) Dr. Elver Laws MD Work Phone: Start: 04-24-2024 Screening mammography Mary Laws MD Work Phone: Start: 03-16-2024 X-ray of chest, PA a nd lateral views Dr. Elver Laws MD Work Phone: Start: 07-01-[address] Elver Laws Work Phone: Start: 06-17-2023 Plain x-ray of pelvi s and lower extremity Dr. Elver Laws Work Phone: Start: 05-26-2023 SARS-CoV-2, Influenz a & RSV (PCR) Dr. Elver Laws Work Phone: Start: 05-11-2023 Ultrasonography of t hyroid and parathyroid Dr. Elver Laws Work Phone: Start: 04-20-2023 Screening mammography D shaye Laws Work Phone: Start: 04-20-2023 Dual energy X-ray absorptiometry Dr. Elver Laws Work Phone: Start: 12-20-2022 End: 12-20-2022 Radiologic examination of knee Dr. Elver Laws Work Phone: Start: 03-12-2022 MRI of joint of lowe r extremity Dr. Elver Laws Work Phone: Start: 12-29-2021 Screening mammography Mary Laws Work Phone: Start: 08-31-[address] John Laws Work Phone: Start: 07-22-2021 Plain X-ray of shoulder Dr. Elver Laws Work Phone: Start: 07-22-2021 X-ray of cervical spine Dr. Elver Laws Work Phone: Start: 06-24-2021 Radiologic examinati on of knee Dr. Elver Laws Work Phone: Plan of Treatment Date Care Activity Detail Author Start: 06-17-2023 Patient referral [facility] Work Phone: Start: 03-07-2023 Patient referral [facility] Work Phone: Start: 12-29-2021 Patient referral [facility] Work Phone: Start: 12-29-2021 Liquid based cervica l cytology screening [facility] Work Phone: Basic metabolic 2008 panel with ionized calcium - Serum or Plasma [facility] CBC W Auto Different ial panel - Blood [facility] Complete blood count [facility] Work Phone: DXA Bone [Mass/Area] Bone density [facility] Hemoglobin A1c/Hemog lobin.total in Blood [facility] Lipid 1995 panel - S isaac or Plasma [facility] Work Phone: Lipid 1995 panel - S isaac or Plasma [facility] MG Breast - bilateral Screening [facility] MR Lower Extremity J oint WO and W contrast IV [facility] Work Phone: Path report.final Dx Spec Wo [facility] Work Phone: Patient referral [facility] Work Phone: Thyroid stimulating hormone measurement [facility] Work Phone: [facility] Immunizations Immunization Date Immunization Notes [facility] tetanus toxoid, redu brenda diphtheria toxoid, and acellular pertussis vaccine, adsorbed Dr. Elver Laws MD Work Phone: [facility] 08-06-2020 Covva (Moderna) Dr. Neftali Laws MD Work Phone: [facility] 07-10-2020 Covva (Moderna) Dr. Neftali Laws MD Work Phone: [facility] 07-03-2020 Covid (Moderna) Dr. Neftali Laws Work Phone: [facility] 04-15-2020 Influenza, injectabl e, Madin Caldwell Canine Kidney, preservative free, quadrivalent Dr. Elver Laws MD Work Phone: [facility] 02-12-2019 influenza, injectabl e, quadrivalent, preservative free Dr. Elver Laws MD Work Phone: [facility] 02-08-2018 influenza, injectabl e, quadrivalent, preservative free Dr. Elver Laws MD Work Phone: [facility] 02-18-2016 influenza, injectabl e, quadrivalent, preservative free Dr. Elver Laws MD Work Phone: [facility] 01-20-2015 influenza, injectabl e, quadrivalent, preservative free Dr. Elver Laws MD Work Phone: [facility] 01-14-2014 influenza, injectabl e, quadrivalent, preservative free Dr. Elver Laws MD Work Phone: [facility] 02-12-2009 influenza, injectabl e, quadrivalent, preservative free Dr. Elver Laws MD Work Phone: [facility] 02-06-2009 novel influenza-H1N1 -09, preservative-free, injectable Dr. Elver Laws MD Work Phone: [facility] 03-26-2008 pneumococcal polysaccharide vaccine, [address] Elver Laws MD Work Phone: [facility] 08-15-1998 hepatitis B vaccine, adult dosage Dr. Elver Laws MD Work Phone: [facility] 03-04-1998 hepatitis B vaccine, adult dosage Dr. Elver Laws MD Work Phone: [facility] 01-31-1998 hepatitis B vaccine, adult dosage Dr. Elver Laws MD Work Phone: [facility] Payers Date Payer Category Payer Self-pay [id number] 2022 Medicare [id number] 2022 Unknown [id number] Unknown [id number] Unknown [id number] Unknown [id number] Unknown [facility] [id number] Unknown [id number] Unknown [id number] [id number] Unknown [id number] [id number] Unknown [id number] [id number] Unknown [id number] [id number] Unknown [id number] 2.16.840.1.881810.3.579.2.462 Unknown [id number] 2.16.840.1.144265.3.579.2.462 Unknown [id number] 2.16.840.1.855043.3.579.2.462 Unknown [id number] 2.16.840.1.916755.3.579.2.462 Unknown [id number] 2.16.840.1.449382.3.579.2.462 Unknown [id number] 2.16.840.1.947668.3.579.2.462 Unknown [id number] 2.16.840.1.076176.3.579.2.462 Unknown [id number] 2.16.840.1.312619.3.579.2.462 Unknown [id number] 2.16.840.1.440383.3.579.2.462 Unknown [id number] 2.16.840.1.800834.3.579.2.462 Unknown [id number] 2.16.840.1.000314.3.579.2.462 Unknown [id number] 2.16.840.1.818294.3.579.2.462 Unknown [id number] 2.16.840.1.106335.3.579.2.462 Unknown [id number] 2.16.840.1.634582.3.579.2.462 Unknown [id number] 2.16.840.1.234985.3.579.2.462 Unknown [id number] 2.16.840.1.447294.3.579.2.462 Unknown [id number] 2.16.840.1.580686.3.579.2.462 Unknown [id number] 2.16.840.1.965251.3.579.2.462 Social History Date Type Detail Facility Start: 08-31-2021 End: 07-07-2023 Tobacco smoking status NCIS Unknown if ever smoked [facility] Start: 1955 Sex Assigned At Female [facility] Start: 12-14-2023 Tobacco smoking stat us NCIS Never smoked tobacco (finding) [facility] Start: 07-01-2024 Sex Female (finding) [facility] Clinical Notes 12-29-2021 to 12-24-2024 Note Date & Type Note Facility 12-24-2024 Progress note Note Date/Time December 24, 2024 12:47pm [facility] [address] [place] [address] [place] [address] OFFICE VISIT Date of Service: 12/24/24 MR#: [id number] Acct: [id number] Name: ROSEANNE WEINBERG Rep #: [id number] : 1955 Provider: Dr. Nguyễn Laws MD Age/Sex: 69/F Location: [facility] [place] Status: Signed Intake Vital Signs 09/12/24 10:47 12/24/24 10:03 12/24/24 11:53 Height 5 ft 5 in 5 ft 5 in 5 ft 5 in Weight: 240 lb BMI 39.9 BP 118/78 Blood Pressure Location Lt brachial Position Sitting Respiration 20 H Pulse 88 Pulse Source Monitor Temp 97.1 F L Temp Source Temporal Pulse Oximetry (%) 96 Oxygen Delivery Method room air Intake Visit Reasons: 6 M FU Chief Complaint: Follow-up chronic conditions. Nasal and chest congestion Title Examiner Required: No Is patient in pain?: No Allergies acetaminophen (From Westhoff) Adverse Reaction (Mild, Verified 12/24/24 11:38) Nausea hydrocodone (From Westhoff) Adverse Reaction (Mild, Verified 12/24/24 11:38) Nausea amoxicillin (From Augmentin) Adverse Reaction (Verified 12/24/24 11:38) Nausea clavulanic acid (From Augmentin) Adverse Reaction (Verified 12/24/24 11:38) Nausea oxycodone (From Percodan) Adverse Reaction (Verified 12/24/24 11:38) Nausea propoxyphene (From Darvocet-N 100) Adverse Reaction (Verified 12/24/24 11:38) Nausea Medications ?Medication ?Instructions ?Recorded ?Confirmed ?Type cetirizine 10 mg tablet (Zyrtec) 10 mg PO DAILY PRN 12/24/24 History albuterol sulfate 2.5 mg/3 mL 2.5 mg (3 mL) inhalation Q4H PRN 05/27/23 12/24/24 Rx (0.083 %) solution for nebulization shortness of breat h or wheezing #90 mL biotin 10,000 mcg chewable tablet mcg PO 04/12/2412/10 History (Hair, Skin and Nails (biotin)) calcium 500 mg (as 1 tab PO QDAY 04/12/2412/24 History carbonate)-vitamin D3 5 mcg (200 unit) tablet clobetasol 0.05 % topical cream topical PRN 04/12/24 0 12/24/24 History multivitamin 1 tab PO QAM 04/12/24 History omeprazole 40 mg capsule,delayed 40 mg PO QDAY #90 cap s 04/12/24 12/24/24 Rx release losartan 25 mg tablet 25 mg PO DAILY #90 tabs 07/2 12/0312/24/24 Rx fluticasone furoate 100 1 inh inhalation Q24H 3 mukesh hs #60 11/29/24 12/24/24 Rx mcg-vilanterol 25 mcg/dose ea inhalation powder (Breo Ellipta) albuterol sulfate 90 mcg/actuation 2 puff inhalation Q 4H PRN 12/12/24 12/24/24 Rx aerosol inhaler (Ventolin HFA) shortness of breath or wheezing #8.5 grams azithromycin 250 mg tablet See Rx Instructions PO .COM PLEX #6 12/24/24 12/24/24 Rx tabs elderberry fruit 350 mg capsule mg PO QDAY 12/24/24 History prednisone 20 mg tablet 40 mg (2 x 20 mg) PO QDAY #1 0 tabs 12/24/24 12/24/24 Rx topiramate 25 mg tablet 25 mg PO BID #60 tabs 12/24/24 Rx triamterene 37.5 1 tab PO DAILY #90 tabs 12/1012/24/24 Rx mg-hydrochlorothiazide 25 mg tablet Have you fallen in the past year?: No PFSH Medical History (Updated 12/24/24 @ 12:[address] Elver Laws MD) URI (upper respiratory infection) Abnormal heart rhythm History of COVID-19 GERD (gastroesophageal reflux disease) Cellulitis of forehead Insect bite Abrasion, right lesser toe(s), initial encounter Abrasion, right great toe, initial encounter Laceration of right knee Localized swelling of back Bilateral hip pain Health care maintenance Colon cancer screening Knee pain Chest pain Fatigue SOB (shortness of breath) Arthritis Lower extremity edema Hx of colonic polyp Dermatitis Bilateral lower extremity edema Trigeminal neuralgia Hyperlipemia Borderline hypertension Osteoarthritis Fibromyalgia Asthma Surgical History History of arthroscopy of right knee History of tubal ligation History of cholecystectomy History of colonoscopy Family History Mother Cancer, Onset Age: 58 pancreatic Diabetes Father Cancer, Onset Age: 70 pancreatic, passed of it Hypertension Grandfather Heart disease Hypertension Brother Diabetes Hypertension Uncle Colon cancer Social History Smoking Status: Never smoker alcohol intake: never substance use type: does not use caffeine: Yes what type of physical activity do you participate in: walking frequency: 3-4 times per week seatbelt use: always do you feel safe at home: Yes additional social history: [employer]- Retired Patient is retired HPI HPI Chief Complaint: Follow-up chronic conditions. Nasal and chest congestion Details: ROSEANNE WEINBERG, is a 69-year-old female presenting for follow-up of her chronic conditions. Also has some concerns. The symptoms began on a with a sore throat. As the day progressed, her symptoms improved slightly, but she continued to experience persistent coughing,hoarseness, and occasional shortness of breath. The patient also reported wateryeyes and runny and stuffy nose, making it difficult for her to sleep. The patient has a history of asthma, which is generally well-controlled except during illness, potentially leading to exacerbation. Currently, she reports feeling better but still experiences some occasional shortness of breath and sensation in her chest. No severe symptoms have developed at this point. Following her last visit, had an event monitor ordered due to concerns for irregularities. No concerns were noted. She states that she has monitored her rhythm and rate with no particular concerns appreciated since then Currently at a BMI of 39.9. In the past, she was tried on Contrave but did not tolerate this well. GLP-1 discussed perioperative and also history of pancreatitis. Maintains that she has tried unsuccessfully to lose weight and would like something to help with this. Other chronic medical conditions are stable. Attestation: Documentation on this patient encounter was supported using ambient scribe technology/ voice AI technology. The patient consented to recording for the purpose of documenting the encounter. Provider reviewed content of the generatednote prior to signature. ROS Const Constitutional: No body ache, chills, excessive sweating, fatigue, fever(s), frequent falls, headache(s), snoring, weakness, sleep problems or change in appetite Eyes Eyes: No blurry vision, change in vision, discharge, vision loss, dry eyes, eye pain or Light sensitivity ENT ENT: Positive for nasal congestion and sinus pressure; No abnormal hearing, ear or mastoid pain, tinnitus, headache(s), neck pain or sore throat Resp Respiratory: Positive for cough; No shortness of breath, snoring or wheezing Cardio Cardiology: No chest pain at rest, chest pain with exertion, excessive sweating,shortness of breath, dyspnea on exertion, lightheadedness, orthopnea or palpitations Gastro GI: No abdominal pain, change in bowel habits, constipation, cramping, diarrhea,nausea/dyspepsia or vomiting Genitourinary-Female: No burning urination, painful urination, urinary incontinence, urinary frequency, abnormal vaginal bleeding or pelvic pain Musc Musculoskeletal: No abnormal gait, joint pain, back pain, limited range of motion, neck pain or numbness Skin Skin: No dry skin, redness, lesions, itchy eyes, rash or wounds Neuro Neurology: No abnormal gait, abnormal hearing, weakness, frequent falls, headache(s), memory loss or numbness Psych Psychiatric: No anxiety, No change in appetite, No depression, No memory loss and No Thoughts of harming yourself/Others Endo Endocrine: No cold intolerance, excessive sweating, fatigue, flushing, heat intolerance, increased thirst/drinking or increased hunger Aller/Imm Allergy/Immunologic: No itchy eyes, seasonal allergy symptoms, hives or wheezing Lawson/Lymp Hematologic/Lymphatic: No easy bleeding, easy bruising, enlarged lymph nodes or other Exam Const General: cooperative, comfortable and no acute distress Orientation: alert, awake and oriented x3 [facility] Head: normal to inspection, normocephalic and atraumatic Ears: hearing grossly normal bilaterally Neck Neck: normal visual inspection, full ROM, no lymphadenopathy and supple Neck mass: No Thyroid: thyroid normal Resp Effort & Inspection: normal respiratory effort and able to speak in complete sentences Auscultation: Bilateral: Clear to Auscultation Cardio Rate: regular rate Rhythm: regular rhythm Heart Sounds: S1 normal and S2 normal GI Palpation: soft (Nontender, no palpable organomegaly) Neuro General: patient alert, patient awake, patient oriented x3, moves all extremities and CN's II-XI intact bilaterally Extrem General: no clubbing, cyanosis or edema Psych Appearance: grossly normal Mental Status: mental status grossly normal Mood: congruent mood Affect: normal affect Coding Level of Care Code Off vis,est,level 4 Diagnoses URI (upper respiratory infection) J06.9 Asthma J45.909 Abnormal heart rhythm I49.9 Obesity without serious comorbidity, unspecified classification, unspecified obesity type E66.9 Obesity type: unspecified obesity type Obesity classification: unspecified obesity classification Serious obesity comorbidity presence: without serious comorbidity Primary hypertension I10 Hypertension type: primary hypertension Borderline type 2 diabetes mellitus R73.03 Assessment and Plan Assessment and Plan (1) URI (upper respiratory infection): Status: Acute Plan: Current symptoms likely due to viral upper respiratory infection. RSV, COVID and flu testing ordered. If COVID is positive she is not open to Paxlovid. Supportive measures discussed, she voiced understanding. Call with any concerns. (2) Asthma: Status: Chronic Plan: Stable at this time however, she remains at risk for exacerbation which has happened with viral infections in the past. Prescription for prednisone and azithromycin sent, continue other supportive measures as above. Continue use of Breo Ellipta and albuterol as needed. (3) Abnormal heart rhythm: Status: Acute Plan: Started after an episode of COVID-19 earlier in the year. Event monitor with nosignificant concerns noted and as above, she states that episodes have been rather infrequent/not concerning. Call with any concerns. (4) Obesity: Status: Chronic Qualifiers: Obesity type: unspecified obesity type Obesity classification: unspecified obesity classification Serious obesity comorbidity presence: without serious comorbidity Qualified Code(s): E66.9 - Obesity, unspecified Plan: Currently at a BMI of 39.9. Contrave was not tolerated and unable to get the GLP-1. She would like to try current. Possible side effects discussed, she voiced understanding and was advised to call with any concerns. Prescription for Topamax sent. Follow-up in 3 months or sooner if needed. (5) Hypertension: Status: Chronic Qualifiers: Hypertension type: primary hypertension Qualified Code(s): I10 - Essential (primary) hypertension Plan: Blood pressure today at 118/78 mmHg. Continue losartan, triamterene-hydrochlorothiazide, dietary and lifestyle modifications. CBC and BMP ordered, will review. (6) Borderline type 2 diabetes mellitus: Status: Chronic Plan: A1c ordered, will review. This note was generated with [employer] software. It may contain incorrectwords, spelling, and punctuation that were not noted in checking the note beforesigning. Orders: Orders Basic Metabolic Profile (BMP) Today I10 - Essential (primary) hypertension CBC W/Diff, Automated Today I10 - Essential (primary) hypertension Hemoglobin A1c Today R73.03 - Prediabetes Lipid Profile Today I10 - Essential (primary) hypertension COV + FLU + RSV PCR Today R06.02 - Shortness of breath Medications: New prednisone 40 mg (2 x 20 mg) PO QDAY 10 tabs 0RF azithromycin For 250 mg dose pack: take 500 mg today (day 1), then 250 mg for4 days (days 2-5) PO 6 tabs 0RF topiramate Take 25 mg nightly x 2 weeks then increase to twice daily. 25 mg PO BID 60 tabs 1RF Refilled triamterene-hydrochlorothiazid 37.5-25 mg 1 TAB PO DAILY 90 tabs 1RF Clinical Quality Measures Falls Risk Screening/Assistive Devices Have you fallen in the past year?: No 12/24/24 1247 <Electronically signed by Elver morales MD> Date _ Elver Laws MD Cosigner Signature: Date (if applicable) CC: ~ [email or web address] Work Phone: [phone] [facility] [address] [place] [address] OFFICE VISIT Date of Service: 12/24/24 MR#: [id number] Acct: [id number] Name: ROSEANNE WEINBERG Rep #: [id number] : 1955 Provider: Dr. Nguyễn Laws MD Age/Sex: 69/F Location: [facility] [place] Status: Signed Intake Vital Signs 09/12/24 10:47 12/24/24 10:03 12/24/24 11:53 Height 5 ft 5 in 5 ft 5 in 5 ft 5 in Weight: 240 lb BMI 39.9 BP 118/78 Blood Pressure Location Lt brachial Position Sitting Respiration 20 H Pulse 88 Pulse Source Monitor Temp 97.1 F L Temp Source Temporal Pulse Oximetry (%) 96 Oxygen Delivery Method room air Intake Visit Reasons: 6 M FU Chief Complaint: Follow-up chronic conditions. Nasal and chest congestion Title Examiner Required: No Is patient in pain?: No Allergies acetaminophen (From Westhoff) Adverse Reaction (Mild, Verified 12/24/24 11:38) Nausea hydrocodone (From Westhoff) Adverse Reaction (Mild, Verified 12/24/24 11:38) Nausea amoxicillin (From Augmentin) Adverse Reaction (Verified 12/24/24 11:38) Nausea clavulanic acid (From Augmentin) Adverse Reaction (Verified 12/24/24 11:38) Nausea oxycodone (From Percodan) Adverse Reaction (Verified 12/24/24 11:38) Nausea propoxyphene (From Darvocet-N 100) Adverse Reaction (Verified 12/24/24 11:38) Nausea Medications ?Medication ?Instructions ?Recorded ?Confirmed ?Type cetirizine 10 mg tablet (Zyrtec) 10 mg PO DAILY PRN 12/24/24 History albuterol sulfate 2.5 mg/3 mL 2.5 mg (3 mL) inhalation Q4H PRN 05/27/23 12/24/24 Rx (0.083 %) solution for nebulization shortness of breat h or wheezing #90 mL biotin 10,000 mcg chewable tablet mcg PO 04/12/2412/10 History (Hair, Skin and Nails (biotin)) calcium 500 mg (as 1 tab PO QDAY 04/12/2412/24 History carbonate)-vitamin D3 5 mcg (200 unit) tablet clobetasol 0.05 % topical cream topical PRN 04/12/24 0 12/24/24 History multivitamin 1 tab PO QAM 04/12/24 History omeprazole 40 mg capsule,delayed 40 mg PO QDAY #90 cap s 04/12/24 12/24/24 Rx release losartan 25 mg tablet 25 mg PO DAILY #90 tabs 07/12/0312/24/24 Rx fluticasone furoate 100 1 inh inhalation Q24H 3 mukesh hs #60 11/29/24 12/24/24 Rx mcg-vilanterol 25 mcg/dose ea inhalation powder (Breo Ellipta) albuterol sulfate 90 mcg/actuation 2 puff inhalation Q 4H PRN 12/12/24 12/24/24 Rx aerosol inhaler (Ventolin HFA) shortness of breath or wheezing #8.5 grams azithromycin 250 mg tablet See Rx Instructions PO .COM PLEX #6 12/24/24 12/24/24 Rx tabs elderberry fruit 350 mg capsule mg PO QDAY 12/24/24 History prednisone 20 mg tablet 40 mg (2 x 20 mg) PO QDAY #1 0 tabs 12/24/24 12/24/24 Rx topiramate 25 mg tablet 25 mg PO BID #60 tabs 12/24/24 Rx triamterene 37.5 1 tab PO DAILY #90 tabs 12/1012/24/24 Rx mg-hydrochlorothiazide 25 mg tablet Have you fallen in the past year?: No PFSH Medical History (Updated 12/24/24 @ 12:[address] Elver Laws MD) URI (upper respiratory infection) Abnormal heart rhythm History of COVID-19 GERD (gastroesophageal reflux disease) Cellulitis of forehead Insect bite Abrasion, right lesser toe(s), initial encounter Abrasion, right great toe, initial encounter Laceration of right knee Localized swelling of back Bilateral hip pain Health care maintenance Colon cancer screening Knee pain Chest pain Fatigue SOB (shortness of breath) Arthritis Lower extremity edema Hx of colonic polyp Dermatitis Bilateral lower extremity edema Trigeminal neuralgia Hyperlipemia Borderline hypertension Osteoarthritis Fibromyalgia Asthma Surgical History History of arthroscopy of right knee History of tubal ligation History of cholecystectomy History of colonoscopy Family History Mother Cancer, Onset Age: 58 pancreatic Diabetes Father Cancer, Onset Age: 70 pancreatic, passed of it Hypertension Grandfather Heart disease Hypertension Brother Diabetes Hypertension Uncle Colon cancer Social History Smoking Status: Never smoker alcohol intake: never substance use type: does not use caffeine: Yes what type of physical activity do you participate in: walking frequency: 3-4 times per week seatbelt use: always do you feel safe at home: Yes additional social history: [employer]- Retired Patient is retired HPI HPI Chief Complaint: Follow-up chronic conditions. Nasal and chest congestion Details: ROSEANNE WEINBERG, is a 69-year-old female presenting for follow-up of her chronic conditions. Alsohas some concerns. The symptoms began on a with a sore throat. As the day progressed, her symptoms improved slightly, but she continued to experience persistent coughing,hoarseness, and occasional shortness ofbreath. The patient also reported wateryeyes and runny and stuffy nose, making it difficult for herto sleep. The patient has a history of asthma, which is generally well-controlled except during illness, potentially leading to exacerbation. Currently, she reports feeling better but still experiences some occasional shortness of breath and sensation in her chest. No severe symptoms have developedat this point. Following her last visit, had an event monitor ordered due to concerns for irregularities. No concerns were noted. She states that she has monitored her rhythm and rate with no particular concerns appreciated since then Currently at a BMI of 39.9. In the past, she was tried on Contrave but did not tolerate this well. GLP-1 discussed perioperative and also history of pancreatitis. Maintains that she has tried unsuccessfully to lose weight and would like something to help with this. Other chronic medical conditions are stable. Attestation: Documentation on this patient encounter was supported using ambient scribe technology/ voice AI technology. The patient consented to recording for the purpose of documenting the encounter. Provider reviewed content of the generatednote prior to signature. ROS Const Constitutional: No body ache, chills, excessive sweating, fatigue, fever(s), frequent falls, headache(s), snoring, weakness, sleep problems or change in appetite Eyes Eyes: No blurry vision, change in vision, discharge, vision loss, dry eyes, eye pain or Light sensitivity ENT ENT: Positive for nasal congestion and sinus pressure; No abnormal hearing, ear or mastoid pain, tinnitus, headache(s), neck pain or sore throat Resp Respiratory: Positive for cough; No shortness of breath, snoring or wheezing Cardio Cardiology: No chest pain at rest, chest pain with exertion, excessive sweating,shortness of breath, dyspnea on exertion, lightheadedness, orthopnea or palpitations Gastro GI: No abdominal pain, change in bowel habits, constipation, cramping, diarrhea,nausea/dyspepsia orvomiting Genitourinary-Female: No burning urination, painful urination, urinary incontinence, urinary frequency, abnormal vaginal bleeding or pelvic pain Musc Musculoskeletal: No abnormal gait, joint pain, back pain, limited range of motion, neck pain or numbness Skin Skin: No dry skin, redness, lesions, itchy eyes, rash or wounds Neuro Neurology: No abnormal gait, abnormal hearing, weakness, frequent falls, headache(s), memory loss or numbness Psych Psychiatric: No anxiety, No change in appetite, No depression, No memory loss and No Thoughts of harming yourself/Others Endo Endocrine: No cold intolerance, excessive sweating, fatigue, flushing, heat intolerance, increased thirst/drinking or increased hunger Aller/Imm Allergy/Immunologic: No itchy eyes, seasonal allergy symptoms, hives or wheezing Lawson/Lymp Hematologic/Lymphatic: No easy bleeding, easy bruising, enlarged lymph nodes or other Exam Const General: cooperative, comfortable and no acute distress Orientation: alert, awake and oriented x3 HENMT Head: normal to inspection, normocephalic and atraumatic Ears: hearing grossly normal bilaterally Neck Neck: normal visual inspection, full ROM, no lymphadenopathy and supple Neck mass: No Thyroid: thyroid normal Resp Effort & Inspection: normal respiratory effort and able to speak in complete sentences Auscultation: Bilateral: Clear to Auscultation Cardio Rate: regular rate Rhythm: regular rhythm Heart Sounds: S1 normal and S2 normal GI Palpation: soft (Nontender, no palpable organomegaly) Neuro General: patient alert, patient awake, patient oriented x3, moves all extremities and CN's II-XI intact bilaterally Extrem General: no clubbing, cyanosis or edema Psych Appearance: grossly normal Mental Status: mental status grossly normal Mood: congruent mood Affect: normal affect Coding Level of Care Code Off vis,est,level 4 Diagnoses URI (upper respiratory infection) J06.9 Asthma J45.909 Abnormal heart rhythm I49.9 Obesity without serious comorbidity, unspecified classification, unspecified obesity type E66.9 Obesity type: unspecified obesity type Obesity classification: unspecified obesity classification Serious obesity comorbidity presence: without serious comorbidity Primary hypertension I10 Hypertension type: primary hypertension Borderline type 2 diabetes mellitus R73.03 Assessment and Plan Assessment and Plan (1) URI (upper respiratory infection): Status: Acute Plan: Current symptoms likely due to viral upper respiratory infection. RSV, COVID and flu testing ordered. If COVID is positive she is not open to Paxlovid. Supportive measures discussed, she voiced understanding. Call with any concerns. (2) Asthma: Status: Chronic Plan: Stable at this time however, she remains at risk for exacerbation which has happened with viral infections in the past. Prescription for prednisone and azithromycin sent, continue other supportive measures as above. Continue use of Breo Ellipta and albuterol as needed. (3) Abnormal heart rhythm: Status: Acute Plan: Started after an episode of COVID-19 earlier in the year. Event monitor with nosignificant concernsnoted and as above, she states that episodes have been rather infrequent/not concerning. Call with any concerns. (4) Obesity: Status: Chronic Qualifiers: Obesity type: unspecified obesity type Obesity classification: unspecified obesity classification Serious obesity comorbidity presence: without serious comorbidity Qualified Code(s): E66.9 - Obesity,unspecified Plan: Currently at a BMI of 39.9. Contrave was not tolerated and unable to get the GLP-1. She would like to try current. Possible side effects discussed, she voiced understanding and was advised to call with any concerns. Prescription for Topamax sent. Follow-up in 3 months or sooner if needed. (5) Hypertension: Status: Chronic Qualifiers: Hypertension type: primary hypertension Qualified Code(s): I10 - Essential (primary) hypertension Plan: Blood pressure today at 118/78 mmHg. Continue losartan, triamterene- hydrochlorothiazide, dietary and lifestyle modifications. CBC and BMP ordered, will review. (6) Borderline type 2 diabetes mellitus: Status: Chronic Plan: A1c ordered, will review. This note was generated with [employer] dictation software. It may contain incorrectwords, spelling, and punctuation that were not noted in checking the note beforesigning. Orders: Orders Basic Metabolic Profile (BMP) Today I10 - Essential (primary) hypertension CBC W/Diff, Automated Today I10 - Essential (primary) hypertension Hemoglobin A1c Today R73.03 - Prediabetes Lipid Profile Today I10 - Essential (primary) hypertension COV + FLU + RSV PCR Today R06.02 - Shortness of breath Medications: New prednisone 40 mg (2 x 20 mg) PO QDAY 10 tabs 0RF azithromycin For 250 mg dose pack: take 500 mg today (day 1), then 250 mg for4 days (days 2-5) PO 6tabs 0RF topiramate Take 25 mg nightly x 2 weeks then increase to twice daily. 25 mg PO BID 60 tabs 1RF Refilled triamterene-hydrochlorothiazid 37.5-25 mg 1 TAB PO DAILY 90 tabs 1RF Clinical Quality Measures Falls Risk Screening/Assistive Devices Have you fallen in the past year?: No 12/24/24 1247 andrew GARRETT> Date _ Efewongbe Veto GARRETT Cosigner Signature: Date (if applicable) CC: ~ [facility] [place]05-21-2025 Evaluation note* Diagnosis Onset Date Resolution Status Admit Date Osteoarthritis of right knee acute August 29, 2024 9:54am Left knee DJD chronic August 29, 9:54am Osteoarthritis of right knee acute September 05, 2024 10:56am Left knee DJD chronic September 05 10:56am Osteoarthritis of right knee acute September 12, 2024 10:46am Left knee DJD chronic September 12, 10:46am [facility] [place] Work Phone: [phone] Evaluation note* Diagnosis Onset Date Resolution Status Admit Date Osteoarthritis of right knee acute August 29, 2024 9:54am Left knee DJD chronic August 29, 9:54am Osteoarthritis of right knee acute September 05, 2024 10:56am Left knee DJD chronic September 05, 025 10:56am Osteoarthritis of right knee acute September 12, 2024 10:46am Left knee DJD chronic September 12 10:46am Multiple lipomas chronic Septembe 2024 9:49am Abnormal heart rhythm acute Sep tem2024 11:31am URI (upper respiratory infection) acute December 24, 2024 11:31am Asthma chronic December 11:31am Borderline type 2 diabetes mellitus chronic December 24, 2024 11:31am Hypertension chronic December 242024 11:31am Obesity chronic December 11:31am [facility] [email or web address] Work Phone: 1(184) 387-285602-24-2025 Evaluation note* Diagnosis Onset Date Resolution Status Admit Date Asthmatic bronchitis with acute exacerbation acute May 12:57pm Abnormal heart rhythm acute Jun 2024 10:47am History of COVID-19 acute June 22, 2024 10:47am Hypertension chronic June 22, 2024 10:47am [facility] [email or web address] Work Phone: 1([phone]) 144-804302-24-2025 Evaluation note* Diagnosis Onset Date Resolution Status Admit Date Asthmatic bronchitis with ac ruby exacerbation acute June 04 12:57pm Abnormal heart rhythm acute [facility] 2024 10:47am History of COVID-19 acute June 22, 2024 10:47am Hypertension chronic June 22, 2024 10:47am Osteoarthritis of right knee acute August 29, 2024 9:54am Left knee DJD chronic August 29, 025 9:54am [facility] [email or web address] Work Phone: 1([phone]) 485-624802-24-2025 Evaluation note* Diagnosis Onset Date Resolution Status Admit Date Asthmatic bronchitis with ac ruby exacerbation acute June 04 12:57pm Abnormal heart rhythm acute [facility] 2024 10:47am History of COVID-19 acute June 22, 2024 10:47am Hypertension chronic June 22, 2024 10:47am Osteoarthritis of right knee acute August 29, 2024 9:54am Left knee DJD chronic August 29 025 9:54am Osteoarthritis of right knee acute September 05, 2024 10:56am Left knee DJD chronic September 05 10:56am [facility] [email or web address] Work Phone: 1([phone]) 830-166712-06-2024 Evaluation note* Diagnosis Onset Date Resolution Status Admit Date Asthmatic bronchitis with acute exacerbation acute March 16, 2024 2:04pm Health care maintenance acute J anuary 2024 5:14pm GERD (gastroesophageal reflu x disease) chronic April 12 5:14pm Hypertension chronic April 12, 2024 5:14pm Obesity chronic April 12 5:14pm Asthmatic bronchitis with acute exacerbation acute May 12:57pm Abnormal heart rhythm acute Jun 10:47am History of COVID-19 acute June 22, 2024 10:47am Hypertension chronic June 22, 2024 10:47am [facility] Work Phone: 1([phone]) 406-300004-02-2024 Discharge summary Author Shawn Galan [facility] July 12, 2023 11:21am Note Date/Time July 12, 2023 11:2 1am [facility] Physical Therapy [facility] [address] [place] [address] / REHABILITATION SERVICES DISCHARGE SUMMARY MR#: [id number] Acct: [id number] Name: ROSEANNE WEINBERG Rep #: [id number] : 1955 67 From: Shawn Galan DPT, OCS, CSCS Referring Dr.: ALENA Farmer Status: REG RCR Insurance: MEDICARE PART A B [facility] Discharge Summary D/C summary: It has been my pleasure to treat ROSEANNE WEINBERG referred by ALENA Davis, with the diagnosis of cervicalgia for a total of 14 visit(s). Discharge Date: 07/12/23 Please see the following information for a summary of their discharge status. Subjective Subjective: TMJ is real good. No pain and no limitations. Does watch what she eats. Neck continues to be painful turning to left. Mobility is better but still hurts to turn. Activities with neck are just careful. Pain in L neck in the last week is with movement up to sharp pain and transient,mostly L rotation Jaw is 100% better, neck is improved and mobile but still painful Pain L TMJ: Pain Intensity (Out of 10): 0 L UT: Pain Intensity (Out of 10): 4 Overall Improvement % Improvement: 85 Objective Objective/Function: 44 mm opening, 15 L deviationa nd 14 R deviation 65 R rotation and 56 L rotation, some discomfort L UT with L rotation, 75 extension Goals Goal 1:: 40 mm jaw opening, symmetrical jaw deviation and neck symmetry in motion without pain Goal Progress: Goal Met jaw, not neck. Goal 2:: Pain in jaw feel 75% better 1/10 at worst Goal Progress: Goal Met Goal 3:: I appropriate HEP to limit future problems Goal Progress: Goal Met Goal 4:: Neck AROM L rotation 60+ and 1/10 pain Goal Progress: Progressing Goal 5:: Neck pain 1/10 at worst and manageable at 90% better overall Goal Progress: Progressing Goal 6:: Turn head in car without pain Goal Progress: Progressing Plan Plan: d/c to HEP, Pt wishes to try at home with exercises and will let doctor know if improvement does not continue. D/C Information Discharge Comments: Will continue via HEP and contact doctor if not improving, Overall jaw is near 100% better and neck 70% improved. still pain with L rotation and mild limitations. d/c sentence: If there are questions or concerns regarding this patient's physical therapy, please feel free to call me at [phone]. Thank you for the referral of thispatient. Sincerely, Shawn Galan, MERVINT, OCS, CSCS Balance/Gait/Functional tests Improvement % Improvement: 85 <Electronically signed by Shawn JEFFRIEST, OCS, CSCS> 07/12/23 1121 CC: ALENA Farmer; Dr. Elver Laws MD ~ [facility] Signed [facility] Work Phone: 1([phone]) 464-779809-20-2022 NotePap Smear Specimen AdequacySept2021 12:26pmComment.Satisfactory for evaluation. No endocervical component is identified.[facility] A#[id number] Work Phone: Comment on above:Satisfactory for evaluation. No endocervical component is identified.12-29-2021 NotePap Smear Specimen Adequacy December 29, 2021 11:26amComment.Satisfactory for evaluation. No endocervical component is identified.[facility] A#[id number] Work Phone: comment on above:Satisfactory for evaluation. No endocervical component is identified.12-29-2021 NotePap Smear Specimen Adequacy December 29, 2021 11:26amComment.Satisfactory for evaluation. No endocervical component is identified.[facility] A#[id number] Work Phone: Comment on above:Satisfactory for evaluation. No endocervical component is identified.12-29-2021 NotePap Smear Specimen Adequacy December 29, 2021 11:26amComment.Satisfactory for evaluation. No endocervical component is identified.[facility] A#[id number] Work Phone: Comment on above:Satisfactory for evaluation. No endocervical component is identified.Evaluation note* Diagnosis Onset Date Resolution Status Osteoarthritis of right knee acute Primary osteoarthritis of left knee acute Left knee DJD chronic Osteoarthritis of right knee acute Osteoarthritis of right knee acute Primary osteoarthritis of left knee acute Bilateral shoulder pain acut e Cervical pain acute Degenerative disc disease, cervical acute [facility] Work Phone: Evaluation note* Diagnosis Onset Date Resolution Status Atrophic vaginitis acute History of colonic polyps ac ruby Hot flashes acute Lichen sclerosus acute Encounter for routine gynecological examination noneactive Monilial vaginitis noneactiv e Fatigue noneactive [facility] Work Phone: Evaluation note* Diagnosis Onset Date Resolution Status Atrophic vaginitis acute History of colonic polyps ac ruby Hot flashes acute Lichen sclerosus acute Encounter for routine gynecological examination noneactive Monilial vaginitis noneactiv e Fatigue noneactive Mass of left knee acute Osteoarthritis of right knee acute Primary osteoarthritis of left knee acute Calf swelling noneactive Bakers cyst noneactive Asthma chronic Hypertension chronic Lower extremity edema chroni c Osteoarthritis of right knee acute Primary osteoarthritis of left knee acute [facility] Work Phone: Evaluation note* Diagnosis Onset Date Resolution Status Atrophic vaginitis acute History of colonic polyps ac ruby Hot flashes acute Lichen sclerosus acute Encounter for routine gynecological examination noneactive Monilial vaginitis noneactiv e Fatigue noneactive Mass of left knee acute Osteoarthritis of right knee acute Primary osteoarthritis of left knee acute Calf swelling noneactive Bakers cyst noneactive Asthma chronic Hypertension chronic Lower extremity edema chroni c Osteoarthritis of right knee acute Primary osteoarthritis of left knee acute Osteoarthritis of right knee acute Primary osteoarthritis of left knee acute [facility] Work Phone: Evaluation noteNo assessment information available [facility] Work Phone: Evaluation note* Diagnosis Onset Date Resolution Status Knee pain acute Osteoarthritis of right knee acute Primary osteoarthritis of left knee acute Osteoarthritis of right knee acute Left knee DJD chronic Osteoarthritis of right knee acute Primary osteoarthritis of left knee acute Left knee DJD chronic Dermatitis acute Left knee DJD chronic Health care maintenance acut e Asthma chronic Borderline type 2 diabetes mellitus chronic Fibromyalgia chronic Hypertension chronic Osteoarthritis chronic [facility] Work Phone: Evaluation note* Diagnosis Onset Date Resolution Status Osteoarthritis of right knee acute Left knee DJD chronic Osteoarthritis of right knee acute Primary osteoarthritis of left knee acute Left knee DJD chronic Dermatitis acute Left knee DJD chronic Health care maintenance acut e Asthma chronic Borderline type 2 diabetes mellitus chronic Fibromyalgia chronic Hypertension chronic Osteoarthritis chronic [facility] Work Phone: Evaluation note* Diagnosis Onset Date Resolution Status Dermatitis acute Left knee DJD chronic Health care maintenance acut e Asthma chronic Borderline type 2 diabetes mellitus chronic Fibromyalgia chronic Hypertension chronic Osteoarthritis chronic Neck swelling acute TMJ (temporomandibular joint syndrome) acute [facility] Work Phone: Evaluation note* Diagnosis Onset Date Resolution Status Health care maintenance acut e Asthma chronic Borderline type 2 diabetes mellitus chronic Fibromyalgia chronic Hypertension chronic Osteoarthritis chronic Neck swelling acute TMJ (temporomandibular joint syndrome) acute Acute URI acute Fibromyalgia chronic [facility] Work Phone: Evaluation note* Diagnosis Onset Date Resolution Status Health care maintenance acut e Asthma chronic Borderline type 2 diabetes mellitus chronic Fibromyalgia chronic Hypertension chronic Osteoarthritis chronic Neck swelling acute TMJ (temporomandibular joint syndrome) acute Acute URI acute Fibromyalgia chronic Bilateral hip pain acute Arthritis chronic Fibromyalgia chronic Hypertension chronic Localized swelling of back c hronic [facility] Work Phone: Evaluation note* Diagnosis Onset Date Resolution Status Neck swelling acute TMJ (temporomandibular joint syndrome) acute Acute URI acute Fibromyalgia chronic Bilateral hip pain acute Arthritis chronic Fibromyalgia chronic Hypertension chronic Localized swelling of back c hronic Multiple lipomas chronic [facility] Work Phone: Hospital Discharge instructionsAmbulatory Orders* General Surgery Location: None Selected [facility] Work Phone: Reason for referral (narrative)No reason for referral information availableWMercy Health [facility] Work Phone: Summary Purpose Family History No Family History Records Found Relationship Condition Age at Onset Recorded Date/T lauri mother Malignant neoplasm 58 Diabetes mellitus Unknown father Malignant neoplasm 70 Hypertension Unknown grandfather Cardiac disease Unknown brother Diabetes mellitus Unknown uncle Malignant neoplasm of colon Unknown Advance Directives No Advanced Directives Records Found Advance Directive Response Recorded Date/ Time Living Will No August 31, 2021 1 0:52am Power of Commutator V Ring Assembler No August 31, 2021 10:52am Advance Directive Response Recorded Date/ Time Living Will No August 31, 2021 9 :52am Power of Commutator [employer] Ring As[employer]er No August 31, 2021 9:52am Advance Directive Response Recorded Date/ Time Living Will No November 29 3 10:51am Power of Commutator [employer] Ring As[employer]er No November 29, 2 023 10:51am Advance Directive Response Recorded Date/ Time Living Will No November 29 3 11:51am Power of Commutator [employer] No November 29, 2 023 11:51am Chief Complaint and Reason for Visit Chief Complaint LEFT KNEE xray Bilat knee injection Bilat knees Bilat shoulder pain xray CERVICAL DDD. 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) BL knees LT LEG PAIN & SWELLING AFTER TRAVELLING Swelling in leg BL knees Reason for Visit Atrophic vaginitis History of colonic polyps Hot flashes Lichen sclerosus Encounter for routine gynecological examination Monilial vaginitis Fatigue Mass of left knee Osteoarthritis of right knee Primary osteoarthritis of left knee Calf swelling Bakers cyst Asthma Hypertension Lower extremity edema Osteoarthritis of right knee Primary osteoarthritis of left knee Chief Complaint 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) BL knees LT LEG PAIN & SWELLING AFTER TRAVELLING Swelling in leg BL knees BP CHECK AND LAB WORK LABWORK BL knees Reason for Visit Atrophic vaginitis History of colonic polyps Hot flashes Lichen sclerosus Encounter for routine gynecological examination Monilial vaginitis Fatigue Mass of left knee Osteoarthritis of right knee Primary osteoarthritis of left knee Calf swelling Bakers cyst Asthma Hypertension Lower extremity edema Osteoarthritis of right knee Primary osteoarthritis of left knee Osteoarthritis of right knee Primary osteoarthritis of left knee Chief Complaint 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) BL knees LT LEG PAIN & SWELLING AFTER TRAVELLING Swelling in leg BL knees BP CHECK AND LAB WORK LABWORK BL knees LEFT KNEE PAIN Reason for Visit Atrophic vaginitis History of colonic polyps Hot flashes Lichen sclerosus Encounter for routine gynecological examination Monilial vaginitis Fatigue Mass of left knee Osteoarthritis of right knee Primary osteoarthritis of left knee Calf swelling Bakers cyst Asthma Hypertension Lower extremity edema Osteoarthritis of right knee Primary osteoarthritis of left knee Osteoarthritis of right knee Primary osteoarthritis of left knee Chief Complaint BL KNEES Room 2 BL KNEES BI LAT KNEES BI LAT KNEES 1 YR PHYSICAL WELLNESS Reason for Visit Knee pain Osteoarthritis of right knee Primary osteoarthritis of left knee Osteoarthritis of right knee Left knee DJD Osteoarthritis of right knee Primary osteoarthritis of left knee Left knee DJD Dermatitis Left knee DJD Health care maintenance Asthma Borderline type 2 diabetes mellitus Fibromyalgia Hypertension Osteoarthritis Chief Complaint BL KNEES BI LAT KNEES BI LAT KNEES 1 YR PHYSICAL WELLNESS SCREENING Reason for Visit Osteoarthritis of ri ght knee Left knee DJD Osteoarthritis of right knee Primary osteoarthritis of left knee Left knee DJD Dermatitis Left knee DJD Health care maintenance Asthma Borderline type 2 diabetes mellitus Fibromyalgia Hypertension Osteoarthritis Chief Complaint BI LAT KNEES 1 YR PHYSICAL WELLNESS SCREENING Acute- TMJ concerns Localized swelling, mass and lump, neck Reason for Visit Dermatitis Left knee DJD Health care maintenance Asthma Borderline type 2 diabetes mellitus Fibromyalgia Hypertension Osteoarthritis Neck swelling TMJ (temporomandibular joint syndrome) Chief Complaint 1 YR PHYSICAL WELLNE SS SCREENING Acute- TMJ concerns Localized swelling, mass and lump, neck TMJ. RX HERE Cough Reason for Visit [facility] care [facility] Asthma Borderline type 2 diabetes mellitus Fibromyalgia Hypertension Osteoarthritis Neck swelling TMJ (temporomandibular joint syndrome) Acute URI Fibromyalgia Chief Complaint 1 YR PHYSICAL WELLNE SS SCREENING Acute- TMJ concerns Localized swelling, mass and lump, neck Cough fibro mialgia/pain all over ADD EORDER HIP B/L XRAYS TMJ. RX HERE Reason for Visit [facility] Asthma Borderline type 2 diabetes mellitus Fibromyalgia Hypertension Osteoarthritis Neck swelling TMJ (temporomandibular joint syndrome) Acute URI Fibromyalgia Bilateral hip pain Arthritis Fibromyalgia Hypertension Localized swelling of back Chief Complaint SCREENING Acute- TMJ concerns Localized swelling, mass and lump, neck Cough fibro mialgia/pain all over ADD EORDER HIP B/L XRAYS BACK SWELLING-lipoma TMJ. RX HERE Lipoma on back Reason for Visit Neck swelling TMJ (temporomandibular joint syndrome) Acute URI Fibromyalgia Bilateral hip pain Arthritis Fibromyalgia Hypertension Localized swelling of back Multiple lipomas Chief Complaint SCREENING Acute- TMJ concerns Localized swelling, mass and lump, neck Cough fibro mialgia/pain all over ADD EORDER HIP B/L XRAYS BACK SWELLING-lipoma Lipoma on back TMJ. RX HERE Reason for Visit Neck swelling TMJ (temporomandibular joint syndrome) Acute URI Fibromyalgia Bilateral hip pain Arthritis Fibromyalgia Hypertension Localized swelling of back Multiple lipomas Chief Complaint Admit Date Fatigue March 16, 2024 2 :04pm Persistent cough March 16, 2024 2 :09pm 3 M FU April 12, 2024 5: 14pm SCREENING April 24, 2024 1 :07pm CONCERN FOR Upper respiratory infection June 04, 2024 12:57pm COVID EXPOSURE/WANTS TEST June 06, 2024 3:24pm higher heart rate after covid June 10:47am Reason for Visit Admit Date Asthmatic bronchitis with acute exacerba tion March 16, 2024 2:04pm Health care maintenance April 12 5:14pm GERD (gastroesophageal reflux disease) J anuary 2024 5:14pm Hypertension April 12, 2024 5: 14pm Obesity April 12, 2024 5: 14pm Asthmatic bronchitis with acute exacerba tion June 04, 2024 12:57pm Abnormal heart rhythm June 22, 2024 1 0:47am History of COVID-19 June 22, 2024 10: 47am Hypertension June 22, 2024 10: 47am Chief Complaint Admit Date CONCERN FOR Upper respiratory infection June 04, 2024 12:57pm COVID EXPOSURE/WANTS TEST June 06, 2024 3:24pm higher heart rate after covid June 10:47am 30 DAY MONITOR July 09, 2024 7:0 0am PALPITATIONS ABNORMAL HEART RHYTHM July 09, 2024 9:32am BL KNEES August 29, 2024 9:54a m Reason for Visit Admit Date Asthmatic bronchitis with acute exacerba tion June 04, 2024 12:57pm Abnormal heart rhythm June 22, 2024 1 0:47am History of COVID-19 June 22, 2024 10: 47am Hypertension June 22, 2024 10: 47am Chief Complaint Admit Date CONCERN FOR Upper respiratory infection June 04, 2024 12:57pm COVID EXPOSURE/WANTS TEST June 06, 2024 3:24pm higher heart rate after covid June 10:47am 30 DAY MONITOR July 09, 2024 7:0 0am PALPITATIONS ABNORMAL HEART RHYTHM July 09, 2024 9:32am BL KNEES August 29, 2024 9:54a m BL KNEES September 05, 2024 10:56 am Reason for Visit Admit Date Asthmatic bronchitis with acute exacerba tion June 04, 2024 12:57pm Abnormal heart rhythm June 22, 2024 1 0:47am History of COVID-19 June 22, 2024 10: 47am Hypertension June 22, 2024 10: 47am Osteoarthritis of right knee August 29, 025 9:54am Left knee DJD August 29, 2024 9:54a m Chief Complaint Admit Date CONCERN FOR Upper respiratory infection June 04, 2024 12:57pm COVID EXPOSURE/WANTS TEST June 06, 2024 3:24pm higher heart rate after covid June 10:47am 30 DAY MONITOR July 09, 2024 7:0 0am PALPITATIONS ABNORMAL HEART RHYTHM July 09, 2024 9:32am BL KNEES August 29, 2024 9:54a m BL KNEES September 05, 2024 10:56 am BL KNEES September 12, 2024 10:46 am Reason for Visit Admit Date Asthmatic bronchitis with acute exacerba tion June 04, 2024 12:57pm Abnormal heart rhythm June 22, 2024 1 0:47am History of COVID-19 June 22, 2024 10: 47am Hypertension June 22, 2024 10: 47am Osteoarthritis of right knee August 29, 2 025 9:54am Left knee DJD August 29, 2024 9:54a m Osteoarthritis of right knee September 05, 025 10:56am Left knee DJD September 05, 2024 10:56 am Chief Complaint Admit Date BL KNEES August 29, 2024 9:54a m BL KNEES September 05, 2024 10:56 am BL KNEES September 12, 2024 10:46 am DISCUSS LIPOMA REMOVAL December 24 9:49am Reason for Visit Admit Date Osteoarthritis of right knee August 29 9:54am Left knee DJD August 29, 2024 9:54a m Osteoarthritis of right knee September 05 10:56am Left knee DJD September 05, 2024 10:56 am Osteoarthritis of right knee September 12 10:46am Left knee DJD September 12, 2024 10:46 am Chief Complaint Admit Date BL KNEES August 29, 2024 9:54a m BL KNEES September 05, 2024 10:56 am BL KNEES September 12, 2024 10:46 am DISCUSS LIPOMA REMOVAL December 24 9:49am 6 M FU December 24, 2024 11:31am Reason for Visit Admit Date Osteoarthritis of right knee August 29 9:54am Left knee DJD August 29, 2024 9:54a m Osteoarthritis of right knee September 05 10:56am Left knee DJD September 05, 2024 10:56 am Osteoarthritis of right knee September 12 10:46am Left knee DJD September 12, 2024 10:46 am Multiple lipomas December 24, 2024 9:49am Abnormal heart rhythm December 24 11:31am URI (upper respiratory infection) 2024 11:31am Asthma December 24, 2024 11:31am Borderline type 2 diabetes mellitus Dec emb2024 11:31am Hypertension December 24, 2024 11:31am Obesity December 24, 2024 11:31am Additional Source Comments INFORMATION SOURCE (unrecogn ized section and content) DATE CREATED AUTHOR 10/04/2017 Ed Harrison [facility] DATE CREATED AUTHOR AUTHOR'S ORGANIZ ATION 10/05/2017 [facility] DATE CREATED AUTHOR AUTHOR'S ORGANIZ ATION 12/25/2024 [facility] y [facility] Goals (unrecognized section and content) Goals may be documented in a n alternate sectionGoals may be documented in an alternate sectionGoals may be documented in an alternate sectionGoals may be documented in an alternate sectionGoals may be documented in an alternate sectionGoals may be documented in an alternate sectionGoals may be documented in an alternate sectionGoals may be documented in an alternate sectionGoals may be documented in an alternate sectionGoals may be documented in an alternate sectionGoals may be documented in an alternate sectionGoals may be documented in an alternate sectionGoals may be documented in an alternate sectionGoals may be documented in an alternate sectionGoals may be documented in an alternate sectionGoals may be documented in an alternate sectionGoals may be documented in an alternate sectionGoals may be documented in an alternate sectionGoals may be documented in an alternate sectionGoals may be documented in an alternate section Care Teams (unrecognized sec tion and content) Team Status: Active Member Role Status Dates Dr. Elver Laws MD Family Provider Active Dr. Elver Laws MD Primary Care Provider Active Team Status: Inactive Member Role Status Dates Dr. Elver Laws MD Primary Care Provider Active Dr. Ryan Sheth MD Attending Provider, Referring P rovider Active Team Status: Inactive Member Role Status Dates Dr. Elver Laws MD Primary Care P rovider, Attending Provider, Referring Provider Active Team Status: Inactive Member Role Status Dates Dr. Elver Laws MD Primary Care Provider, Refer ring Provider Active Dr. Tommy Mendez DO Attending Provider Active Team Status: Inactive Member Role Status Dates Dr. Elver Laws MD Primary Care Provider Active Dr. Erik Sanford MD Attending Provider Active Team Status: Inactive Member Role Status Dates Dr. Elver Laws MD Primary Care Provider, Refer ring Provider Active Melisa Farmer NP-C Attending Provider Active Team Status: Inactive Member Role Status Dates Dr. Elver Laws MD Primary Care Provider Active ALENA Davis Attending Provider, Referring Pro vider Active Team Status: Active Member Role Status Dates Dr. Elver Laws MD Primary Care Provider Active ALENA Davis Attending Provider, Referring Pro vider Active Team Status: Inactive Member Role Status Dates Dr. Elver Laws MD Primary Care Provider, Refer ring Provider Active Dr. Sergey Castorena MD Attending Provider Active Team Status: Inactive Member Role Status Dates Dr. Elver Laws MD Primary Care Provider Active Start: March 16, 2024 End: March 16, 2024 Dr. Elver Laws MD Referring Provider Active Start: March 16, 2024 End: March 16, 2024 DIMAS Addison Attending Provider Active Sta rt: March 16, 2024 End: March 16, 2024 Team Status: Inactive Member Role Status Dates Dr. Elver Laws MD Primary Care Provider Active Start: March 16, 2024 End: March 16, 2024 Enrrique COCHRAN PA Attending Provider Active Sta rt: March 16, 2024 End: March 16, 2024 DIMAS Addison Referring Provider Active Sta rt: March 16, 2024 End: March 16, 2024 Team Status: Inactive Member Role Status Dates Dr. Elver Laws MD Primary Care Provider Active Start: April 12, 2024 End: April 12, 2024 Dr. Elver Laws MD Attending Provider Active Start: April 12, 2024 End: April 12, 2024 Dr. Elver Laws MD Referring Provider Active Start: April 12, 2024 End: April 12, 2024 Team Status: Inactive Member Role Status Dates Dr. Elver Laws MD Primary Care Provider Active Start: April 24, 2024 End: April 24, 2024 Dr. Elver Laws MD Attending Provider Active Start: April 24, 2024 End: April 24, 2024 Dr. Elver Laws MD Referring Provider Active Start: April 24, 2024 End: April 24, 2024 Team Status: Inactive Member Role Status Dates Dr. Elver Laws MD Primary Care Provider Active Start: June 04, 2024 End: June 04, 2024 Dr. Elver Laws MD Referring Provider Active Start: June 04, 2024 End: June 04, 2024 Mauro COCHRAN PA Attending Provider Active Start: June 04, 2024 End: June 04, 2024 Team Status: Inactive Member Role Status Dates Dr. Elver Laws MD Primary Care Provider Active Start: June 06, 2024 End: June 06, 2024 Dr. Elver Laws MD Referring Provider Active Start: June 06, 2024 End: June 06, 2024 Mauro COCHRAN PA Attending Provider Active Start: June 06, 2024 End: June 06, 2024 Team Status: Inactive Member Role Status Dates Dr. Elver Laws MD Primary Care Provider Active Start: June 22, 2024 End: June 22, 2024 Dr. Elver Laws MD Attending Provider Active Start: June 22, 2024 End: June 22, 2024 Dr. Elver Laws MD Referring Provider Active Start: June 22, 2024 End: June 22, 2024 Team Status: Active Member Role Status Dates Dr. Elver Laws MD Primary Care Provider Active Start: July 09, 2024 Dr. Elver Laws MD Referring Provider Active Start: July 09, 2024 Dr. Erik Sanford MD Attending Provider Active S tart: July 09, 2024 Team Status: Active Member Role Status Dates Dr. Elver Laws MD Primary Care Provider Active Start: July 09, 2024 Dr. Elver Laws MD Attending Provider Active Start: July 09, 2024 Dr. Elver Laws MD Referring Provider Active Start: July 09, 2024 Team Status: Inactive Member Role Status Dates Dr. Elver Laws MD Primary Care Provider Active Start: August 29, 2024 End: August 29, 2024 Dr. Elver Laws MD Referring Provider Active Start: August 29, 2024 End: August 29, 2024 Dr. Tommy Mendez DO Attending Provider Active Start: August 29, 2024 End: August 29, 2024 Team Status: Inactive Member Role Status Dates Dr. Elver Laws MD Primary Care Provider Active Start: September 05, 2024 End: September 05, 2024 Dr. Elver Laws MD Referring Provider Active Start: September 05, 2024 End: September 05, 2024 Dr. Tommy Mendez DO Attending Provider Active Start: September 05, 2024 End: September 05, 2024 Team Status: Inactive Member Role Status Dates Dr. Elver Laws MD Primary Care Provider Active Start: September 12, 2024 End: September 12, 2024 Dr. Elver Laws MD Referring Provider Active Start: September 12, 2024 End: September 12, 2024 Dr. Tommy Mendez DO Attending Provider Active Start: September 12, 2024 End: September 12, 2024 Team Status: Active Member Role/Relationship Status Dates Dr. Elver Laws MD Primary Care Provider Active Team Status: Inactive Member Role/Relationship Status Dates Dr. Elver Laws MD Primary Care Provider Active Start: August 29, 2024 End: August 29, 2024 Dr. Elver Laws MD Referring Provider Active Start: August 29, 2024 End: August 29, 2024 Dr. Tommy Mendez DO Attending Provider Active Start: August 29, 2024 End: August 29, 2024 Team Status: Inactive Member Role/Relationship Status Dates Dr. Elver Laws MD Primary Care Provider Active Start: September 05, 2024 End: September 05, 2024 Dr. Elver Laws MD Referring Provider Active Start: September 05, 2024 End: September 05, 2024 Dr. Tommy Mendez DO Attending Provider Active Start: September 05, 2024 End: September 05, 2024 Team Status: Inactive Member Role/Relationship Status Dates Dr. Elver Laws MD Primary Care Provider Active Start: September 12, 2024 End: September 12, 2024 Dr. Elver Laws MD Referring Provider Active Start: September 12, 2024 End: September 12, 2024 Dr. Tommy Mendez DO Attending Provider Active Start: September 12, 2024 End: September 12, 2024 Team Status: Inactive Member Role/Relationship Status Dates Dr. Elver Laws MD Primary Care Provider Active Start: December 24, 2024 End: December 24, 2024 Dr. Elver Laws MD Referring Provider Active Start: December 24, 2024 End: December 24, 2024 Dr. Sergey Castorena MD Attending Provider Active Start: December 24, 2024 End: December 24, 2024 Team Status: Inactive Member Role/Relationship Status Dates Dr. Elver Laws MD Primary Care Provider Active Start: December 24, 2024 End: December 24, 2024 Dr. Elver Laws MD Attending Provider Active Start: December 24, 2024 End: December 24, 2024 Dr. Elver Laws MD Referring Provider Active Start: December 24, 2024 End: December 24, 2024 Team Status: Active Member Role/Relationship Status Dates Dr. Elver Laws MD Primary Care Provider Active Start: December 24, 2024 Dr. Elver Laws MD Attending Provider Active Start: December 24, 2024 Dr. Elver Laws MD Referring Provider Active Start: December 24, 2024 FOR RECORDS PERTAINING TO PATIENTS WHO ARE [...] BE BASED ON THE PRIMARY CLINICAL RECORDS. [employer] provides no warranty or guarantee of the accuracy or completeness of information in this document.
[2025-01-04 16:23] LABS: Hematocrit 42.4 % (37-47); Hemoglobin 14.2 g/dL (12.0-15.0); Immature Granulocytes Count 0.070 X10^3/uL (0.0-0.0); Mean Corp Hgb Conc 33.5 g/dL (32-36); Mean Corpuscular Volume 89.1 fL (81-99); Mean Platelet Vol. 11.8 fl (6.2-12.0); NRBC Flagged by Analyzer 0 % (0-5); Platelet Count 262 K/mm3 (150-450); RBC Distribution Width CV 12.6 % (11.6-14.6); RBC Distribution Width SD 41.3 fl (35.1-43.9); Red Blood Count 4.76 M/mm3 (4.2-5.4); White Blood Count 8.1 K/mm3 (4.4-11.0)
[2025-01-04 16:25] LABS: Cholesterol 58 mg/dL (<=200); Low Density Lipoprotein Calc. 10 mg/dL; Triglycerides 72 mg/dL; Very Low Density Lipoprotein 14 mg/dL (5-40); cholesterol:hdl ratio screen 1.76
[2025-01-04 16:57] LABS: Anion Gap 16 (5-15); BUN 16 mg/dL (4-19); BUN/Creat Ratio 15.2 RATIO (10-20); Calcium,Total 7.7 mg/dL (7.6-11.0); Carbon Dioxide 22.8 mmol/L (21.0-32.0); Chloride 101 mmol/L (98-108); Potassium 3.6 mmol/L (3.3-5.1)
[2025-01-04 16:59] LABS: Glucose 88 mg/dL (70-99)
== END | disposition home or self-care (01) ==
LOC: MTLAB 14:10
PROVIDERS: PCP Internal Medicine; Referring Provider Nurse Practitioner Family; Visit Provider Nurse Practitioner Family
DX: I10 Essential (primary) hypertension (principal); J06.9 Acute upper respiratory infection, unspecified; R73.03 Prediabetes
CPT/HCPCS: 36415; 71046; 80048; 80061; 83036; 85025

== ENCOUNTER → 2025-02-05 | Outpatient (CLI) | payer MEDICARE, OTHER, SELFPAY ==
[2025-02-05 11:39] LABS: AST(SGOT) 20 U/L (<=31); Alanine Aminotransfer ALT/SGPT 18 U/L (<=34); Albumin, Serum 4.2 g/dL (3.4-4.8); Alkaline Phosphatase 153 U/L (35-104); Anion Gap 9 (5-15); BUN 20 mg/dL (4-19); BUN/Creat Ratio 20.3 RATIO (10-20); Calcium,Total 9.5 mg/dL (7.6-11.0); Carbon Dioxide 27.5 mmol/L (21.0-32.0); Chloride 103 mmol/L (98-108); Cholesterol 230 mg/dL (<=200); Globulin 3.1 g/dL (2.2-4.2); Glucose 98 mg/dL (70-99); Low Density Lipoprotein Calc. 147 mg/dL; Potassium 4.1 mmol/L (3.3-5.1); Triglycerides 154 mg/dL; Very Low Density Lipoprotein 31 mg/dL (5-40); cholesterol:hdl ratio screen 4.14
== END | disposition home or self-care (01) ==
LOC: PAVLAB 10:50
PROVIDERS: PCP Internal Medicine; Referring Provider Internal Medicine; Visit Provider Internal Medicine
DX: I10 Essential (primary) hypertension (principal); E78.5 Hyperlipidemia, unspecified
CPT/HCPCS: 36415; 80053; 80061

== ENCOUNTER 2025-02-12 09:22 | Day surgery (SDC) | payer MEDICARE, OTHER, SELFPAY ==
--- NOTE | 2025-01-29 16:41 | PAT.ANESEVAL ---
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 When Was Last Pacemaker Check QUESTION #4 FULL TEXT: You/Your Family Experience fever (hyperthermia) with Anesthesia Last Oral Intake Last Oral intake: Last Oral Intake NPO since Meds taken in AM with sips of water? Meds patient instructed to take am of surgery PONV PONV - manufacturing electrician: PONV - manufacturing electrician Female Yes 01/29/25 13:05 HX of Motion Sickness No 01/29/25 13:05 HX of N/V After Surgery No 01/29/25 13:05 Non-Smoker Yes 01/29/25 13:05 Duration of Surgery greater Yes 01/29/25 13:05 than 60 minutes Number of Risk Factors 3 01/29/25 13:05 PONV Score Moderate Risk 01/29/25 13:05 Height & Weight Height & Weight: Anesthesia: Height & Weight Height 5 ft 5 in 01/04/25 13:31 Respiratory Assessment Respiratory Assessment - manufacturing electrician: Respiratory Tract Infection Hx - manufacturing electrician Hx Respiratory Tract Infection No 01/29/25 13:05 STOP Sleep Apnea STOP Sleep Apnea - manufacturing electrician: STOP Sleep Apnea - manufacturing electrician Hx Hypertension Yes: CONTROLLED WITH MEDS 01/29/25 13:05 Hx Sleep Apnea No 01/29/25 13:05 CPAP No 01/29/25 13:05 BIPAP Do you snore loudly (louder No 01/29/25 13:05 than talking or can be heard Do you often feel tired/ No 01/29/25 13:05 fatigued/ sleepy during daytime? Has anyone observed you stop No 01/29/25 13:05 breathing during sleep? STOP Results Negative 01/29/25 13:05 QUESTION #5 FULL TEXT : Do you snore loudly (louder than talking or can be heard through closed doors)? 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 Specify any problems Hx of Preganancy in last 3 No 01/29/25 13:05 Months Nurse Filling Out Transfusion [id number] 01/29/25 13:05 & Questions: Date: 01/29/25 01/29/25 13:05 Time: 13:08 01/29/25 13:05 Patient unable to answer at this time (ie. confused, unrespo /Reproduction History /Reproductive History - manufacturing electrician: /Reproductive Hx- manufacturing electrician Hx Now Gestational Age (in weeks): EDC: Hx Hx Para Hx Section SAB No 01/29/25 13:05 PFSH Medical History (Updated 01/29/25 @ 13:15 by Benigno Vasques) Wears partial dentures History of steroid therapy Gastric reflux History of edema History of stress test History of Holter monitoring URI (upper respiratory infection) Abnormal heart rhythm History of COVID-19 GERD (gastroesophageal reflux disease) Cellulitis of forehead Insect bite Abrasion, right lesser toe(s), initial encounter Abrasion, right great toe, initial encounter Laceration of right knee Localized swelling of back Bilateral hip pain Health care maintenance Colon cancer screening Knee pain Chest pain Fatigue SOB (shortness of breath) Arthritis Lower extremity edema Hx of colonic polyp Dermatitis Bilateral lower extremity edema Trigeminal neuralgia Hyperlipemia Borderline hypertension Osteoarthritis Fibromyalgia Asthma Home Medications Medication Instructions Recorded Last Taken Type albuterol sulfate 2.5 mg/3 mL 2.5 mg (3 mL) inhalation Q4H PRN 05/27/23 Unknown Rx (0.083 %) solution for nebulization shortness of breath or wheezing #90 mL calcium 500 mg (as 1 tab PO QDAY 04/12/24 Unknown History carbonate)-vitamin D3 5 mcg (200 unit) tablet clobetasol 0.05 % topical cream 1 applic topical DAILY PRN PRN rash 04/12/24 Unknown History multivitamin 1 tab PO QAM 04/12/24 Unknown History fluticasone furoate 100 1 inh inhalation Q24H 3 months #60 11/29/24 Unknown Rx mcg-vilanterol 25 mcg/dose ea inhalation powder (Breo Ellipta) albuterol sulfate 90 mcg/actuation 2 puff inhalation Q4H PRN 12/12/24 Unknown Rx aerosol inhaler (Ventolin HFA) shortness of breath or wheezing #8.5 grams topiramate 25 mg tablet 25 mg PO BID #60 tabs 12/24/24 Unknown Rx cetirizine 10 mg tablet (Zyrtec) 10 mg PO DAILY PRN allergy 01/04/25 Unknown Rx symptoms #90 tabs coQ10 (ubiquinol) 100 mg capsule 100 mg PO QDAY 01/04/25 Unknown History (Qunol Zachary CoQ10) triamterene 37.5 1 tab PO DAILY #90 tabs 01/09/25 Unknown Rx mg-hydrochlorothiazide 25 mg tablet fluticasone propionate 50 2 spray intranasal QDAY PRN nasal 01/29/25 Unknown History mcg/actuation nasal congestion spray,suspension (Flonase Allergy Relief) losartan 25 mg tablet 25 mg PO QHS 01/29/25 Unknown History omeprazole 40 mg capsule,delayed 40 mg PO QDAY PRN GERD 01/29/25 Unknown History release Allergy/AdvReac Type Severity Reaction Status Date / Time hydrocodone (From [place]) AdvReac Mild Nausea Verified 01/29/25 13:01 amoxicillin (From Augmentin) AdvReac Nausea Verified 01/29/25 13:01 clavulanic acid (From AdvReac Nausea Verified 01/29/25 13:01 Augmentin) oxycodone (From Percodan) AdvReac Nausea Verified 01/29/25 13:01 propoxyphene (From AdvReac Nausea Verified 01/29/25 13:01 Darvocet-N 100) Family History Mother Cancer, Onset Age: 58 pancreatic Diabetes Father Cancer, Onset Age: 70 pancreatic, passed of it Hypertension Grandfather Heart disease Hypertension Brother Diabetes Hypertension Uncle Colon cancer Surgical History (Updated 01/29/25 @ 13:15 by Benigno Vasques) S/P arthroscopic partial medial meniscectomy History of arthroscopy of right knee History of tubal ligation History of cholecystectomy History of colonoscopy Social History Smoking Status: Never smoker alcohol intake: never substance use type: does not use caffeine: Yes what type of physical activity do you participate in: walking frequency: 3-4 times per week seatbelt use: always do you feel safe at home: Yes additional social history: [employer]- Retired Patient is retired Audit: Pertinent Findings Pertinent Findings EKG Perinent findings: 12/14/2023. Normal sinus rhythm with sinus arrhythmia. Nonspecific ST and T wave abnormality. Additional pertinent findings: 07/09/2024. 14-day monitor. Baseline rhythm is sinus tachycardia with a heart rate of 109 bpm. SVE less than 1%. VE's less than 1%. No atrial fibrillation. Recommendation Anesthesia Recommendation Anesthesia recommendation: OPTIMIZED for anesthesia
[2025-02-12] VITALS (10 sets, daily range): BP systolic 128–173; BP diastolic 81–93; PULSE 87–104; RESP 14–18; TEMP 36.3–36.9; O2SAT 95–99; BMI 34.4
--- NOTE | 2025-02-12 10:36 | PCM.PRE.AN2 ---
ASA Classification* ASA Classification ASA Classification: 3 Assessment & Plan Anesthesia* Anesthesia Assessment Anesthesia Assessment: Discussed sedation and/or anesthesia options, risks, benefits, and alternatives with patient/parents/legal guardian/POA. Questions invited. The patient/parents/legal guardian/POA seems to understand and agrees to proceed with anesthesia plan. Reviewed the physical assessment, medical history, allergy history and patient home medications list prior to surgery/procedure/anesthetic and documented any changes. Performed airway and anesthesia risk assessments. Anesthesia Type Anesthesia Type: General History Source History Obtained from:: Patient and Chart Anesthesia Focused Assessment* Temperature: 97.6 F Pulse Rate: 94 Blood Pressure: 128/84 Respiratory Rate: 16 Pulse Ox: 97 Oxygen Delivery Method: Room Air Airway Assessment Mouth opens: >3 cm Mallampati Score: III Teeth Condition: Caps/Crowns (Patient has veneers on her top incisors. And a capped left lower molar. They are all tight.) and Partial (Top partial is out.) Neck Range of motion (ROM): Limited ROM (Severe Restriction) Comment: Patient has tightness in her left TMJ. Labs Anesthesia Preop lab: CBC WBC, (4.4-11.0) 8.1 K/mm3 01/04/25, 14:20 RBC, (4.2-5.4) 4.76 M/mm3 01/04/25, 14:20 Hgb, (12.0-15.0) 14.2 g/dL 01/04/25, 14:20 Hct, (37-47) 42.4 % 01/04/25, 14:20 Plt Count, (150-450) 262 K/mm3 01/04/25, 14:20 CHEMISTRY Potassium, (3.3-5.1) 4.1 mmol/L 02/05/25, 10:54 Sodium, (133-145) 140 mmol/L 02/05/25, 10:54 Magnesium, (1.5-2.2) 2.2 mg/dL 06/22/24, 11:40 BUN, (4-19) 20 mg/dL H 02/05/25, 10:54 Creatinine, (0.70-1.20) 0.96 mg/dL 02/05/25, 10:54 Glucose, (70-99) 98 mg/dL 02/05/25, 10:54 TSH, (0.300-4.200) 1.730 uIU/mL 06/22/24, 11:40 COAG Pre-Assessment Diagnosis/Proposed Procedure Planned Operative Procedure(s): EXICSON LIPOMA RIGHT BACK AREA X11 Anesthesia History 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 When Was Last Pacemaker Check QUESTION #4 FULL TEXT: You/Your Family Experience fever (hyperthermia) with Anesthesia Last Oral Intake Last Oral intake: Last Oral Intake NPO since 20:00 02/12/25 09:26 Meds taken in AM with sips of Yes 02/12/25 09:26 water? Meds patient instructed to inhaler 02/12/25 09:26 take am of surgery PONV PONV - desktop support specialist: PONV - desktop support specialist Female Yes 01/29/25 13:05 HX of Motion Sickness No 01/29/25 13:05 HX of N/V After Surgery No 01/29/25 13:05 Non-Smoker Yes 01/29/25 13:05 Duration of Surgery greater Yes 01/29/25 13:05 than 60 minutes Number of Risk Factors 3 01/29/25 13:05 PONV Score Moderate Risk 01/29/25 13:05 Height & Weight Height & Weight: Anesthesia: Height & Weight Height 5 ft 5 in 02/12/25 09:26 Weight: 94 kg 02/12/25 09:26 Body Mass Index (BMI) 34.4 02/12/25 09:26 Respiratory Assessment Respiratory Assessment - desktop support specialist: Respiratory Tract Infection Hx - desktop support specialist Hx Respiratory Tract Infection No 01/29/25 13:05 STOP Sleep Apnea STOP Sleep Apnea - desktop support specialist: STOP Sleep Apnea - desktop support specialist Hx Hypertension Yes: CONTROLLED WITH MEDS 01/31/25 13:57 Hx Sleep Apnea No 01/29/25 13:05 CPAP No 01/29/25 13:05 BIPAP Do you snore loudly (louder No 01/29/25 13:05 than talking or can be heard Do you often feel tired/ No 01/29/25 13:05 fatigued/ sleepy during daytime? Has anyone observed you stop No 01/29/25 13:05 breathing during sleep? STOP Results Negative 01/29/25 13:05 QUESTION #5 FULL TEXT : Do you snore loudly (louder than talking or can be heard through closed doors)? Tobacco Use History Tobacco Use History - desktop support specialist: Tobacco Use History - desktop support specialist Tobacco Use Smoking Status Never smoker 01/29/25 13:05 Hx Tobacco Use No 01/29/25 13:05 Years Smoking Packs Smoked per Day Smoking Cessation Date was within the last 15 years Hx Smoking Cessation Date Hx Smoking Cessation Counseling Hematologic Medial History Hematologic Hx - desktop support specialist: Hematologic Medical Hx - back tender fourdrinier Hx of Blood Transfusion No 01/29/25 13:05 Hx of Transfusion in last 3 No 01/29/25 13:05 Months Date of Last Transfusion (if within last 3 months) Ever experience any problems No 01/29/25 13:05 with transfusion(s)? Specify any problems Hx of Preganancy in last 3 No 01/29/25 13:05 Months Nurse Filling Out Transfusion [email or web address] 01/29/25 13:05 & Questions: Date: 01/29/25 01/29/25 13:05 Time: 13:08 01/29/25 13:05 Patient unable to answer at this time (ie. confused, unrespo /Reproduction History /Reproductive History - desktop support specialist: /Reproductive Hx- desktop support specialist Hx Now Gestational Age (in weeks): EDC: Hx Hx Para Hx Section SAB No 01/29/25 13:05 Active Medications Active Medications: Current Medications Generic Name Dose Route Start Last Admin Trade Name Freq PRN Reason Stop Dose Admin Clindamycin Phosphate 900 mg in 50 mls @ 75 mls/hr 02/12/25 11:00 Cleocin IV 02/12/25 11:39 INTRAOP ONE Lactated Ringer's 1,000 mls @ 15 mls/hr 02/12/25 09:30 IV .Q48H EVELIA PFSH Medical History Preoperative evaluation to rule out surgical contraindication Wears partial dentures History of steroid therapy Gastric reflux History of edema History of stress test History of Holter monitoring URI (upper respiratory infection) Abnormal heart rhythm History of COVID-19 GERD (gastroesophageal reflux disease) Cellulitis of forehead Insect bite Abrasion, right lesser toe(s), initial encounter Abrasion, right great toe, initial encounter Laceration of right knee Localized swelling of back Bilateral hip pain Health care maintenance Colon cancer screening Knee pain Chest pain Fatigue SOB (shortness of breath) Arthritis Lower extremity edema Hx of colonic polyp Dermatitis Bilateral lower extremity edema Trigeminal neuralgia Hyperlipemia Borderline hypertension Osteoarthritis Fibromyalgia Asthma Home Medications Medication Instructions Recorded Last Taken Type albuterol sulfate 2.5 mg/3 mL 2.5 mg (3 mL) inhalation Q4H PRN 05/27/23 Unknown Rx (0.083 %) solution for nebulization shortness of breath or wheezing #90 mL calcium 500 mg (as 1 tab PO QDAY 04/12/24 Unknown History carbonate)-vitamin D3 5 mcg (200 unit) tablet clobetasol 0.05 % topical cream 1 applic topical DAILY PRN PRN rash 04/12/24 Unknown History multivitamin 1 tab PO QAM 04/12/24 02/11/25 History fluticasone furoate 100 1 inh inhalation Q24H 3 months #60 11/29/24 02/12/25 Rx mcg-vilanterol 25 mcg/dose ea inhalation powder (Breo Ellipta) albuterol sulfate 90 mcg/actuation 2 puff inhalation Q4H PRN 12/12/24 Unknown Rx aerosol inhaler (Ventolin HFA) shortness of breath or wheezing #8.5 grams cetirizine 10 mg tablet (Zyrtec) 10 mg PO DAILY PRN allergy 01/04/25 02/11/25 Rx symptoms #90 tabs coQ10 (ubiquinol) 100 mg capsule 100 mg PO QDAY 01/04/25 Unknown History (Qunol Zachary CoQ10) triamterene 37.5 1 tab PO DAILY #90 tabs 01/09/25 02/11/25 Rx mg-hydrochlorothiazide 25 mg tablet fluticasone propionate 50 2 spray intranasal QDAY PRN nasal 01/29/25 Unknown History mcg/actuation nasal congestion spray,suspension (Flonase Allergy Relief) losartan 25 mg tablet 25 mg PO QHS 01/29/25 02/11/25 History omeprazole 40 mg capsule,delayed 40 mg PO QDAY PRN GERD 01/29/25 02/11/25 History release Allergy/AdvReac Type Severity Reaction Status Date / Time hydrocodone (From [place]) AdvReac Mild Nausea Verified 02/05/25 10:13 amoxicillin (From Augmentin) AdvReac Nausea Verified 02/05/25 10:13 clavulanic acid (From AdvReac Nausea Verified 02/05/25 10:13 Augmentin) oxycodone (From Percodan) AdvReac Nausea Verified 02/05/25 10:13 propoxyphene (From AdvReac Nausea Verified 02/05/25 10:13 Darvocet-N 100) Family History Mother Cancer, Onset Age: 58 pancreatic Diabetes Father Cancer, Onset Age: 70 pancreatic, passed of it Hypertension Grandfather Heart disease Hypertension Brother Diabetes Hypertension Uncle Colon cancer Surgical History S/P arthroscopic partial medial meniscectomy History of arthroscopy of right knee History of tubal ligation History of cholecystectomy History of colonoscopy Social History Smoking Status: Never smoker alcohol intake: never substance use type: does not use caffeine: Yes what type of physical activity do you participate in: walking frequency: 3-4 times per week seatbelt use: always do you feel safe at home: Yes additional social history: [employer]- Retired Patient is retired Review of Systems (Anesthesia) ROS Narrative System reviewed and no additional complaints, except as documented. Physical Exam Resp clear to auscultation bilaterally
[2025-02-12] MEDS: Lactated Ringers 1,000 ML 15 ML IV ×2 (11:00→15:15)
--- NOTE | 2025-02-12 11:00 | LIP_PTH ---
PATIENT: ROSEANNE JOLLEY LOC: [facility] [place] U#:[id number] AGE/SX: 69/F ROOM: RE02/12/[address]: Dr. Sergey Castorena MD : 1955 BED: DIS: 02/12/2025 SPEC #: [id number] RECD: 02/12/25 16:48 STATUS: JAG REKrunal #: [id number] KARYN: 02/12/25 11:[address]: Sergey Castorena DEPT: SURGICAL PATHOLOGY RECD BY: Ryan Rodriguez ENTERED: 02/13/25 11:01 SP TYPE: LIPOMA OTHR DR: Dr. Elver Laws MD Tissues: A - Soft tissues, NOS B - Soft tissues, NOS C - Soft tissues, NOS D - Soft tissues, NOS E - Soft tissues, NOS F - Soft tissues, NOS G - Soft tissues, NOS H - Soft tissues, NOS I - Soft tissues, NOS J - Soft tissues, NOS K - Soft tissues, NOS L - Soft tissues, NOS Procedures: Surgery Specimen Level III HEADER OPERATION: Excision, lipoma right back area x 12 PRE-OP DIAGNOSIS: Multiple lipomas TISSUE SUBMITTED: A- Right lumbar lateral lipomatous, B- Superior medial lumbar lipomatous,C- Right lumbar mid medial lipomatous, D - Right lumbar medial inferior lipomatous, E- Upper back superior medial lipomatous, F- Left upper back superior lateral lipomatous, G- Left upper back inferior lateral lipomatous, H -Upper back inferior medial lipomatous, I- Right upper back superior lateral lipomatous, J-Right upper back inferior lateral lipomatous, K -Mid back lateral lipomatous, L- Mid back medial lipomatous, excision: MICROSCOPIC DIAGNOSIS A. Right lumbar lateral, mass, excision: - Mature adipose consistent with lipoma.B. Superior medial lumbar, mass, excision: - Mature adipose consistent with lipoma.C. Right lumbar mid medial, mass, excision: - Mature adipose consistent with lipoma.D. Right lumbar medial inferior, mass, excision: - Mature adipose consistent with lipoma.E. Upper back superior medial, mass, excision: - Mature adipose consistent with lipoma. - Benign lymph node x2.F. Left upper back superior lateral, mass, excision: - Mature adipose consistent with lipoma.G. Left upper back inferior lateral, mass, excision: - Angiolipoma.H. Upper back inferior medial, mass, excision: - Angiolipoma.I. Right upper back superior lateral, mass, excision: - Angiolipoma.J. Right upper back inferior lateral, mass, excision: - Angiolipoma.K. Mid back lateral, mass, excision: - Mature adipose consistent with lipoma.L. Mid back medial, mass, excision: - Mature adipose consistent with lipoma. MICROSCOPIC DESCRIPTION Slides are reviewed. GROSS DESCRIPTION Received in 12 formalin containers labeled with the patient's name and date of . Designated as: A. "RT lumbar lateral lipomatous" is a 6.8 x 5.1 x 1.9 cm geller-yellow, focally congested, lobulated portion of soft tissue. Sectioning reveals yellow, granular, homogenous cut surfaces throughout. [employer] sections are submitted in 4 cassettes. B. "Lumbar superior medial lipomatous" is a 2.6 x 2.2 x 0.3 cm aggregate of geller-yellow lobulated soft tissue. Entirely submitted in 1 cassette. C. "Lumbar RT mid medial lipomatous" is a 4.1 x 3.0 x 0.6 cm aggregate of geller-yellow, focally congested lobulated soft tissue. [employer] sections are submitted in 1 cassette. D. "Lumbar right medial inferior lipomatous" is a 7.8 x 6.7 x 2.4 cm aggregate of geller-yellow, focally congested, somewhat shaggy soft tissue fragments. Sectioning reveals a geller-yellow, focally congested, granular cut surfaces. [employer] sections are submitted in 4 cassettes. E. "Upper back superior medial lipomatous" is a 5.2 x 3.5 x 1.6 cm geller-yellow to brown-red, irregular portion of soft tissue. Sectioning reveals geller-yellow to red, soft to firm, lobulated, homogenous cut surfaces with threadlike fibrosis and a 0.3 cm possible lymph node. [employer] sections are submitted in 3 cassettes as follows: E1: Cross-sections with possible lymph nodeE2-E3: Cross-sections F. "Upper back superior lateral left lipomatous" is a 2.0 x 1.5 x 1.1 cm geller-yellow soft tissue nodule with geller-yellow, granular, homogenous cut surfaces. [employer] sections are submitted in 1 cassette. G. "Upper back inferior lateral left lipomatous" is a 3.9 x 3.8 x 1.4 cm aggregate of geller-yellow lobulated soft tissue. Sectioning of the larger tissue fragments reveals a geller-yellow, homogenous cut surfaces. [employer] sections are submitted in 2 cassettes. H. "Upper back inferior medial lipomatous" is a 2.8 x 2.6 x 0.8 cm aggregate of geller-yellow lobulated soft tissue. [employer] sections are submitted in 1 cassette. I. "Upper back superior lateral right lipomatous" is a 1.9 x 1.9 x 0.6 cm aggregate of geller-yellow lobulated soft tissue with geller-yellow, homogenous cut surfaces. [employer] sections are submitted in 1 cassette. J. "Upper back inferior lateral right lipomatous" is a 3.3 x 2.7 x 1.2 cm geller-yellow with geller-yellow, granular, homogenous cut surfaces. [employer] sections are submitted in 2 cassettes. K. "Mid back lateral lipomatous" is a 2.4 x 2.4 x 0.8 cm aggregate of geller-yellow, focally congested soft tissue fragments. [employer] sections are submitted in 1 cassette. L. "Mid back medial lipomatous" is a 2.9 x 2.9 x 0.8 cm aggregate of geller-yellow lobulated tissue fragments. [employer] sections are submitted in 1 cassette. PA 02/13/2025 CPT:[id number]
--- NOTE | 2025-02-12 11:04 | PCM.HP.BLA ---
History and Physical Date of Admission: 02/12/25 Date of Service: 02/05/25 MR#: [id number] Acct: [id number] Name: ROSEANNE JOLLEY Rep #: [id number] : 1955 Provider: CJ Forman Age/Sex: 69/F Location: [facility] Status: Signed Intake Vital Signs 12/24/2509:03 02/04/2509:29 02/05/2510:12 Height 5 ft 5 in 5 ft 5 in 5 ft 5 in Weight: 240 lb BMI 39.9 BP 135/83 H Blood Pressure Location Rt brachial Position Sitting Respiration 18 Pulse 90 Intake Visit Reasons: UPDATE H & P Chief Complaint: update H&P Caponizer Required: No Is patient in pain?: Yes (left TMJ discomfort) Allergies hydrocodone (From [place]) Adverse Reaction (Mild, Verified 02/05/25 10:13) Nausea amoxicillin (From Augmentin) Adverse Reaction (Verified 02/05/25 10:13) Nausea clavulanic acid (From Augmentin) Adverse Reaction (Verified 02/05/25 10:13) Nausea oxycodone (From Percodan) Adverse Reaction (Verified 02/05/25 10:13) Nausea propoxyphene (From Darvocet-N 100) Adverse Reaction (Verified 02/05/25 10:13) Nausea Medications Medication Instructions Recorded Confirmed Type albuterol sulfate 2.5 mg/3 mL 2.5 mg (3 mL) inhalation Q4H PRN 05/27/23 02/05/25 Rx (0.083 %) solution for nebulization shortness of breath or wheezing #90 mL calcium 500 mg (as 1 tab PO QDAY 04/12/24 02/05/25 History carbonate)-vitamin D3 5 mcg (200 unit) tablet clobetasol 0.05 % topical cream 1 applic topical DAILY PRN PRN rash 04/12/24 02/05/25 History multivitamin 1 tab PO QAM 04/12/24 02/05/25 History fluticasone furoate 100 1 inh inhalation Q24H 3 months #60 11/29/24 02/05/25 Rx mcg-vilanterol 25 mcg/dose ea inhalation powder (Breo Ellipta) albuterol sulfate 90 mcg/actuation 2 puff inhalation Q4H PRN 12/12/24 02/05/25 Rx aerosol inhaler (Ventolin HFA) shortness of breath or wheezing #8.5 grams cetirizine 10 mg tablet (Zyrtec) 10 mg PO DAILY PRN allergy 01/04/25 02/05/25 Rx symptoms #90 tabs coQ10 (ubiquinol) 100 mg capsule 100 mg PO QDAY 01/04/25 02/05/25 History (Qunol Zachary CoQ10) triamterene 37.5 1 tab PO DAILY #90 tabs 01/09/25 02/05/25 Rx mg-hydrochlorothiazide 25 mg tablet fluticasone propionate 50 2 spray intranasal QDAY PRN nasal 01/29/25 02/05/25 History mcg/actuation nasal congestion spray,suspension (Flonase Allergy Relief) losartan 25 mg tablet 25 mg PO QHS 01/29/25 02/05/25 History omeprazole 40 mg capsule,delayed 40 mg PO QDAY PRN GERD 01/29/25 02/05/25 History release Have you fallen in the past year?: No PFSH Medical History Preoperative evaluation to rule out surgical contraindication Wears partial dentures History of steroid therapy Gastric reflux History of edema History of stress test History of Holter monitoring URI (upper respiratory infection) Abnormal heart rhythm History of COVID-19 GERD (gastroesophageal reflux disease) Cellulitis of forehead Insect bite Abrasion, right lesser toe(s), initial encounter Abrasion, right great toe, initial encounter Laceration of right knee Localized swelling of back Bilateral hip pain Health care maintenance Colon cancer screening Knee pain Chest pain Fatigue SOB (shortness of breath) Arthritis Lower extremity edema Hx of colonic polyp Dermatitis Bilateral lower extremity edema Trigeminal neuralgia Hyperlipemia Borderline hypertension Osteoarthritis Fibromyalgia Asthma Surgical History S/P arthroscopic partial medial meniscectomy History of arthroscopy of right knee History of tubal ligation History of cholecystectomy History of colonoscopy Family History Mother Cancer, Onset Age: 58 pancreatic Diabetes Father Cancer, Onset Age: 70 pancreatic, passed of it Hypertension Grandfather Heart disease Hypertension Brother Diabetes Hypertension Uncle Colon cancer Social History Smoking Status: Never smoker alcohol intake: never substance use type: does not use caffeine: Yes what type of physical activity do you participate in: walking frequency: 3-4 times per week seatbelt use: always do you feel safe at home: Yes additional social history: Santos- Retired Patient is retired HPI HPI Surgical H&P: Yes HPI: Patient is a 69 y/o F who presents for an update history and physical for an upcoming elective procedure with Dr. Castorena to remove 11 subcutaneous masses. Patient denies any recent hospitalizations or illnesses since her last office visit with us. Patient notes she has been going to physical therapy for TMJ. She denies any recent changes in medication. She notes multiple intolerances to pain medications. She denies any cardiac history such as CT, stroke or blood clots. She notes a history of asthma for which has been well controlled with a daily inhaler. She denies any concerns or complications with anesthesia. Patient' s previous history per Dr. Castorena: Patient has is now a 69-year-old female who initially establish consultation with me related to a request for removal of a number of subcutaneous lipomas. Initial surgery delayed on account of developing shingles. Her last appointment at this office was 11/04/2023. She shares that initially she had shingles that were diagnosed in a periorbital distribution, however, she was later diagnosed with ophthalmologic spread and required a month of valacyclovir. On top of this she notes her face several severe health issues that took priority. She presents today stating that she is ready to move forward and feels like this that she has been put off long enough. She denies any new areas of concern. She does remark that she is dealing with some upper respiratory tract symptoms which she is uncertain whether they represent allergies or a cold. Lastly she shares that she is pending a vacation on January 27 and wishes to delay her surgery until after her return. Below is recapitulated from patient's prior visit for ease of review: Patient is 68-year-old female evaluated for excision of multiple lipomas originally on 07/07/2023 presents for follow-up consultation. She reports today stating that she suspects there has been some interval growth of some of her lipomas and she also describes some discomfort from these areas. She shares that her is gone ahead and marked out all palpable lipomas so that we can identify them for today's visit as she really would like to have them all removed in 1 operative trip. She goes on to share that she has recently been diagnosed with periorbital shingles of the left eye. She states that she was initially diagnosed as a bug bite but then did go on to complete a course of both valacyclovir and prednisone. However, she states that she still feels as though "someone is tugging at her eye and that it is just not normal. She shares that [facility]. ROS General General: Yes weight change and fatigue; No appetite, colon cancer, breast cancer or weakness HEENT HEENT: No difficulty swallowing, eye injury, eye surgery, swollen glands or hoarseness Endo Endocrine: No thyroid disease, diabetes mellitus, thyroid cancer, Hair loss, heat intolerance or cold intolerance Skin Skin: Yes rash; No changing moles Musc Musculoskeletal: Yes back problems and arthritis; No rheumatoid arthritis, gout or joint pain Cardio Cardiovascular: Yes high blood pressure; No murmur, pacemaker, heart disease, atrial fibrillation, heart attack, heart stent, palpitations, shortness of breath with exertion or chest pain Psych Psychiatric: No depression, anxiety or hearing voices Resp Respiratory: No shortness of breath, No sleep apnea, No cough, No COPD, Yes asthma, No emphysema and No wheezing Gastro Gastrointestinal: No abdominal pain, No nausea or vomiting, No diarrhea, No constipation, No blood in stool, No acid reflux, No hemorrhoids, No ulcers, No gallbladder problem and No black,tarry stools Lawson Hematologic: No blood thinners, No blood disorders, No bleeding, No anemia and No blood clots Neuro Neurologic: No numbness, No tingling and No weakness Exam Const General: cooperative, healthy appearing and comfortable [facility] Head: normal to inspection Eyes General: appearance normal, both eyes and all related structures Neck Neck: normal visual inspection Neck mass: No Resp Effort & Inspection: normal respiratory effort Auscultation: clear to auscultation bilaterally Cardio Rate: regular rate Rhythm: regular rhythm GI Inspection: normal to inspection Musc Cervical Spine: normal cervical lordosis Skin Other: Per Dr. Castorena's previous note: Patient with a 4 to 5 cm transverse scar over the right flank and underlying this area is a large lipoma that wraps around to her side and is tender to palpation. It is somewhat mobile and is estimated at approximately 6 cm in diameter. Additional lipomatous masses occur in the midline of her posterior neck, bilaterally in her upper back, on the right side just superior to her bra line, and there is a small nontender lesion of her left upper chest just lateral to a scar from a dermatologic procedure. A total of 5 lipomas were identified in the upper back medially and 5 additional lipomas were identified in the mid back favoring the right side. Lastly there is the right flank lipoma described in greater detail above. Neuro General: no focal motor deficits and CN's II-XI intact bilaterally Extrem General: normal to inspection Psych Appearance: grossly normal Affect: normal affect Assessment and Plan Assessment and Plan (1) Multiple lipomas: Status: Chronic Plan: Dr. Castorena will plan to perform an excision of subcutaneous masses x 11 under MAC local. Patient to be positioned on left lateral decubitus position. Procedure details, risks and benefits have been reviewed with the patient. Patient has had the opportunity to ask and have questions answered. Patient verbally understands and agrees with the proposed plan. Patient has multiple intolerances to pain medication. She notes being able to take oxycodone with Zofran. She is also able to take tramadol without any concerns. I have examined the patient and the H&P has been reviewed. There are no clinical changes since date of exam. Sites of lipomatous masses are marked preoperatively. Consents were confirmed. Proceed to the operating room for procedure as described above.
[2025-02-12] MEDS: Midazolam 2 MG/2 ML Syringe IV (11:20)
[2025-02-12] MEDS: Lidocaine 1% (5 ml sdv) 5 ML Vial IV (11:20)
[2025-02-12] MEDS: Bupiv/Epi 0.25% 30 ML Vial ×2 (13:42→14:21)
[2025-02-12] MEDS: fentaNYL 100 MCG/2 ML Ampul 300 MCG IV (14:29)
[2025-02-12] MEDS: Lactated Ringers 1,000 ML 1000 ML IV (14:30)
--- NOTE | 2025-02-12 15:01 | PCM.OPRPT ---
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 Trash Hauler: Hakan Jenkins Tasks completed by sales and marketing assistant: Opening & closing, Hemostasis: Electrocautery and Retracting Type of Anesthesia: General/Supplemental (60 mL of quarter percent bupivacaine) RN Documented Start/Stop Times: Operation Date: 02/12/25 11:00 Case Time Into Pre-Op 02/12/25 09:26 Out of Pre-Op 02/12/25 11:10 Anesthesia Start 02/12/25 11:13 Into Room 02/12/25 11:13 Procedure Start 02/12/25 11:49 Procedure End 02/12/25 15:01 Anesthesia End 02/12/25 15:12 Out of Room 02/12/25 15:12 Into Recovery 02/12/25 15:15 Into Phase II Recovery 02/12/25 16:25 Out of Recovery 02/12/25 16:25 Out of Phase II 02/12/25 18:27 Procedure Start Time: 11:49 Procedure Stop Time: 15:01 Select all DRAINS/GRAFTS/IMPLANTS that apply: None Estimated Blood Loss: 30 Specimen collected: Yes Description of specimen(s) removed: 1. Right lumbar lateral lipomatous mass (measuring 7.5 x 5.5 cm) 2. Lumbar superior medial lipomatous mass (2 x 2 cm) 3. Lumbar right mid medial lipomatous mass (4 x 3 cm) 4. Lumbar right medial inferior lipomatous mass (9 x 7.5 cm) 5. Upper back superior medial lipomatous mass (5.5 x 3.5 cm) 6. Upper back superior and lateral left lipomatous mass (2.5 x 1.5 cm) 7. Upper back inferior lateral left lipomatous mass (4.5 x 2.5 cm) 8. Upper back inferior medial lipomatous mass (3 x 2 cm) 9. Upper back superior lateral right lipomatous mass (2 x 2 cm) 10. Upper back inferior lateral right lipomatous mass (4 x 3 cm) 11. Mid back lateral lipomatous mass (3 x 2 cm) 12. Mid back medial lipomatous mass (3 x 2 cm) Description of surgery: After appropriate identification the preoperative holding area patient was brought to the operating room where she was positioned supine and underwent general endotracheal anesthetic. After intubation she was positioned in a left lateral position on a beanbag. Preoperative antibiotics were infused. Her right back/posterior neck was prepped and draped in usual sterile fashion. A formal timeout followed to confirm both patient and procedure. I then made a transverse incision 6 cm long along the prior incision scar of patient's right flank lipomatous mass. This was carried deeply through the tissue with use of electrocautery to maintain hemostasis as we proceeded. I then visualized the lipomatous subcutaneous mass and used a combination of sharp and blunt dissection to free this mass from the surrounding soft tissue. Selective electrocautery was used to maintain hemostasis. Local anesthetic was used to try to improve patient's comfort with a total volume of 60 mL quarter percent bupivacaine plain infiltrated for the case. The right flank lipomatous mass was then completely extirpated and passed off the operative field for pathology. The resulting cavity was irrigated and then was inspected for hemostasis and was found to be intact. The cavity was then packed with a clean Ray-Camila gauze and I proceeded in a systematic fashion to repeat the same sequence for each of the patient's additional 11 preoperatively marked sites. As noted in the "specimens" listing lipomatous masses range from 2 cm to 9 cm in greatest dimension. The larger masses were generally noted to be present in the lumbar region of the back. All but 3 of these lipomas were superficial depth of extension–with the most notable example of the deepest lesion being present in patient's superior upper back medial position which extended to the level of the muscular fascia over the trapezius muscle. After completion of the excision each cavity was irrigated and inspected for hemostasis. Additional local anesthetic was infiltrated at the conclusion of the case for the patient's benefit postoperatively. Then each cavity was closed in layers with a running deep dermal suture using a 3-0 Vicryl followed by a subcuticular with a 4-0 Monocryl, respectively. Steri-Strips and dressing were applied and the patient's anesthetic was reversed and she was transferred to the PACU bed for her ongoing care. Surgical Findings: – Numerous lipomatous masses–most well encapsulated and discrete located in the subcu space with several exceptions extending down to the muscular fascia–most notably in the upper back superior medial position. Complications Complications: No Admit VTE Documentation VTE Mechan Device Prophylaxis: SCD's
--- NOTE | 2025-02-12 15:06 | DCINST_ITS ---
Discharge Instructions Diet Discharge Diet: No restrictions Activity Discharge Activity: May Drive (No driving while using narcotic pain medication) May shower in (days): 2 Lifting Restrictions: Limit lifting with left upper extremity to no more than 10 pounds Dressing / Incision Call your doctor if your incision/area has: Continuous Slow Oozing, Sudden Increased Bleeding, Increased Pain/ Swelling, Increased Redness, Foul Smelling Discharge and Swelling at the incision site Call your doctor if you observe: Fever of 101 or Higher Suture Line Care: Avoid Pulling/Pushing Remove Dressing in: 2 days Cleanse incision/area with: Soap & Water Additional Dressing/Incision Instructions:: Please leave Steri-Strips intact until they fall off spontaneously or are taken off at your follow-up visit Follow Up Care Please Follow Up With: Sergey Castorena MD When: 10-14 days postop Test Results: Test results from this visit will be discussed in further detail at your follow- up appointment, if applicable. Discharge Plan Admission Primary Reason for Your Visit: Excision of lipomatous masses Attending Provider: Sergey Castorena Primary Care Provider: Elver Laws Instructions Print Language: Pashto Discharge Orders/Prescriptions Prescriptions: New tramadol 50 mg tablet 50 mg PO Q6H PRN (Reason: pain) 3 Days Qty: 14 0RF Continued clobetasol 0.05 % cream 1 applic topical DAILY PRN PRN (Reason: rash) Patient Comments: A THREE TIMES A DAY TO AFFECTED AREAS ON ARMS FOR 2 WEEKS. HOLD FOR 1 WEEK BEFORE RESUMING FOR FLARES. multivitamin Tablet 1 tab PO QAM calcium carbonate-vitamin D3 500 mg-5 mcg (200 unit) tablet 1 tab PO QDAY coQ10 (ubiquinol) [Qunol Zachary CoQ10] 100 mg capsule 100 mg PO QDAY cetirizine [Zyrtec] 10 mg tablet 10 mg PO DAILY PRN (Reason: allergy symptoms) Qty: 90 2RF omeprazole 40 mg capsule,delayed release(DR/EC) 40 mg PO QDAY PRN (Reason: GERD) Rx Instructions: Take 30 minutes before breakfast losartan 25 mg tablet 25 mg PO QHS fluticasone propionate [Flonase Allergy Relief] 50 mcg/actuation spray,suspension 2 spray intranasal QDAY PRN (Reason: nasal congestion) Rx Instructions: administer into each nostril albuterol sulfate 2.5 mg /3 mL (0.083 %) solution for nebulization 2.5 mg inhalation Q4H PRN (Reason: shortness of breath or wheezing) Qty: 90 0RF fluticasone furoate-vilanterol [Breo Ellipta] 100-25 mcg/dose blister with device 1 inh inhalation Q24H 90 Days Qty: 60 3RF albuterol sulfate [Ventolin HFA] 90 mcg/actuation HFA aerosol inhaler 2 puff inhalation Q4H PRN (Reason: shortness of breath or wheezing) Qty: 8.5 0RF triamterene-hydrochlorothiazid 37.5-25 mg tablet 1 tab PO DAILY Qty: 90 1RF Referrals / Follow Up: Elver Laws MD [Primary Care Provider, Internal Medicine] Disposition Disposition (needs filled in before D/C Order can be placed): Home, Self Care
--- NOTE | 2025-02-12 15:31 | PCM.POST.ANE ---
Anesthesia: Postop Eval I Current Vital Signs Temperature: 97.5 F Pulse Rate: 98 Blood Pressure: 173/93 Respiratory Rate: 16 Pulse Ox: 95 Oxygen Delivery Method: Nasal Cannula Oxygen Flow Rate (L/min): 2 Assessment Airway patent: Yes Spontaneous unlabored respirations: Yes Mental status: Awake and Calm nausea: No Vomiting: No Anesthesia Complication: No Fluid Hydration Crystalloid volume administer (ml): 1,000 Total IV fluid infused: 1,000 Progress Note Anesthesia document: Postop Eval 1 completed: Yes
--- NOTE | 2025-02-12 15:55 | POSTOPAN2_ITS ---
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 Spontaneous unlabored Yes 02/12/25 15:32 TANK CAR [email or web address].SHOF respirations Mental status Awake,Calm 02/12/25 15:32 TANK CAR [email or web address] nausea No 02/12/25 15:32 TANK CAR MECHANIC.SHOF Vomiting No 02/12/25 15:32 TANK CAR [email or web address].SHOF Anesthesia Postop Eval I: Fluid Summary Crystalloid volume administer 1,000 02/12/25 15:32 TANK CAR [email or web address].SHOF (ml) Colloids volume administered ( ml) Blood Product volume administered (ml) Total IV fluid infused 1,000 02/12/25 15:32 TANK CAR [email or web address].SHOF Anesthesia Postop Eval I: Summary Notes Anesthesia Complication No 02/12/25 15:32 TANK CAR [email or web address].SHOF Anesthesia Complication Comment: Post-operative progress note Anesthesia: Postop Eval II Evaluation Mental status: Awake and Calm Pain Level: 0 nausea: No Vomiting: No Complications Anesthesia Complication: No
--- NOTE | 2025-02-12 15:55 | PCM.POSTANE2 ---
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 Spontaneous unlabored Yes 02/12/25 15:32 INSTALLER APPRENTICE.SHOF respirations Mental status Awake,Calm 02/12/25 15:32 INSTALLER APPRENTICE.SHOF nausea No 02/12/25 15:32 INSTALLER APPRENTICE.SHOF Vomiting No 02/12/25 15:32 INSTALLER APPRENTICE.SHOF Anesthesia Postop Eval I: Fluid Summary Crystalloid volume administer 1,000 02/12/25 15:32 INSTALLER APPRENTICE.SHOF (ml) Colloids volume administered ( ml) Blood Product volume administered (ml) Total IV fluid infused 1,000 02/12/25 15:32 INSTALLER APPRENTICE.SHOF Anesthesia Postop Eval I: Summary Notes Anesthesia Complication No 02/12/25 15:32 INSTALLER APPRENTICE.SHOF Anesthesia Complication Comment: Post-operative progress note Anesthesia: Postop Eval II Evaluation Mental status: Awake and Calm Pain Level: 0 nausea: No Vomiting: No Complications Anesthesia Complication: No
== END 2025-02-12 18:27 | disposition home or self-care (01) ==
LOC: SDC 09:23 → AC 09:24
PROVIDERS: PCP Internal Medicine; Referring Provider Surgery; Visit Provider Surgery
DX: D17.1 Benign lipomatous neoplasm of skin and subcutaneous tissue of trunk (principal); I10 Essential (primary) hypertension; E78.5 Hyperlipidemia, unspecified; K21.9 Gastro-esophageal reflux disease without esophagitis; Z79.899 Other long term (current) drug therapy; J45.909 Unspecified asthma, uncomplicated
CPT/HCPCS: 21933; 21930 ×3; 21931 ×8; 00300; 88304; J2405

== ENCOUNTER 2025-04-02 17:30 | Outpatient (RCR) | payer MEDICARE, OTHER, SELFPAY ==
--- NOTE | 2025-01-31 14:41 | HP.PTEVAL_ITS ---
Patient's Visit Information Visit Information Visit Information: ROSEANNE JOLLEY is a 69 year old F referred to Physical Therapy by Dr. Elver Laws MD with a diagnosis of TMJ dysfunction. Date of Evaluation: 01/31/25 Physical Therapist: Shawn Galan, DPT, OCS, CSCS Visit Plan Frequency: 3x /Week Duration: 4-6 Weeks Plan: 3x/week for 3-6 weeks as needed(start 3)... IE HEP cervical retraction 15x, UT stretch 30 4x daily, jaw opeening 2 sec 10x, jaw R deviation with OP 2 sec 10x and isometric jaw opening 3 sec 10x all 2x/day. Treat with : US nonthermal L TMJ, MH and STM to same including masseter, jaw mobs for opening (traction force on L TMj), rocobado progression as needed. TENS may be used to L TMj if painful at rest but not likely needed. Subjective Subjective: L sided jaw pain. intermittent. worse a month ago may have been chewing and feeling pop in L jaw. H/O TMJ problems but not recently. Has had PT for jaw previously which helped. Has mouthguard she wears at night for clenching. Pain is with chewing as hard thing will make nadia worse but most chewing makes nadia notice it. 4/10 with salad, 8/10 with hard chewing. Noticing pain also with tenderness anterior to jaw in cheek. basic ADLs all normal, talking normal. Will have surgery next week for lipoma and worried about tube. Sleeping well as far as this is concerned. Employed: retired. Spends day: 9 grandkids. Normal activity hobbies: family. Has FM, neck pain is common stiffness. No HILL. Pain L TMJ: Pain Intensity (Out of 10): 0 Pain Intensity Range: 0 and 8 Objective Objective: jaw opening 40 mm, painful L at end range. deviation is L 15 mm and R 5 mm, no pain. some grinding on L TMJ with opening but no popping today. cervical aROm WFL ext 70, R rotation 70 , L rotation 65, no pain, tightness contralaterally with SB but no pain. UE AROM WFL. strength 4-/5 without myotomal problems. reflexes jaw and bi adn tri 1/3 B. sensation facial and UE WNL to gross light touch. Tenderness on Masseter L and at TMJ on L, pterygoids are not bad R or L. Goals Goal 1:: opening 42 mm and deviation R 12 mm without pain in jaw. Goal Time Frame: 4-6 Weeks Goal 2:: Patient feel jaw pain and mobility 90% better, 1/10 at worst Goal Time Frame: 4-6 Weeks Goal 3:: tolerate tube for surgery without problem Goal Time Frame: 2 Weeks Goal 4:: I appropriate HEP to limit future problems. Goal Time Frame: 4-6 Weeks Rehabilitation Potential Physical Therapy Diagnosis: limited ROM and pain L TMj causing some eating and d iscomfort problems Rehabilitation Potential: Fair Anticipated Interventions Patient/Client Instruction: Educate patient on: Condition and Plan of Care For the Purpose of:: To decrease pain, To increase ROM, To improve nutrient delivery to tissue, To improve muscle performance and motor function and To increase tolerance to activity/condition/position Therapeutic Exercise to Include: Strength training, Flexibilty training, Passive ROM and Active ROM For the Purpose of:: To decrease pain, To increase ROM, To improve nutrient delivery to tissue and To improve muscle performance and motor function Manual Therapy Techniques to Include: Mobilization, Passive ROM and Soft tissue mobilization For the Purpose of:: To decrease pain, To increase ROM and To improve nutrient delivery to tissue TENS: Yes Thermo therapy (hot pack): Yes Ultrasound (thermal/non thermal): Yes (nonthermal) For the Purpose of:: To decrease pain, To decrease swelling/inflammation, To increase ROM and To improve nutrient delivery to tissue Text: Thank you for the opportunity to evaluate your patient. For Medicare and Medicare HMO plans, please review the plan of care and approve it. It will need to be FAXED BACK to us at [phone] for Medicare purposes. For Medicare only, by signing this I certify the plan of care. Please let me know if there are questions or concerns regarding this plan of care. Physician Signature: Date:
--- NOTE | 2025-04-02 17:50 | HP.PTDCSUM ---
Discharge Summary D/C summary: It has been my pleasure to treat ROSEANNE JOLLEY referred by Dr. Elver Laws MD, with the diagnosis of TMJ dysfunction for a total of 8 visit(s). Discharge Date: 04/02/25 Please see the following information for a summary of their discharge status. Subjective Subjective: Has not been consistent. Still has popping on L jaw and catches and grinds marisa on l side. Pain level is 0 at rest. Has to be careful and not at crunchy or chewy food. Yawning or chewing tough food hurts 3/10. Sleep is OK. No HILL. Wears teeth grinding guard. Wants to see jaw specialist at [facility] Pain L TMJ: Pain Intensity (Out of 10): 0 Overall Improvement % Improvement: 50 Objective Objective/Function: 7 mm L jaw dviation, 11 mm R dviation, 41 mm opening. L TMJ grinding at 20 mm opnoing and pop slight discomfort at end range intermittently. Over all not alot of improvment objectively or subjectively and appropriate for nxt medical step, she wishes to ssee jaw specialist. Goals Goal 1:: opening 42 mm and deviation R 12 mm without pain in jaw. Goal Progress: Progressing Goal 2:: Patient feel jaw pain and mobility 90% better, 1/10 at worst Goal Progress: 50 Goal 3:: tolerate tube for surgery without problem Goal Progress: over Goal 4:: I appropriate HEP to limit future problems. Goal Progress: ?? Plan Plan: d/c to HEP D/C Information Discharge Comments: Pt referrd back to doctor(wants to see specialist) for lack of improvement. d/c sentence: If there are questions or concerns regarding this patient's physical therapy, please feel free to call me at [phone]. Thank you for the referral of this patient. Sincerely, Shawn Galan, DPT, OCS, CSCS Balance/Gait/Functional tests Improvement % Improvement: 50
== END 2025-04-02 19:00 | disposition home or self-care (01) ==
LOC: PT 17:30
PROVIDERS: PCP Internal Medicine; Referring Provider Internal Medicine; Visit Provider Internal Medicine
DX: M26.609 Unspecified temporomandibular joint disorder, unspecified side (principal)
CPT/HCPCS: 97035; 97110; 97140; 97161; 97164